=== PATIENT | female | born 1935 | race Caucasian/White ===

== ENCOUNTER 2020-02-29 10:37 | Outpatient (REF) | payer MEDICARE, OTHER, SELFPAY ==
[2020-02-29 12:16] LABS: Estimated Average Glucose 134 mg/dL; Hemoglobin A1c % 6.3 %
[2020-02-29 12:32] LABS: Cholesterol 172 mg/dL; HDL Cholesterol 67 mg/dL; LDL Cholesterol Calculated 94 mg/dl; Triglycerides 56 mg/dL
== END 2020-02-29 10:38 | disposition home or self-care (01) ==
LOC: HO.LAB 10:37
PROVIDERS: Visit Provider Internal Medicine
DX: E11.9 Type 2 diabetes mellitus without complications (principal)
CPT/HCPCS: 80061; 83036

== ENCOUNTER → 2020-05-02 10:58 | Outpatient (BNVA) | payer MEDICARE, OTHER, SELFPAY | PROVIDERS: PCP Internal Medicine; Visit Provider Internal Medicine | DX: I50.32 Chronic diastolic (congestive) heart failure (principal); I27.20 Pulmonary hypertension, unspecified; I05.9 Rheumatic mitral valve disease, unspecified | CPT/HCPCS: 93005; 99212 ==

== ENCOUNTER 2020-09-09 11:21 | Outpatient (REF) | payer MEDICARE, OTHER, SELFPAY ==
[2020-09-09 12:31] LABS: MANUAL DIFF FLAG NO
[2020-09-09 12:44] LABS: Basophils Absolute Auto 0.1 X10*3/uL (0.0-0.2); Basophils Percent Auto 1.2 % (0-2); Eosinophils Absolute Auto 0.2 X10*3/uL (0.0-0.4); Eosinophils Percent Auto 3.1 % (0-4); Hematocrit 36.5 % (37-47); Hemoglobin 11.4 g/dl (12.0-16.0); Imm Gran Abs Auto 0.02 X10*3/uL (0.00-0.03); Imm Gran Pct Auto 0.3 % (0.0-0.4); Lymphocytes Absolute Auto 1.1 X10*3/uL (1.2-4.9); Lymphocytes Percent Auto 16.3 % (20-40); Mean Corpuscular HGB Conc 31.2 g/dl (31.0-35.0); Mean Corpuscular Hemoglobin 28.4 pg (27.0-33.0); Mean Corpuscular Volume 90.8 fL (80-98); Mean Platelet Volume 11.4 fL (9.4-12.3); Monocytes Absolute Auto 0.7 X10*3/uL (0.1-1.2); Monocytes Percent Auto 9.7 % (2-11); Neutrophils Absolute Auto 4.6 X10*3/uL (2.0-8.3); Neutrophils Percent Auto 69.4 % (45-73); Platelet Count 301 X10*3/uL (160-400); Red Blood Count 4.02 X10*6/uL (4.20-5.50); Red Cell Distribution Width 15.1 % (11.0-16.0); White Blood Count 6.7 X10*3/uL (4.8-10.8)
[2020-09-09 13:03] LABS: Alanine Aminotransferase 12 U/L (0-31); Albumin Level 4.4 g/dL (3.5-5.0); Alkaline Phosphatase 159 U/L (39-117); Anion Gap 15 (12-20); Aspartate Amino Transferase 19 U/L (5-31); Bilirubin Total 0.3 mg/dL (0.0-1.0); Blood Urea Nitrogen 39 mg/dL (9-16); Calcium 9.8 mg/dL (8.4-10.2); Carbon Dioxide 24 mmol/L (22-29); Chloride 106 mmol/L (96-108); Cholesterol 177 mg/dL; Estimated Average Glucose 151 mg/dL; Estimated Glomerular Filt Rate 42; Glucose Fasting 108 mg/dL (60-99); HDL Cholesterol 65 mg/dL; Hemoglobin A1c % 6.9 %; LDL Cholesterol Calculated 101 mg/dl; Potassium 4.2 mmol/L (3.3-5.1); Sodium 141 mmol/L (135-145); Total Protein 7.8 g/dL (6.5-8.0); Triglycerides 56 mg/dL
== END 2020-09-09 11:22 | disposition home or self-care (01) ==
LOC: HO.LAB 11:21
PROVIDERS: PCP Internal Medicine; Visit Provider Internal Medicine
DX: Z00.00 Encounter for general adult medical examination without abnormal findings (principal); E11.9 Type 2 diabetes mellitus without complications
CPT/HCPCS: 36415; 80053; 80061; 83036; 85025

== ENCOUNTER → 2020-10-31 10:47 | Outpatient (BNVA) | payer MEDICARE, OTHER, SELFPAY | PROVIDERS: PCP Internal Medicine; Referring Provider Internal Medicine; Visit Provider Internal Medicine | DX: I50.32 Chronic diastolic (congestive) heart failure (principal); I27.20 Pulmonary hypertension, unspecified; I05.9 Rheumatic mitral valve disease, unspecified | CPT/HCPCS: 99212 ==

== ENCOUNTER → 2020-12-02 11:03 | Outpatient (BNVA) | payer MEDICARE, OTHER, SELFPAY | PROVIDERS: PCP Internal Medicine | CPT/HCPCS: 51798; 99212 ==

== ENCOUNTER 2020-12-02 12:27 | Emergency (ER) | payer MEDICARE, OTHER, SELFPAY ==
--- NOTE | ~2020-12-02 | XR_ITS ---
EXAMINATION: XR HIP, LEFT CLINICAL INFORMATION: Status post fall now complaining of left-sided pain. COMPARISON: Left hip 03/06/2019 TECHNIQUE: Two views of the left hip. AP pelvis one view FINDINGS: There is intramedullary femoral iliana and a compression screw stabilizing a intertrochanteric fracture alignment. It is unchanged since 2019. There is no recurrent left hip fracture suspected. Hypertrophic bony changes are seen surrounding the left hip. There is no dislocation. The right hip joint is normal.. The SI joints are symmetrical and normal. There is mild osteopenia. There is loss of L5 vertebral height. XR/XR hip LT w PEL1V IMPRESSION: Stabilized left hip fracture with intramedullary femoral iliana and compression screw. No recurrent fracture seen involving the left hip. There is no acute fracture seen. The right hip joint appears unremarkable. There is mild osteopenia.
--- NOTE | ~2020-12-02 | XR_ITS ---
EXAMINATION: XR KNEE, LEFT CLINICAL INFORMATION: Status post fall. Left knee pain. COMPARISON: None TECHNIQUE: Four views of the left knee. FINDINGS: There is loss of medial and patellofemoral compartment joint space with periarticular spurring. No bony erosive changes, fracture or dislocation seen. The loose bodies are normal. There is diffuse osteopenia. XR/XR knee LT 3V IMPRESSION: Mild degenerative changes medial and patellofemoral compartment left knee.
[2020-12-02 12:38] VITALS: BP 160/68; PULSE 70; RESP 16; TEMP 37.1; O2SAT 95; BMI 27.1
--- NOTE | 2020-12-02 13:54 | ED_ITS ---
HPI - Fall General Chief Complaint: Fall Stated Complaint: fall, hip pain Time Seen by Provider: 12/02/20 13:02 Source: patient and family (Daughter at bedside) Mode of arrival: ambulatory (With cane) Limitations: no limitations History of Present Illness HPI Narrative: 85-year-old female presenting to the ED with her daughter at bedside after she had a mechanical fall prior to arrival outside of her doctor's office landing on her left knee. She reports that she misstepped and fell onto her left knee. Her daughter prevented her from falling further down. She did not hit her head or lose consciousness. She denies any symptoms prior to the fall. She reports left knee pain after the fall no other symptoms. She denies any other injuries complaints or concerns at this time. MD complaint: fall Onset (ago): minute(s) (Prior to arrival) Fall from: standing Fall witnessed: yes, by family Place fall occurred: street Loss of consciousness: none Symptoms prior to fall: none Context: tripped/slipped Location of injury - extremities: left: knee Severity: mild Quality: aching Associated symptoms (after fall): denies Related Data Home Medications Medication Instructions Recorded Confirmed pen needle, diabetic 31 gauge x #50 ea 03/04/20 10/31/20 3/16 simvastatin 40 mg tablet 40 mg PO DAILY 03/04/20 10/31/20 aspirin 81 mg tablet,delayed 81 mg PO DAILY 05/02/20 10/31/20 release multivitamin 1 tab PO DAILY 05/02/20 10/31/20 Previous Rx's Medication Instructions Recorded gemfibrozil 600 mg tablet 600 mg PO BID #120 tab 02/22/20 clotrimazole-betamethasone 1 1 applic TOPICAL BID #45 g 03/04/20 %-0.05 % topical cream metformin 1,000 mg tablet 1,000 mg PO BID #180 tab 04/05/20 insulin glargine 100 unit/mL (3 6 unit SUBCUT DAILY #15 ml 05/19/20 mL) subcutaneous pen (Basaglar KwikPen U-100 Insulin) omeprazole 20 mg capsule,delayed 20 mg PO BID #180 cap 05/26/20 release atenolol 50 mg tablet 50 mg PO DAILY #90 tab 05/30/20 furosemide 40 mg tablet 40 mg PO DAILY #90 tab 05/30/20 nifedipine 30 mg tablet,extended 30 mg PO DAILY #90 tab 05/30/20 release blood sugar diagnostic (FreeStyle #100 ea 09/12/20 Lite Strips) blood-glucose meter (FreeStyle #1 ea 09/12/20 Lite Meter) lancets 28 gauge #100 ea 09/12/20 oxybutynin chloride 15 mg 15 mg PO BID 30 Days #60 tab 11/17/20 tablet,extended release 24 hr acetaminophen 500 mg tablet 1,000 mg PO QID PRN #14 tab 12/02/20 (Tylenol Extra Strength) mirabegron 25 mg tablet,extended 25 mg PO DAILY 30 Days #30 tab 12/02/20 release 24 hr (Myrbetriq) tramadol 50 mg tablet 50 mg PO BID PRN #14 tab 12/02/20 Allergies Allergy/AdvReac Type Severity Reaction Status Date / Time Sulfa (Sulfonamide AdvReac Intermediate VOMITING Verified 12/02/20 11:19 Antibiotics) Review of Systems Review of Systems: Constitutional : No changes in activity, No lethargy, No recent prior head injury, No agitation, No increased fussiness ENT/Mouth : No Ear Pain, No Nasal discharge/drainage Eyes: No Eye Pain, No Swelling, No Redness, No Foreign Body, No Vision Changes Cardiovascular : No Chest Pain, No SOB Respiratory : No Cough Gastrointestinal : No Nausea, No Vomiting, No abdominal Pain Genitourinary : No Dysuria, No Urinary Frequency, No Urinary Incontinence, No Urgency, No Flank Pain Musculoskeletal : + joint pain, No neck stiffness, No back pain/injury Skin : No lacerations Neuro : No unsteady gait, No Paresthesias, No Loss of Consciousness, No altered mental status, No Headache Yes all other systems are reviewed and are negative [facility] Past Medical History Attestation statement: The following information was validated with the patient. Medical History Chronic heart failure with preserved ejection fraction (HFpEF) Diabetes mellitus History of renal failure Mitral annular calcification Overactive bladder Pulmonary hypertension Urinary frequency Urinary incontinence in female Surgical History History of appendectomy History of bilateral cataract extraction History of colonoscopy History of eye surgery History of hip replacement Family History Family History Father Cancer Mother Heart disease Social History Social History Alcohol intake: never Patient Tobacco Use Status: Former Tobacco user Quit Date: 14 years ago Advance Directives: No Advance Directives Information Provided: No Physical Exam Vital Signs: Vital Signs: Last Vital Signs Temp 98.7 F 12/02/20 12:38 Pulse 70 12/02/20 12:38 Resp 16 12/02/20 12:38 BP 160/68 H 12/02/20 12:38 Pulse Ox 95 12/02/20 12:38 Body Mass Index 27.1 vital signs have been reviewed as normal and appeared to be correct. Blood pressure normal. Heart rate normal. Respiration rate normal. Temperature normal. Oxygen saturation normal. Appearance: Alert. Oriented X3. No acute distress. Head: Normal external exam. Normocephalic. Atraumatic. No Hernandez signs noted. No raccoon eyes noted Eyes: PERRLA. EOMI. Conjunctiva and sclera normal. Eyelids normal. ENT: Pharynx normal. Uvula midline. Moist mucous membranes. Neck: Normal inspection. Neck supple. FROM. No adenopathy. CVS: Normal heart rate and rhythm. Heart sound normal. Pulses normal throughout. No murmurs/rales/gallops. Respiratory: No respiratory distress. Painless inspiration. Breath sounds normal. No wheezes/rales/rhonchi noted. Chest nontender. No accessory muscle usage noted or decreased air movement noted. Back: Full range of motion noted. No rashes/lesion/induration/fluctuance or signs of infection noted. Skin: Skin warm and dry. Normal skin color. Normal skin turgor. No rashes/lesions/lacerations noted. Extremities: Patient with tenderness palpation to left knee joint with a superficial abrasion at the patellar aspect. No ligamentous laxity is noted. No signs of infection or foreign bodies or active bleeding. No obvious deformities. Patient has full range of motion of the left knee joint. No lower extremity edema. Otherwise all other Extremities exhibit normal range of motion and nontender. Neuro: Oriented X 3. No motor deficit. No sensory deficit. Reflexes normal. Normal steady gait with cane No focal neuro deficits noted. Vascular: + radial pulses/+ 2 distal pedal pulses/+2 dorsalis pedis b/l. Normal cap refill. No cyanosis noted to upper extremity nails and lower extremity toes nails. Course Course Course Narrative: 85-year-old female presenting to the ED with complaints of left knee pain after she had a mechanical fall prior to arrival while she was leaving her doctor's office. No head injury loss of consciousness. No other injury complaints or concerns. No focal know that are noted. Patient has a normal steady gait. Mild tenderness palpation to left patella with a superficial abrasion no foreign bodies or active bleeding noted. X-ray obtained and revealed chronic changes no acute processes noted. Will DC home with symptomatic treatment instructions to return if any new or worsening symptoms to follow up with primary care provider. Patient and daughter at bedside understand and agree with this plan. MDM - Fall Medical Records Attestation: I reviewed the patient's medical records. Imaging Data Left knee x-ray: Attestation: I personally reviewed and interpreted this imaging study as follows: Radiologist's impression: FINDINGS: There is loss of medial and patellofemoral compartment joint space with periarticular spurring. No bony erosive changes, fracture or dislocation seen. The loose bodies are normal. There is diffuse osteopenia.? XR/XR knee LT 3V IMPRESSION: Mild degenerative changes medial and patellofemoral compartment left knee. Discharge Plan Discharge Clinical Impression: Fall, Abrasion of knee, left, Left knee sprain Patient Disposition: Home, Self-Care Instructions: Knee Sprain (ED), Fall Prevention for Older Adults (ED), Abrasion (ED) Prescriptions: New acetaminophen [Tylenol Extra Strength] 500 mg tablet 1,000 mg PO QID PRN (Reason: fever or pain) Qty: 14 RF: 0 tramadol 50 mg tablet 50 mg PO BID PRN (Reason: pain) Qty: 14 RF: 0 No Action gemfibrozil 600 mg tablet 600 mg PO BID Qty: 120 RF: 8 metformin 1,000 mg tablet 1,000 mg PO BID Qty: 180 RF: 8 Basaglar KwikPen U-100 Insulin 100 unit/mL (3 mL) insulin pen 6 unit subcut DAILY Qty: 15 RF: 8 omeprazole 20 mg capsule,delayed release(DR/EC) 20 mg PO BID Qty: 180 RF: 8 atenolol 50 mg tablet 50 mg PO DAILY Qty: 90 RF: 8 nifedipine 30 mg tablet extended release 30 mg PO DAILY Qty: 90 RF: 8 furosemide 40 mg tablet 40 mg PO DAILY Qty: 90 RF: 3 (DME) FreeStyle Lite Strips Strip See Rx Instructions .ROUTE .MEDSUPPLY Qty: 100 RF: 2 (DME) blood-glucose meter [FreeStyle Lite Meter] Kit See Rx Instructions .ROUTE .MEDSUPPLY Qty: 1 RF: 0 (DME) lancets 28 gauge misc See Rx Instructions .ROUTE .MEDSUPPLY Qty: 100 RF: 0 oxybutynin chloride 15 mg tablet extended release 24 hr 15 mg PO BID 30 Days Qty: 60 RF: 6 simvastatin 40 mg tablet 40 mg PO DAILY RF: 0 (DME) pen needle, diabetic 31 gauge x 3/16 needle See Rx Instructions ea subcut DAILY Qty: 50 RF: 0 clotrimazole-betamethasone 1-0.05 % cream 1 applic topical BID Qty: 45 RF: 8 aspirin 81 mg tablet,delayed release (DR/EC) 81 mg PO DAILY RF: 0 multivitamin Tablet 1 tab PO DAILY RF: 0 Myrbetriq 25 mg tablet extended release 24 hr 25 mg PO DAILY 30 Days Qty: 30 RF: 1 Referrals: Kali Cedillo MD [Primary Care Provider] - 2 days Print Language: Austrian
[2020-12-02] MEDS: Acetaminophen 325 MG TABLET 650 MG PO (14:09)
== END 2020-12-02 15:28 | disposition home or self-care (01) ==
PROVIDERS: Emergency Provider Emergency Medicine; PCP Internal Medicine
DX: S80.212A Abrasion, left knee, initial encounter (principal); S83.92XA Sprain of unspecified site of left knee, initial encounter; M25.562 Pain in left knee; W01.0XXA Fall on same level from slipping, tripping and stumbling without subsequent striking against object, initial encounter; Y93.9 Activity, unspecified; Y92.9 Unspecified place or not applicable; Y99.9 Unspecified external cause status; Z79.899 Other long term (current) drug therapy; Z87.891 Personal history of nicotine dependence
CPT/HCPCS: 51798; 73502; 73562; 99212; 99283

== ENCOUNTER → 2021-03-03 10:25 | Outpatient (BNVA) | payer MEDICARE, OTHER, SELFPAY | PROVIDERS: PCP Internal Medicine ==

== ENCOUNTER 2021-03-27 11:36 | Outpatient (REF) | payer MEDICARE, OTHER, SELFPAY ==
[2021-03-27 11:55] LABS: MANUAL DIFF FLAG NO
[2021-03-27 12:49] LABS: Basophils Absolute Auto 0.1 X10*3/uL (0.0-0.2); Eosinophils Absolute Auto 0.2 X10*3/uL (0.0-0.4); Eosinophils Percent Auto 2.3 % (0-4); Hematocrit 35.8 % (37.0-47.0); Hemoglobin 11.1 g/dl (12.0-16.0); Imm Gran Abs Auto 0.02 X10*3/uL (0.00-0.03); Imm Gran Pct Auto 0.2 % (0.0-0.4); Lymphocytes Absolute Auto 1.1 X10*3/uL (1.2-4.9); Lymphocytes Percent Auto 13.8 % (20-40); Mean Corpuscular Hemoglobin 27.9 pg (27.0-33.0); Mean Corpuscular Volume 89.9 fL (80.0-98.0); Mean Platelet Volume 11.3 fL (9.4-12.3); Monocytes Absolute Auto 0.6 X10*3/uL (0.1-1.2); Neutrophils Absolute Auto 6.2 x10*3/uL (2.0-8.3); Neutrophils Percent Auto 75.7 % (45-73); Platelet Count 382 X10*3/uL (160-400); Red Blood Count 3.98 X10*6/uL (4.20-5.50); Red Cell Distribution Width 15.6 % (11.0-16.0); White Blood Count 8.2 X10*3/uL (4.8-10.8)
[2021-03-27 12:57] LABS: Estimated Average Glucose 148 mg/dL; Hemoglobin A1C 149.6124 umol/L; Hemoglobin A1c % 6.8 %
[2021-03-27 13:19] LABS: Alanine Aminotransferase 10 U/L (0-31); Albumin Level 4.3 g/dL (3.5-5.0); Alkaline Phosphatase 153 U/L (39-117); Anion Gap 19 (12-20); Aspartate Amino Transferase 19 U/L (5-31); Bilirubin Total 0.4 mg/dL (0.0-1.0); Blood Urea Nitrogen 49 mg/dL (9-16); Calcium 10.1 mg/dL (8.4-10.2); Carbon Dioxide 20 mmol/L (22-29); Chloride 107 mmol/L (96-108); Cholesterol 170 mg/dL; Estimated Glomerular Filt Rate 38; Glucose Fasting 111 mg/dL (60-99); HDL Cholesterol 63 mg/dL; LDL Cholesterol Calculated 95 mg/dl; Potassium 4.7 mmol/L (3.3-5.1); Sodium 141 mmol/L (135-145); Total Protein 7.9 g/dL (6.5-8.0); Triglycerides 60 mg/dL
[2021-03-27 13:43] LABS: Thyroid Stimulating Hormone 1.18 uIU/mL (0.32-4.0)
== END 2021-03-27 11:37 | disposition home or self-care (01) ==
LOC: HO.LAB 11:36
PROVIDERS: PCP Internal Medicine; Visit Provider Internal Medicine
DX: Z00.00 Encounter for general adult medical examination without abnormal findings (principal); E11.9 Type 2 diabetes mellitus without complications
CPT/HCPCS: 36415; 80053; 80061; 83036; 84443; 85025

== ENCOUNTER 2021-09-11 10:31 | Outpatient (REF) | payer MEDICARE, OTHER, SELFPAY ==
[2021-09-11 10:56] LABS: MANUAL DIFF FLAG NO
[2021-09-11 12:06] LABS: Basophils Absolute Auto 0.1 X10*3/uL (0.0-0.2); Basophils Percent Auto 1.1 % (0-2); Eosinophils Absolute Auto 0.3 X10*3/uL (0.0-0.4); Eosinophils Percent Auto 5.3 % (0-4); Hemoglobin 10.8 g/dl (12.0-16.0); Imm Gran Abs Auto 0.02 X10*3/uL (0.00-0.03); Imm Gran Pct Auto 0.3 % (0.0-0.4); Lymphocytes Absolute Auto 1.1 X10*3/uL (1.2-4.9); Lymphocytes Percent Auto 17.9 % (20-40); Mean Corpuscular HGB Conc 30.9 g/dl (31.0-35.0); Mean Corpuscular Hemoglobin 28.4 pg (27.0-33.0); Mean Corpuscular Volume 92.1 fL (80.0-98.0); Mean Platelet Volume 11.6 fL (9.4-12.3); Monocytes Absolute Auto 0.7 X10*3/uL (0.1-1.2); Monocytes Percent Auto 11.2 % (2-11); Neutrophils Percent Auto 64.2 % (45-73); Platelet Count 332 X10*3/uL (160-400); Red Cell Distribution Width 15.3 % (11.0-16.0); White Blood Count 6.2 X10*3/uL (4.8-10.8)
[2021-09-11 12:14] LABS: Estimated Average Glucose 157 mg/dL; Hemoglobin A1c % 7.1 %
[2021-09-11 12:23] LABS: Alanine Aminotransferase 14 U/L (0-31); Albumin Level 4.1 g/dL (3.5-5.0); Alkaline Phosphatase 130 U/L (39-117); Anion Gap 14 (12-20); Aspartate Amino Transferase 19 U/L (5-31); Bilirubin Total 0.3 mg/dL (0.0-1.0); Blood Urea Nitrogen 43 mg/dL (9-16); Calcium 9.7 mg/dL (8.4-10.2); Carbon Dioxide 23 mmol/L (22-29); Chloride 107 mmol/L (96-108); Cholesterol 180 mg/dL; Estimated Glomerular Filt Rate 36; Glucose Fasting 142 mg/dL (60-99); HDL Cholesterol 53 mg/dL; LDL Cholesterol Calculated 103 mg/dl; Potassium 5.3 mmol/L (3.3-5.1); Sodium 139 mmol/L (135-145); Total Protein 7.7 g/dL (6.5-8.0); Triglycerides 121 mg/dL
[2021-09-11 12:46] LABS: Thyroid Stimulating Hormone 2.81 uIU/mL (0.32-4.0)
== END 2021-09-11 10:32 | disposition home or self-care (01) ==
LOC: HO.LAB 10:31
PROVIDERS: PCP Internal Medicine; Visit Provider Internal Medicine
DX: Z00.00 Encounter for general adult medical examination without abnormal findings (principal); Z13.0 Encounter for screening for diseases of the blood and blood-forming organs and certain disorders involving the immune mechanism; Z13.9 Encounter for screening, unspecified; E11.9 Type 2 diabetes mellitus without complications
CPT/HCPCS: 36415; 80053; 80061; 83036; 84443; 85025

== ENCOUNTER → 2021-12-11 14:40 | Outpatient (BNVA) | payer MEDICARE, OTHER, SELFPAY | PROVIDERS: PCP Internal Medicine; Referring Provider Internal Medicine; Visit Provider Internal Medicine | DX: I11.0 Hypertensive heart disease with heart failure (principal); I50.32 Chronic diastolic (congestive) heart failure; I05.9 Rheumatic mitral valve disease, unspecified; I27.20 Pulmonary hypertension, unspecified; Z79.899 Other long term (current) drug therapy | CPT/HCPCS: 93005; 99212 ==

== ENCOUNTER 2022-03-05 10:50 | Outpatient (REF) | payer MEDICARE, OTHER, SELFPAY ==
[2022-03-05 11:06] LABS: MANUAL DIFF FLAG NO
[2022-03-05 11:39] LABS: Basophils Absolute Auto 0.1 X10*3/uL (0.0-0.2); Basophils Percent Auto 1.1 % (0-2); Eosinophils Absolute Auto 0.2 X10*3/uL (0.0-0.4); Eosinophils Percent Auto 2.5 % (0-4); Hematocrit 34.3 % (37.0-47.0); Hemoglobin 10.9 g/dl (12.0-16.0); Imm Gran Abs Auto 0.03 X10*3/uL (0.00-0.03); Imm Gran Pct Auto 0.4 % (0.0-0.4); Lymphocytes Absolute Auto 1.2 X10*3/uL (1.2-4.9); Lymphocytes Percent Auto 14.5 % (20-40); Mean Corpuscular HGB Conc 31.8 g/dl (31.0-35.0); Mean Corpuscular Hemoglobin 28.1 pg (27.0-33.0); Mean Corpuscular Volume 88.4 fL (80.0-98.0); Mean Platelet Volume 11.4 fL (9.4-12.3); Monocytes Absolute Auto 0.7 X10*3/uL (0.1-1.2); Monocytes Percent Auto 9.1 % (2-11); Neutrophils Absolute Auto 5.9 x10*3/uL (2.0-8.3); Neutrophils Percent Auto 72.4 % (45-73); Platelet Count 337 X10*3/uL (160-400); Red Blood Count 3.88 X10*6/uL (4.20-5.50); Red Cell Distribution Width 15.8 % (11.0-16.0); White Blood Count 8.1 X10*3/uL (4.8-10.8)
[2022-03-05 12:44] LABS: Thyroid Stimulating Hormone 2.37 uIU/mL (0.32-4.0)
[2022-03-05 13:16] LABS: Alanine Aminotransferase 11 U/L (0-31); Albumin Level 4.5 g/dL (3.5-5.0); Alkaline Phosphatase 177 U/L (39-117); Anion Gap 22 (12-20); Aspartate Amino Transferase 20 U/L (5-31); Bilirubin Total 0.3 mg/dL (0.0-1.0); Blood Urea Nitrogen 71 mg/dL (9-16); Calcium 9.8 mg/dL (8.4-10.2); Carbon Dioxide 17 mmol/L (22-29); Chloride 106 mmol/L (96-108); Cholesterol 194 mg/dL; Estimated Glomerular Filt Rate 26; Glucose Fasting 109 mg/dL (60-99); HDL Cholesterol 62 mg/dL; LDL Cholesterol Calculated 117 mg/dl; Sodium 140 mmol/L (135-145); Total Protein 8.2 g/dL (6.5-8.0); Triglycerides 77 mg/dL
== END 2022-03-05 10:51 | disposition home or self-care (01) ==
LOC: HO.LAB 10:50
PROVIDERS: PCP Internal Medicine; Visit Provider Internal Medicine
DX: Z13.0 Encounter for screening for diseases of the blood and blood-forming organs and certain disorders involving the immune mechanism (principal); I10 Essential (primary) hypertension; E78.5 Hyperlipidemia, unspecified; E03.9 Hypothyroidism, unspecified
CPT/HCPCS: 36415; 80053; 80061; 84443; 85025

== ENCOUNTER 2022-04-13 12:17 | Outpatient (REF) | payer MEDICARE, OTHER, SELFPAY ==
[2022-04-13 13:15] LABS: Anion Gap 16 (12-20); Blood Urea Nitrogen 67 mg/dL (9-16); Calcium 9.2 mg/dL (8.4-10.2); Carbon Dioxide 17 mmol/L (22-29); Chloride 109 mmol/L (96-108); Estimated Glomerular Filt Rate 26; Glucose Random 139 mg/dL (60-115); Potassium 5.5 mmol/L (3.3-5.1); Sodium 136 mmol/L (135-145)
== END 2022-04-13 12:18 | disposition home or self-care (01) ==
LOC: HO.LAB 12:17
PROVIDERS: PCP Internal Medicine; Visit Provider Internal Medicine
DX: R51.9 Headache, unspecified (principal)
CPT/HCPCS: 36415; 80048

== ENCOUNTER → 2022-06-18 10:41 | Outpatient (BNVA) | payer MEDICARE, OTHER, SELFPAY | PROVIDERS: PCP Internal Medicine; Referring Provider Internal Medicine; Visit Provider Internal Medicine | DX: I11.0 Hypertensive heart disease with heart failure (principal); I50.32 Chronic diastolic (congestive) heart failure; I05.9 Rheumatic mitral valve disease, unspecified; I27.20 Pulmonary hypertension, unspecified | CPT/HCPCS: 93005; 99212 ==

== ENCOUNTER 2022-06-22 11:09 | Outpatient (REF) | payer MEDICARE, OTHER, SELFPAY ==
[2022-06-22 11:18] LABS: MANUAL DIFF FLAG NO
[2022-06-22 12:27] LABS: Basophils Absolute Auto 0.1 X10*3/uL (0.0-0.2); Basophils Percent Auto 1.1 % (0-2); Eosinophils Absolute Auto 0.2 X10*3/uL (0.0-0.4); Eosinophils Percent Auto 3.2 % (0-4); Hematocrit 34.9 % (37.0-47.0); Hemoglobin 10.8 g/dl (12.0-16.0); Imm Gran Abs Auto 0.02 X10*3/uL (0.00-0.03); Imm Gran Pct Auto 0.3 % (0.0-0.4); Lymphocytes Absolute Auto 0.9 X10*3/uL (1.2-4.9); Lymphocytes Percent Auto 13.1 % (20-40); Mean Corpuscular HGB Conc 30.9 g/dl (31.0-35.0); Mean Corpuscular Hemoglobin 27.8 pg (27.0-33.0); Mean Corpuscular Volume 89.7 fL (80.0-98.0); Mean Platelet Volume 11.4 fL (9.4-12.3); Monocytes Absolute Auto 0.7 X10*3/uL (0.1-1.2); Monocytes Percent Auto 10.1 % (2-11); Neutrophils Absolute Auto 4.8 x10*3/uL (2.0-8.3); Neutrophils Percent Auto 72.2 % (45-73); Platelet Count 375 X10*3/uL (160-400); Red Blood Count 3.89 X10*6/uL (4.20-5.50); Red Cell Distribution Width 15.2 % (11.0-16.0); White Blood Count 6.6 X10*3/uL (4.8-10.8)
[2022-06-22 12:58] LABS: Alanine Aminotransferase 10 U/L (0-31); Albumin Level 4.2 g/dL (3.5-5.0); Alkaline Phosphatase 208 U/L (39-117); Anion Gap 19 (12-20); Aspartate Amino Transferase 14 U/L (5-31); Bilirubin Total 0.4 mg/dL (0.0-1.0); Blood Urea Nitrogen 59 mg/dL (9-16); Calcium 9.6 mg/dL (8.4-10.2); Carbon Dioxide 22 mmol/L (22-29); Chloride 104 mmol/L (96-108); Cholesterol 194 mg/dL; Estimated Glomerular Filt Rate 27; Glucose Fasting 130 mg/dL (60-99); HDL Cholesterol 64 mg/dL; LDL Cholesterol Calculated 116 mg/dl; Potassium 5.2 mmol/L (3.3-5.1); Sodium 140 mmol/L (135-145); Total Protein 7.7 g/dL (6.5-8.0); Triglycerides 70 mg/dL
[2022-06-22 12:59] LABS: Estimated Average Glucose 171 mg/dL; Hemoglobin A1c % 7.6 %
[2022-06-22 13:00] LABS: Thyroid Stimulating Hormone 1.81 uIU/mL (0.32-4.0)
== END 2022-06-22 11:10 | disposition home or self-care (01) ==
LOC: HO.LAB 11:09
PROVIDERS: PCP Internal Medicine; Visit Provider Internal Medicine
DX: E03.9 Hypothyroidism, unspecified (principal); D64.9 Anemia, unspecified; R73.9 Hyperglycemia, unspecified; E78.5 Hyperlipidemia, unspecified; N28.9 Disorder of kidney and ureter, unspecified
CPT/HCPCS: 36415; 80053; 80061; 83036; 84443; 85025

== ENCOUNTER 2022-10-03 10:48 | Outpatient (REF) | payer MEDICARE, OTHER, SELFPAY ==
[2022-10-03 12:55] LABS: Alanine Aminotransferase 5 U/L (0-31); Albumin Level 3.8 g/dL (3.5-5.0); Alkaline Phosphatase 211 U/L (39-117); Anion Gap 15 (12-20); Aspartate Amino Transferase 11 U/L (5-31); Bilirubin Total 0.4 mg/dL (0.0-1.0); Blood Urea Nitrogen 45 mg/dL (9-16); Calcium 9.2 mg/dL (8.4-10.2); Carbon Dioxide 17 mmol/L (22-29); Chloride 114 mmol/L (96-108); Estimated Average Glucose 157 mg/dL; Estimated Glomerular Filt Rate 25; Glucose Fasting 117 mg/dL (60-99); Hemoglobin A1c % 7.1 %; Potassium 5.1 mmol/L (3.3-5.1); Sodium 141 mmol/L (135-145); Total Protein 8.1 g/dL (6.5-8.0)
== END 2022-10-03 10:49 | disposition home or self-care (01) ==
LOC: HO.LAB 10:48
PROVIDERS: PCP Internal Medicine; Visit Provider Internal Medicine
DX: R73.9 Hyperglycemia, unspecified (principal); N28.9 Disorder of kidney and ureter, unspecified
CPT/HCPCS: 36415; 80053; 83036

== ENCOUNTER → 2022-11-27 13:07 | Outpatient (REF) | payer MEDICARE, OTHER, SELFPAY ==
--- NOTE | 2022-11-27 13:10 | CA_ITS ---
Transthoracic Echocardiogram Patient (Last, First, Middle): Kimberly Gutierrez A Gender: Female Date of : 1935 Age: 87 Procedure Date: 11/27/2022 Procedure Type: Transthoracic Echocardiogram Location: OP Height: 160.02 cm Weight: 77.11 kg BSA: 1.80 m2 Heart Rate: bpm BP: 122 / 65 mmHg Slide Forming Machine Operator: Referring MD: Reji Mac MD Symptoms: I50.32 - Chronic diastolic (congestive) heart failure Study Quality: Good ECG Rhythm: Sinus Conclusions: - The left ventricular systolic function is normal. The calculated ejection fraction is 64% by biplane method. - Evidence suggests grade II (moderate) diastolic dysfunction. - The left atrium is severely dilated. - There is mild to moderate aortic valve stenosis. - There is moderate mitral annular calcification. Findings Left Ventricle Normal left ventricular cavity size. There is mildly increased left ventricular wall thickness. The left ventricular systolic function is normal. The calculated ejection fraction is 64% by biplane method. There is no evidence of regional wall motion abnormalities. Evidence suggests grade II (moderate) diastolic dysfunction. Possible basal inferior hypokinesis. Right Ventricle Mildly increased right ventricular cavity size. There is normal right ventricular systolic function. Atria The left atrium is severely dilated. The right atrium is normal in size. Aortic Valve There is moderate calcification of the aortic valve. There is mild to moderate aortic valve stenosis. The mean gradient is 13 mmHg. The aortic valve area is 1.26 cm2. There is no aortic valve regurgitation. Mitral Valve There is moderate mitral annular calcification. There is mild mitral valve regurgitation. There is no mitral valve stenosis. Pulmonic Valve The pulmonic valve is likely normal. Tricuspid Valve Normal tricuspid valve structure. There is mild tricuspid valve regurgitation. Mild pulmonary hypertension is present. Great Vessels The asc aorta is normal in size. Venous The inferior vena cava is normal in size and collapses greater than 50% with inspiration. Pericardium/Pleural There is no evidence of pericardial effusion. Prior Study Comparison No significant change compared to prior study dated: 12/29/2018. Measurements 2D Linear Measurements IVSd: 1.20 0.6-0.9/0.6-1.0 cm LVIDd: 4.90 3.9-5.3/4.2-5.9 cm LVIDd Index: 2.72 2.4-3.2/2.2-3.1 cm/m2 LVIDs: 3.40 2.0-3.6 cm LVPWd: 1.20 0.7-1.1 cm Ao Root: 2.90 2.1-3.5 cm LA Diam: 4.00 2.7-3.8/3.0-4.0 cm LAIDs Index: 2.22 1.5-2.3 cm/m2 LV Mass: 282.22 67-162/88-224 g LV Mass Index: 156.79 43-95/49-115 g/m2 LVOT Diam: 2.10 3.0+(-)1.3 cm 2D Systolic Function EF 4C: 68.70 >55% EF 2C: 56.40 >55% EF BiP: 64.20 >55% Mitral Valve MV VTI: 0.50 MV Pk Jonnie: 1.43 MV Mn Jonnie: 0.80 MV Pk Grad: 8.00 MV Mn Grad: 3.00 MV Pk E: 1.45 MV PK A: 0.96 MV Decel Time: 184.00 E/A: 1.50 E'Lateral: 8.05 E'Medial: 5.22 E/E' Med: 27.80 E/E' Lat: 18.00 PHT: 54.00 MVA PHT: 4.07 MVA Continuity: 1.67 Decel Thomas: 7.89 Aortic Valve AoV Pk Jonnie: 2.30 AoV Mn Jonnie: 1.65 AoV VTI: 0.67 AoV Pk Grad: 21.00 Aov Mn Grad: 13.00 MARLEN Cont.VTI: 1.26 LVOT LVOT Pk Jonnie: 0.86 LVOT Mn Jonnie: 0.58 LVOT VTI: 0.24 LVOT Pk Grad: 3.00 LVOT Mn Grad: 2.00 LVOT Diam: 2.10 LVOT Area: 3.46 Diastolic Function MV Pk E: 1.45 MV Pk A: 0.96 E/A: 1.50 E'Medial: 5.22 E/E' Med: 27.80 E' Laterial: 8.05 E/E' Lat: 18.00 Right Ventricle TAPSE (mm): 36.00 TVS' Jonnie: 11.00 Tricuspid Valve TR Pk Jonnie: 3.17 TR Pk Grad: 40.00 RA Press: 3.00 RVSP: 43.00 Great Vessels Aorta Ao Root-2D: 2.90 2.0-3.7 cm Ao Asc: 3.40 2.1-3.4 cm Pulmonary Valve PV Pk Jonnie: 1.62 Peak PV Grad: 10.00 Updated in Other Vendor System with Status of Final Reji Mac MD electronically signed on 11/27/2022 3:24:18 PM with status of Final
== END ==
LOC: HO.CARD 13:07
PROVIDERS: PCP Internal Medicine; Visit Provider Internal Medicine
DX: I50.32 Chronic diastolic (congestive) heart failure (principal)
CPT/HCPCS: 93306

== ENCOUNTER → 2022-11-27 13:10 | Outpatient (BNV) | payer MEDICARE, OTHER, SELFPAY | PROVIDERS: PCP Internal Medicine; Visit Provider Internal Medicine | DX: I35.0 Nonrheumatic aortic (valve) stenosis (principal) | CPT/HCPCS: 93306 ==

== ENCOUNTER 2022-12-17 10:32 | Outpatient (AMB) | payer MEDICARE, OTHER, SELFPAY ==
--- NOTE | 2022-12-17 10:45 | A.OFFVIS_ITS ---
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 Required: No Accompanied by: Daughter Allergies Sulfa (Sulfonamide Antibiotics) Adverse Reaction (Intermediate, Verified 12/17/22 10:51) VOMITING Medication List - Last Reconciled 12/17/22 by Reji Mac MD acetaminophen (Tylenol Extra Strength) 1,000 mg (2 x 500 mg) PO QID PRN aspirin 81 mg PO DAILY atenolol 50 mg PO DAILY blood sugar diagnostic (FreeStyle Lite Strips) TEST 3 TIMES DAILY blood-glucose meter (FreeStyle Lite Meter kit) TEST 3 TIMES DAILY clotrimazole-betamethasone 1-0.05 % apply twice a day topical 2 times a day; furosemide 40 mg PO DAILY gemfibrozil 600 mg PO BID insulin glargine (Basaglar KwikPen U-100 Insulin) 6 units (0.06 mL) subcut DAILY lancets TEST 3 TIMES DAILY metformin 1,000 mg PO BID mirabegron ER (Myrbetriq) 25 mg PO DAILY 30 days multivitamin 1 tab PO DAILY nifedipine ER 90 mg PO DAILY omeprazole 20 mg PO BID oxybutynin chloride ER 15 mg PO BID 90 days pen needle, diabetic As directed simvastatin 40 mg PO DAILY trazodone 100 mg PO BEDTIME PRN HPI HPI Comments History of Present Illness Details Kimberly returns for follow-up regarding diastolic congestive heart failure. More recently, her leg swelling has been getting worse. However, she states that correlated with increase in the dose for nifedipine which in turn was done because of high blood pressure. Shortness of breath seems to be at baseline. No angina. [facility] Medical History (Updated 12/17/22 @ 11:57 by Reji Mac MD) Chronic heart failure with preserved ejection fraction (HFpEF) Diabetes mellitus History of renal failure Hyperlipidemia Insomnia Mitral annular calcification Overactive bladder Pulmonary hypertension Urinary frequency Urinary incontinence in female Surgical History History of appendectomy History of bilateral cataract extraction History of colonoscopy History of eye surgery History of hip replacement Family History Father Cancer Mother Heart disease Social History Housing: House Alcohol intake: never Patient Tobacco Use Status: Former Tobacco user Quit Date: 14 years ago Tobacco use type: Cigarette e-Cigarette/Vaping Use: Never Used Second Hand Smoke Exposure: No service: No Current occupational status: retired Cognitive needs: Yes (cane) Hearing needs: No Vision needs: Yes (glasses) Review of Systems Const Denies weakness ENT Denies dizziness Card Denies chest pain, Denies chest pain with activity, Denies syncope, Denies rapid heart rate, Denies pedal edema, Denies edema, Denies leg edema, Denies lightheadedness, Denies palpitations, Denies dyspnea, Denies dyspnea on exertion and Denies orthopnea Resp Denies cough, Denies dyspnea and Denies dyspnea on exertion GI Denies hematochezia and Denies change in stool character Musc Denies abnormal gait, Denies muscle cramps, Denies muscle weakness, Denies numbness, Denies radiating pain into limb and Denies tingling Neuro Denies abnormal gait, Denies dizziness, Denies syncope, Denies numbness, Denies tingling and Denies weakness Endo Denies palpitations Physical Exam Vital Signs: Last Vital Signs Pulse 68 12/17/22 10:47 BP 102/52 L 12/17/22 10:47 BMI result Body Mass Index 29.0 Const General: comfortable and no acute distress Orientation/consciousness: patient oriented x3 HEENT Other: Unremarkable Head: Yes normal to inspection Neck Neck: Yes normal visual inspection Chest Chest palpation & inspection: normal inspection of the chest Resp Other: some rhonchi Cardio Palpation: normal PMI Heart sounds: S1 normal heart sound present, S2 normal heart sound present, no gallops, Murmur heart sound present systolic III/ and at the right sternal border and no rubs GI Palpation (GI): Soft to palpation Back/Spine/Pelvis Other: unremarkable Skin General skin exam: no rashes or lesions noted Neuro General: patient oriented x3 Extrem Other: redness, 2+ edema Psych Mental Status: mental status grossly normal Assessment & Plan Assessment & Plan (1) Chronic heart failure with preserved ejection fraction (HFpEF): Code(s): I50.32 - Chronic diastolic (congestive) heart failure (2) Mitral annular calcification: Code(s): I05.9 - Rheumatic mitral valve disease, unspecified (3) Nonrheumatic aortic (valve) stenosis: Code(s): I35.0 - Nonrheumatic aortic (valve) stenosis (4) Pulmonary hypertension: Code(s): I27.20 - Pulmonary hypertension, unspecified (5) Essential hypertension: Code(s): I10 - Essential (primary) hypertension Plan Most recent echocardiogram reviewed. LVEF 64%. No wall motion abnormalities. Moderate diastolic dysfunction. Possible basal inferior hypokinesis. [id number] aortic stenosis. Moderate mitral annular calcification with mild regurgitation. Mild pulmonary hypertension. IVC normal in size with normal respiratory variation. Her leg swelling which has increased recently could be related to nifedipine but not entirely clear. Patient however feels that is the case as is her daughter. As the IVC size and collapsibility are okay, less likely that this is all heart failure. No need to change diuretic dosing especially with renal failure history. Hence we will go back to her old dose of nifedipine ER which was 30 mg daily. Advised to monitor blood pressures at home. If they start going back again, may need to use another agent like hydralazine. She has high creatinine as well as hypertension and hence not suitable for SONI inhibitors or ARB or spironolactone. Due to her age, frailty, comorbidities, not a candidate for aggressive ischemic workup. Plan discussed with daughter who came for appointment. Medications: New nifedipine ER 30 mg PO DAILY 90 tabs 3RF Discontinued nifedipine ER Discontinued Reason: Doctor's Order 90 mg PO DAILY 30 tabs 5RF Coding Level of Care Code Est Pt Level 4 (48938) Diagnoses Chronic heart failure with preserved ejection fraction (HFpEF) I50.32 Mitral annular calcification I05.9 Nonrheumatic aortic (valve) stenosis I35.0 Pulmonary hypertension I27.20 Essential hypertension I10
[2022-12-17 10:47] VITALS: BP 102/52; PULSE 68; BMI 29.0
== END 2022-12-17 11:16 | disposition home or self-care (01) ==
PROVIDERS: PCP Internal Medicine; Referring Provider Internal Medicine; Visit Provider Internal Medicine
DX: I50.32 Chronic diastolic (congestive) heart failure (principal); I05.9 Rheumatic mitral valve disease, unspecified; I35.0 Nonrheumatic aortic (valve) stenosis; I27.20 Pulmonary hypertension, unspecified; I10 Essential (primary) hypertension
CPT/HCPCS: 99214

== ENCOUNTER → 2022-12-17 10:32 | Outpatient (BNVA) | payer MEDICARE, OTHER, SELFPAY | PROVIDERS: PCP Internal Medicine; Referring Provider Internal Medicine; Visit Provider Internal Medicine | DX: I11.0 Hypertensive heart disease with heart failure (principal); I50.32 Chronic diastolic (congestive) heart failure; I05.9 Rheumatic mitral valve disease, unspecified; I35.0 Nonrheumatic aortic (valve) stenosis; I27.20 Pulmonary hypertension, unspecified | CPT/HCPCS: 99212 ==

== ENCOUNTER 2023-01-02 11:06 | Outpatient (AMB) | payer MEDICARE, OTHER, SELFPAY ==
[2023-01-02 11:08] VITALS: BP 128/46; PULSE 55; O2SAT 98; BMI 28.1
--- NOTE | 2023-01-02 11:08 | A.OFFPC_ITS ---
Vital Signs 01/02/23 11:08 Height 5 ft 4 in Weight 163 lb 8 oz BMI 28.1 BP 128/46 L Blood Pressure Location Lt brachial Position Sitting Pulse 55 Pulse Source Pulse Oximeter Pulse Oximetry (%) 98 Oxygen Delivery Method Room Air Intake Visit Reasons: 3 month f/u [employer] Maintenance: Present Allergies Sulfa (Sulfonamide Antibiotics) Adverse Reaction (Intermediate, Verified 01/02/23 11:08) VOMITING Medication List - Last Reconciled 01/02/23 by Kali Cedillo MD acetaminophen (Tylenol Extra Strength) 1,000 mg (2 x 500 mg) PO QID PRN aspirin 81 mg PO DAILY atenolol 50 mg PO DAILY blood sugar diagnostic (FreeStyle Lite Strips) TEST 3 TIMES DAILY blood-glucose meter (FreeStyle Lite Meter kit) TEST 3 TIMES DAILY clotrimazole-betamethasone 1-0.05 % apply twice a day topical 2 times a day; furosemide 40 mg PO DAILY gemfibrozil 600 mg PO BID insulin glargine (Basaglar KwikPen U-100 Insulin) 6 units (0.06 mL) subcut DAILY lancets TEST 3 TIMES DAILY metformin 1,000 mg PO BID mirabegron ER (Myrbetriq) 25 mg PO DAILY 30 days multivitamin 1 tab PO DAILY nifedipine ER 30 mg PO DAILY omeprazole 20 mg PO BID oxybutynin chloride ER 15 mg PO BID 90 days pen needle, diabetic As directed simvastatin 40 mg PO DAILY trazodone 100 mg PO BEDTIME PRN Tobacco use date assessed: 06/29/22 Fall risk assessment: No Falls in past year Last assessed Fall Risk: 01/02/23 Dental Screening Dental Screen Date: 01/02/23 Did you have a dental visit in the last 12 months?: No Did you have a dental problem in the last 6 months where you did not have access to dental care?: No Was dental information given to patient?: Patient has dentist HPI 3 month f/u HPI Details HTN hyperlipidemia and DM; stable and doing well [facility] Medical History Insomnia Hyperlipidemia Urinary incontinence in female Urinary frequency Overactive bladder History of renal failure Mitral annular calcification Pulmonary hypertension Chronic heart failure with preserved ejection fraction (HFpEF) Diabetes mellitus Surgical History History of colonoscopy History of hip replacement History of eye surgery History of bilateral cataract extraction History of appendectomy Family History Father Cancer Mother Heart disease Social History Housing: House Alcohol intake: never Patient Tobacco Use Status: Former Tobacco user Quit Date: 14 years ago Tobacco use type: Cigarette e-Cigarette/Vaping Use: Never Used Second Hand Smoke Exposure: No service: No Current occupational status: retired Cognitive needs: Yes (cane) Hearing needs: No Vision needs: Yes (glasses) Questionnaire PHQ-9 Over the last 2 weeks, how often have you been bothered by any of the following problems? 1. Little interest or pleasure in doing things: not at all 2. Feeling down, depressed, or hopeless: not at all 3. Trouble falling or staying asleep, or sleeping too much: not at all 4. Feeling tired or having little energy: not at all 5. Poor appetite or overeating: not at all 6. Feeling bad about yourself - or that you are a failure or have let yourself or your family down: not at all 7. Trouble concentrating on things, such as reading the newspaper or watching television: not at all 8. Moving or speaking so slowly that other people could have noticed. Or the opposite - being so fidgety or restless that you have been moving around a lot more than usual: not at all 9. Thoughts that you would be better off or of hurting yourself in some way: not at all Total score: 0 Depression Screening Interpretation: Negative 79012 - PHQ-9 Billing: Yes Source: Developed by Drs. Edil Churchill, Kaylan Ascencio, Suhas Martins and colleagues, with an educational simi from [employer]. Thrive Questionnaire Date Thrive assessed: 06/29/22 AUDIT C Alcohol Use Questionnaire (AUDIT-C) 1. How often do you have a drink containing alcohol?: Never Total Score: 0 YASMINE-7 AMB Questionnaire YASMINE-7 Date YASMINE - 7 assessed: 06/29/22 Source: Developed by Drs. Edli Churchill, Suhsa Goodrichke and colleagues, with an educational simi from [employer]. Review of Systems Const Denies chills, Denies headache(s) and Denies weight loss ENT Denies headache(s) Card Denies chest pain, Denies syncope, Denies irregular heart rhythm and Denies dyspnea Resp Denies chest congestion, Denies cough and Denies dyspnea GI Denies abdominal pain, Denies change in stool character, Denies nausea and Denies vomiting Musc Denies deformity and Denies joint swelling Neuro Denies syncope and Denies headache(s) Physical exam (Primary Care) Vital Signs: Last Vital Signs Pulse 55 01/02/23 11:08 BP 128/46 L 01/02/23 11:08 Pulse Ox 98 01/02/23 11:08 Oxygen Delivery Method Room Air 01/02/23 11:08 BMI result Body Mass Index 28.1 Tobacco/Smoking Status: Tobacco use Status Tobacco use date assessed 06/29/22 01/02/23 11:09 Patient Tobacco Use Status Former Tobacco user 01/02/23 11:09 Tobacco use type Cigarette 01/02/23 11:09 e-Cigarette/Vaping Use Never Used 01/02/23 11:09 PHQ-9: PHQ-9 Score PHQ-9: Total score 0 01/02/23 11:26 Depression Screening Interpretation: Negative Thrive Assessment: Date of Thrive Assessment Date Thrive assessed 06/29/22 01/02/23 11:09 Const General: cooperative, comfortable, no acute distress and alert Neck Neck: Yes no lymphadenopathy Thyroid: Thyroid normal Resp Effort & Inspection: normal respiratory effort Auscultation: clear to auscultation bilaterally Percussion: percussion normal Cardio Jugular venous distension: no JVD Palpation: normal PMI Rate: regular rate Rhythm: regular rhythm Heart sounds: S1 normal heart sound present and S2 normal heart sound present GI Inspection: Yes normal to inspection Palpation (GI): No hepatosplenomegaly present Skin General skin exam: no rashes or lesions noted Extrem General: Yes no clubbing, cyanosis or edema Results AMB Hemoglobin A1c AMB Hemoglobin A1c 7.6 % Last Edit by THIERRY Bishop on 01/02/23 11:27 Results Reviewed Results Reviewed: Laboratory Last Values Hgb A1c (Clinic) 7.6 % (4.0-6.0) H 01/02/23 11:10 Assessment and Plan Assessment & Plan (1) Diabetes mellitus with coincident hypertension: Code(s): E11.9 - Type 2 diabetes mellitus without complications; I10 - Essential (primary) hypertension Plan: stable; smae rx (2) Essential hypertension: Code(s): I10 - Essential (primary) hypertension Plan: stable; same rx (3) Hyperlipidemia: Code(s): E78.5 - Hyperlipidemia, unspecified Plan: stable Orders: Orders AMB Hemoglobin A1c Today E11.9 - Type 2 diabetes mellitus without complications Thyroid Stimulating Hormone Today E03.9 - Hypothyroidism, unspecified Lipid Panel Today E78.5 - Hyperlipidemia, unspecified Complete Blood Count Auto Diff Today D64.9 - Anemia, unspecified Comprehensive [place]. Panel Fast Today N28.9 - Disorder of kidney and ureter, unspecified Hemoglobin A1c Today R73.9 - Hyperglycemia, unspecified Medications: Refilled blood sugar diagnostic (FreeStyle Lite Strips) TEST 3 TIMES DAILY 100 ea 2RF E11.9 - Type 2 diabetes mellitus without complications Coding Level of Care Code Est Pt Level 4 (63956) Diagnoses Diabetes mellitus with coincident hypertension E11.9; I10 Essential hypertension I10 Hyperlipidemia E78.5
== END 2023-01-02 11:39 | disposition home or self-care (01) ==
PROVIDERS: PCP Internal Medicine; Visit Provider Internal Medicine
DX: E11.9 Type 2 diabetes mellitus without complications (principal); I10 Essential (primary) hypertension; E78.5 Hyperlipidemia, unspecified
CPT/HCPCS: 83036; 99214

== ENCOUNTER 2023-01-24 10:22 | Outpatient (AMB) | payer MEDICARE, OTHER, SELFPAY ==
[2023-01-24 10:24] VITALS: BP 107/70; PULSE 50; O2SAT 92
--- NOTE | 2023-01-24 10:24 | MHC.PC.OV ---
Vital Signs 01/24/23 10:24 Height 5 ft 4 in BMI Reason not done Patient refused/unable BP 107/70 Blood Pressure Location Lt brachial Position Sitting Pulse 50 Pulse Source Pulse Oximeter Pulse Oximetry (%) 92 Oxygen Delivery Method Room Air Intake Visit Reasons: weak, shortness of breath, legs hurting Permanent Waver: Present Allergies Sulfa (Sulfonamide Antibiotics) Adverse Reaction (Intermediate, Verified 01/24/23 10:24) VOMITING Medication List - Last Reconciled 01/24/23 by Kali Cedillo MD acetaminophen (Tylenol Extra Strength) 1,000 mg (2 x 500 mg) PO QID PRN aspirin 81 mg PO DAILY atenolol 50 mg PO DAILY blood sugar diagnostic (FreeStyle Lite Strips) TEST 3 TIMES DAILY blood-glucose meter (FreeStyle Lite Meter kit) TEST 3 TIMES DAILY clotrimazole-betamethasone 1-0.05 % apply twice a day topical 2 times a day; furosemide 40 mg PO DAILY gemfibrozil 600 mg PO BID insulin glargine (Basaglar KwikPen U-100 Insulin) 6 units (0.06 mL) subcut DAILY lancets TEST 3 TIMES DAILY metformin 1,000 mg PO BID mirabegron ER (Myrbetriq) 25 mg PO DAILY 30 days multivitamin 1 tab PO DAILY nifedipine ER 30 mg PO DAILY omeprazole 20 mg PO BID oxybutynin chloride ER 15 mg PO BID 90 days pen needle, diabetic As directed simvastatin 40 mg PO DAILY trazodone 100 mg PO BEDTIME PRN Tobacco use date assessed: 06/29/22 Fall risk assessment: No Falls in past year Last assessed Fall Risk: 01/24/23 Dental Screening Dental Screen Date: 01/24/23 Did you have a dental visit in the last 12 months?: Yes Did you have a dental problem in the last 6 months where you did not have access to dental care?: No Was dental information given to patient?: Patient has dentist HPI weak, shortness of breath, legs hurting HPI Details 2 days of productive cough and dyspnea PFSH Medical History Insomnia Hyperlipidemia Urinary incontinence in female Urinary frequency Overactive bladder History of renal failure Mitral annular calcification Pulmonary hypertension Chronic heart failure with preserved ejection fraction (HFpEF) Diabetes mellitus Surgical History History of colonoscopy History of hip replacement History of eye surgery History of bilateral cataract extraction History of appendectomy Family History Father Cancer Mother Heart disease Social History Housing: House Alcohol intake: never Patient Tobacco Use Status: Former Tobacco user Quit Date: 14 years ago Tobacco use type: Cigarette e-Cigarette/Vaping Use: Never Used Second Hand Smoke Exposure: No Advance Directives: Yes Advance Directives on File: Yes Advance Directives Date on File: 04/18/21 service: No Current occupational status: retired Cognitive needs: Yes (cane) Hearing needs: No Vision needs: Yes (glasses) Questionnaire PHQ-9 Over the last 2 weeks, how often have you been bothered by any of the following problems? 1. Little interest or pleasure in doing things: not at all 2. Feeling down, depressed, or hopeless: not at all 3. Trouble falling or staying asleep, or sleeping too much: not at all 4. Feeling tired or having little energy: not at all 5. Poor appetite or overeating: not at all 6. Feeling bad about yourself - or that you are a failure or have let yourself or your family down: not at all 7. Trouble concentrating on things, such as reading the newspaper or watching television: not at all 8. Moving or speaking so slowly that other people could have noticed. Or the opposite - being so fidgety or restless that you have been moving around a lot more than usual: not at all 9. Thoughts that you would be better off or of hurting yourself in some way: not at all Total score: 0 Depression Screening Interpretation: Negative Depression Screening Done: Yes 69183 - PHQ-9 Billing: Yes Source: Developed by Drs. Edil Churchill, Kaylan Ascencio, Suhas Martins and colleagues, with an educational simi from [employer]. Thrive Questionnaire Date Thrive assessed: 06/29/22 AUDIT C Alcohol Use Questionnaire (AUDIT-C) 1. How often do you have a drink containing alcohol?: Never Total Score: 0 YASMINE-7 AMB Questionnaire YASMINE-7 Date YASMINE - 7 assessed: 06/29/22 Source: Developed by Drs. Edil Churchill, Kaylan Ascencio, Suhas Martins and colleagues, with an educational simi from [employer]. Review of Systems Const Denies chills, Denies headache(s) and Denies weight loss ENT Denies headache(s) Card Denies chest pain, Denies syncope, Denies irregular heart rhythm and Reports dyspnea Resp Reports chest congestion, Reports cough and Reports dyspnea GI Denies abdominal pain, Denies change in stool character, Denies nausea and Denies vomiting Musc Denies deformity and Denies joint swelling Neuro Denies syncope and Denies headache(s) Physical exam (Primary Care) Vital Signs: Last Vital Signs Pulse 50 01/24/23 10:24 BP 107/70 01/24/23 10:24 Pulse Ox 92 01/24/23 10:24 Oxygen Delivery Method Room Air 01/24/23 10:24 Tobacco/Smoking Status: Tobacco use Status Tobacco use date assessed 06/29/22 01/24/23 10:30 Patient Tobacco Use Status Former Tobacco user 01/24/23 10:30 Tobacco use type Cigarette 01/24/23 10:30 e-Cigarette/Vaping Use Never Used 01/24/23 10:30 PHQ-9: PHQ-9 Score PHQ-9: Total score 0 01/24/23 10:35 Depression Screening Interpretation: Negative Thrive Assessment: Date of Thrive Assessment Date Thrive assessed 06/29/22 01/24/23 10:30 Const General: cooperative, ill appearing and tired appearing HENMT Head: Yes normal to inspection Resp Other: diffuse rhonchi Cardio Jugular venous distension: no JVD Rate: regular rate Rhythm: regular rhythm Assessment and Plan Assessment & Plan (1) Cough: Code(s): R05.9 - Cough, unspecified Plan: sent to er Coding Level of Care Code Est Pt Level 3 (33472) Diagnoses Cough R05.9
== END 2023-01-24 10:59 | disposition home or self-care (01) ==
PROVIDERS: PCP Internal Medicine; Visit Provider Internal Medicine
DX: R05.9 Cough, unspecified (principal)
CPT/HCPCS: 99213

== ENCOUNTER 2023-01-24 10:41 | Inpatient (IN) | payer MEDICARE, OTHER, SELFPAY ==
[2023-01-24] VITALS (9 sets, daily range): BP systolic 92–135; BP diastolic 49–74; PULSE 94–115; RESP 16–26; TEMP 36.3–36.8; O2SAT 89–93; BMI 28.3; BMI 31.9
--- NOTE | ~2023-01-24 | XR_ITS ---
EXAMINATION: XR CHEST CLINICAL INFORMATION: Status post Moody placement. COMPARISON: Chest x-ray 01/27/2023 TECHNIQUE: Frontal view of the chest was obtained. FINDINGS: There is a complete whiteout left hemithorax from underlying infiltrate, effusion or combination. The right lung is expanded, clear with increased compensated 3 vasculature.. There is enteric tube with its tip below diaphragm. Endotracheal tube tip 2.8 cm above the segun. There is a right central dialysis catheter with its tip in mid to distal SVC. Left central venous catheter is unchanged. There is a distal esophageal monitor. There is complete shift of mediastinum to the left and. The heart size cannot be evaluated. No gross bony abnormality. XR/XR chest 1V IMPRESSION: 1. Complete whiteout left hemithorax with shift of mediastinum to the left. 2. Support lines and catheters in satisfactory position. New right jugular central catheter tip is in proximal to the mid SVC 3. The right lung is clear. 4. There is a distal esophageal monitor.
--- NOTE | ~2023-01-24 | XR_ITS ---
EXAMINATION: XR CHEST CLINICAL INFORMATION: Cough, dyspnea Shortness of breath COMPARISON: 11/26/2018 TECHNIQUE: AP upright and lateral views of the chest were obtained. 11:39 AM. The patient is unable to left there are for the lateral view. FINDINGS: The patient is rotated on the AP view. The lungs are well expanded. There is a large area of opacification in the left lung likely involving the lingula and left upper lobe. Probable small left pleural effusion. There is patchy opacity at the left lung base most likely representing atelectasis. No significant change in the appearance of the right lung with chronic interstitial changes. There is marked enlargement of the heart. Calcification of the thoracic aorta is indicative of atherosclerotic disease. Hiatal hernia is noted. Degenerative changes are noted in the right shoulder with probable rotator cuff disease and impingement syndrome. XR/XR chest 2V IMPRESSION: 1. Large area of opacification in the left lung likely involving the lingula and left upper lobe consistent with pneumonia. 2. Probable small left pleural effusion. 3. Cardiomegaly.
--- NOTE | ~2023-01-24 | XR_ITS ---
EXAMINATION: XR CHEST CLINICAL INFORMATION: Hypoxia COMPARISON: Previous exam most recent 01/31/2023 TECHNIQUE: AP portable view of the chest was obtained. FINDINGS: Right jugular line with tip projecting over the SVC. Left jugular line with tip projecting over the proximal SVC. This is coiled, question position in the azygos vein. This is unchanged from previous exams. The cardiac silhouette is slightly enlarged. The thoracic aorta is calcified. Hilar and mediastinal contours are otherwise unremarkable. There is improved aeration of the left lung from previous chest x-ray January 31. There is airspace disease in the left lateral upper to midlung questionable for pneumonia. There are coarse lung markings bilaterally. No pleural effusion or pneumothorax. Degenerative changes of the spine. Old lower thoracic vertebral body compression fracture. XR/XR chest 1V IMPRESSION: Improved aeration of the left lung. There is left lateral airspace disease probably representing pneumonia and diffuse coarse lung markings. Stable position of bilateral jugular lines as described above.
--- NOTE | 2023-01-24 10:47 | ED_ITS ---
HPI - General Adult General Chief complaint: General Medical Stated complaint: congestion sent in by Dr Cedillo Time Seen by Provider: 01/24/23 10:59 Related Data Home Medications Medication Instructions Recorded Confirmed pen needle, diabetic 31 gauge x #50 ea 03/04/20 01/24/2307/05 aspirin 81 mg tablet,delayed 81 mg PO DAILY 05/02/20 01/24/23 release multivitamin 1 tab PO DAILY 05/02/20 01/24/23 Previous Rx's Medication Instructions Recorded blood-glucose meter (FreeStyle #1 ea 09/12/20 Lite Meter kit) lancets 28 gauge #100 ea 09/12/20 acetaminophen 500 mg tablet 1,000 mg (2 x 500 mg) PO QID PRN 12/02/20 (Tylenol Extra Strength) fever or pain #14 tabs simvastatin 40 mg tablet 40 mg PO DAILY #90 tabs 02/04/22 metformin 1,000 mg tablet 1,000 mg PO BID #180 tabs 03/12/22 gemfibrozil 600 mg tablet 600 mg PO BID #180 tabs 07/03/22 atenolol 50 mg tablet 50 mg PO DAILY #90 tabs 08/13/22 omeprazole 20 mg capsule,delayed 20 mg PO BID #180 caps 09/02/22 release furosemide 40 mg tablet 40 mg PO DAILY #90 tabs 09/25/22 clotrimazole-betamethasone 1 See Rx Instructions topical BID 11/24/22 %-0.05 % topical cream #45 grams nifedipine 30 mg tablet,extended 30 mg PO DAILY #90 tabs 12/17/22 release blood sugar diagnostic (FreeStyle #100 ea 01/02/23 Lite Strips) Allergies Allergy/AdvReac Type Severity Reaction Status Date / Time Sulfa (Sulfonamide AdvReac Intermediate VOMITING Verified 01/24/23 10:24 Antibiotics) [facility] Past Medical History Medical History Insomnia Hyperlipidemia Urinary incontinence in female Urinary frequency Overactive bladder History of renal failure Mitral annular calcification Pulmonary hypertension Chronic heart failure with preserved ejection fraction (HFpEF) Diabetes mellitus Surgical History History of colonoscopy History of hip replacement History of eye surgery History of bilateral cataract extraction History of appendectomy Family History Family History Father Cancer Mother Heart disease Social History Social History Household Members: None Housing: House Do you presently have visiting nurse or other home services: No Alcohol intake: never Patient Tobacco Use Status: Former Tobacco user Quit Date: 14 years ago Tobacco use type: Cigarette e-Cigarette/Vaping Use: Never Used Second Hand Smoke Exposure: No Use of substances other than those prescribed or required for medical reasons: No Currently Displaying Signs/Symptoms of Drug Intoxication Withdrawal: No Have you been hit, kicked, punched, or otherwise hurt by someone within the past year? If so, by whom?: No Do you feel safe in your current relationship?: No Current Relationship Is there a partner from a previous relationship who is making you feel unsafe now?: No Are you made to feel afraid or neglected: No Advance Directives: Yes Advance Directives on File: Yes Advance Directives Date on File: 04/18/21 Do you have thoughts of harming others: None Do you have a plan to hurt others: No Plan Recently lost weight without trying: No How much weight loss: Unsure Patient : No service: No Current occupational status: retired Cognitive needs: Yes (cane) Hearing needs: No Vision needs: Yes (glasses) Physical Exam ED Vital Signs: BMI result Body Mass Index 28.3 Course Course Course Narrative: This is a rapid medical exam: Additional HPI, ROS, PE not included below will be deferred to primary provider. Patient is an 87-year-old female with history of CHF, aortic valve stenosis, DM, HTN, HLD presenting to the emergency department with complaint of shortness of breath worse with exertion, non productive cough, lower extremity edema, and fatigue for the past few days. States it took her 4 hours to get out of her recliner, which is unusual for her. Crackles throughout in triage, O2 sat 86% on room air, restorative art embalmer notified and patient brought back to main ED. Medications Administered Generic Name Dose Route Start Last Admin Trade Name Freq PRN Reason Stop Dose Admin Albuterol Sulfate 2.5 mg 01/25/23 20:00 01/31/23 08:31 Albuterol Sulfate (0.083%) 2.5 Mg/3 Ml Vial.Neb INHALE 2.5 mg RQ4H JOSE Administration Chlorhexidine Gluconate 15 ml 01/25/23 11:00 01/31/23 08:13 Chlorhexidine Gluc Oral Rinse 15 Ml Mouthwash BUCCAL 15 ml BID JOSE Administration Fentanyl 50 mcg 01/29/23 21:23 01/30/23 09:42 Fentanyl Citrate/Pf 100 Mcg/2 Ml Vial IVPUSH 50 mcg Q2H PRN Administration Pain, Severe (Pain Scale 7-10) Protocol Heparin Sodium (Porcine) 5,000 unit 01/31/23 08:15 01/31/23 08:22 Heparin Sodium,Porcine 5,000 Unit/Ml Vial SUBCUT 5,000 unit Q8H JOSE Administration Norepinephrine Bitartrate 8 mg in 250 mls @ 0 mls/hr 01/25/23 11:00 01/31/23 07:38 Levophed IV Infused .Q0M JOSE Titration Protocol Per Protocol Propofol 1,000 mg in 100 mls @ 0 mls/hr 01/25/23 11:00 01/30/23 15:56 Diprivan IVCONT Infused .Q0M JOSE Titration Protocol Per Protocol Piperacillin Sod/Tazobactam 50 mls @ 100 mls/hr 01/25/23 15:45 01/31/23 04:02 Sod 2.25 gm/ Sodium Chloride IV Infused Q6H JOSE Infusion Vasopressin 20 unit in 100 mls @ 6 mls/hr 01/26/23 15:15 01/30/23 19:42 Vasostrict IV Not Given .[id number] JOSE 0.02 UNIT/MIN Dexmedetomidine HCl 400 mcg in 100 mls @ 0 mls/hr 01/28/23 02:15 01/31/23 03:41 Precedex IVCONT 0.7 mcg/kg/hr .Q0M JOSE 14.89 mls/hr Titration Protocol Per Protocol Insulin Glargine 20 unit 01/28/23 18:50 01/31/23 08:14 Insulin Glargine,Hum.Rec.Anlog 100 Unit/Ml 10 Ml Vial SUBCUT 20 unit DAILY JOSE Administration Insulin Human Lispro 0 unit 01/28/23 12:00 01/31/23 06:26 Insulin Lispro 100 Unit/Ml 3 Ml Vial SUBCUT 4 unit Q6H JOSE Administration Protocol Pantoprazole Sodium 40 mg 01/25/23 17:00 01/31/23 08:13 Pantoprazole Sodium 40 Mg/10 Ml Vial IVPUSH 40 mg DAILY JOSE Administration Sodium Chloride 3 ml 01/24/23 16:00 01/31/23 08:14 0.9 % Sodium Chloride Flush 3 Ml Syringe IVFLUSH 3 ml QSHIFT JOSE Administration Discontinued Medications Generic Name Dose Route Start Last Admin Trade Name Nelsy PRN Reason Stop Dose Admin Acetaminophen 650 mg 01/28/23 23:03 01/28/23 23:51 Acetaminophen Oral Liquid 650 Mg/20.3 Ml Solution OG-TUBE 01/28/23 23:04 650 mg ONCE ONE Administration Atorvastatin Calcium 20 mg 01/24/23 21:00 01/24/23 21:01 Atorvastatin Calcium 20 Mg Tablet PO 20 mg BEDTIME JOSE Administration Bumetanide 1 mg 01/28/23 11:17 01/28/23 12:32 Bumetanide 1 Mg/4 Ml Vial IVPUSH 01/28/23 11:18 1 mg ONCE ONE Administration Protocol Bumetanide 1 mg 01/28/23 18:47 01/28/23 20:40 Bumetanide 1 Mg/4 Ml Vial IVPUSH 01/28/23 18:48 1 mg ONCE ONE Administration Protocol Digoxin 0.25 mg 01/25/23 12:00 01/25/23 16:24 Digoxin 0.5 Mg/2 Ml Ampul IVPUSH 01/25/23 16:01 0.25 mg Q2H JOSE Administration Digoxin 0.125 mg 01/26/23 09:36 01/26/23 10:24 Digoxin 0.5 Mg/2 Ml Ampul IVPUSH 01/26/23 09:37 0.125 mg ONCE ONE Administration Digoxin 0.125 mg 01/27/23 08:59 01/27/23 09:12 Digoxin 0.125 Mg Tablet PO 01/27/23 09:00 0.125 mg ONCE ONE Administration Digoxin 0.125 mg 01/29/23 03:30 01/29/23 15:58 Digoxin 0.5 Mg/2 Ml Ampul IVPUSH 01/29/23 15:31 0.125 mg Q6H JOSE Administration Enoxaparin Sodium 70 mg 01/24/23 14:45 01/24/23 16:27 Enoxaparin Sodium 80 Mg/0.8 Ml Syringe 1 mg/kg (70 mg) Not Given SUBCUT Q12H JOSE Enoxaparin Sodium 70 mg 01/25/23 09:00 01/30/23 09:37 Enoxaparin Sodium 80 Mg/0.8 Ml Syringe 1 mg/kg (70 mg) 70 mg SUBCUT Administration DAILY JOSE Furosemide 60 mg 01/24/23 11:06 01/24/23 11:23 Furosemide 100 Mg/10 Ml Vial IVPUSH 01/24/23 11:07 60 mg ONCE ONE Administration Protocol Furosemide 40 mg 01/25/23 09:00 01/25/23 08:55 Furosemide 40 Mg/4 Ml Vial IVPUSH 40 mg DAILY JOSE Administration Protocol Furosemide 60 mg 01/25/23 15:37 01/25/23 16:24 Furosemide 100 Mg/10 Ml Vial IVPUSH 01/25/23 15:38 60 mg ONCE ONE Administration Protocol Furosemide 40 mg 01/27/23 08:59 01/27/23 09:11 Furosemide 40 Mg/4 Ml Vial IVPUSH 01/27/23 09:00 40 mg ONCE ONE Administration Protocol Ceftriaxone Sodium 1 gm/ 50 mls @ 100 mls/hr 01/24/23 13:45 01/24/23 15:29 Sodium Chloride IV Infused Q24H JOSE Infusion Azithromycin 500 mg/ Sodium 250 mls @ 125 mls/hr 01/24/23 13:45 01/26/23 16:13 Chloride IV Infused Q24H JOSE Infusion Albumin Human 100 mls @ 100 mls/hr 01/26/23 20:15 01/27/23 11:56 Kedbumin 25 % IV 01/27/23 15:14 Not Given Q6H JOSE Doxycycline Hyclate 100 mg/ 250 mls @ 166.67 mls/hr 01/27/23 14:15 01/28/23 09:35 Sodium Chloride IV Infused BID JOSE Infusion Potassium Chloride 40 meq in 100 mls @ 50 mls/hr 01/28/23 08:00 01/28/23 10:34 Potassium Chloride/H20 IV 01/28/23 09:59 Infused ONCE ONE Infusion Albumin Human 100 mls @ 100 mls/hr 01/28/23 08:00 01/28/23 15:11 Kedbumin 25 % IV 01/28/23 14:59 Infused Q6H JOSE Infusion Bumetanide 25 mg/ IV 100 mls @ 4 mls/hr 01/28/23 23:15 01/30/23 08:11 Miscellaneous Supplies IVCONT Infused .Q24H JOSE Infusion 1 MG/HR Potassium Chloride 40 meq in 100 mls @ 50 mls/hr 01/29/23 05:12 01/29/23 07:38 Potassium Chloride/H20 IV 01/29/23 07:11 Infused ONCE ONE Infusion Albumin Human 100 mls @ 100 mls/hr 01/30/23 08:00 01/31/23 02:26 Kedbumin 25 % IV 01/31/23 02:59 Infused Q6H JOSE Infusion Influenza Virus Vaccine 0.5 ml 01/24/23 16:21 01/24/23 17:01 Flu Vacc [id number](6mos Up)/Pf 0.5 Ml Syringe IM 01/24/23 16:22 0.5 ml .ONCE ONE Administration Insulin Human Lispro 0 unit 01/24/23 16:30 01/28/23 07:31 Insulin Lispro 100 Unit/Ml 3 Ml Vial SUBCUT 4 unit [facility] Administration Protocol Metolazone 5 mg 01/25/23 15:37 01/25/23 16:56 Metolazone 5 Mg Tablet PO 01/25/23 15:38 5 mg ONCE ONE Administration Metoprolol Tartrate 5 mg 01/25/23 12:32 01/25/23 12:05 Metoprolol Tartrate 5 Mg/5 Ml Vial IVPUSH 01/25/23 12:33 5 mg ONCE ONE Administration Midazolam HCl 4 mg 01/25/23 11:18 01/25/23 11:28 Midazolam Hcl 10 Mg/10 Ml Vial IVPUSH 01/25/23 11:19 4 mg STAT STA Administration Multivitamins/Vitamin C 1 tab 01/25/23 09:00 01/25/23 08:55 Multivitamin Tablet PO 1 tab DAILY JOSE Administration Omeprazole 20 mg 01/24/23 16:30 01/25/23 16:47 Omeprazole 20 Mg Capsule.Dr PO Not Given BID@0630,1630 [facility] Potassium Chloride 20 meq 01/26/23 06:38 01/26/23 07:43 Potassium Chloride Packet 20 Meq Packet PO 01/26/23 06:39 20 meq ONCE ONE Administration Potassium Chloride 40 meq 01/26/23 20:02 01/26/23 20:35 Potassium Chloride Packet 20 Meq Packet OG-TUBE 01/26/23 20:03 40 meq ONCE ONE Administration Potassium Chloride 40 meq 01/27/23 07:34 01/27/23 08:36 Potassium Chloride Packet 20 Meq Packet PO 01/27/23 07:35 40 meq ONCE ONE Administration Potassium Chloride 20 meq 01/29/23 21:00 01/29/23 20:06 Potassium Chloride Packet 20 Meq Packet OG-TUBE 01/29/23 21:01 20 meq ONCE ONE Administration Propofol 20 mg 01/25/23 10:50 01/25/23 10:48 Propofol 200 Mg/20 Ml Vial IVPUSH 01/25/23 10:51 20 mg ONCE ONE Administration Rocuronium [place] 40 mg 01/25/23 10:50 01/25/23 10:50 Rocuronium [place] 50 Mg/5 Ml Vial IVPUSH 01/25/23 10:51 40 mg ONCE ONE Administration Sodium Bicarbonate 1,300 mg 01/24/23 21:00 01/25/23 08:55 Sodium Bicarbonate 650 Mg Tablet PO 1,300 mg TID JOSE Administration Spironolactone 25 mg 01/27/23 08:59 01/27/23 09:11 Spironolactone 25 Mg Tablet PO 01/27/23 09:00 25 mg ONCE ONE Administration Protocol Medical Decision Making Lab Data 01/31/23 05:13 01/31/23 05:13 Labs: Lab Results 01/24/23 01/24/23 Range/Units 11:00 11:48 WBC 17.7 H (4.8-10.8) X10*3/uL RBC 3.57 L (4.20-5.50) X10*6/uL Hgb 9.4 L (12.0-16.0) g/dl Hct 29.4 L (37.0-47.0) % MCV 82.4 (80.0-98.0) fL MCH 26.3 L (27.0-33.0) pg MCHC 32.0 (31.0-35.0) g/dl RDW 17.1 H (11.0-16.0) % Plt Count 350 (160-400) X10*3/uL MPV 11.1 (9.4-12.3) fL Immature Gran % (Auto) Cancelled Neut % (Auto) Cancelled Lymph % (Auto) Cancelled Ashley % (Auto) Cancelled Eos % (Auto) Cancelled Baso % (Auto) Cancelled Lymph # (Auto) Cancelled Ashley # (Auto) Cancelled Eos # (Auto) Cancelled Baso # (Auto) Cancelled Abs Immat Gran (auto) Cancelled Absolute Neuts (auto) Cancelled Absolute Nucleated RBC 0.030 H (0.0-0.012) X10*3/uL Nucleated RBC % (auto) 0.2 (0.0-0.2) /100WBC Neutrophils % (Manual) 90 H (45-73) % Band Neutrophils % 4 (3-5) % Lymphocytes % (Manual) 3 L (20-40) % Monocytes % (Manual) 3 (2-11) % Abs Neuts (Manual) 16.6 H (2.0-8.3) X10*3/uL Lymphocytes # (Manual) 0.5 L (1.2-4.9) X10*3/uL Monocytes # (Manual) 0.5 (0.1-1.2) X10*3/uL Toxic Vacuolation PRESENT Platelet Estimate NORMAL (NORMAL) Plt Morphology Comment NORMAL RBC Morphology NOTED Polychromasia 1+ (0-2) /OIF Hypochromasia 1+ (5-14) /OIF [place] Cells 3+ (>5) /OIF Acanthocytes (Spur) 2+ (3-5) /OIF PT 17.3 H (11.1-13.3) SEC INR 1.4 H (0.9-1.1) Sodium 137 (135-145) mmol/L Potassium 5.1 (3.3-5.1) mmol/L Chloride 106 (96-108) mmol/L Carbon Dioxide 14 L (22-29) mmol/L Anion Gap 22 H (12-20) BUN 74 H (9-16) mg/dL Creatinine 2.43 H (0.5-1.4) mg/dL Estim Creat Clear Calc 16.4 Estimated GFR 19 Random Glucose 163 H (60-115) mg/dL Calcium 9.5 (8.4-10.2) mg/dL Magnesium 2.3 (1.6-2.6) mg/dL Total Bilirubin 0.5 (0.0-1.0) mg/dL AST 17 (5-31) U/L ALT 7 (0-31) U/L Alkaline Phosphatase 172 H (39-117) U/L B-Natriuretic Peptide 1638 H (<100) pg/mL Total Protein 8.3 H (6.5-8.0) g/dL Albumin 3.7 (3.5-5.0) g/dL Procalcitonin 1.25 ng/mL TSH 1.31 (0.32-4.0) uIU/mL COVID-19 (TAVIA) Negative (Negative) COVID-19 Clin Com See Note Influenza Type A (TOMEKA) Negative (Negative) Influenza Type B (TOMEKA) Negative (Negative) Influenza A & B Note See Note Discharge Plan Discharge Clinical Impression: Acute dyspnea, Atrial fibrillation with normal ventricular rate, Renal failure (ARF), acute on chronic, CHF (congestive heart failure) Patient Disposition: Admitted As Inpatient Interventions: Admission Worksheet (ED) Last Done: 01/24/23 15:53 Discharge Date/Time: 01/24/23 15:53
[2023-01-24 11:05] LABS: Hematocrit 29.4 % (37.0-47.0); Hemoglobin 9.4 g/dl (12.0-16.0); Mean Corpuscular Hemoglobin 26.3 pg (27.0-33.0); Mean Corpuscular Volume 82.4 fL (80.0-98.0); Mean Platelet Volume 11.1 fL (9.4-12.3); NRBC Pct Auto 0.2 /100WBC (0.0-0.2); Platelet Count 350 X10*3/uL (160-400); Red Blood Count 3.57 X10*6/uL (4.20-5.50); Red Cell Distribution Width 17.1 % (11.0-16.0); White Blood Count 17.7 X10*3/uL (4.8-10.8)
--- NOTE | 2023-01-24 11:07 | ED.SOB ---
HPI - SOB/Dyspnea General Chief Complaint: General Medical Stated Complaint: congestion sent in by Dr Cedillo Time Seen by Provider: 01/24/23 10:59 Source: patient Limitations: no limitations History of Present Illness HPI Narrative: This is an 87 years old female presented to the emergency department complaining of shortness of breath she has history of congestive heart failure she arrived the this knowing it tachypneic MD elicited complaint: shortness of breath Pertinent past history: congestive heart failure Onset (ago): day(s) (2) Timing: constant Severity: moderate Exacerbating factors: lying flat Relieving factors: nothing Known history of: congestive heart failure Related Data Home oxygen amount: none Home Medications Medication Instructions Recorded Confirmed pen needle, diabetic 31 gauge x #50 ea 03/04/20 01/24/2307/05 aspirin 81 mg tablet,delayed 81 mg PO DAILY 05/02/20 01/24/23 release multivitamin 1 tab PO DAILY 05/02/20 01/24/23 Previous Rx's Medication Instructions Recorded blood-glucose meter (FreeStyle #1 ea 09/12/20 Lite Meter kit) lancets 28 gauge #100 ea 09/12/20 acetaminophen 500 mg tablet 1,000 mg (2 x 500 mg) PO QID PRN 12/02/20 (Tylenol Extra Strength) fever or pain #14 tabs simvastatin 40 mg tablet 40 mg PO DAILY #90 tabs 02/04/22 metformin 1,000 mg tablet 1,000 mg PO BID #180 tabs 03/12/22 gemfibrozil 600 mg tablet 600 mg PO BID #180 tabs 07/03/22 atenolol 50 mg tablet 50 mg PO DAILY #90 tabs 08/13/22 omeprazole 20 mg capsule,delayed 20 mg PO BID #180 caps 09/02/22 release furosemide 40 mg tablet 40 mg PO DAILY #90 tabs 09/25/22 clotrimazole-betamethasone 1 See Rx Instructions topical BID 11/24/22 %-0.05 % topical cream #45 grams nifedipine 30 mg tablet,extended 30 mg PO DAILY #90 tabs 12/17/22 release blood sugar diagnostic (FreeStyle #100 ea 01/02/23 Lite Strips) Allergies Allergy/AdvReac Type Severity Reaction Status Date / Time Sulfa (Sulfonamide AdvReac Intermediate VOMITING Verified 01/24/23 10:24 Antibiotics) Review of Systems Cardiovascular: Cardiovascular: Reports no additional cardiovascular complaints and Reports dyspnea Respiratory: Respiratory: Reports dyspnea [facility] Past Medical History Medical History Insomnia Hyperlipidemia Urinary incontinence in female Urinary frequency Overactive bladder History of renal failure Mitral annular calcification Pulmonary hypertension Chronic heart failure with preserved ejection fraction (HFpEF) Diabetes mellitus Surgical History History of colonoscopy History of hip replacement History of eye surgery History of bilateral cataract extraction History of appendectomy Family History Family History Father Cancer Mother Heart disease Social History Social History Housing: House Alcohol intake: never Patient Tobacco Use Status: Former Tobacco user Quit Date: 14 years ago Tobacco use type: Cigarette e-Cigarette/Vaping Use: Never Used Second Hand Smoke Exposure: No Advance Directives: Yes Advance Directives on File: Yes Advance Directives Date on File: 04/18/21 service: No Current occupational status: retired Cognitive needs: Yes (cane) Hearing needs: No Vision needs: Yes (glasses) Physical Exam Vital Signs: Vital Signs: Last Vital Signs Temp 98.3 F 01/24/23 14:07 Pulse 97 01/24/23 14:07 Resp 22 H 01/24/23 14:07 BP 104/65 01/24/23 14:07 Pulse Ox 93 01/24/23 14:07 O2 Del Method Nasal Cannula 01/24/23 14:07 O2 Flow Rate 2 01/24/23 14:07 BMI result Body Mass Index 28.3 Const: General: acute distress Nutritional Appearance: average body habitus Orientation/consciousness: patient oriented x3 Limitations: no limitations HEENT: Head: Yes normal to inspection Ears: hearing grossly normal bilaterally General nose exam: Normal external nose present Face and sinus: Yes normal facial exam Neck: Neck: Yes normal visual inspection Thyroid: Thyroid normal Chest: Chest palpation & inspection: normal inspection of the chest Resp: Effort & Inspection: labored Cardio: Rate: bradycardic GI: Inspection: Yes normal to inspection Palpation (GI): Soft to palpation, not firm and nontender Percussion: Yes normal to percussion Auscultation: normal bowel sounds Neuro: General: patient oriented x3 Cognition (Neuro): normal cognition Course Reevaluation(s) Reevaluation #1: feels better CXR read by radiologist as possible pneumonia,but she has elevated BNP and cardiomegaly as well at this point will get blood culture and administer antibiotic as well Time: 12:48 Reevaluation #2: Pt remain afebrile X 2 ,no reported fever ,WBC could be secondary to stress, also she has cardiomegaly and elevated BNP ,new A.Fib and recurrent CHF the clinical picture is most c/w CHF,I do no think she is septic Time: 13:53 Medications Administered Generic Name Dose Route Start Last Admin Trade Name Freq PRN Reason Stop Dose Admin Ceftriaxone Sodium 1 gm/ 50 mls @ 100 mls/hr 01/24/23 13:45 01/24/23 14:02 Sodium Chloride IV 100 mls/hr Q24H JOSE Administration Azithromycin 500 mg/ Sodium 250 mls @ 125 mls/hr 01/24/23 13:45 01/24/23 14:45 Chloride IV 125 mls/hr Q24H JOSE Administration Sodium Chloride 3 ml 01/24/23 16:00 01/24/23 14:02 0.9 % Sodium Chloride Flush 3 Ml Syringe IVFLUSH 3 ml QSHIFT JOSE Administration Discontinued Medications Generic Name Dose Route Start Last Admin Trade Name Freq PRN Reason Stop Dose Admin Furosemide 60 mg 01/24/23 11:06 01/24/23 11:23 Furosemide 100 Mg/10 Ml Vial IVPUSH 01/24/23 11:07 60 mg ONCE ONE Administration Protocol Medical Decision Making Medical Decision Making [facility] Narrative: Presented with shortness of breath she has history of congestive heart failure chronic renal failure will get chest x-ray administer oxygen working diagnosis congestive fell Differential Diagnosis Differential Diagnoses: The differential diagnosis associated with the presentation includes CHF/Pneumothorax/PLEURAL EFFUSION Admission/Observation Consideration of admission/observation: Escalation of care including admission/observation considered Consult Healthcare Provider Management of the patient was discussed with: Hospitalist DR RODRIGUEZ Lab Data [facility] Lab Attestation statement: I reviewed the patient's lab results. 01/24/23 11:00 01/24/23 11:00 Labs: Lab Results 01/24/23 01/24/23 Range/Units 11:00 11:48 WBC 17.7 H (4.8-10.8) X10*3/uL RBC 3.57 L (4.20-5.50) X10*6/uL Hgb 9.4 L (12.0-16.0) g/dl Hct 29.4 L (37.0-47.0) % MCV 82.4 (80.0-98.0) fL MCH 26.3 L (27.0-33.0) pg MCHC 32.0 (31.0-35.0) g/dl RDW 17.1 H (11.0-16.0) % Plt Count 350 (160-400) X10*3/uL MPV 11.1 (9.4-12.3) fL Immature Gran % (Auto) Cancelled Neut % (Auto) Cancelled Lymph % (Auto) Cancelled [place] % (Auto) Cancelled Eos % (Auto) Cancelled Baso % (Auto) Cancelled Lymph # (Auto) Cancelled [place] # (Auto) Cancelled Eos # (Auto) Cancelled Baso # (Auto) Cancelled Abs Immat Gran (auto) Cancelled Absolute Neuts (auto) Cancelled Absolute Nucleated RBC 0.030 H (0.0-0.012) X10*3/uL Nucleated RBC % (auto) 0.2 (0.0-0.2) /100WBC Neutrophils % (Manual) 90 H (45-73) % Band Neutrophils % 4 (3-5) % Lymphocytes % (Manual) 3 L (20-40) % Monocytes % (Manual) 3 (2-11) % Abs Neuts (Manual) 16.6 H (2.0-8.3) X10*3/uL Lymphocytes # (Manual) 0.5 L (1.2-4.9) X10*3/uL Monocytes # (Manual) 0.5 (0.1-1.2) X10*3/uL Toxic Vacuolation PRESENT Platelet Estimate NORMAL (NORMAL) Plt Morphology Comment NORMAL RBC Morphology NOTED Polychromasia 1+ (0-2) /OIF Hypochromasia 1+ (5-14) /OIF [place] Cells 3+ (>5) /OIF Acanthocytes (Spur) 2+ (3-5) /OIF PT 17.3 H (11.1-13.3) SEC INR 1.4 H (0.9-1.1) Sodium 137 (135-145) mmol/L Potassium 5.1 (3.3-5.1) mmol/L Chloride 106 (96-108) mmol/L Carbon Dioxide 14 L (22-29) mmol/L Anion Gap 22 H (12-20) BUN 74 H (9-16) mg/dL Creatinine 2.43 H (0.5-1.4) mg/dL Estim Creat Clear Calc 16.4 Estimated GFR 19 Random Glucose 163 H (60-115) mg/dL Calcium 9.5 (8.4-10.2) mg/dL Magnesium 2.3 (1.6-2.6) mg/dL Total Bilirubin 0.5 (0.0-1.0) mg/dL AST 17 (5-31) U/L ALT 7 (0-31) U/L Alkaline Phosphatase 172 H (39-117) U/L B-Natriuretic Peptide 1638 H (<100) pg/mL Total Protein 8.3 H (6.5-8.0) g/dL Albumin 3.7 (3.5-5.0) g/dL TSH 1.31 (0.32-4.0) uIU/mL COVID-19 (TAVIA) Negative (Negative) COVID-19 Clin Com See Note Influenza Type A (TOMEKA) Negative (Negative) Influenza Type B (TOMEKA) Negative (Negative) Influenza A & B Note See Note Independent Interpretation I performed an independent interpretation of an: EKG Interpretation: A.Fib 97 no ischemia Radiology Impression Discussion of test interpretation with radiology: I have reviewed the radiologist's reading. Independent Historian Clinical information obtained from an independent historian. History obtained from or confirmed by: Other (DAUGHTER) External Record Review External record reviewed: Inpatient record and Office record Chronic Conditions chf/crf Critical Care Time Critical Care Time Critical Care Time: Yes Total Critical Care Time: 60 Attestation: TAKING CARE OF THE PT SPEAKING WITH DAUGHTER iv FUROSEMIDE Discharge Plan Discharge Clinical Impression: Acute dyspnea, Atrial fibrillation with normal ventricular rate, Renal failure (ARF), acute on chronic, CHF (congestive heart failure) Patient Disposition: Admitted As Inpatient
[2023-01-24 11:13] LABS: INTERNATIONAL NORM RATIO 1.4 (0.9-1.1); Prothrombin Time 17.3 SEC (11.1-13.3)
[2023-01-24 11:25] LABS: B Type Natriuretic Peptide 1638 pg/mL (<100)
[2023-01-24 11:27] LABS: Alanine Aminotransferase 7 U/L (0-31); Albumin Level 3.7 g/dL (3.5-5.0); Alkaline Phosphatase 172 U/L (39-117); Anion Gap 22 (12-20); Aspartate Amino Transferase 17 U/L (5-31); Bilirubin Total 0.5 mg/dL (0.0-1.0); Blood Urea Nitrogen 74 mg/dL (9-16); Calcium 9.5 mg/dL (8.4-10.2); Carbon Dioxide 14 mmol/L (22-29); Chloride 106 mmol/L (96-108); Creatinine Clr Calc Pharmacy 16.4; Estimated Glomerular Filt Rate 19; Glucose Random 163 mg/dL (60-115); Potassium 5.1 mmol/L (3.3-5.1); Sodium 137 mmol/L (135-145); Total Protein 8.3 g/dL (6.5-8.0)
[2023-01-24 11:47] LABS: Acanthocytes 2+ (3-5) /OIF; Band Neutrophils Percent 4 % (3-5); Burr Cells 3+ (>5) /OIF; Hypochromasia 1+ (5-14) /OIF; Lymphocytes Absolute Manual 0.5 X10*3/uL (1.2-4.9); Lymphocytes Percent Manual 3 % (20-40); Monocytes Absolute Manual 0.5 X10*3/uL (0.1-1.2); Monocytes Percent Manual 3 % (2-11); Neutrophils Absolute Manual 16.6 X10*3/uL (2.0-8.3); Neutrophils Percent Manual 90 % (45-73); Platelet Estimate NORMAL (NORMAL); Platelet Morphology Comment NORMAL; Polychromasia 1+ (0-2) /OIF; RBC Morphology NOTED; Toxic Vacuolation PRESENT
[2023-01-24 12:42] LABS: COVID-19 Test Negative (Negative); IDNOW Serial# 08D9AD1C; IDNOW Serial# BCCEAD1C; Influenza A Negative (Negative); Influenza B2 Negative (Negative)
--- NOTE | 2023-01-24 13:51 | PM.IMHP ---
History of Present Illness Date of Service: 01/24/23 Attending physician on admission: Kayla Hammer Chief Complaint: sob 87 year old female with history of HFpEF, , htn, hld, iron deficiency anemia, pulmonary hypertension, and rna-mhhwjod-prhkdsdah type 2 diabetes presented to the ED earlier today for evaluation of shortness of breath and generalized weakness ongoing for 2 days. She also states she has had a nonproductive cough, orthopnea, pleuritic chest pain, and chest congestion. She describes shortness of breath as a dyspnea on exertion with minimal shortness of breath at rest. She has also had increased bilateral lower extremity edema. Denies any sick contacts at home. No fevers, chills, sore throat, abdominal pain, nausea, vomiting, diarrhea, palpitations, lightheadedness, or chest pressure. On arrival, patient hypoxic to 88% placed on 2 L supplemental O2 maintaining oximetry run 93%. She has also been tachypneic to 26 with heart rates in the 90s. Blood pressure is soft but no hypotension. She has leukocytosis of 17.7. Creatinine elevated from baseline at 2.43 (baseline around 1.93), BUN 74, electrolytes normal. BNP 1638. Negative for COVID-19, influenza. Chest x-ray shows large area of opacification in the left lung involving lingula and left upper lobe consistent with pneumonia and probable small left pleural effusion as well as cardiomegaly. EKG shows atrial fibrillation, rate [address]/T-wave abnormality. [facility] Medical History Insomnia Hyperlipidemia Urinary incontinence in female Urinary frequency Overactive bladder History of renal failure Mitral annular calcification Pulmonary hypertension Chronic heart failure with preserved ejection fraction (HFpEF) Diabetes mellitus Family History Father Cancer Mother Heart disease Surgical History History of colonoscopy History of hip replacement History of eye surgery History of bilateral cataract extraction History of appendectomy Social History Household Members: None Housing: House Do you presently have visiting nurse or other home services: No Alcohol intake: never Patient Tobacco Use Status: Former Tobacco user Quit Date: 14 years ago Tobacco use type: Cigarette e-Cigarette/Vaping Use: Never Used Second Hand Smoke Exposure: No Use of substances other than those prescribed or required for medical reasons: No Have you been hit, kicked, punched, or otherwise hurt by someone within the past year? If so, by whom?: No Do you feel safe in your current relationship?: No Current Relationship Is there a partner from a previous relationship who is making you feel unsafe now?: No Are you made to feel afraid or neglected: No Advance Directives: Yes Advance Directives on File: Yes Advance Directives Date on File: 04/18/21 Do you have thoughts of harming others: None Do you have a plan to hurt others: No Plan Recently lost weight without trying: No How much weight loss: Unsure Patient : No service: No Current occupational status: retired Cognitive needs: Yes (cane) Hearing needs: No Vision needs: Yes (glasses) Meds Allergies Allergy/AdvReac Type Severity Reaction Status Date / Time Sulfa (Sulfonamide AdvReac Intermediate VOMITING Verified 01/24/23 10:24 Antibiotics) Active Medications: Current Medications Acetaminophen (Acetaminophen 325 Mg Tablet) 650 mg PO Q6H PRN PRN Reason: Pain, Mild (Pain Scale 1-3) Docusate Sodium (Docusate Sodium 100 Mg Capsule) 100 mg PO DAILY PRN PRN Reason: Constipation Furosemide (Furosemide 40 Mg/4 Ml Vial) 40 mg IVPUSH DAILY [facility]; Protocol Ceftriaxone Sodium 1 gm/ (Sodium Chloride) 50 mls @ 100 mls/hr IV Q24H [facility] Azithromycin 500 mg/ Sodium (Chloride) 250 mls @ 125 mls/hr IV Q24H [facility] Ondansetron HCl (Ondansetron Hcl 4 Mg/2 Ml Vial) 4 mg IVPUSH Q8H PRN PRN Reason: Nausea and Vomiting Sodium Chloride (0.9 % Sodium Chloride Flush 3 Ml Syringe) [facility] Medications Medication Instructions Recorded Confirmed Last Taken Type pen needle, diabetic 31 gauge x #50 ea 03/04/20 01/24/23 Unknown History 07/05 aspirin 81 mg tablet,delayed 81 mg PO DAILY 05/02/20 01/24/23 Unknown History release multivitamin 1 tab PO DAILY 05/02/20 01/24/23 Unknown History Physical Exam Vital Signs and Narrative: Vital Signs: Last Vital Signs Temp 98 F 01/24/23 10:46 Pulse 96 01/24/23 12:47 Resp 25 H 01/24/23 12:47 BP 101/63 01/24/23 12:47 Pulse Ox 92 01/24/23 12:47 O2 Del Method Nasal Cannula 01/24/23 12:47 O2 Flow Rate 2 01/24/23 12:47 BMI result Body Mass Index 28.3 Constitutional - Awake and Alert, No apparent distress Eyes - PERRLA, EOMI Cardiovascular - S1S2, RRR, 2+ble edema Respiratory - Normal lung expansion, Normal respiratory effort, No respiratory distress, rhonchi noted anteriorly upper left lobe with crackles lll Gastrointestinal - NT / ND; +BS; No rebound or guarding Extremities - no calf tenderness bilaterally, no swelling Skin - Warm/Dry Neurological - Alert & oriented x3 Psychological - Appropriate affect Results Labs 01/24/23 11:00 01/24/23 11:00 Labs: Laboratory Results - last 24 hr 01/24/23 01/24/23 11:00 11:48 MCV 82.4 MCH 26.3 L MCHC 32.0 RDW 17.1 H Plt Count 350 MPV 11.1 Immature Gran % (Auto) Cancelled Neut % (Auto) Cancelled Lymph % (Auto) Cancelled [place] % (Auto) Cancelled Eos % (Auto) Cancelled Baso % (Auto) Cancelled Lymph # (Auto) Cancelled [place] # (Auto) Cancelled Eos # (Auto) Cancelled Baso # (Auto) Cancelled Abs Immat Gran (auto) Cancelled Absolute Neuts (auto) Cancelled Absolute Nucleated RBC 0.030 H Nucleated RBC % (auto) 0.2 Neutrophils % (Manual) 90 H Band Neutrophils % 4 Lymphocytes % (Manual) 3 L Monocytes % (Manual) 3 Abs Neuts (Manual) 16.6 H Lymphocytes # (Manual) 0.5 L Monocytes # (Manual) 0.5 Toxic Vacuolation PRESENT Platelet Estimate NORMAL Plt Morphology Comment NORMAL RBC Morphology NOTED Polychromasia 1+ (0-2) Hypochromasia 1+ (5-14) [place]arco Cells 3+ (>5) Acanthocytes (Spur) 2+ (3-5) PT 17.3 H INR 1.4 H Anion Gap 22 H Estim Creat Clear Calc 16.4 Estimated GFR 19 Random Glucose 163 H Calcium 9.5 Total Bilirubin 0.5 AST 17 ALT 7 Alkaline Phosphatase 172 H B-Natriuretic Peptide 1638 H Total Protein 8.3 H Albumin 3.7 COVID-19 (TAVIA) Negative COVID-19 Clin Com See Note Influenza Type A (TOMEKA) Negative Influenza Type B (TOMEKA) Negative Influenza A & B Note See Note Imaging Radiologist's Impressions: Impressions Chest X-Ray 01/24/23 11:42 IMPRESSION: 1. Large area of opacification in the left lung likely involving the lingula and left upper lobe consistent with pneumonia. 2. Probable small left pleural effusion. 3. Cardiomegaly. Assessment and Plan (1) CHF (congestive heart failure): Status: Acute (2) Atrial fibrillation with normal ventricular rate: Status: Acute (3) Acute dyspnea: Status: Acute (4) Pneumonia: Status: Acute (5) Sepsis: Status: Acute (6) Acute hypoxemic respiratory failure: Status: Acute Plan 87 year old female with history of HFpEF, , htn, hld, iron deficiency anemia, pulmonary hypertension, and kdv-zpopuwl-fyzaxbivf type 2 diabetes admitted for acute DEMI pnuemonia, CHF exacerbation, and new onset atrial fibrillation. #Acute DEMI pneumonia with sepsis and acute hypoxemic respiratory failure -CXR showing large opacification left upper lobe and lingula -leukocytosis 17, tachycardia, tachypnea. Lactic acidosis 2.8 likely r/t metformin use not severe sepsis. No other end organ damage. No hypotension -IV ceftriaxone and azithromycin (initiated 01/24) -symptomatic management -continue supplemental O2 to maintain oximetry >92% -strep pneumo antigen, Legionella antigen, sputum culture pending -follow CBC, cultures # acute diastolic congestive heart failure exacerbation -echocardiogram 12/12 showing normal LV systolic function with EF 65% -IV Lasix 40 mg daily -cardiac diet -strict I&O -daily weights -cardiology consult -follow BNP # new onset atrial fibrillation- rate controlled -continue atenolol and nifedipine -therapeutic Lovenox -cardiology consult -TSH and magnesium level pending -monitor on telemetry #Elevated creatinine- likely cardiorenal -creat 2.43, baseline 1.93. Will check VBG, b-hydroxybutyrate -avoid nephrotoxins -follow bmp # chronic iron deficiency anemia -continue iron supplementation # hypertension -continue nifedipine and atenolol # pbr-gpydozk-cpqifzabu type 2 diabetes -POC glucose -diabetic diet -Humalog on sliding scale -hold metformin and gemfibrozil DVT prophylaxis-on Lovenox DNR/DNI Patient requires inpatient stay at least 2 midnights for management of acute left upper lobe pneumonia with sepsis and acute hypoxemic respiratory failure with CHF exacerbation and new onset atrial fibrillation requiring IV antibiotics, IV diuresis, supplemental oxygen, and continuous cardiac monitoring as well as expert consultation Time Spent With Patient Time: Total time managing care of this patient today ____ minutes. Quality Stroke Does the patient have a stroke diagnosis?: No VTE Prior VTE?: No VTE Risk Level:: Medical - moderate - high VTE Device Contraindication: N/A - Device Ordered VTE Drug Contraindication: Treatment Not Indicated
[2023-01-24 14:12] LABS: Magnesium 2.3 mg/dL (1.6-2.6)
[2023-01-24 14:28] LABS: TSH reflex Free T4 1.31 uIU/mL (0.32-4.0)
--- NOTE | 2023-01-24 14:42 | PHA.MEDREC ---
Pharmacy Consult ? Medication Reconciliation Pharmacy has completed the medication reconciliation. Spoke to patient, patient could recall some medications. Asked me to call [facility] for the remainder
[2023-01-24 17:24] LABS: Procalcitonin 1.25 ng/mL
--- NOTE | 2023-01-24 17:30 | HO.SKINPHOTO ---
Location: Category: Stage: Length: Width: Depth: cm Location: Category: Stage: Length: Width: Depth: cm Location: Category: Stage: Length: Width: Depth: cm Location: Category: Stage: Length: Width: Depth: cm Location: Category: Stage: Length: Width: Depth: cm Location: Category: Stage: Length: Width: Depth: cm
--- NOTE | 2023-01-24 20:38 | PM.CNNEP ---
History of Present Illness Reason for Consult Consult date: 01/24/23 Chief Complaint Chief complaint: pneumonia,chf exacerbation,hypoxia,new onset afib History of Present Illness Narrative: 87 year old female with history of HFpEF, , htn, hld, iron deficiency anemia, pulmonary hypertension, and ujr-ujtbeep-diebtkdea type 2 diabetes adm with incr SOB/HERNANDEZ past sev days and CORTEZ on CKD hence the current consult W/U revelas hypoxia, CAPand CHF and edema PT poor historian--info obtained from EHR Review of Systems Cardiovascular: Reports no additional cardiovascular complaints and Reports dyspnea Respiratory: Reports dyspnea PMFSH Past Medical History Medical History Insomnia Hyperlipidemia Urinary incontinence in female Urinary frequency Overactive bladder History of renal failure Mitral annular calcification Pulmonary hypertension Chronic heart failure with preserved ejection fraction (HFpEF) Diabetes mellitus Family History Family History Father Cancer Mother Heart disease Surgical History Surgical History History of colonoscopy History of hip replacement History of eye surgery History of bilateral cataract extraction History of appendectomy Social History Social History Household Members: None Housing: House Do you presently have visiting nurse or other home services: No Alcohol intake: never Patient Tobacco Use Status: Former Tobacco user Quit Date: 14 years ago Tobacco use type: Cigarette e-Cigarette/Vaping Use: Never Used Second Hand Smoke Exposure: No Use of substances other than those prescribed or required for medical reasons: No Have you been hit, kicked, punched, or otherwise hurt by someone within the past year? If so, by whom?: No Do you feel safe in your current relationship?: No Current Relationship Is there a partner from a previous relationship who is making you feel unsafe now?: No Are you made to feel afraid or neglected: No Advance Directives: Yes Advance Directives on File: Yes Advance Directives Date on File: 04/18/21 Do you have thoughts of harming others: None Do you have a plan to hurt others: No Plan Recently lost weight without trying: No How much weight loss: Unsure Patient : No service: No Current occupational status: retired Cognitive needs: Yes (cane) Hearing needs: No Vision needs: Yes (glasses) Meds Allergies Allergy/AdvReac Type Severity Reaction Status Date / Time Sulfa (Sulfonamide AdvReac Intermediate VOMITING Verified 01/24/23 10:24 Antibiotics) Active Medications: Current Medications Acetaminophen (Acetaminophen 325 Mg Tablet) 650 mg PO Q6H PRN PRN Reason: Pain, Mild (Pain Scale 1-3) Atenolol (Atenolol 50 Mg Tablet) 50 mg PO DAILY [facility]; Protocol Atorvastatin Calcium (Atorvastatin Calcium 20 Mg Tablet) 20 mg PO BEDTIME [facility] Dextrose (Dextrose 50 % 25 Gm/50 Ml Syringe) 25 gm IVPUSH Q15M PRN; Protocol PRN Reason: per Hypoglycemia Standing Ord. Docusate Sodium (Docusate Sodium 100 Mg Capsule) 100 mg PO DAILY PRN PRN Reason: Constipation Enoxaparin Sodium (Enoxaparin Sodium 80 Mg/0.8 Ml Syringe) 70 mg 1 mg/kg (70 mg) SUBCUT DAILY [facility] Furosemide (Furosemide 40 Mg/4 Ml Vial) 40 mg IVPUSH DAILY [facility]; Protocol Glucose (Glucose Gel 15 Gm Gel..Gram.) 15 gm PO Q15M PRN; Protocol PRN Reason: per Hypoglycemia Standing Ord. Azithromycin 500 mg/ Sodium (Chloride) 250 mls @ 125 mls/hr IV Q24H [facility] Last Infusion: 01/24/23 16:54 Dose: Infused Ceftriaxone Sodium 2 gm/ (Sodium Chloride) 50 mls @ 100 mls/hr IV Q24H [facility] Insulin Human Lispro (Insulin Lispro 100 Unit/Ml 3 Ml Vial) 0 unit SUBCUT QIDACHS [facility]; Protocol Last Admin: 01/24/23 17:00 Dose: 2 unit Multivitamins/Vitamin C (Multivitamin Tablet) 1 tab PO DAILY [facility] Nifedipine (Nifedipine Er 30 Mg Tab.Er.24) 30 mg PO DAILY [facility] Omeprazole (Omeprazole 20 Mg Capsule.Dr) 20 mg PO BID@0630,1630 [facility] Last Admin: 01/24/23 17:05 Dose: 20 mg Ondansetron HCl (Ondansetron Hcl 4 Mg/2 Ml Vial) 4 mg IVPUSH Q8H PRN PRN Reason: Nausea and Vomiting Sodium Bicarbonate (Sodium Bicarbonate 650 Mg Tablet) 1,300 mg PO TID [facility] Sodium Chloride (0.9 % Sodium Chloride Flush 3 Ml Syringe) 3 ml IVFLUSH QSHIFT [facility] Last Admin: 01/24/23 14:02 Dose: 3 ml Home Medications Medication Instructions Recorded Confirmed Last Taken Type pen needle, diabetic 31 gauge x #50 ea 03/04/20 01/24/23 Unknown History 3/ aspirin 81 mg tablet,delayed 81 mg PO DAILY 05/02/20 01/24/23 Unknown History release multivitamin 1 tab PO DAILY 05/02/20 01/24/23 Unknown History Physical Exam Vital Signs: Last Vital Signs Temp 97.6 F 01/24/23 18:58 Pulse 106 H 01/24/23 18:58 Resp 17 01/24/23 18:58 BP 109/55 L 01/24/23 18:58 Pulse Ox 89 L 01/24/23 18:58 O2 Del Method Nasal Cannula 01/24/23 18:58 O2 Flow Rate 3 01/24/23 18:58 BMI result Body Mass Index 31.9 4 Lo2 BS elisa, rhonchi, rales RRR Abd soft 2 edema Const General: acute distress Nutritional Appearance: average body habitus Orientation/consciousness: patient oriented x3 Limitations: no limitations HEENT Head: Yes normal to inspection Ears: hearing grossly normal bilaterally General nose exam: Normal external nose present Face and sinus: Yes normal facial exam Neck Neck: Yes normal visual inspection Thyroid: Thyroid normal Chest Chest palpation & inspection: normal inspection of the chest Resp Effort & Inspection: labored Cardio Rate: bradycardic GI Inspection: Yes normal to inspection Palpation (GI): Soft to palpation, not firm and nontender Percussion: Yes normal to percussion Auscultation: normal bowel sounds Neuro General: patient oriented x3 Cognition (Neuro): normal cognition Results Lab Results 01/24/23 11:00 01/24/23 11:00 Lab results: Chemistry 01/24/23 11:00 Sodium 137 Potassium 5.1 Carbon Dioxide 14 L BUN 74 H Creatinine 2.43 H Calcium 9.5 Hematology 01/24/23 11:00 WBC 17.7 H Hgb 9.4 L Plt Count 350 Urinalysis 01/24/23 17:49 Urine Color Yellow Urine Appearance Turbid Urine pH 7.0 Ur Specific [place] 1.015 Urine Protein 100 (2+) H Urine Glucose (UA) Negative Urine Ketones Negative Urine Blood Moderate (2+) H Urine Nitrite Negative Ur Leukocyte Esterase Large (3+) H Urine RBC 11-20 H Urine WBC >50 H Ur Squamous Epith Cells 6-10 Hyaline Casts 6-10 Assessment and Plan (1) CHF (congestive heart failure): Status: Acute (2) Atrial fibrillation with normal ventricular rate: Status: Acute (3) Acute dyspnea: Status: Acute (4) Pneumonia: Status: Acute (5) Sepsis: Status: Acute (6) Acute hypoxemic respiratory failure: Status: Acute Plan 87 year old female with history of HFpEF, , htn, hld, iron deficiency anemia, pulmonary hypertension, and tmq-emfizss-kizzkjjac type 2 diabetes admitted HYPOXIA and CORTEZ/CKd 1. CORTEZ: most c/w multifact ATN but need to r/o other causes with sero/urine stiudies 2. CKD 3:BSL Scr 1.5-2.0 3. Hypoxia: CAP and CHF 4. AGMA: w/u inprogress; HCO3 replacement REC: checlk LA level/Ketones; disuresis; serourine studies as oredered will folow clsoley with team Time Spent With Patient Time: Total time managing care of this patient today ____ minutes. Procedures Date of Service Date of Service: 01/24/23
[2023-01-25] VITALS (34 sets, daily range): BP systolic 68–137; BP diastolic 33–79; PULSE 81–138; RESP 11–24; TEMP 31–37.6; O2SAT 88–98; BMI 32.2
--- NOTE | 2023-01-25 10:16 | HO.PM.IMPN ---
Subjective Subjective Date of Service: 01/25/23 Interval History: sob Physical Exam Vital Signs: Vital Signs: Last Vital Signs Temp 98.6 F 01/25/23 07:41 Pulse 117 H 01/25/23 07:41 Resp 20 01/25/23 07:41 BP 100/62 01/25/23 08:47 Pulse Ox 95 01/25/23 07:41 O2 Del Method Nasal Cannula 01/25/23 07:41 O2 Flow Rate 3 01/25/23 07:41 BMI result Body Mass Index 32.2 Objective Data Active Medications Acetaminophen (Acetaminophen 325 Mg Tablet) 650 mg PO Q6H PRN PRN Reason: Pain, Mild (Pain Scale 1-3) Atorvastatin Calcium (Atorvastatin Calcium 20 Mg Tablet) 20 mg PO BEDTIME [facility] Last Admin: 01/24/23 21:01 Dose: 20 mg Documented By: JANEL Dextrose (Dextrose 50 % 25 Gm/50 Ml Syringe) 25 gm IVPUSH Q15M PRN; Protocol PRN Reason: per Hypoglycemia Standing Ord. Docusate Sodium (Docusate Sodium 100 Mg Capsule) 100 mg PO DAILY PRN PRN Reason: Constipation Enoxaparin Sodium (Enoxaparin Sodium 80 Mg/0.8 Ml Syringe) 70 mg 1 mg/kg (70 mg) SUBCUT DAILY [facility] Last Admin: 01/25/23 08:55 Dose: 70 mg Documented By: CHAPINCITO Furosemide (Furosemide 40 Mg/4 Ml Vial) 40 mg IVPUSH DAILY [facility]; Protocol Last Admin: 01/25/23 08:55 Dose: 40 mg Documented By: CHAPINCITO Glucose (Glucose Gel 15 Gm Gel..Gram.) 15 gm PO Q15M PRN; Protocol PRN Reason: per Hypoglycemia Standing Ord. Azithromycin 500 mg/ Sodium (Chloride) 250 mls @ 125 mls/hr IV Q24H [facility] Last Infusion: 01/24/23 16:54 Dose: Infused Documented By: CHAPINCITO Ceftriaxone Sodium 2 gm/ (Sodium Chloride) 50 mls @ 100 mls/hr IV Q24H [facility] Insulin Human Lispro (Insulin Lispro 100 Unit/Ml 3 Ml Vial) 0 unit SUBCUT QIDACHS [facility]; Protocol Last Admin: 01/25/23 08:22 Dose: Not Given Documented By: CHAPINCITO Non-Admin Reason: No Insulin Coverage Multivitamins/Vitamin C (Multivitamin Tablet) 1 tab PO DAILY [facility] Last Admin: 01/25/23 08:55 Dose: 1 tab Documented By: CHAPINCITO Omeprazole (Omeprazole 20 Mg Capsule.Dr) 20 mg PO BID@0630,1630 [facility] Last Admin: 01/25/23 05:57 Dose: 20 mg Documented By: JANEL Ondansetron HCl (Ondansetron Hcl 4 Mg/2 Ml Vial) 4 mg IVPUSH Q8H PRN PRN Reason: Nausea and Vomiting Sodium Bicarbonate (Sodium Bicarbonate 650 Mg Tablet) 1,300 mg PO TID [facility] Last Admin: 01/25/23 08:55 Dose: 1,300 mg Documented By: CHAPINCITO Sodium Chloride (0.9 % Sodium Chloride Flush 3 Ml Syringe) 3 ml IVFLUSH QSHIFT [facility] Last Admin: 01/25/23 08:55 Dose: 3 ml Documented By: CHAPINCITO Labs 01/25/23 06:05 01/25/23 06:05 Labs: Laboratory Results - last 24 hr 01/24/23 01/24/23 01/24/23 11:00 11:48 16:24 MCV 82.4 MCH 26.3 L MCHC 32.0 RDW 17.1 H Plt Count 350 MPV 11.1 Immature Gran % (Auto) Cancelled Neut % (Auto) Cancelled Lymph % (Auto) Cancelled [place] % (Auto) Cancelled Eos % (Auto) Cancelled Baso % (Auto) Cancelled Lymph # (Auto) Cancelled [place] # (Auto) Cancelled Eos # (Auto) Cancelled Baso # (Auto) Cancelled Abs Immat Gran (auto) Cancelled Absolute Neuts (auto) Cancelled Absolute Nucleated RBC 0.030 H Nucleated RBC % (auto) 0.2 Neutrophils % (Manual) 90 H Band Neutrophils % 4 Lymphocytes % (Manual) 3 L Monocytes % (Manual) 3 Abs Neuts (Manual) 16.6 H Lymphocytes # (Manual) 0.5 L Monocytes # (Manual) 0.5 Toxic Vacuolation PRESENT Platelet Estimate NORMAL Plt Morphology Comment NORMAL RBC Morphology NOTED Polychromasia 1+ (0-2) Hypochromasia 1+ (5-14) [place] Cells 3+ (>5) Acanthocytes (Spur) 2+ (3-5) Smear Tech's Comments PT 17.3 H INR 1.4 H VBG pH VBG pCO2 VBG pO2 VBG HCO3 VBG O2 Saturation VBG Base Excess Anion Gap 22 H Estim Creat Clear Calc 16.4 Estimated GFR 19 POC Glucose 155 H Random Glucose 163 H Lactic Acid Lactic Acid F/U @ 2Hr Calcium 9.5 Magnesium 2.3 Total Bilirubin 0.5 AST 17 ALT 7 Alkaline Phosphatase 172 H B-Natriuretic Peptide 1638 H Total Protein 8.3 H Albumin 3.7 Beta-Hydroxybutyrate Procalcitonin 1.25 TSH 1.31 Urine Color Urine Appearance Urine pH Ur Specific [place] Urine Protein Urine Glucose (UA) Urine Ketones Urine Blood Urine Nitrite Ur Leukocyte Esterase Urine RBC Urine WBC Ur Squamous Epith Cells Urine Bacteria Hyaline Casts Ur Random Sodium Ur Random Potassium Ur Random Chloride COVID-19 (TAVIA) Negative COVID-19 Clin Com See Note Influenza Type A (TOMEKA) Negative Influenza Type B (TOMEKA) Negative Influenza A & B Note See Note 01/24/23 01/24/23 01/24/23 17:49 17:53 17:58 MCV MCH MCHC RDW Plt Count MPV Immature Gran % (Auto) Neut % (Auto) Lymph % (Auto) [place] % (Auto) Eos % (Auto) Baso % (Auto) Lymph # (Auto) [place] # (Auto) Eos # (Auto) Baso # (Auto) Abs Immat Gran (auto) Absolute Neuts (auto) Absolute Nucleated RBC Nucleated RBC % (auto) Neutrophils % (Manual) Band Neutrophils % Lymphocytes % (Manual) Monocytes % (Manual) Abs Neuts (Manual) Lymphocytes # (Manual) Monocytes # (Manual) Toxic Vacuolation Platelet Estimate Plt Morphology Comment RBC Morphology Polychromasia Hypochromasia [place] Cells Acanthocytes (Spur) Smear Tech's Comments PT INR VBG pH 7.28 L VBG pCO2 28 VBG pO2 55 VBG HCO3 13 L VBG O2 Saturation 76.0 VBG Base Excess -11.4 Anion Gap Estim Creat Clear Calc Estimated GFR POC Glucose Random Glucose Lactic Acid 2.8 H* Lactic Acid F/U @ 2Hr Calcium Magnesium Total Bilirubin AST ALT Alkaline Phosphatase B-Natriuretic Peptide Total Protein Albumin Beta-Hydroxybutyrate 0.23 Procalcitonin TSH Urine Color Yellow Urine Appearance Turbid Urine pH 7.0 Ur Specific [place] 1.015 Urine Protein 100 (2+) H Urine Glucose (UA) Negative Urine Ketones Negative Urine Blood Moderate (2+) H Urine Nitrite Negative Ur Leukocyte Esterase Large (3+) H Urine RBC 11-20 H Urine WBC >50 H Ur Squamous Epith Cells 6-10 Urine Bacteria 4+ Hyaline Casts 6-10 Ur Random Sodium 34.0 Ur Random Potassium 46.3 Ur Random Chloride 55.0 COVID-19 (TAVIA) COVID-19 Clin Com Influenza Type A (TOMEKA) Influenza Type B (TOMEKA) Influenza A & B Note 01/24/23 01/24/23 01/24/23 18:12 20:26 20:33 MCV MCH MCHC RDW Plt Count MPV Immature Gran % (Auto) Neut % (Auto) Lymph % (Auto) [place] % (Auto) Eos % (Auto) Baso % (Auto) Lymph # (Auto) [place] # (Auto) Eos # (Auto) Baso # (Auto) Abs Immat Gran (auto) Absolute Neuts (auto) Absolute Nucleated RBC Nucleated RBC % (auto) Neutrophils % (Manual) Band Neutrophils % Lymphocytes % (Manual) Monocytes % (Manual) Abs Neuts (Manual) Lymphocytes # (Manual) Monocytes # (Manual) Toxic Vacuolation Platelet Estimate Plt Morphology Comment RBC Morphology Polychromasia Hypochromasia [place] Cells Acanthocytes (Spur) Smear Tech's Comments PT INR VBG pH 7.26 L VBG pCO2 29 VBG pO2 84 VBG HCO3 13 L VBG O2 Saturation 92.0 VBG Base Excess -12.2 Anion Gap Estim Creat Clear Calc Estimated GFR POC Glucose 173 H Random Glucose Lactic Acid Lactic Acid F/U @ 2Hr 2.0 Calcium Magnesium Total Bilirubin AST ALT Alkaline Phosphatase B-Natriuretic Peptide Total Protein Albumin Beta-Hydroxybutyrate Procalcitonin TSH Urine Color Urine Appearance Urine pH Ur Specific [place] Urine Protein Urine Glucose (UA) Urine Ketones Urine Blood Urine Nitrite Ur Leukocyte Esterase Urine RBC Urine WBC Ur Squamous Epith Cells Urine Bacteria Hyaline Casts Ur Random Sodium Ur Random Potassium Ur Random Chloride COVID-19 (TAVIA) COVID-19 Clin Com Influenza Type A (TOMEKA) Influenza Type B (TOMEKA) Influenza A & B Note 01/24/23 01/25/23 01/25/23 Unknown 06:05 07:39 MCV 81.3 MCH 26.3 L MCHC 32.3 RDW 17.0 H Plt Count 350 MPV 11.6 Immature Gran % (Auto) 0.6 H Neut % (Auto) 93.3 H Lymph % (Auto) 1.7 L [place] % (Auto) 4.3 Eos % (Auto) 0.0 Baso % (Auto) 0.1 Lymph # (Auto) 0.2 L [place] # (Auto) 0.6 Eos # (Auto) 0.0 Baso # (Auto) 0.0 Abs Immat Gran (auto) 0.09 H Absolute Neuts (auto) 13.1 H Absolute Nucleated RBC 0.050 H Nucleated RBC % (auto) 0.4 H Neutrophils % (Manual) Band Neutrophils % Lymphocytes % (Manual) Monocytes % (Manual) Abs Neuts (Manual) Lymphocytes # (Manual) Monocytes # (Manual) Toxic Vacuolation Platelet Estimate Plt Morphology Comment RBC Morphology Polychromasia Hypochromasia [place] Cells Acanthocytes (Spur) Smear Tech's Comments VERIFIED PT INR VBG pH VBG pCO2 VBG pO2 VBG HCO3 VBG O2 Saturation VBG Base Excess Anion Gap 22 H Estim Creat Clear Calc 16.5 Estimated GFR 18 POC Glucose 94 Random Glucose 96 Lactic Acid Lactic Acid F/U @ 2Hr Calcium 9.5 Magnesium Cancelled Total Bilirubin AST ALT Alkaline Phosphatase B-Natriuretic Peptide 1501 H Total Protein Albumin Beta-Hydroxybutyrate Procalcitonin TSH Cancelled Urine Color Urine Appearance Urine pH Ur Specific [place] Urine Protein Urine Glucose (UA) Urine Ketones Urine Blood Urine Nitrite Ur Leukocyte Esterase Urine RBC Urine WBC Ur Squamous Epith Cells Urine Bacteria Hyaline Casts Ur Random Sodium Ur Random Potassium Ur Random Chloride COVID-19 (TAVIA) COVID-19 Clin Com Influenza Type A (TOMEKA) Influenza Type B (TOMEKA) Influenza A & B Note Assessment and Plan (1) Acute hypoxemic respiratory failure: Status: Acute (2) Sepsis: Status: Acute (3) Pneumonia: Status: Acute (4) CHF (congestive heart failure): Status: Acute Assessment and Plan: 87 year old female with history of HFpEF, , htn, hld, iron deficiency anemia, pulmonary hypertension, and dno-lifayfw-zjiekvgjw type 2 diabetes admitted for acute DEMI pnuemonia, CHF exacerbation, and new onset atrial fibrillation. Acute DEMI pneumonia with sepsis and acute hypoxemic respiratory failure CXR showing large opacification left upper lobe and lingula leukocytosis trending down , tachycardia, tachypnea. Procalcitonin levels 1.25 Lactic acidosis resolved . strep pneumo antigen, Legionella antigen, sputum culture pending continue ceftriaxone and azithromycin (initiated 01/24),-continue supplemental O2 to maintain oximetry >92% follow CBC, cultures acute diastolic congestive heart failure exacerbation echocardiogram 12/12 showing normal LV systolic function with EF 65% strict I&O,daily weights IV Lasix 40 mg daily cardiac diet cardio eval new onset atrial fibrillation-flactauting 120's blood pressure soft -hold atenolol/nifedipine . therapeutic AC TSH and magnesium level normal miguel on ckd:Elevated creatinine- likely cardiorenal creat 2.43, baseline 1.93. noted VBG(ph low), b-hydroxybutyrate(fine) agma -possible sec to miguel on ckd. d/w nephro yesterday-avoid nephrotoxins,added bicarb. -follow bmp chronic iron deficiency anemia -continue iron supplementation hypertension: softer hold nifedipine and atenolol blood pressure flactuating ,will avoif ivf since in chf. oxn-tynvhkn-pikmahszq type 2 diabetes -POC glucose -diabetic diet -Humalog on sliding scale -hold metformin and gemfibrozil DVT prophylaxis-on Lovenox DNR/DNI Patient is not but improving with above management acute hypoxemic respiratory failure (multifactorial)work of breathing is increasing, and has multiple medical issues ( afib ,miguel )-discussed with ICU in detail length who also discussed with family-patient will need critcal level of care. Time Spent With Patient Time: Total time managing care of this patient today ____ minutes. Quality Stroke Does the patient have a stroke diagnosis?: No VTE Prior VTE?: No VTE Risk Level:: Medical - moderate - high VTE Device Contraindication: N/A - Device Ordered VTE Drug Contraindication: Treatment Not Indicated
--- NOTE | 2023-01-25 10:35 | W.PM.CCCN ---
History of Present Illness Data of Consult Service Date: 01/25/23 Requesting physician: Kayla Hammer Primary Care Provider: Kali Cedillo MD [facility] Reason for consult: respiratory distress 87-year-old female presents with increasing shortness of breath clearly markedly tachypneic but fatiguing at this point and becoming increasingly lethargic yet still awake use of accessory muscles and marked diaphragmatic effort with very audible coarse rales it across the room chest x-ray and CT scan showed what appears to be an extensive left-sided infiltrate/consolidation not distinctly febrile but with an elevated white count apparently persistent atrial fibrillation and my bedside echo revealing a modest congestive cardiomyopathy left ventricle ejection fraction mid 40s but historically severe diastolic dysfunction with elevated filling pressures and she is clearly edematous she has got a dysfunctional right ventricle with significant dilatation of the inferior vena cava it as well so clearly biventricular failure and her atrial fibrillation now with the more rapid ventricular response and she has longstanding chronic stage III renal failure and a background of type 2 diabetes mellitus hyperlipidemia and hypertension as explained to the family she clearly had no fall back reserve with this combined issue and there was no safe way to use vaso dilator therapy especially in the background of this degree of renal insufficiency and felt that the mechanics of left ventricular unloading and as well as secondary peripheral of the basal dilatation but with the mechanical support of of intubation and and remove and removing the work of breathing and in an already [place]guez that is and high-output failure we might be able to affect a better diuresis and preservation of pressure resolution of the what looked like a presumptive pneumonia but still could not rule out that this was not entirely congestive heart failure or predominantly congestive heart failure and a brought her down stairs for emergent intubation which worked very easily and successfully as well as placement of central line which immediately revealed a markedly elevated central venous pressure of a of a 15-16 as a would have expected and she immediately started to diurese even before any Lasix was given but once a was given she was putting out more than 200 cc an hour was at least a 2.5 L negative as as a result but clearly indication of a of increased cardiac output just from the mechanics of the ventilator but I also started to digitalize her and gave her a full 0.75 mg over the 1st 6 hours and was able to bring her heart rate down to between 100 and 120 and and she did beautifully with that Review of Systems Review of Systems: Yes all other systems are reviewed and are negative [facility] Past Medical History Medical History Insomnia Hyperlipidemia Urinary incontinence in female Urinary frequency Overactive bladder History of renal failure Mitral annular calcification Pulmonary hypertension Chronic heart failure with preserved ejection fraction (HFpEF) Diabetes mellitus Family History Family History Father Cancer Mother Heart disease Surgical History Surgical History History of colonoscopy History of hip replacement History of eye surgery History of bilateral cataract extraction History of appendectomy Social History Social History Household Members: None Housing: House Do you presently have visiting nurse or other home services: No Alcohol intake: never Patient Tobacco Use Status: Former Tobacco user Quit Date: 14 years ago Tobacco use type: Cigarette e-Cigarette/Vaping Use: Never Used Second Hand Smoke Exposure: No Use of substances other than those prescribed or required for medical reasons: No Currently Displaying Signs/Symptoms of Drug Intoxication Withdrawal: No Have you been hit, kicked, punched, or otherwise hurt by someone within the past year? If so, by whom?: No Do you feel safe in your current relationship?: No Current Relationship Is there a partner from a previous relationship who is making you feel unsafe now?: No Are you made to feel afraid or neglected: No Advance Directives: Yes Advance Directives on File: Yes Advance Directives Date on File: 04/18/21 Do you have thoughts of harming others: None Do you have a plan to hurt others: No Plan Recently lost weight without trying: No How much weight loss: Unsure Patient : No service: No Current occupational status: retired Cognitive needs: Yes (cane) Hearing needs: No Vision needs: Yes (glasses) Meds Allergies Allergy/AdvReac Type Severity Reaction Status Date / Time Sulfa (Sulfonamide AdvReac Intermediate VOMITING Verified 01/24/23 10:24 Antibiotics) Active Medications: Current Medications Acetaminophen (Acetaminophen 325 Mg Tablet) 650 mg PO Q6H PRN PRN Reason: Pain, Mild (Pain Scale 1-3) Atorvastatin Calcium (Atorvastatin Calcium 20 Mg Tablet) 20 mg PO BEDTIME [facility] Last Admin: 01/24/23 21:01 Dose: 20 mg Dextrose (Dextrose 50 % 25 Gm/50 Ml Syringe) 25 gm IVPUSH Q15M PRN; Protocol PRN Reason: per Hypoglycemia Standing Ord. Docusate Sodium (Docusate Sodium 100 Mg Capsule) 100 mg PO DAILY PRN PRN Reason: Constipation Enoxaparin Sodium (Enoxaparin Sodium 80 Mg/0.8 Ml Syringe) 70 mg 1 mg/kg (70 mg) SUBCUT DAILY [facility] Last Admin: 01/25/23 08:55 Dose: 70 mg Furosemide (Furosemide 40 Mg/4 Ml Vial) 40 mg IVPUSH DAILY [facility]; Protocol Last Admin: 01/25/23 08:55 Dose: 40 mg Glucose (Glucose Gel 15 Gm Gel..Gram.) 15 gm PO Q15M PRN; Protocol PRN Reason: per Hypoglycemia Standing Ord. Azithromycin 500 mg/ Sodium (Chloride) 250 mls @ 125 mls/hr IV Q24H [facility] Last Infusion: 01/24/23 16:54 Dose: Infused Ceftriaxone Sodium 2 gm/ (Sodium Chloride) 50 mls @ 100 mls/hr IV Q24H [facility] Insulin Human Lispro (Insulin Lispro 100 Unit/Ml 3 Ml Vial) 0 unit SUBCUT QIDACHS [facility]; Protocol Last Admin: 01/25/23 08:22 Dose: Not Given Multivitamins/Vitamin C (Multivitamin Tablet) 1 tab PO DAILY [facility] Last Admin: 01/25/23 08:55 Dose: 1 tab Omeprazole (Omeprazole 20 Mg Capsule.Dr) 20 mg PO BID@0630,1630 [facility] Last Admin: 01/25/23 05:57 Dose: 20 mg Ondansetron HCl (Ondansetron Hcl 4 Mg/2 Ml Vial) 4 mg IVPUSH Q8H PRN PRN Reason: Nausea and Vomiting Sodium Bicarbonate (Sodium Bicarbonate 650 Mg Tablet) 1,300 mg PO TID [facility] Last Admin: 01/25/23 08:55 Dose: 1,300 mg Sodium Chloride (0.9 % Sodium Chloride Flush 3 Ml Syringe) 3 ml IVFLUSH QSHIFT [facility] Last Admin: 01/25/23 08:55 Dose: 3 ml Home Medications Medication Instructions Recorded Confirmed Last Taken Type pen needle, diabetic 31 gauge x #50 ea 03/04/20 01/24/23 Unknown History 07/05 aspirin 81 mg tablet,delayed 81 mg PO DAILY 05/02/20 01/24/23 Unknown History release multivitamin 1 tab PO DAILY 05/02/20 01/24/23 Unknown History Physical Exam Vital Signs: Vital Signs: Last Vital Signs Temp 98.6 F 01/25/23 07:41 Pulse 117 H 01/25/23 07:41 Resp 20 01/25/23 07:41 BP 100/62 01/25/23 08:47 Pulse Ox 95 01/25/23 07:41 O2 Del Method Nasal Cannula 01/25/23 07:41 O2 Flow Rate 3 01/25/23 07:41 BMI result Body Mass Index 32.2 her blood pressure was supported at greater than 100-110 systolic and mean arterial pressure greater than 70 with the use of Levophed very coarse rales actually bilaterally predominantly on the left side abdomen benign soft with no organomegaly and feeding tube was placed and there was no significant volume in the stomach so we started feedings cardiac exam is I explained above from the echo results Results Labs 01/27/23 05:45 01/27/23 05:45 Labs: Short CBC 01/24/23 01/25/23 Range/Units 11:00 06:05 WBC 17.7 H 14.1 H (4.8-10.8) X10*3/uL Hgb 9.4 L 8.7 L (12.0-16.0) g/dl Hct 29.4 L 26.9 L (37.0-47.0) % Plt Count 350 350 (160-400) X10*3/uL BMP 01/24/23 01/25/23 11:00 06:05 Sodium 137 139 Potassium 5.1 4.8 Chloride 106 107 Carbon Dioxide 14 L 15 L BUN 74 H 80 H Creatinine 2.43 H 2.58 H Calcium 9.5 9.5 Liver Function 01/24/23 Range/Units 11:00 Total Bilirubin 0.5 (0.0-1.0) mg/dL AST 17 (5-31) U/L ALT 7 (0-31) U/L Alkaline Phosphatase 172 H (39-117) U/L Albumin 3.7 (3.5-5.0) g/dL Urine 01/24/23 Range/Units 17:49 Urine Color Yellow Urine Appearance Turbid Urine pH 7.0 (5.0-9.0) Ur Specific [place] 1.015 (1.005-1.025) Urine Protein 100 (2+) H (Neg-Trace) mg/dL Urine Glucose (UA) Negative (Negative) mg/dL Assessment and Plan (1) Acute on chronic diastolic (congestive) heart failure: Status: Acute (2) Acute hypoxemic respiratory failure: Status: Acute (3) Sepsis: Status: Acute (4) Pneumonia: Status: Acute (5) CHF (congestive heart failure): Status: Acute (6) Renal failure (ARF), acute on chronic: Status: Acute (7) Atrial fibrillation with normal ventricular rate: Status: Acute (8) Acute dyspnea: Status: Acute (9) Nonrheumatic aortic (valve) stenosis: Status: Acute (10) Diabetes mellitus with coincident hypertension: Status: Acute (11) Essential hypertension: Status: Acute (12) Hyperlipidemia: Status: Acute (13) Pulmonary hypertension: Status: Acute (14) Chronic heart failure with preserved ejection fraction (HFpEF): Status: Acute (15) Diabetes mellitus: Status: Acute Plan will giving the Lasix of once and will continue to see if she auto diuresis with the benefit of just the the positive-pressure the ventilator cover her with antibiotics and because of his unilateral nature I can not rule out the possibility of an aspiration so you Zosyn and keep the a Zithromax in maintain digoxin if for her rate control and when minute ventilation drops in the nose at least significantly below 10 liters/minute and FiO2 is below 40% we potentially could start the weaning process Time Spent With Patient Time: Total time managing care of this patient today _90___ minutes.
--- NOTE | 2023-01-25 10:42 | MHC.CM.PN ---
CM MET WITH PT, HCP, AND OTHER FAMILY MEMBERS AT BEDSIDE PT LIVES ALONE AND IS INDEPENDENT WITH CARE AT BASELINE SHE HAS A WALKER THAT SHE USES PRIMARILY, AND A WHEEL CHAIR FOR LONG TRIPS PT HAD NO SERVICES LICENSED ESTHETICIAN HCP ON FILE PCP: CONOR AGUILAR IMM DELIVERED DCP TBD PENDING PTS RECOVERY AND POSSIBLE PT EVAL PT BEING TRANSFERRED TO ICU TODAY
--- NOTE | 2023-01-25 11:02 | MHC.CLN ---
RE: CONSULT PT WITH INCREASED NUTRITION RISK R/T PRESSURE INJURIES DIET RX: 1800DM CARDIAC-APPROPRIATE RECOMMEND ADDING ENSURE MAX BID TO PROMOTE WOUND HEALING SUPP TO PROVIDE 300KCALS, 60G PROTEIN MONITOR PO INTAKE CLOSELY SEE ALSO FULL CLINICAL NUTRITION ASSESSMENT
--- NOTE | 2023-01-25 11:03 | PM.CNCAR ---
History of Present Illness History of Present Illness Date of Service: 01/25/23 Chief complaint: pneumonia,chf exacerbation,hypoxia,new onset afib Narrative: This is a cardiology consultation regarding congestive heart failure. Patient is followed up in our clinic can last appointment was couple months ago. Comorbidities include chronic diastolic congestive heart failure, mitral annular calcification, aortic stenosis as well as pulmonary and systemic hypertension. Current admissions because of generalized weakness and shortness of breath, cough, pleuritic chest pain, orthopnea, chest congestion among others. She has been diagnosed to have pneumonia as well as possibly some congestive heart failure. She is being treated for both. However, not improving and hence we have been asked is here. Upon evaluation, she does look quite ill. She is not offering any specific complaints but not able to engage in a full conversation either. Did speak to family including [id number] as well as daughter at the bedside. Review of Systems Review of Systems: Yes all other systems are reviewed and are negative Constitutional: Constitutional: Reports as per HPI, Reports no additional constitutional complaints, Reports fatigue, Reports lethargy, Reports malaise and Reports poor appetite Eyes: Eyes: Reports as per HPI and Denies no additional eye complaints ENT: Denies system reviewed and no additional complaints, except as documented and Reports as per HPI Cardiovascular: Cardiovascular: Reports as per HPI, Reports no additional cardiovascular complaints, Denies acrocyanosis, Denies cool extremities, Reports chest pain, Reports leg edema, Denies lightheadedness, Denies palpitations and Reports dyspnea Respiratory: Respiratory: Reports as per HPI, Denies no additional respiratory complaints, Reports cough, Reports pain on inspiration and Reports dyspnea Gastrointestinal: Gastrointestinal: Reports as per HPI and Denies no additional gastrointestinal complaints Genitourinary: Genitourinary: Reports as per HPI Musculoskeletal: Musculoskeletal: Reports no additional musculoskeletal complaints and Reports as per HPI Integumentary/Breasts: Skin/Breast: Reports system reviewed and no additional complaints, except as docu Neurologic: Reports system reviewed and no additional complaints, except as documented and Reports as per HPI Psychiatric: Psychiatric: Reports no additional psychiatric complaints and Reports as per HPI Endocrine: Endocrine: Reports no additional endocrine complaints, Reports as per HPI, Reports fatigue and Denies palpitations Hematologic/Lymphatic: Hematologic/Lymphatic: Reports no additional hematologic/lymphatic complaints and Reports as per HPI Allergic/Immunologic: Allergic/Immunologic: Reports no additional allergic/immunologic complaints and Reports as per HPI PMFSH Past Medical History Medical History Insomnia Hyperlipidemia Urinary incontinence in female Urinary frequency Overactive bladder History of renal failure Mitral annular calcification Pulmonary hypertension Chronic heart failure with preserved ejection fraction (HFpEF) Diabetes mellitus Family History Family History Father Cancer Mother Heart disease Surgical History Surgical History History of colonoscopy History of hip replacement History of eye surgery History of bilateral cataract extraction History of appendectomy Social History Social History Household Members: None Housing: House Do you presently have visiting nurse or other home services: No Alcohol intake: never Patient Tobacco Use Status: Former Tobacco user Quit Date: 14 years ago Tobacco use type: Cigarette e-Cigarette/Vaping Use: Never Used Second Hand Smoke Exposure: No Use of substances other than those prescribed or required for medical reasons: No Currently Displaying Signs/Symptoms of Drug Intoxication Withdrawal: No Have you been hit, kicked, punched, or otherwise hurt by someone within the past year? If so, by whom?: No Do you feel safe in your current relationship?: No Current Relationship Is there a partner from a previous relationship who is making you feel unsafe now?: No Are you made to feel afraid or neglected: No Advance Directives: Yes Advance Directives on File: Yes Advance Directives Date on File: 04/18/21 Do you have thoughts of harming others: None Do you have a plan to hurt others: No Plan Recently lost weight without trying: No How much weight loss: Unsure Patient : No service: No Current occupational status: retired Cognitive needs: Yes (cane) Hearing needs: No Vision needs: Yes (glasses) Meds Allergies Allergy/AdvReac Type Severity Reaction Status Date / Time Sulfa (Sulfonamide AdvReac Intermediate VOMITING Verified 01/24/23 10:24 Antibiotics) Active Medications: Current Medications Acetaminophen (Acetaminophen 325 Mg Tablet) 650 mg PO Q6H PRN PRN Reason: Pain, Mild (Pain Scale 1-3) Atorvastatin Calcium (Atorvastatin Calcium 20 Mg Tablet) 20 mg PO BEDTIME JOSE Last Admin: 01/24/23 21:01 Dose: 20 mg Dextrose (Dextrose 50 % 25 Gm/50 Ml Syringe) 25 gm IVPUSH Q15M PRN; Protocol PRN Reason: per Hypoglycemia Standing Ord. Docusate Sodium (Docusate Sodium 100 Mg Capsule) 100 mg PO DAILY PRN PRN Reason: Constipation Enoxaparin Sodium (Enoxaparin Sodium 80 Mg/0.8 Ml Syringe) 70 mg 1 mg/kg (70 mg) SUBCUT DAILY [facility] Last Admin: 01/25/23 08:55 Dose: 70 mg Furosemide (Furosemide 40 Mg/4 Ml Vial) 40 mg IVPUSH DAILY [facility]; Protocol Last Admin: 01/25/23 08:55 Dose: 40 mg Glucose (Glucose Gel 15 Gm Gel..Gram.) 15 gm PO Q15M PRN; Protocol PRN Reason: per Hypoglycemia Standing Ord. Azithromycin 500 mg/ Sodium (Chloride) 250 mls @ 125 mls/hr IV Q24H [facility] Last Infusion: 01/24/23 16:54 Dose: Infused Ceftriaxone Sodium 2 gm/ (Sodium Chloride) 50 mls @ 100 mls/hr IV Q24H [facility] Insulin Human Lispro (Insulin Lispro 100 Unit/Ml 3 Ml Vial) 0 unit SUBCUT QIDACHS [facility]; Protocol Last Admin: 01/25/23 08:22 Dose: Not Given Multivitamins/Vitamin C (Multivitamin Tablet) 1 tab PO DAILY [facility] Last Admin: 01/25/23 08:55 Dose: 1 tab Omeprazole (Omeprazole 20 Mg Capsule.Dr) 20 mg PO BID@0630,1630 [facility] Last Admin: 01/25/23 05:57 Dose: 20 mg Ondansetron HCl (Ondansetron Hcl 4 Mg/2 Ml Vial) 4 mg IVPUSH Q8H PRN PRN Reason: Nausea and Vomiting Sodium Bicarbonate (Sodium Bicarbonate 650 Mg Tablet) 1,300 mg PO TID [facility] Last Admin: 01/25/23 08:55 Dose: 1,300 mg Sodium Chloride (0.9 % Sodium Chloride Flush 3 Ml Syringe) 3 ml IVFLUSH QSHIFT [facility] Last Admin: 01/25/23 08:55 Dose: 3 ml Home Medications Medication Instructions Recorded Confirmed Last Taken Type pen needle, diabetic 31 gauge x #50 ea 03/04/20 01/24/23 Unknown History 07/05 aspirin 81 mg tablet,delayed 81 mg PO DAILY 05/02/20 01/24/23 Unknown History release multivitamin 1 tab PO DAILY 05/02/20 01/24/23 Unknown History Physical Exam Vital Signs: Vital Signs: Last Vital Signs Temp 98.6 F 01/25/23 07:41 Pulse 117 H 01/25/23 07:41 Resp 20 01/25/23 07:41 BP 100/62 01/25/23 08:47 Pulse Ox 95 01/25/23 07:41 O2 Del Method Nasal Cannula 01/25/23 07:41 O2 Flow Rate 3 01/25/23 07:41 BMI result Body Mass Index 32.2 Const: General: in distress, ill appearing, lethargic and tired appearing Orientation/consciousness: patient oriented x3 and lethargic HEENT: Other: Unremarkable Head: Yes normal to inspection Neck: Neck: Yes normal visual inspection Chest: Chest palpation & inspection: normal inspection of the chest Resp: Auscultation: rales, rhonchi, wheezes and diminished lung sounds Cardio: Palpation: normal PMI Heart sounds: S1 normal heart sound present, S2 normal heart sound present, no gallops, no murmurs and no rubs GI: Palpation (GI): Soft to palpation Back/Spine/Pelvis: Other: unremarkable Skin: General skin exam: no rashes or lesions noted Neuro: General: patient oriented x3 Extrem: General: Yes normal to inspection Psych: Mental Status: mental status grossly normal Objective Labs and Meds 01/25/23 06:05 01/25/23 06:05 Lab results: Laboratory Results - last 24 hr 01/24/23 01/24/23 01/24/23 11:00 11:48 16:24 WBC 17.7 H RBC 3.57 L Hgb 9.4 L Hct 29.4 L MCV 82.4 MCH 26.3 L MCHC 32.0 RDW 17.1 H Plt Count 350 MPV 11.1 Immature Gran % (Auto) Cancelled Neut % (Auto) Cancelled Lymph % (Auto) Cancelled [place] % (Auto) Cancelled Eos % (Auto) Cancelled Baso % (Auto) Cancelled Lymph # (Auto) Cancelled [place] # (Auto) Cancelled Eos # (Auto) Cancelled Baso # (Auto) Cancelled Abs Immat Gran (auto) Cancelled Absolute Neuts (auto) Cancelled Absolute Nucleated RBC 0.030 H Nucleated RBC % (auto) 0.2 Neutrophils % (Manual) 90 H Band Neutrophils % 4 Lymphocytes % (Manual) 3 L Monocytes % (Manual) 3 Abs Neuts (Manual) 16.6 H Lymphocytes # (Manual) 0.5 L Monocytes # (Manual) 0.5 Toxic Vacuolation PRESENT Platelet Estimate NORMAL Plt Morphology Comment NORMAL RBC Morphology NOTED Polychromasia 1+ (0-2) Hypochromasia 1+ (5-14) [place] Cells 3+ (>5) Acanthocytes (Spur) 2+ (3-5) Smear Tech's Comments PT 17.3 H INR 1.4 H VBG pH VBG pCO2 VBG pO2 VBG HCO3 VBG O2 Saturation VBG Base Excess Sodium 137 Potassium 5.1 Chloride 106 Carbon Dioxide 14 L Anion Gap 22 H BUN 74 H Creatinine 2.43 H Estim Creat Clear Calc 16.4 Estimated GFR 19 POC Glucose 155 H Random Glucose 163 H Lactic Acid Lactic Acid F/U @ 2Hr Calcium 9.5 Magnesium 2.3 Total Bilirubin 0.5 AST 17 ALT 7 Alkaline Phosphatase 172 H B-Natriuretic Peptide 1638 H Total Protein 8.3 H Albumin 3.7 Beta-Hydroxybutyrate Procalcitonin 1.25 TSH 1.31 Urine Color Urine Appearance Urine pH Ur Specific [place] Urine Protein Urine Glucose (UA) Urine Ketones Urine Blood Urine Nitrite Ur Leukocyte Esterase Urine RBC Urine WBC Ur Squamous Epith Cells Urine Bacteria Hyaline Casts Ur Random Sodium Ur Random Potassium Ur Random Chloride COVID-19 (TAVIA) Negative COVID-19 Clin Com See Note Influenza Type A (TOMEKA) Negative Influenza Type B (TOMEKA) Negative Influenza A & B Note See Note 01/24/23 01/24/23 01/24/23 17:49 17:53 17:58 WBC RBC Hgb Hct MCV MCH MCHC RDW Plt Count MPV Immature Gran % (Auto) Neut % (Auto) Lymph % (Auto) [place] % (Auto) Eos % (Auto) Baso % (Auto) Lymph # (Auto) [place] # (Auto) Eos # (Auto) Baso # (Auto) Abs Immat Gran (auto) Absolute Neuts (auto) Absolute Nucleated RBC Nucleated RBC % (auto) Neutrophils % (Manual) Band Neutrophils % Lymphocytes % (Manual) Monocytes % (Manual) Abs Neuts (Manual) Lymphocytes # (Manual) Monocytes # (Manual) Toxic Vacuolation Platelet Estimate Plt Morphology Comment RBC Morphology Polychromasia Hypochromasia [place] Cells Acanthocytes (Spur) Smear Tech's Comments PT INR VBG pH 7.28 L VBG pCO2 28 VBG pO2 55 VBG HCO3 13 L VBG O2 Saturation 76.0 VBG Base Excess -11.4 Sodium Potassium Chloride Carbon Dioxide Anion Gap BUN Creatinine Estim Creat Clear Calc Estimated GFR POC Glucose Random Glucose Lactic Acid 2.8 H* Lactic Acid F/U @ 2Hr Calcium Magnesium Total Bilirubin AST ALT Alkaline Phosphatase B-Natriuretic Peptide Total Protein Albumin Beta-Hydroxybutyrate 0.23 Procalcitonin TSH Urine Color Yellow Urine Appearance Turbid Urine pH 7.0 Ur Specific [place] 1.015 Urine Protein 100 (2+) H Urine Glucose (UA) Negative Urine Ketones Negative Urine Blood Moderate (2+) H Urine Nitrite Negative Ur Leukocyte Esterase Large (3+) H Urine RBC 11-20 H Urine WBC >50 H Ur Squamous Epith Cells 6-10 Urine Bacteria 4+ Hyaline Casts 6-10 Ur Random Sodium 34.0 Ur Random Potassium 46.3 Ur Random Chloride 55.0 COVID-19 (TAVIA) COVID-19 Clin Com Influenza Type A (TOMEKA) Influenza Type B (TOMEKA) Influenza A & B Note 01/24/23 01/24/23 01/24/23 18:12 20:26 20:33 WBC RBC Hgb Hct MCV MCH MCHC RDW Plt Count MPV Immature Gran % (Auto) Neut % (Auto) Lymph % (Auto) [place] % (Auto) Eos % (Auto) Baso % (Auto) Lymph # (Auto) [place] # (Auto) Eos # (Auto) Baso # (Auto) Abs Immat Gran (auto) Absolute Neuts (auto) Absolute Nucleated RBC Nucleated RBC % (auto) Neutrophils % (Manual) Band Neutrophils % Lymphocytes % (Manual) Monocytes % (Manual) Abs Neuts (Manual) Lymphocytes # (Manual) Monocytes # (Manual) Toxic Vacuolation Platelet Estimate Plt Morphology Comment RBC Morphology Polychromasia Hypochromasia [place] Cells Acanthocytes (Spur) Smear Tech's Comments PT INR VBG pH 7.26 L VBG pCO2 29 VBG pO2 84 VBG HCO3 13 L VBG O2 Saturation 92.0 VBG Base Excess -12.2 Sodium Potassium Chloride Carbon Dioxide Anion Gap BUN Creatinine Estim Creat Clear Calc Estimated GFR POC Glucose 173 H Random Glucose Lactic Acid Lactic Acid F/U @ 2Hr 2.0 Calcium Magnesium Total Bilirubin AST ALT Alkaline Phosphatase B-Natriuretic Peptide Total Protein Albumin Beta-Hydroxybutyrate Procalcitonin TSH Urine Color Urine Appearance Urine pH Ur Specific [place] Urine Protein Urine Glucose (UA) Urine Ketones Urine Blood Urine Nitrite Ur Leukocyte Esterase Urine RBC Urine WBC Ur Squamous Epith Cells Urine Bacteria Hyaline Casts Ur Random Sodium Ur Random Potassium Ur Random Chloride COVID-19 (TAVIA) COVID-19 Clin Com Influenza Type A (TOMEKA) Influenza Type B (TOMEKA) Influenza A & B Note 01/24/23 01/25/23 01/25/23 Unknown 06:05 07:39 WBC 14.1 H RBC 3.31 L Hgb 8.7 L Hct 26.9 L MCV 81.3 MCH 26.3 L MCHC 32.3 RDW 17.0 H Plt Count 350 MPV 11.6 Immature Gran % (Auto) 0.6 H Neut % (Auto) 93.3 H Lymph % (Auto) 1.7 L [place] % (Auto) 4.3 Eos % (Auto) 0.0 Baso % (Auto) 0.1 Lymph # (Auto) 0.2 L [place] # (Auto) 0.6 Eos # (Auto) 0.0 Baso # (Auto) 0.0 Abs Immat Gran (auto) 0.09 H Absolute Neuts (auto) 13.1 H Absolute Nucleated RBC 0.050 H Nucleated RBC % (auto) 0.4 H Neutrophils % (Manual) Band Neutrophils % Lymphocytes % (Manual) Monocytes % (Manual) Abs Neuts (Manual) Lymphocytes # (Manual) Monocytes # (Manual) Toxic Vacuolation Platelet Estimate Plt Morphology Comment RBC Morphology Polychromasia Hypochromasia [place] Cells Acanthocytes (Spur) Smear Tech's Comments VERIFIED PT INR VBG pH VBG pCO2 VBG pO2 VBG HCO3 VBG O2 Saturation VBG Base Excess Sodium 139 Potassium 4.8 Chloride 107 Carbon Dioxide 15 L Anion Gap 22 H BUN 80 H Creatinine 2.58 H Estim Creat Clear Calc 16.5 Estimated GFR 18 POC Glucose 94 Random Glucose 96 Lactic Acid Lactic Acid F/U @ 2Hr Calcium 9.5 Magnesium Cancelled Total Bilirubin AST ALT Alkaline Phosphatase B-Natriuretic Peptide 1501 H Total Protein Albumin Beta-Hydroxybutyrate Procalcitonin TSH Cancelled Urine Color Urine Appearance Urine pH Ur Specific [place] Urine Protein Urine Glucose (UA) Urine Ketones Urine Blood Urine Nitrite Ur Leukocyte Esterase Urine RBC Urine WBC Ur Squamous Epith Cells Urine Bacteria Hyaline Casts Ur Random Sodium Ur Random Potassium Ur Random Chloride COVID-19 (TAVIA) COVID-19 Clin Com Influenza Type A (TOMEKA) Influenza Type B (TOMEKA) Influenza A & B Note ECG Interpretation: EKG with atrial fibrillation at a rate of 97/Min; incomplete left bundle-branch block pattern and nonspecific ST-T changes. Imaging Radiologist's impression: Impressions Chest X-Ray 01/24/23 11:42 IMPRESSION: 1. Large area of opacification in the left lung likely involving the lingula and left upper lobe consistent with pneumonia. 2. Probable small left pleural effusion. 3. Cardiomegaly. Assessment and Plan (1) Acute hypoxemic respiratory failure: Status: Acute (2) Acute on chronic diastolic (congestive) heart failure: Status: Acute (3) Pneumonia: Status: Acute (4) Renal failure (ARF), acute on chronic: Status: Acute Plan Labs reviewed including findings on renal failure. Cardiac BNP is 1638 and 1501. Troponins not available-discussed with Dr. Hammer. Chest x-ray reported to have a large area of calcification the left lung consistent with pneumonia. Probable small left pleural effusion and cardiomegaly. Echocardiogram from November with LVEF of 64%. Moderate diastolic dysfunction with possible basal inferior hypokinesis. Severely dilated left atrium. [id number] aortic stenosis and moderate mitral annular calcification. Overall, many comorbidities, advanced age, frailty, cardiac dysfunction, pneumonia, renal failure, respiratory failure. Clinical picture discussed with daughter as well as daughter in laws at the bedside. Also discussed with Dr. Hammer. She is quite ill and may succumb to her illness. With regard to the heart failure component, beyond diuretics not much can be done as she also has renal failure. She is listed as DNR/DNI but sales and marketing professional has been consulted and it seems that she might be transferred there for further care. Overall, she is quite ill. Discussed at length with family. Discussed with Dr. Hammer. Time Spent With Patient Time: Total time managing care of this patient today ____ minutes. Procedures Date of Service Date of Service: 01/25/23
--- NOTE | 2023-01-25 15:08 | PM.PNNEP ---
Subjective Subjective Date of Service: 01/25/23 Interval history: Now in ICU Intubated Pressor PNA treatment Physical Exam Vital Signs: Vital Signs: Last Vital Signs Temp 98.6 F 01/25/23 12:00 Pulse 112 H 01/25/23 14:00 Resp 15 01/25/23 14:00 BP 115/62 01/25/23 14:00 Pulse Ox 96 01/25/23 14:00 O2 Del Method Mechanical Ventil ation 01/25/23 14:00 O2 Flow Rate 3 01/25/23 07:41 FiO2 50 01/25/23 14:00 BMI result Body Mass Index 32.2 Const: Other: Intubated Resp: Other: Right chest rhonchi Cardio: Jugular venous distension: no JVD Rate: regular rate GI: Palpation (GI): Soft to palpation Percussion: Yes normal to percussion Extrem: Other: 1+ edema Objective Data Labs 01/25/23 06:05 01/25/23 06:05 Labs: Laboratory Results - last 24 hr 01/24/23 01/24/23 01/24/23 11:00 16:24 17:49 WBC RBC Hgb Hct MCV MCH MCHC RDW Plt Count MPV Immature Gran % (Auto) Neut % (Auto) Lymph % (Auto) [place] % (Auto) Eos % (Auto) Baso % (Auto) Lymph # (Auto) [place] # (Auto) Eos # (Auto) Baso # (Auto) Abs Immat Gran (auto) Absolute Neuts (auto) Absolute Nucleated RBC Nucleated RBC % (auto) Smear Tech's Comments VBG pH VBG pCO2 VBG pO2 VBG HCO3 VBG O2 Saturation VBG Base Excess Sodium Potassium Chloride Carbon Dioxide Anion Gap BUN Creatinine Estim Creat Clear Calc Estimated GFR POC Glucose 155 H Random Glucose Lactic Acid Lactic Acid F/U @ 2Hr Calcium B-Natriuretic Peptide Beta-Hydroxybutyrate Procalcitonin 1.25 Urine Color Yellow Urine Appearance Turbid Urine pH 7.0 Ur Specific [place] 1.015 Urine Protein 100 (2+) H Urine Glucose (UA) Negative Urine Ketones Negative Urine Blood Moderate (2+) H Urine Nitrite Negative Ur Leukocyte Esterase Large (3+) H Urine RBC 11-20 H Urine WBC >50 H Ur Squamous Epith Cells 6-10 Urine Bacteria 4+ Hyaline Casts 6-10 Ur Random Sodium 34.0 Ur Random Potassium 46.3 Ur Random Chloride 55.0 01/24/23 01/24/23 01/24/23 17:53 17:58 18:12 WBC RBC Hgb Hct MCV MCH MCHC RDW Plt Count MPV Immature Gran % (Auto) Neut % (Auto) Lymph % (Auto) [place] % (Auto) Eos % (Auto) Baso % (Auto) Lymph # (Auto) [place] # (Auto) Eos # (Auto) Baso # (Auto) Abs Immat Gran (auto) Absolute Neuts (auto) Absolute Nucleated RBC Nucleated RBC % (auto) Smear Tech's Comments VBG pH 7.28 L 7.26 L VBG pCO2 28 29 VBG pO2 55 84 VBG HCO3 13 L 13 L VBG O2 Saturation 76.0 92.0 VBG Base Excess -11.4 -12.2 Sodium Potassium Chloride Carbon Dioxide Anion Gap BUN Creatinine Estim Creat Clear Calc Estimated GFR POC Glucose Random Glucose Lactic Acid 2.8 H* Lactic Acid F/U @ 2Hr Calcium B-Natriuretic Peptide Beta-Hydroxybutyrate 0.23 Procalcitonin Urine Color Urine Appearance Urine pH Ur Specific [place] Urine Protein Urine Glucose (UA) Urine Ketones Urine Blood Urine Nitrite Ur Leukocyte Esterase Urine RBC Urine WBC Ur Squamous Epith Cells Urine Bacteria Hyaline Casts Ur Random Sodium Ur Random Potassium Ur Random Chloride 01/24/23 01/24/23 01/25/23 20:26 20:33 06:05 WBC 14.1 H RBC 3.31 L Hgb 8.7 L Hct 26.9 L MCV 81.3 MCH 26.3 L MCHC 32.3 RDW 17.0 H Plt Count 350 MPV 11.6 Immature Gran % (Auto) 0.6 H Neut % (Auto) 93.3 H Lymph % (Auto) 1.7 L [place] % (Auto) 4.3 Eos % (Auto) 0.0 Baso % (Auto) 0.1 Lymph # (Auto) 0.2 L [place] # (Auto) 0.6 Eos # (Auto) 0.0 Baso # (Auto) 0.0 Abs Immat Gran (auto) 0.09 H Absolute Neuts (auto) 13.1 H Absolute Nucleated RBC 0.050 H Nucleated RBC % (auto) 0.4 H Smear Tech's Comments VERIFIED VBG pH VBG pCO2 VBG pO2 VBG HCO3 VBG O2 Saturation VBG Base Excess Sodium 139 Potassium 4.8 Chloride 107 Carbon Dioxide 15 L Anion Gap 22 H BUN 80 H Creatinine 2.58 H Estim Creat Clear Calc 16.5 Estimated GFR 18 POC Glucose 173 H Random Glucose 96 Lactic Acid Lactic Acid F/U @ 2Hr 2.0 Calcium 9.5 B-Natriuretic Peptide 1501 H Beta-Hydroxybutyrate Procalcitonin Urine Color Urine Appearance Urine pH Ur Specific [place] Urine Protein Urine Glucose (UA) Urine Ketones Urine Blood Urine Nitrite Ur Leukocyte Esterase Urine RBC Urine WBC Ur Squamous Epith Cells Urine Bacteria Hyaline Casts Ur Random Sodium Ur Random Potassium Ur Random Chloride 01/25/23 01/25/23 07:39 12:22 WBC RBC Hgb Hct MCV MCH MCHC RDW Plt Count MPV Immature Gran % (Auto) Neut % (Auto) Lymph % (Auto) [place] % (Auto) Eos % (Auto) Baso % (Auto) Lymph # (Auto) [place] # (Auto) Eos # (Auto) Baso # (Auto) Abs Immat Gran (auto) Absolute Neuts (auto) Absolute Nucleated RBC Nucleated RBC % (auto) Smear Tech's Comments VBG pH VBG pCO2 VBG pO2 VBG HCO3 VBG O2 Saturation VBG Base Excess Sodium Potassium Chloride Carbon Dioxide Anion Gap BUN Creatinine Estim Creat Clear Calc Estimated GFR POC Glucose 94 129 H Random Glucose Lactic Acid Lactic Acid F/U @ 2Hr Calcium B-Natriuretic Peptide Beta-Hydroxybutyrate Procalcitonin Urine Color Urine Appearance Urine pH Ur Specific [place] Urine Protein Urine Glucose (UA) Urine Ketones Urine Blood Urine Nitrite Ur Leukocyte Esterase Urine RBC Urine WBC Ur Squamous Epith Cells Urine Bacteria Hyaline Casts Ur Random Sodium Ur Random Potassium Ur Random Chloride Microbiology Microbiology Results: Microbiology 01/25/23 12:13 Sputum - Suctioned Gram Stain - Final 01/24/23 Unknown Urine clean catch - Urine collado top Urine Culture - Preliminary No growth to date. Procedures Date of Service Date of Service: 01/25/23 Assessment & Plan Assessment and plan (1) CHF (congestive heart failure): Status: Acute (2) Atrial fibrillation with normal ventricular rate: Status: Acute (3) Acute dyspnea: Status: Acute (4) Pneumonia: Status: Acute (5) Sepsis: Status: Acute (6) Acute hypoxemic respiratory failure: Status: Acute Plan 87 year old female with history of HFpEF, , htn, hld, iron deficiency anemia, pulmonary hypertension, and dfb-[id number] type 2 diabetes admitted HYPOXIA and CORTEZ/CKD. 1. CORTEZ U/A with hyaline septic shock CORTEZ most c/w pre-renal injury progressing to ischemic / cytokine mediated ATN. 2. CKD 3:BSL Scr 1.5-2.0 3. Hypoxia: CAP not CHF 4. AGMA: w/u inprogress; HCO3 replacement Plan: - sepsis management - no diuresis - consider further isotonic IVF - consider ablumin bolus to support intravascular defense - renal panel daily - no INSURANCE INSPECTOR indications at this time. Time Spent With Patient Time: Total time managing care of this patient today ____ minutes. Progress Note: Quality Stroke Does the patient have a stroke diagnosis?: No
--- NOTE | 2023-01-25 16:31 | W.PM.IDCN ---
History of Present Illness Data of Consult Service Date: 01/24/23 Requesting physician: Ana Clinton Primary Care Provider: Kali Cedillo MD HPI Reason for consult: left pneumonia She presents with shortness of breath for a day. She has had CHF before. She has left effusion and consolidation. Review of Systems Review of Systems: Yes Unobtainable due to mental condition PMFSH Past Medical History Medical History Insomnia Hyperlipidemia Urinary incontinence in female Urinary frequency Overactive bladder History of renal failure Mitral annular calcification Pulmonary hypertension Chronic heart failure with preserved ejection fraction (HFpEF) Diabetes mellitus Family History Family History Father Cancer Mother Heart disease Family history: reviewed and not pertinent Surgical History Surgical History History of colonoscopy History of hip replacement History of eye surgery History of bilateral cataract extraction History of appendectomy Social History Social History Household Members: None Housing: House Do you presently have visiting nurse or other home services: No Alcohol intake: never Patient Tobacco Use Status: Former Tobacco user Quit Date: 14 years ago Tobacco use type: Cigarette e-Cigarette/Vaping Use: Never Used Second Hand Smoke Exposure: No Use of substances other than those prescribed or required for medical reasons: No Currently Displaying Signs/Symptoms of Drug Intoxication Withdrawal: No Have you been hit, kicked, punched, or otherwise hurt by someone within the past year? If so, by whom?: No Do you feel safe in your current relationship?: No Current Relationship Is there a partner from a previous relationship who is making you feel unsafe now?: No Are you made to feel afraid or neglected: No Advance Directives: Yes Advance Directives on File: Yes Advance Directives Date on File: 04/18/21 Do you have thoughts of harming others: None Do you have a plan to hurt others: No Plan Recently lost weight without trying: No How much weight loss: Unsure Patient : No service: No Current occupational status: retired Cognitive needs: Yes (cane) Hearing needs: No Vision needs: Yes (glasses) Meds Allergies Allergy/AdvReac Type Severity Reaction Status Date / Time Sulfa (Sulfonamide AdvReac Intermediate VOMITING Verified 01/24/23 10:24 Antibiotics) Active Medications: Current Medications Chlorhexidine Gluconate (Chlorhexidine Gluc Oral Rinse 15 Ml Mouthwash) 15 ml BUCCAL BID [facility] Last Admin: 01/25/23 13:44 Dose: 15 ml Dextrose (Dextrose 50 % 25 Gm/50 Ml Syringe) 25 gm IVPUSH Q15M PRN; Protocol PRN Reason: per Hypoglycemia Standing Ord. Docusate Sodium (Docusate Sodium 100 Mg Capsule) 100 mg PO DAILY PRN PRN Reason: Constipation Enoxaparin Sodium (Enoxaparin Sodium 80 Mg/0.8 Ml Syringe) 70 mg 1 mg/kg (70 mg) SUBCUT DAILY [facility] Last Admin: 01/25/23 08:55 Dose: 70 mg Glucose (Glucose Gel 15 Gm Gel..Gram.) 15 gm PO Q15M PRN; Protocol PRN Reason: per Hypoglycemia Standing Ord. Azithromycin 500 mg/ Sodium (Chloride) 250 mls @ 125 mls/hr IV Q24H [facility] Last Infusion: 01/25/23 15:45 Dose: Infused Norepinephrine Bitartrate (Levophed) 8 mg in 250 mls @ 0 mls/hr IV .Q0M [facility]; Protocol Last Titration: 01/25/23 15:45 Dose: 0.11 mcg/kg/min, 17.55 mls/hr Propofol (Diprivan) 1,000 mg in 100 mls @ 0 mls/hr IVCONT .Q0M [facility]; Protocol Last Titration: 01/25/23 12:07 Dose: 25 mcg/kg/min, 12.77 mls/hr Piperacillin Sod/Tazobactam (Sod 2.25 gm/ Sodium Chloride) 50 mls @ 100 mls/hr IV Q6H [facility] Last Admin: 01/25/23 16:24 Dose: 100 mls/hr Insulin Human Lispro (Insulin Lispro 100 Unit/Ml 3 Ml Vial) 0 unit SUBCUT QIDACHS [facility]; Protocol Last Admin: 01/25/23 16:25 Dose: Not Given Omeprazole (Omeprazole 20 Mg Capsule.Dr) 20 mg PO BID@0630,1630 [facility] Last Admin: 01/25/23 16:25 Dose: 20 mg Sodium Chloride (0.9 % Sodium Chloride Flush 3 Ml Syringe) 3 ml IVFLUSH QSHIFT JOSE Last Admin: 01/25/23 16:24 Dose: 3 ml Home Medications Medication Instructions Recorded Confirmed Last Taken Type pen needle, diabetic 31 gauge x #50 ea 03/04/20 01/24/23 Unknown History 07/05 aspirin 81 mg tablet,delayed 81 mg PO DAILY 05/02/20 01/24/23 Unknown History release multivitamin 1 tab PO DAILY 05/02/20 01/24/23 Unknown History Physical Exam Vital Signs: Vital Signs: Last Vital Signs Temp 97.7 F 01/25/23 16:00 Pulse 103 H 01/25/23 16:00 Resp 16 01/25/23 16:00 BP 123/68 01/25/23 16:00 Pulse Ox 97 01/25/23 16:00 O2 Del Method Mechanical Ventil ation 01/25/23 16:00 O2 Flow Rate 3 01/25/23 07:41 FiO2 55 01/25/23 16:00 BMI result Body Mass Index 32.2 Const: General: cooperative HEENT: Head: Yes normal to inspection Face and sinus: Yes normal facial exam Mouth: Normal oral and palatal mucosa present Teeth and gingiva: dentition normal Eyes: General: appearance normal, both eyes and all related structures Pupils: Equal, round and reactive pupils present Resp: Effort & Inspection: normal respiratory effort and tachypneic Cardio: Rate: regular rate Rhythm: regular rhythm GI: Palpation (GI): Soft to palpation and nontender : General: Yes no CVA tenderness Back/Spine/Pelvis: Back: no CVA tenderness Skin: General skin exam: no rashes or lesions noted Neuro: General: moves all extremities Cranial nerves: Yes Equal, round and reactive pupils present Extrem: General: Yes normal to inspection Psych: Appearance: grossly normal Results Labs 01/25/23 06:05 01/25/23 06:05 Labs: Short CBC 01/25/23 Range/Units 06:05 WBC 14.1 H (4.8-10.8) X10*3/uL Hgb 8.7 L (12.0-16.0) g/dl Hct 26.9 L (37.0-47.0) % Plt Count 350 (160-400) X10*3/uL BMP 01/25/23 06:05 Sodium 139 Potassium 4.8 Chloride 107 Carbon Dioxide 15 L BUN 80 H Creatinine 2.58 H Calcium 9.5 Urine 01/24/23 Range/Units 17:49 Urine Color Yellow Urine Appearance Turbid Urine pH 7.0 (5.0-9.0) Ur Specific [place] 1.015 (1.005-1.025) Urine Protein 100 (2+) H (Neg-Trace) mg/dL Urine Glucose (UA) Negative (Negative) mg/dL Microbiology Microbiology Results: Microbiology 01/24/23 13:43 Blood - Venous Blood Culture - Preliminary No growth after 24 hours. 01/24/23 13:43 Blood - Venous Blood Culture - Preliminary No growth after 24 hours. 01/25/23 12:13 Sputum - Suctioned Gram Stain - Final 01/24/23 Unknown Urine clean catch - Urine collado top Urine Culture - Preliminary No growth to date. Assessment and Plan (1) Acute hypoxemic respiratory failure: Status: Acute (2) Sepsis: Status: Acute (3) Pneumonia: Status: Acute There is possible atypical or typical pneumonia. She has no specific etiology. Plan Await CT scan of chest. Consider CTX and Doxycycline for now. Check Legionella antigen and strep pneumonia Time Spent With Patient Time: Total time managing care of this patient today ____ minutes.
--- NOTE | 2023-01-25 18:31 | PC.NURSE ---
Pt came down to the unit from [place] [id number] at approximately 1020 for worsening hypoxemic with increased WOB. MD spoke in great length with patient and family and per plan, pt was prepped for intubation. Pt was given IVP Propofol, Versed and Sriram per order (See MAR). Pt was intubated at approximately 1100, ETT 7.0, 22 at the lip, on AC settings; titrated FiO2 from 75 and currently at 50% requirement. Pt started on IV Levophed gtt per order, MAP stable at the time on a low dose. Pt was Afib (90s-130s) on tele; IV digoxin and metoprolol given as ordered, also administered IVP lasix after which HR improved and HR in the 80s -100s currently. Pt was brought to Ct of chest, tolerated well, (see report). Pt received IV abx per order. Pt was bathed and skin care provided. Repositioned every 2 hrs and as needed. Family updated and all questions answered. Pt currently in no distress. Report given to oncoming RN who will continue with the plan of care.
[2023-01-25 18:36] LABS: Anion Gap 20 (12-20); Blood Urea Nitrogen 85 mg/dL (9-16); Calcium 8.6 mg/dL (8.4-10.2); Carbon Dioxide 16 mmol/L (22-29); Chloride 107 mmol/L (96-108); Creatinine Clr Calc Pharmacy 16.6; Estimated Glomerular Filt Rate 18; Glucose Random 155 mg/dL (60-115); Potassium 4.2 mmol/L (3.3-5.1); Sodium 139 mmol/L (135-145)
[2023-01-26] VITALS (43 sets, daily range): BP systolic 108–137; BP diastolic 35–89; PULSE 83–127; RESP 14–28; TEMP 34.2–38.2; O2SAT 90–99; BMI 32.2
[2023-01-26 05:51] LABS: Venous Blood Gas Refer to POC result
[2023-01-26 06:04] LABS: Basophils Percent Auto 0.2 % (0-2); Eosinophils Percent Auto 0.1 % (0-4); Hematocrit 27.5 % (37.0-47.0); Hemoglobin 8.9 g/dl (12.0-16.0); Imm Gran Abs Auto 0.06 X10*3/uL (0.00-0.03); Imm Gran Pct Auto 0.5 % (0.0-0.4); Lymphocytes Absolute Auto 0.2 X10*3/uL (1.2-4.9); Lymphocytes Percent Auto 1.7 % (20-40); MANUAL DIFF FLAG SCAN; Mean Corpuscular HGB Conc 32.4 g/dl (31.0-35.0); Mean Corpuscular Hemoglobin 26.8 pg (27.0-33.0); Mean Corpuscular Volume 82.8 fL (80.0-98.0); Mean Platelet Volume 10.9 fL (9.4-12.3); Monocytes Absolute Auto 0.5 X10*3/uL (0.1-1.2); Monocytes Percent Auto 3.5 % (2-11); NRBC Pct Auto 0.7 /100WBC (0.0-0.2); Neutrophils Absolute Auto 12.1 x10*3/uL (2.0-8.3); Platelet Count 356 X10*3/uL (160-400); Red Blood Count 3.32 X10*6/uL (4.20-5.50); Red Cell Distribution Width 16.6 % (11.0-16.0); SCAN SMEAR FLAG 1; White Blood Count 12.9 X10*3/uL (4.8-10.8)
[2023-01-26 06:22] LABS: Alanine Aminotransferase 129 U/L (0-31); Albumin Level 2.8 g/dL (3.5-5.0); Alkaline Phosphatase 159 U/L (39-117); Anion Gap 20 (12-20); Aspartate Amino Transferase 188 U/L (5-31); Bilirubin Total 0.5 mg/dL (0.0-1.0); Blood Urea Nitrogen 83 mg/dL (9-16); Calcium 8.5 mg/dL (8.4-10.2); Carbon Dioxide 18 mmol/L (22-29); Chloride 106 mmol/L (96-108); Creatinine Clr Calc Pharmacy 15.6; Estimated Glomerular Filt Rate 16; Glucose Random 109 mg/dL (60-115); Phosphorus 4.4 mg/dL (2.7-4.5); Potassium 3.4 mmol/L (3.3-5.1); Sodium 141 mmol/L (135-145); Total Protein 6.6 g/dL (6.5-8.0)
[2023-01-26 06:27] LABS: B Type Natriuretic Peptide 1763 pg/mL (<100)
[2023-01-26 06:32] LABS: SLIDE REVIEW VERIFIED
--- NOTE | 2023-01-26 10:10 | PM.PNNEP ---
Subjective Subjective Date of Service: 01/26/23 Interval history: diuresed well after one bolus dose now 100-150cc/hr on her own Cr plateaued somewhat Physical Exam Vital Signs: Vital Signs: Last Vital Signs Temp 99.1 F 01/26/23 08:00 Pulse 113 H 01/26/23 09:00 Resp 24 H 01/26/23 09:00 BP 123/52 L 01/26/23 09:00 Pulse Ox 99 01/26/23 09:00 O2 Del Method Mechanical Ventil ation 01/26/23 09:00 O2 Flow Rate 3 01/25/23 07:41 FiO2 45 01/26/23 09:00 BMI result Body Mass Index 32.2 Const: Other: Intubated Resp: Other: Right chest rhonchi Cardio: Jugular venous distension: no JVD Rate: regular rate GI: Palpation (GI): Soft to palpation Percussion: Yes normal to percussion Extrem: Other: 1+ edema Objective Data Labs 01/26/23 05:36 01/26/23 05:40 Labs: Laboratory Results - last 24 hr 01/25/23 01/25/23 01/25/23 12:22 18:00 18:09 WBC RBC Hgb Hct MCV MCH MCHC RDW Plt Count MPV Immature Gran % (Auto) Neut % (Auto) Lymph % (Auto) [place] % (Auto) Eos % (Auto) Baso % (Auto) Lymph # (Auto) [place] # (Auto) Eos # (Auto) Baso # (Auto) Abs Immat Gran (auto) Absolute Neuts (auto) Absolute Nucleated RBC Nucleated RBC % (auto) Smear Tech's Comments VBG pH VBG pCO2 VBG pO2 VBG HCO3 VBG O2 Saturation VBG Base Excess Sodium 139 Potassium 4.2 Chloride 107 Carbon Dioxide 16 L Anion Gap 20 BUN 85 H Creatinine 2.56 H Estim Creat Clear Calc 16.6 Estimated GFR 18 POC Glucose 129 H 157 H Random Glucose 155 H Calcium 8.6 D Phosphorus Magnesium Total Bilirubin AST ALT Alkaline Phosphatase B-Natriuretic Peptide Total Protein Albumin 01/25/23 01/25/23 01/25/23 18:11 20:40 23:58 WBC RBC Hgb Hct MCV MCH MCHC RDW Plt Count MPV Immature Gran % (Auto) Neut % (Auto) Lymph % (Auto) [place] % (Auto) Eos % (Auto) Baso % (Auto) Lymph # (Auto) [place] # (Auto) Eos # (Auto) Baso # (Auto) Abs Immat Gran (auto) Absolute Neuts (auto) Absolute Nucleated RBC Nucleated RBC % (auto) Smear Tech's Comments VBG pH 7.35 VBG pCO2 28 VBG pO2 61 VBG HCO3 16 L VBG O2 Saturation 87.0 VBG Base Excess -8.1 Sodium Potassium Chloride Carbon Dioxide Anion Gap BUN Creatinine Estim Creat Clear Calc Estimated GFR POC Glucose 136 H 117 H Random Glucose Calcium Phosphorus Magnesium Total Bilirubin AST ALT Alkaline Phosphatase B-Natriuretic Peptide Total Protein Albumin 01/26/23 01/26/23 01/26/23 05:36 05:40 05:44 WBC 12.9 H RBC 3.32 L Hgb 8.9 L Hct 27.5 L MCV 82.8 MCH 26.8 L MCHC 32.4 RDW 16.6 H Plt Count 356 MPV 10.9 Immature Gran % (Auto) 0.5 H Neut % (Auto) 94.0 H Lymph % (Auto) 1.7 L [place] % (Auto) 3.5 Eos % (Auto) 0.1 Baso % (Auto) 0.2 Lymph # (Auto) 0.2 L [place] # (Auto) 0.5 Eos # (Auto) 0.0 Baso # (Auto) 0.0 Abs Immat Gran (auto) 0.06 H Absolute Neuts (auto) 12.1 H Absolute Nucleated RBC 0.090 H Nucleated RBC % (auto) 0.7 H Smear Tech's Comments VERIFIED VBG pH 7.41 VBG pCO2 28 VBG pO2 64 VBG HCO3 18 L VBG O2 Saturation 89.0 VBG Base Excess -5.1 Sodium 141 Potassium 3.4 Chloride 106 Carbon Dioxide 18 L Anion Gap 20 BUN 83 H Creatinine 2.74 H Estim Creat Clear Calc 15.6 Estimated GFR 16 POC Glucose Random Glucose 109 Calcium 8.5 Phosphorus 4.4 Magnesium 2.0 Total Bilirubin 0.5 AST 188 H ALT 129 H Alkaline Phosphatase 159 H B-Natriuretic Peptide 1763 H Total Protein 6.6 Albumin 2.8 L 01/26/23 05:53 WBC RBC Hgb Hct MCV MCH MCHC RDW Plt Count MPV Immature Gran % (Auto) Neut % (Auto) Lymph % (Auto) [place] % (Auto) Eos % (Auto) Baso % (Auto) Lymph # (Auto) [place] # (Auto) Eos # (Auto) Baso # (Auto) Abs Immat Gran (auto) Absolute Neuts (auto) Absolute Nucleated RBC Nucleated RBC % (auto) Smear Tech's Comments VBG pH VBG pCO2 VBG pO2 VBG HCO3 VBG O2 Saturation VBG Base Excess Sodium Potassium Chloride Carbon Dioxide Anion Gap BUN Creatinine Estim Creat Clear Calc Estimated GFR POC Glucose 110 Random Glucose Calcium Phosphorus Magnesium Total Bilirubin AST ALT Alkaline Phosphatase B-Natriuretic Peptide Total Protein Albumin Microbiology Microbiology Results: Microbiology 01/24/23 13:43 Blood - Venous Blood Culture - Preliminary No growth after 24 hours. 01/24/23 13:43 Blood - Venous Blood Culture - Preliminary No growth after 24 hours. 01/25/23 12:13 Sputum - Suctioned Gram Stain - Final 01/24/23 Unknown Urine clean catch - Urine collado top Urine Culture - Preliminary No growth to date. Procedures Date of Service Date of Service: 01/26/23 Assessment & Plan Assessment and plan (1) CHF (congestive heart failure): Status: Acute (2) Atrial fibrillation with normal ventricular rate: Status: Acute (3) Acute dyspnea: Status: Acute (4) Pneumonia: Status: Acute (5) Sepsis: Status: Acute (6) Acute hypoxemic respiratory failure: Status: Acute Plan 87 year old female with history of HFpEF, , htn, hld, iron deficiency anemia, pulmonary hypertension, and [id number] type 2 diabetes admitted HYPOXIA and CORTEZ/CKD. 1. CORTEZ U/A with hyaline septic shock mixed with Cardiogenic shock CORTEZ most c/w renal hypo-perfusion from volume overload. 2. CKD 3:BSL Scr 1.5-2.0 3. Hypoxia: CAP and CHF Plan: - sepsis management - if UOP <100cc/hr then redose Lasix 60mg IV - consider ablumin bolus to support intravascular defense - renal panel daily - no ELECTROMEDICAL EQUIPMENT TECHNICIAN indications at this time. Time Spent With Patient Time: Total time managing care of this patient today ____ minutes. Progress Note: Quality Stroke Does the patient have a stroke diagnosis?: No
--- NOTE | 2023-01-26 13:26 | PM.IDPN ---
Subjective Subjective Date of Service: 01/26/23 Critical Care Time (minutes): 15 Comment: she is still onrespiratory support Objective Data Labs 01/26/23 05:36 01/26/23 05:40 Labs: Laboratory Results - last 24 hr 01/25/23 01/25/23 01/25/23 18:00 18:09 18:11 WBC RBC Hgb Hct MCV MCH MCHC RDW Plt Count MPV Immature Gran % (Auto) Neut % (Auto) Lymph % (Auto) [place] % (Auto) Eos % (Auto) Baso % (Auto) Lymph # (Auto) [place] # (Auto) Eos # (Auto) Baso # (Auto) Abs Immat Gran (auto) Absolute Neuts (auto) Absolute Nucleated RBC Nucleated RBC % (auto) Smear Tech's Comments VBG pH 7.35 VBG pCO2 28 VBG pO2 61 VBG HCO3 16 L VBG O2 Saturation 87.0 VBG Base Excess -8.1 Sodium 139 Potassium 4.2 Chloride 107 Carbon Dioxide 16 L Anion Gap 20 BUN 85 H Creatinine 2.56 H Estim Creat Clear Calc 16.6 Estimated GFR 18 POC Glucose 157 H Random Glucose 155 H Calcium 8.6 D Phosphorus Magnesium Total Bilirubin AST ALT Alkaline Phosphatase B-Natriuretic Peptide Total Protein Albumin 01/25/23 01/25/23 01/26/23 20:40 23:58 05:36 WBC 12.9 H RBC 3.32 L Hgb 8.9 L Hct 27.5 L MCV 82.8 MCH 26.8 L MCHC 32.4 RDW 16.6 H Plt Count 356 MPV 10.9 Immature Gran % (Auto) 0.5 H Neut % (Auto) 94.0 H Lymph % (Auto) 1.7 L [place] % (Auto) 3.5 Eos % (Auto) 0.1 Baso % (Auto) 0.2 Lymph # (Auto) 0.2 L [place] # (Auto) 0.5 Eos # (Auto) 0.0 Baso # (Auto) 0.0 Abs Immat Gran (auto) 0.06 H Absolute Neuts (auto) 12.1 H Absolute Nucleated RBC 0.090 H Nucleated RBC % (auto) 0.7 H Smear Tech's Comments VERIFIED VBG pH VBG pCO2 VBG pO2 VBG HCO3 VBG O2 Saturation VBG Base Excess Sodium Potassium Chloride Carbon Dioxide Anion Gap BUN Creatinine Estim Creat Clear Calc Estimated GFR POC Glucose 136 H 117 H Random Glucose Calcium Phosphorus Magnesium Total Bilirubin AST ALT Alkaline Phosphatase B-Natriuretic Peptide 1763 H Total Protein Albumin 01/26/23 01/26/23 01/26/23 05:40 05:44 05:53 WBC RBC Hgb Hct MCV MCH MCHC RDW Plt Count MPV Immature Gran % (Auto) Neut % (Auto) Lymph % (Auto) [place] % (Auto) Eos % (Auto) Baso % (Auto) Lymph # (Auto) [place] # (Auto) Eos # (Auto) Baso # (Auto) Abs Immat Gran (auto) Absolute Neuts (auto) Absolute Nucleated RBC Nucleated RBC % (auto) Smear Tech's Comments VBG pH 7.41 VBG pCO2 28 VBG pO2 64 VBG HCO3 18 L VBG O2 Saturation 89.0 VBG Base Excess -5.1 Sodium 141 Potassium 3.4 Chloride 106 Carbon Dioxide 18 L Anion Gap 20 BUN 83 H Creatinine 2.74 H Estim Creat Clear Calc 15.6 Estimated GFR 16 POC Glucose 110 Random Glucose 109 Calcium 8.5 Phosphorus 4.4 Magnesium 2.0 Total Bilirubin 0.5 AST 188 H ALT 129 H Alkaline Phosphatase 159 H B-Natriuretic Peptide Total Protein 6.6 Albumin 2.8 L 01/26/23 11:56 WBC RBC Hgb Hct MCV MCH MCHC RDW Plt Count MPV Immature Gran % (Auto) Neut % (Auto) Lymph % (Auto) [place] % (Auto) Eos % (Auto) Baso % (Auto) Lymph # (Auto) [place] # (Auto) Eos # (Auto) Baso # (Auto) Abs Immat Gran (auto) Absolute Neuts (auto) Absolute Nucleated RBC Nucleated RBC % (auto) Smear Tech's Comments VBG pH VBG pCO2 VBG pO2 VBG HCO3 VBG O2 Saturation VBG Base Excess Sodium Potassium Chloride Carbon Dioxide Anion Gap BUN Creatinine Estim Creat Clear Calc Estimated GFR POC Glucose 145 H Random Glucose Calcium Phosphorus Magnesium Total Bilirubin AST ALT Alkaline Phosphatase B-Natriuretic Peptide Total Protein Albumin Microbiology Microbiology Results: Microbiology 01/25/23 16:43 Sputum - Suctioned Gram Stain - Final 01/25/23 16:43 Sputum - Suctioned Sputum Culture - Preliminary No growth to date. 01/24/23 Unknown Urine clean catch - Urine collado top Urine Culture - Final 01/25/23 12:13 Sputum - Suctioned Gram Stain - Final 01/25/23 12:13 Sputum - Suctioned Sputum Culture - Preliminary Culture in progress. 01/24/23 13:43 Blood - Venous Blood Culture - Preliminary No growth after 24 hours. 01/24/23 13:43 Blood - Venous Blood Culture - Preliminary No growth after 24 hours. Physical Exam Vital Signs: Vital Signs: Last Vital Signs Temp 99.1 F 01/26/23 08:00 Pulse 113 H 01/26/23 13:00 Resp 22 H 01/26/23 13:00 BP 126/89 01/26/23 13:00 Pulse Ox 90 L 01/26/23 13:00 O2 Del Method Mechanical Ventil ation 01/26/23 13:00 O2 Flow Rate 3 01/25/23 07:41 FiO2 45 01/26/23 13:00 BMI result Body Mass Index 32.2 Const: General: cooperative HEENT: Head: Yes normal to inspection Resp: Effort & Inspection: normal respiratory effort Cardio: Rate: regular rate Rhythm: regular rhythm GI: Inspection: Yes normal to inspection Skin: General skin exam: no rashes or lesions noted Assessment and Plan Assessment and plan (1) Acute hypoxemic respiratory failure: Problem details: She has wayne pneumonia and cultures pending She is aspiration coverage and getting azithromycin and piperacillin/tazobactam,d 2 Status: Acute Assessment and Plan: Await nares MRSA. Consider change Zmax to Doxycycline. Probable 5-7 days antibiotics. (2) Pneumonia: Status: Acute Time Spent With Patient Time: Total time managing care of this patient today ____ minutes.
--- NOTE | 2023-01-26 15:02 | PM.CCPN ---
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% and there is combined systolic and diastolic CHF but actual biventricular failure still with persistently elevated CVP despite diuresis of 2.5 L with current CVP down from 15 to about 12-13 but she is putting out greater than 100-125 cc an hour purely on the basis of the mechanics of the ventilator and more efficient cardiac function and definitely still present audible coarse rales bilaterally predominantly on the left but bilateral but improving over the day before with diminishing minutes ventilatory in FiO2 requirements despite the diuresis blood pressure is is stable on the small dose of Levophed and the renal function stayed the same with creatinine of about the knee no 2.8 so obviously this is her chronic state of affairs Critical Care Time (minutes): 45 Physical Exam Vital Signs: Vital Signs: Last Vital Signs Temp 100.8 F H 01/26/23 14:00 Pulse 101 H 01/26/23 14:00 Resp 20 01/26/23 14:00 BP 125/47 L 01/26/23 14:00 Pulse Ox 95 01/26/23 14:00 O2 Del Method Mechanical Ventil ation 01/26/23 14:00 O2 Flow Rate 3 01/25/23 07:41 FiO2 45 01/26/23 14:00 BMI result Body Mass Index 32.2 sedated and intubated nonfocal neurologically stable LV function ejection fraction mid 40s without segmental wall motion abnormality and the aortic valve is calcified but is not critically stenosed abdomen benign no organomegaly and tolerating feedings coarse bilateral rales persist thus far small number of polys on the sputum and no organism seen markedly diminished peripheral 3rd spaced edema Objective Data Labs 01/27/23 05:45 01/27/23 05:45 Labs: Laboratory Results - last 24 hr 01/25/23 01/25/23 01/25/23 18:00 18:09 18:11 WBC RBC Hgb Hct MCV MCH MCHC RDW Plt Count MPV Immature Gran % (Auto) Neut % (Auto) Lymph % (Auto) [place] % (Auto) Eos % (Auto) Baso % (Auto) Lymph # (Auto) [place] # (Auto) Eos # (Auto) Baso # (Auto) Abs Immat Gran (auto) Absolute Neuts (auto) Absolute Nucleated RBC Nucleated RBC % (auto) Smear Tech's Comments VBG pH 7.35 VBG pCO2 28 VBG pO2 61 VBG HCO3 16 L VBG O2 Saturation 87.0 VBG Base Excess -8.1 Sodium 139 Potassium 4.2 Chloride 107 Carbon Dioxide 16 L Anion Gap 20 BUN 85 H Creatinine 2.56 H Estim Creat Clear Calc 16.6 Estimated GFR 18 POC Glucose 157 H Random Glucose 155 H Calcium 8.6 D Phosphorus Magnesium Total Bilirubin AST ALT Alkaline Phosphatase B-Natriuretic Peptide Total Protein Albumin 01/25/23 01/25/23 01/26/23 20:40 23:58 05:36 WBC 12.9 H RBC 3.32 L Hgb 8.9 L Hct 27.5 L MCV 82.8 MCH 26.8 L MCHC 32.4 RDW 16.6 H Plt Count 356 MPV 10.9 Immature Gran % (Auto) 0.5 H Neut % (Auto) 94.0 H Lymph % (Auto) 1.7 L [place] % (Auto) 3.5 Eos % (Auto) 0.1 Baso % (Auto) 0.2 Lymph # (Auto) 0.2 L [place] # (Auto) 0.5 Eos # (Auto) 0.0 Baso # (Auto) 0.0 Abs Immat Gran (auto) 0.06 H Absolute Neuts (auto) 12.1 H Absolute Nucleated RBC 0.090 H Nucleated RBC % (auto) 0.7 H Smear Tech's Comments VERIFIED VBG pH VBG pCO2 VBG pO2 VBG HCO3 VBG O2 Saturation VBG Base Excess Sodium Potassium Chloride Carbon Dioxide Anion Gap BUN Creatinine Estim Creat Clear Calc Estimated GFR POC Glucose 136 H 117 H Random Glucose Calcium Phosphorus Magnesium Total Bilirubin AST ALT Alkaline Phosphatase B-Natriuretic Peptide 1763 H Total Protein Albumin 01/26/23 01/26/23 01/26/23 05:40 05:44 05:53 WBC RBC Hgb Hct MCV MCH MCHC RDW Plt Count MPV Immature Gran % (Auto) Neut % (Auto) Lymph % (Auto) [place] % (Auto) Eos % (Auto) Baso % (Auto) Lymph # (Auto) [place] # (Auto) Eos # (Auto) Baso # (Auto) Abs Immat Gran (auto) Absolute Neuts (auto) Absolute Nucleated RBC Nucleated RBC % (auto) Smear Tech's Comments VBG pH 7.41 VBG pCO2 28 VBG pO2 64 VBG HCO3 18 L VBG O2 Saturation 89.0 VBG Base Excess -5.1 Sodium 141 Potassium 3.4 Chloride 106 Carbon Dioxide 18 L Anion Gap 20 BUN 83 H Creatinine 2.74 H Estim Creat Clear Calc 15.6 Estimated GFR 16 POC Glucose 110 Random Glucose 109 Calcium 8.5 Phosphorus 4.4 Magnesium 2.0 Total Bilirubin 0.5 AST 188 H ALT 129 H Alkaline Phosphatase 159 H B-Natriuretic Peptide Total Protein 6.6 Albumin 2.8 L 01/26/23 11:56 WBC RBC Hgb Hct MCV MCH MCHC RDW Plt Count MPV Immature Gran % (Auto) Neut % (Auto) Lymph % (Auto) [place] % (Auto) Eos % (Auto) Baso % (Auto) Lymph # (Auto) [place] # (Auto) Eos # (Auto) Baso # (Auto) Abs Immat Gran (auto) Absolute Neuts (auto) Absolute Nucleated RBC Nucleated RBC % (auto) Smear Tech's Comments VBG pH VBG pCO2 VBG pO2 VBG HCO3 VBG O2 Saturation VBG Base Excess Sodium Potassium Chloride Carbon Dioxide Anion Gap BUN Creatinine Estim Creat Clear Calc Estimated GFR POC Glucose 145 H Random Glucose Calcium Phosphorus Magnesium Total Bilirubin AST ALT Alkaline Phosphatase B-Natriuretic Peptide Total Protein Albumin Microbiology Microbiology Results: Microbiology 01/25/23 16:43 Sputum - Suctioned Gram Stain - Final 01/25/23 16:43 Sputum - Suctioned Sputum Culture - Preliminary No growth to date. 01/24/23 Unknown Urine clean catch - Urine collado top Urine Culture - Final 01/25/23 12:13 Sputum - Suctioned Gram Stain - Final 01/25/23 12:13 Sputum - Suctioned Sputum Culture - Preliminary Culture in progress. 01/24/23 13:43 Blood - Venous Blood Culture - Preliminary No growth after 24 hours. 01/24/23 13:43 Blood - Venous Blood Culture - Preliminary No growth after 24 hours. Progress Note: A&P Assessment and plan (1) Acute on chronic diastolic (congestive) heart failure: Status: Acute (2) Acute hypoxemic respiratory failure: Status: Acute (3) Sepsis: Status: Acute (4) Pneumonia: Status: Acute (5) CHF (congestive heart failure): Status: Acute (6) Renal failure (ARF), acute on chronic: Status: Acute (7) Atrial fibrillation with normal ventricular rate: Status: Acute (8) Acute dyspnea: Status: Acute (9) Nonrheumatic aortic (valve) stenosis: Status: Acute (10) Diabetes mellitus with coincident hypertension: Status: Acute (11) Essential hypertension: Status: Acute (12) Insomnia: Status: Acute (13) Hyperlipidemia: Status: Acute (14) Urinary incontinence in female: Status: Acute (15) Urinary frequency: Status: Acute (16) Adult general medical exam: Status: Acute (17) Mitral annular calcification: Status: Acute (18) Pulmonary hypertension: Status: Acute (19) Chronic heart failure with preserved ejection fraction (HFpEF): Status: Acute (20) Diabetes mellitus: Status: Acute Plan so at this point we are doing beautifully if the if there is in the Jenifer infiltrate there it is I think it is clinically well covered and clearly the predominant part of her breathing problem which is the biventricular failure is doing much much better specially with the negative 2.5 L and she continues to diurese and hoping to get her CVP below 10 which I think would be a better indicator of euvolemia so she will remain sedated and intubated overnight and then if she is achieve those parameters then we will attempt as a vacation sedation and may be a pressure support weaning trial Quality Stroke Does the patient have a stroke diagnosis?: No VTE Prior VTE?: No VTE Risk Level:: Medical - moderate - high VTE Device Contraindication: N/A - Device Ordered VTE Drug Contraindication: Treatment Not Indicated
[2023-01-27] VITALS (40 sets, daily range): BP systolic 102–139; BP diastolic 40–63; PULSE 88–122; RESP 15–23; TEMP 30.1–38.2; O2SAT 90–97; BMI 32.2
[2023-01-27 06:17] LABS: Venous Blood Gas Refer to POC result
[2023-01-27 06:17] LABS: Basophils Percent Auto 0.3 % (0-2); Eosinophils Absolute Auto 0.1 X10*3/uL (0.0-0.4); Eosinophils Percent Auto 0.8 % (0-4); Hematocrit 26.7 % (37.0-47.0); Hemoglobin 8.6 g/dl (12.0-16.0); Imm Gran Abs Auto 0.09 X10*3/uL (0.00-0.03); Imm Gran Pct Auto 0.8 % (0.0-0.4); Lymphocytes Absolute Auto 0.3 X10*3/uL (1.2-4.9); Lymphocytes Percent Auto 2.4 % (20-40); MANUAL DIFF FLAG SCAN; Mean Corpuscular HGB Conc 32.2 g/dl (31.0-35.0); Mean Corpuscular Hemoglobin 26.7 pg (27.0-33.0); Mean Corpuscular Volume 82.9 fL (80.0-98.0); Mean Platelet Volume 11.2 fL (9.4-12.3); Monocytes Absolute Auto 0.5 X10*3/uL (0.1-1.2); Monocytes Percent Auto 4.1 % (2-11); NRBC Pct Auto 0.8 /100WBC (0.0-0.2); Neutrophils Absolute Auto 10.9 x10*3/uL (2.0-8.3); Neutrophils Percent Auto 91.6 % (45-73); Platelet Count 306 X10*3/uL (160-400); Red Blood Count 3.22 X10*6/uL (4.20-5.50); Red Cell Distribution Width 16.6 % (11.0-16.0); SCAN SMEAR FLAG 1; White Blood Count 11.8 X10*3/uL (4.8-10.8)
[2023-01-27 06:35] LABS: Alanine Aminotransferase 87 U/L (0-31); Albumin Level 3.3 g/dL (3.5-5.0); Alkaline Phosphatase 147 U/L (39-117); Anion Gap 20 (12-20); Aspartate Amino Transferase 91 U/L (5-31); Bilirubin Total 0.6 mg/dL (0.0-1.0); Blood Urea Nitrogen 78 mg/dL (9-16); Calcium 8.6 mg/dL (8.4-10.2); Carbon Dioxide 17 mmol/L (22-29); Chloride 103 mmol/L (96-108); Creatinine Clr Calc Pharmacy 14.8; Estimated Glomerular Filt Rate 16; Glucose Random 266 mg/dL (60-115); Phosphorus 2.9 mg/dL (2.7-4.5); Potassium 3.2 mmol/L (3.3-5.1); Sodium 137 mmol/L (135-145); Total Protein 7.1 g/dL (6.5-8.0)
[2023-01-27 06:50] LABS: SLIDE REVIEW VERIFIED
--- NOTE | 2023-01-27 10:55 | PM.PNNEP ---
Subjective Subjective Date of Service: 01/27/23 Interval history: Continues good I/O trends Cr plateaued Physical Exam Vital Signs: Vital Signs: Last Vital Signs Temp 98.8 F 01/27/23 10:00 Pulse 96 01/27/23 10:00 Resp 20 01/27/23 10:00 BP 115/45 L 01/27/23 10:00 Pulse Ox 95 01/27/23 10:00 O2 Del Method Mechanical Ventil ation 01/27/23 10:00 O2 Flow Rate 3 01/25/23 07:41 FiO2 40 01/27/23 10:00 BMI result Body Mass Index 32.2 Const: Other: Intubated Resp: Other: Right chest rhonchi Cardio: Jugular venous distension: no JVD Rate: regular rate GI: Palpation (GI): Soft to palpation Percussion: Yes normal to percussion Extrem: Other: 1+ edema Objective Data Labs 01/27/23 05:45 01/27/23 05:45 Labs: Laboratory Results - last 24 hr 01/26/23 01/26/23 01/26/23 11:56 15:58 19:20 WBC RBC Hgb Hct MCV MCH MCHC RDW Plt Count MPV Immature Gran % (Auto) Neut % (Auto) Lymph % (Auto) [place] % (Auto) Eos % (Auto) Baso % (Auto) Lymph # (Auto) [place] # (Auto) Eos # (Auto) Baso # (Auto) Abs Immat Gran (auto) Absolute Neuts (auto) Absolute Nucleated RBC Nucleated RBC % (auto) Smear Tech's Comments VBG pH VBG pCO2 VBG pO2 VBG HCO3 VBG O2 Saturation VBG Base Excess Sodium 138 Potassium 3.2 L Chloride 104 Carbon Dioxide 16 L Anion Gap 21 H BUN 79 H Creatinine 2.82 H Estim Creat Clear Calc 15.0 Estimated GFR 16 POC Glucose 145 H 178 H Random Glucose 189 H Calcium 8.6 Phosphorus 3.9 Magnesium 2.1 Total Bilirubin AST ALT Alkaline Phosphatase Total Protein Albumin 01/26/23 01/27/23 01/27/23 21:02 05:44 05:45 WBC 11.8 H RBC 3.22 L Hgb 8.6 L Hct 26.7 L MCV 82.9 MCH 26.7 L MCHC 32.2 RDW 16.6 H Plt Count 306 MPV 11.2 Immature Gran % (Auto) 0.8 H Neut % (Auto) 91.6 H Lymph % (Auto) 2.4 L [place] % (Auto) 4.1 Eos % (Auto) 0.8 Baso % (Auto) 0.3 Lymph # (Auto) 0.3 L [place] # (Auto) 0.5 Eos # (Auto) 0.1 Baso # (Auto) 0.0 Abs Immat Gran (auto) 0.09 H Absolute Neuts (auto) 10.9 H Absolute Nucleated RBC 0.090 H Nucleated RBC % (auto) 0.8 H Smear Tech's Comments VERIFIED VBG pH 7.35 VBG pCO2 36 VBG pO2 61 VBG HCO3 20 L VBG O2 Saturation 87.0 VBG Base Excess -4.4 Sodium 137 Potassium 3.2 L Chloride 103 Carbon Dioxide 17 L Anion Gap 20 BUN 78 H Creatinine 2.87 H Estim Creat Clear Calc 14.8 Estimated GFR 16 POC Glucose 212 H Random Glucose 266 H Calcium 8.6 Phosphorus 2.9 Magnesium 2.0 Total Bilirubin 0.6 AST 91 H ALT 87 H Alkaline Phosphatase 147 H Total Protein 7.1 Albumin 3.3 L 01/27/23 08:13 WBC RBC Hgb Hct MCV MCH MCHC RDW Plt Count MPV Immature Gran % (Auto) Neut % (Auto) Lymph % (Auto) [place] % (Auto) Eos % (Auto) Baso % (Auto) Lymph # (Auto) [place] # (Auto) Eos # (Auto) Baso # (Auto) Abs Immat Gran (auto) Absolute Neuts (auto) Absolute Nucleated RBC Nucleated RBC % (auto) Smear Tech's Comments VBG pH VBG pCO2 VBG pO2 VBG HCO3 VBG O2 Saturation VBG Base Excess Sodium Potassium Chloride Carbon Dioxide Anion Gap BUN Creatinine Estim Creat Clear Calc Estimated GFR POC Glucose 253 H Random Glucose Calcium Phosphorus Magnesium Total Bilirubin AST ALT Alkaline Phosphatase Total Protein Albumin Microbiology Microbiology Results: Microbiology 01/25/23 12:13 Sputum - Suctioned Gram Stain - Final 01/25/23 12:13 Sputum - Suctioned Sputum Culture - Final 01/25/23 16:43 Sputum - Suctioned Gram Stain - Final 01/25/23 16:43 Sputum - Suctioned Sputum Culture - Final No growth. 01/24/23 13:43 Blood - Venous Blood Culture - Preliminary No growth after 48 hours. 01/24/23 13:43 Blood - Venous Blood Culture - Preliminary No growth after 48 hours. 01/24/23 Unknown Urine clean catch - Urine collado top Urine Culture - Final Procedures Date of Service Date of Service: 01/27/23 Assessment & Plan Assessment and plan (1) CHF (congestive heart failure): Status: Acute (2) Atrial fibrillation with normal ventricular rate: Status: Acute (3) Acute dyspnea: Status: Acute (4) Pneumonia: Status: Acute (5) Sepsis: Status: Acute (6) Acute hypoxemic respiratory failure: Status: Acute Plan 87 year old female with history of HFpEF, , htn, hld, iron deficiency anemia, pulmonary hypertension, and ovb-[id number] type 2 diabetes admitted HYPOXIA and CORTEZ/CKD. 1. CORTEZ U/A with hyaline septic shock mixed with Cardiogenic shock CORTEZ most c/w renal hypo-perfusion from volume overload. 2. CKD 3:BSL Scr 1.5-2.0 3. Hypoxia: CAP and CHF Plan: -Maintain Net Neg 1L/day goals -consider ablumin bolus to support intravascular defense if diuresing. - renal panel daily - no [employer] INSPECTOR indications at this time. Time Spent With Patient Time: Total time managing care of this patient today ____ minutes. Progress Note: Quality Stroke Does the patient have a stroke diagnosis?: No
--- NOTE | 2023-01-27 14:45 | PM.CCPN ---
Subjective Subjective Date of Service: 01/27/23 Interval History: 87-year-old female with biventricular failure presented in pulmonary edema high output failure probably precipitated by a pneumonic infiltrate but all cultures in including respiratory pathogen panel thus far negative but she is covered with Zosyn and previously [place] through mycin but switching it to doxycycline but she has about an 8 L minute ventilatory requirement with an FiO2 now with 40% and doing very comfortably well remaining sedated and intubated with CVP that is now down below 10 at this point with continued excellent diuresis without the use of diuretic with heart rate controlled on daily maintenance 0.125 mg of IV digoxin as well and because of that I am stopping all sedation which is predominantly the propofol but she remains on small dose Levophed to keep her mean arterial pressure at 70 and again renal function numbers are stable but her metabolic acidosis is resolving with an increased serum bicarb every day and I do believe that there are aspects of her renal function that are improving even though the BUN and creatinine are not and this as a result of of supporting cardiac output Critical Care Time (minutes): 45 Physical Exam Vital Signs: Vital Signs: Last Vital Signs Temp 100.2 F 01/27/23 14:00 Pulse 102 H 01/27/23 14:00 Resp 21 H 01/27/23 14:00 BP 118/48 L 01/27/23 14:00 Pulse Ox 94 01/27/23 14:00 O2 Del Method Mechanical Ventil ation 01/27/23 14:00 O2 Flow Rate 3 01/25/23 07:41 FiO2 40 01/27/23 14:00 BMI result Body Mass Index 32.2 currently atrial fibrillation heart rate 108 and blood pressure 116/54 with a mean of 75 oxygen saturations 95% abdomen soft no organomegaly tolerating feedings good bilateral carotid upstrokes diminishing CVP definitely diminishing rales in both lungs with no expiratory wheezing completely resolved peripheral edema Objective Data Labs 01/27/23 05:45 01/27/23 05:45 Labs: Laboratory Results - last 24 hr 01/26/23 01/26/23 01/26/23 15:58 19:20 21:02 WBC RBC Hgb Hct MCV MCH MCHC RDW Plt Count MPV Immature Gran % (Auto) Neut % (Auto) Lymph % (Auto) [place] % (Auto) Eos % (Auto) Baso % (Auto) Lymph # (Auto) [place] # (Auto) Eos # (Auto) Baso # (Auto) Abs Immat Gran (auto) Absolute Neuts (auto) Absolute Nucleated RBC Nucleated RBC % (auto) Smear Tech's Comments VBG pH VBG pCO2 VBG pO2 VBG HCO3 VBG O2 Saturation VBG Base Excess Sodium 138 Potassium 3.2 L Chloride 104 Carbon Dioxide 16 L Anion Gap 21 H BUN 79 H Creatinine 2.82 H Estim Creat Clear Calc 15.0 Estimated GFR 16 POC Glucose 178 H 212 H Random Glucose 189 H Calcium 8.6 Phosphorus 3.9 Magnesium 2.1 Total Bilirubin AST ALT Alkaline Phosphatase Total Protein Albumin 01/27/23 01/27/23 01/27/23 05:44 05:45 08:13 WBC 11.8 H RBC 3.22 L Hgb 8.6 L Hct 26.7 L MCV 82.9 MCH 26.7 L MCHC 32.2 RDW 16.6 H Plt Count 306 MPV 11.2 Immature Gran % (Auto) 0.8 H Neut % (Auto) 91.6 H Lymph % (Auto) 2.4 L [place] % (Auto) 4.1 Eos % (Auto) 0.8 Baso % (Auto) 0.3 Lymph # (Auto) 0.3 L [place] # (Auto) 0.5 Eos # (Auto) 0.1 Baso # (Auto) 0.0 Abs Immat Gran (auto) 0.09 H Absolute Neuts (auto) 10.9 H Absolute Nucleated RBC 0.090 H Nucleated RBC % (auto) 0.8 H Smear Tech's Comments VERIFIED VBG pH 7.35 VBG pCO2 36 VBG pO2 61 VBG HCO3 20 L VBG O2 Saturation 87.0 VBG Base Excess -4.4 Sodium 137 Potassium 3.2 L Chloride 103 Carbon Dioxide 17 L Anion Gap 20 BUN 78 H Creatinine 2.87 H Estim Creat Clear Calc 14.8 Estimated GFR 16 POC Glucose 253 H Random Glucose 266 H Calcium 8.6 Phosphorus 2.9 Magnesium 2.0 Total Bilirubin 0.6 AST 91 H ALT 87 H Alkaline Phosphatase 147 H Total Protein 7.1 Albumin 3.3 L 01/27/23 11:51 WBC RBC Hgb Hct MCV MCH MCHC RDW Plt Count MPV Immature Gran % (Auto) Neut % (Auto) Lymph % (Auto) [place] % (Auto) Eos % (Auto) Baso % (Auto) Lymph # (Auto) [place] # (Auto) Eos # (Auto) Baso # (Auto) Abs Immat Gran (auto) Absolute Neuts (auto) Absolute Nucleated RBC Nucleated RBC % (auto) Smear Tech's Comments VBG pH VBG pCO2 VBG pO2 VBG HCO3 VBG O2 Saturation VBG Base Excess Sodium Potassium Chloride Carbon Dioxide Anion Gap BUN Creatinine Estim Creat Clear Calc Estimated GFR POC Glucose 254 H Random Glucose Calcium Phosphorus Magnesium Total Bilirubin AST ALT Alkaline Phosphatase Total Protein Albumin Microbiology Microbiology Results: Microbiology 01/25/23 12:13 Sputum - Suctioned Gram Stain - Final 01/25/23 12:13 Sputum - Suctioned Sputum Culture - Final 01/25/23 16:43 Sputum - Suctioned Gram Stain - Final 01/25/23 16:43 Sputum - Suctioned Sputum Culture - Final No growth. 01/24/23 13:43 Blood - Venous Blood Culture - Preliminary No growth after 48 hours. 01/24/23 13:43 Blood - Venous Blood Culture - Preliminary No growth after 48 hours. 01/24/23 Unknown Urine clean catch - Urine collado top Urine Culture - Final Progress Note: A&P Assessment and plan (1) Acute on chronic diastolic (congestive) heart failure: Status: Acute (2) Acute hypoxemic respiratory failure: Status: Acute (3) Sepsis: Status: Acute (4) Pneumonia: Status: Acute (5) CHF (congestive heart failure): Status: Acute (6) Renal failure (ARF), acute on chronic: Status: Acute (7) Atrial fibrillation with normal ventricular rate: Status: Acute (8) Acute dyspnea: Status: Acute (9) Nonrheumatic aortic (valve) stenosis: Status: Acute (10) Diabetes mellitus with coincident hypertension: Status: Acute (11) Essential hypertension: Status: Acute (12) Insomnia: Status: Acute (13) Hyperlipidemia: Status: Acute (14) Urinary incontinence in female: Status: Acute (15) Urinary frequency: Status: Acute (16) Adult general medical exam: Status: Acute (17) Mitral annular calcification: Status: Acute (18) Pulmonary hypertension: Status: Acute (19) Chronic heart failure with preserved ejection fraction (HFpEF): Status: Acute (20) Diabetes mellitus: Status: Acute Plan so with her respiratory insufficiency having resolved significantly and her congestive heart failure now much improved and clinically euvolemic we can afford to sedation holiday and if she does awaken appropriately we might at least give her a short pressure support trial but clearly she is going to need to be rested again but maybe this time on dexmedetomidine and then another attempt towards extubation in in the morni ng digoxin as her heart rate requires on a p.r.n. basis daily and next step would be to try to wean the Levophed once we have accomplish the extubation Quality Stroke Does the patient have a stroke diagnosis?: No VTE Prior VTE?: No VTE Risk Level:: Medical - moderate - high VTE Device Contraindication: N/A - Device Ordered VTE Drug Contraindication: Treatment Not Indicated
--- NOTE | 2023-01-27 14:46 | W.PM.CCHP ---
Procedures Date of Service Date of Service: 01/25/23 Central Line Placement Left IJ: Central Line Comments: after sterile preparation and draping in utilizing ultrasound guidance I gained easy entry to the left internal jugular vein without complication passing retrograde with Seldinger technique a J tipped guidewire over which a triple-lumen central venous pressure catheter was passed again without complication and postop chest x-ray showed no complications and placement is just at the junction of the superior vena cava and right atrium Consent for Procedure: Elective - informed consent obtained Time out performed: Yes Sterile Technique Used: Yes Patient placed on monitor/pulse ox: Yes prep: mask, gown and gloves Central line prep: Chlorhexidine scrub Local anesthesia used: lidocaine 1% Ultrasound used for placement: Yes Central line lumen inserted: triple Post procedure: sutured in place, good blood return, all ports aspirated, flushed, capped and sterile dressing applied Post procedure x-ray: no pneumothorax seen Patient tolerated procedure: well and no complications Complications: none
--- NOTE | 2023-01-27 14:48 | W.PM.CCHP ---
Procedures Date of Service Date of Service: 01/25/23 Intubation Intubation Comments: patient in marked respiratory distress with acute hypoxic respiratory failure intubation performed with a 3. Blade utilizing the glide scope for guidance and a 7. Endotracheal tube and that went in easily without complication and using the combination of propofol and rocuronium with excellent visualization of the vocal cords good bilateral breath sounds an excellent end-tidal CO2 response Consent for Procedure: Elective - informed consent obtained Time out performed: Yes Sedative: propofol Paralytic: rocuronium Laryngoscope: fiber optic video scope ET tube size: 7 ET tube uncuffed: No Tube secured depth (cm): 22 Tube secured location: lips Tube placement confirmation: visualized tube passing through cords, equal breath sounds bilaterally, no breath sounds over epigastrium and confirmation by capnometry Patient tolerated procedure: well and no complications Intubation complications: none
[2023-01-28] VITALS (39 sets, daily range): BP systolic 88–138; BP diastolic 34–103; PULSE 22–116; RESP 18–34; TEMP 34.8–38.1; O2SAT 91–95; BMI 32.2
[2023-01-28] MEDS: dexmedeTOMIDidine HCL/NS 400 MCG/100 ML INFUS..BTL 21.28 MCG IVCONT (02:30)
--- NOTE | 2023-01-28 10:19 | MHC.CLN ---
F/U PT IS NOW INTUBATED AND SEDATED PT RECEIVING NEPRO TF WITH 120ML FWF Q 6 HRS PROVIDES 2160KCALS (34KCALS/KG), 97G PROTEIN (1.5G/KG), 1352ML TOTAL WATER FROM FORMULA AND FLUSHES (21ML/KG) TF WILL PROMOTE WOUND HEALING MONITOR TOLERANCE, RESIDUALS AND LYTES SEE ALSO FULL CLINICAL NUTRITION ASSESSMENT
--- NOTE | 2023-01-28 11:15 | PM.CCPN ---
Subjective Subjective Date of Service: 01/28/23 Interval History: 87-year-old lady with underlying moderate to severe diastolic heart failure, aortic stenosis, hypertension, diabetes mellitus admitted on 01/24/2023 with dyspnea and worsening lower extremity edema. Patient initially admitted to [facility] however she developed respiratory distress with further hypoxia requiring intubation and ventilatory support 01/25/2023 and transfer to intensive care unit. She has been treated with broad-spectrum antibiotics for the left sided pneumonic infiltrate and IV diuresis with continuous improvement.. No events overnight. Critical Care Time (minutes): 60 Physical Exam Vital Signs: Vital Signs: Last Vital Signs Temp 98.8 F 01/28/23 11:00 Pulse 99 01/28/23 11:00 Resp 21 H 01/28/23 11:00 BP 125/44 L 01/28/23 11:00 Pulse Ox 95 01/28/23 11:00 O2 Del Method Mechanical Ventil ation 01/28/23 11:00 O2 Flow Rate 3 01/25/23 07:41 FiO2 50 01/28/23 11:00 BMI result Body Mass Index 32.2 Const: General: no acute distress and other (Sedated on the vent) Eyes: Sclerae: sclerae normal EOM: EOMs intact bilaterally Neck: Neck: Yes no lymphadenopathy, Yes trachea midline and Yes supple Resp: Auscultation: crackles (Mild bilateral) Cardio: Rate: regular rate Rhythm: regular rhythm Heart sounds: no gallops, no murmurs and no rubs GI: Palpation (GI): Soft to palpation and Other GI palpation findings present ( Nontender) Auscultation: normal bowel sounds Extrem: General: No clubbing, No cyanosis and Yes edema (Trace bilateral) Objective Data Labs 01/28/23 05:40 01/28/23 05:40 Labs: Laboratory Results - last 24 hr 01/27/23 01/27/23 01/27/23 11:51 16:20 16:29 WBC RBC Hgb Hct MCV MCH MCHC RDW Plt Count MPV Immature Gran % (Auto) Neut % (Auto) Lymph % (Auto) [place] % (Auto) Eos % (Auto) Baso % (Auto) Lymph # (Auto) [place] # (Auto) Eos # (Auto) Baso # (Auto) Abs Immat Gran (auto) Absolute Neuts (auto) Absolute Nucleated RBC Nucleated RBC % (auto) VBG pH 7.40 VBG pCO2 33 VBG pO2 68 VBG HCO3 20 L VBG O2 Saturation 91.0 VBG Base Excess -3.1 Sodium 139 Potassium 3.6 Chloride 105 Carbon Dioxide 18 L Anion Gap 20 BUN 76 H Creatinine 2.92 H Estim Creat Clear Calc 14.5 Estimated GFR 15 POC Glucose 254 H Random Glucose 210 H Calcium 9.0 Phosphorus Magnesium 2.0 Total Bilirubin AST ALT Alkaline Phosphatase Total Protein Albumin 01/27/23 01/27/23 01/28/23 16:43 21:22 05:40 WBC 13.1 H RBC 3.37 L Hgb 8.8 L Hct 27.1 L MCV 80.4 MCH 26.1 L MCHC 32.5 RDW 16.2 H Plt Count 272 MPV 10.9 Immature Gran % (Auto) 1.5 H Neut % (Auto) 88.0 H Lymph % (Auto) 2.9 L [place] % (Auto) 6.2 Eos % (Auto) 1.1 Baso % (Auto) 0.3 Lymph # (Auto) 0.4 L [place] # (Auto) 0.8 Eos # (Auto) 0.1 Baso # (Auto) 0.0 Abs Immat Gran (auto) 0.19 H Absolute Neuts (auto) 11.5 H Absolute Nucleated RBC 0.070 H Nucleated RBC % (auto) 0.5 H VBG pH VBG pCO2 VBG pO2 VBG HCO3 VBG O2 Saturation VBG Base Excess Sodium 141 Potassium 3.2 L Chloride 106 Carbon Dioxide 19 L Anion Gap 19 BUN 75 H Creatinine 2.96 H Estim Creat Clear Calc 14.4 Estimated GFR 15 POC Glucose 191 H 200 H Random Glucose 255 H Calcium 9.1 Phosphorus 3.2 Magnesium 2.0 Total Bilirubin 0.5 AST 48 H ALT 63 H Alkaline Phosphatase 142 H Total Protein 6.9 Albumin 3.0 L 01/28/23 01/28/23 05:44 07:08 WBC RBC Hgb Hct MCV MCH MCHC RDW Plt Count MPV Immature Gran % (Auto) Neut % (Auto) Lymph % (Auto) [place] % (Auto) Eos % (Auto) Baso % (Auto) Lymph # (Auto) [place] # (Auto) Eos # (Auto) Baso # (Auto) Abs Immat Gran (auto) Absolute Neuts (auto) Absolute Nucleated RBC Nucleated RBC % (auto) VBG pH 7.36 VBG pCO2 34 VBG pO2 56 VBG HCO3 20 L VBG O2 Saturation 85.0 VBG Base Excess -4.3 Sodium Potassium Chloride Carbon Dioxide Anion Gap BUN Creatinine Estim Creat Clear Calc Estimated GFR POC Glucose 238 H Random Glucose Calcium Phosphorus Magnesium Total Bilirubin AST ALT Alkaline Phosphatase Total Protein Albumin Microbiology Microbiology Results: Microbiology 01/25/23 12:13 Sputum - Suctioned Gram Stain - Final 01/25/23 12:13 Sputum - Suctioned Sputum Culture - Final 01/25/23 16:43 Sputum - Suctioned Gram Stain - Final 01/25/23 16:43 Sputum - Suctioned Sputum Culture - Final No growth. 01/24/23 13:43 Blood - Venous Blood Culture - Preliminary No growth after 48 hours. 01/24/23 13:43 Blood - Venous Blood Culture - Preliminary No growth after 48 hours. 01/24/23 Unknown Urine clean catch - Urine collado top Urine Culture - Final Progress Note: A&P Assessment and plan (1) Acute on chronic diastolic (congestive) heart failure: Status: Acute (2) Acute hypoxemic respiratory failure: Status: Acute (3) Pneumonia: Status: Acute (4) Renal failure (ARF), acute on chronic: Status: Acute (5) Atrial fibrillation with normal ventricular rate: Status: Acute (6) Diabetes mellitus with coincident hypertension: Status: Acute Plan Assessment: 87-year-old lady admitted with dyspnea secondary to exacerbation of underlying chronic diastolic congestive heart failure, further complicated by pneumonia, now requiring ventilatory support. Plan: Neuro: No acute issues. Cardiac: Acute on chronic diastolic congestive heart failure improving with diuresis. Underlying AFib. Pulmonary: Acute hypoxic respiratory failure requiring ventilatory support, continue to titrate off as tolerated. Renal: Acute renal failure, likely secondary to exacerbation of underlying diastolic congestive heart failure. Non oliguric. Nephrology service care appreciated. Continue with diuresis. Endo: No acute issues. GI: No acute issues. ID: Left basilar pneumonia, continue broad-spectrum antibiotics. Heme/Onc: No acute issues. Psych: No acute issues. Miscellaneous: No acute issues. Prophylaxis: Lovenox, ppi Diet: Tube feeds Critical care time spent: 60 minutes Quality Stroke Does the patient have a stroke diagnosis?: No VTE Prior VTE?: No VTE Risk Level:: Medical - moderate - high VTE Device Contraindication: N/A - Device Ordered VTE Drug Contraindication: Treatment Not Indicated
--- NOTE | 2023-01-28 12:12 | PM.CCPN ---
Subjective Subjective Interval History: 87-year-old female with a past medical history of acute on chronic diastolic heart failure, acute hypoxemic respiratory failure, aortic stenosis, type two diabetes, hyperlipidemia, hypertension, and stage three kidney disease presented to the emergency department on 01/24 for shortness of breath and dyspnea. The patient was initially admitted to the hospitalist service however due to increased work of breathing and was found to be in acute hypoxemic respiratory failure. ICU consultation was initiated and the patient was subsequently intubated. The patient remains in the ICU intubated and on a vent. Comment: 45 Physical Exam Vital Signs: Vital Signs: Last Vital Signs Temp 98.8 F 01/28/23 11:00 Pulse 102 H 01/28/23 11:18 Resp 22 H 01/28/23 11:18 BP 125/44 L 01/28/23 11:00 Pulse Ox 95 01/28/23 11:00 O2 Del Method Mechanical Ventil ation 01/28/23 11:00 O2 Flow Rate 3 01/25/23 07:41 FiO2 45 01/28/23 11:18 BMI result Body Mass Index 32.2 Const: General: no acute distress HEENT: Head: Yes normocephalic and Yes atraumatic Throat: Yes uvula midline Eyes: Conjunctivae: conjunctivae normal Sclerae: sclerae normal Neck: Neck: Yes trachea midline and Yes no JVD Resp: Effort & Inspection: symmetric chest movement Auscultation: rales (Left sided rales, mid to upper, CTA on right side) Cardio: Rhythm: abnormal rhythm (atrial fibrillation) Heart sounds: S1 normal heart sound present, S2 normal heart sound present and Murmur heart sound present Peripheral pulses: Peripheral pulses 2+ throughout GI: Inspection: Yes Abdominal panniculus present Palpation (GI): Soft to palpation Auscultation: normoactive bowel sounds : General: Yes no CVA tenderness Back/Spine/Pelvis: Back: no CVA tenderness Skin: General skin exam: no rashes or lesions noted Neuro: Other: unable to assess Extrem: General: Yes no clubbing, cyanosis or edema Objective Data Labs 01/28/23 05:40 01/28/23 05:40 Labs: Laboratory Results - last 24 hr 01/27/23 01/27/23 01/27/23 16:20 16:29 16:43 WBC RBC Hgb Hct MCV MCH MCHC RDW Plt Count MPV Immature Gran % (Auto) Neut % (Auto) Lymph % (Auto) [place] % (Auto) Eos % (Auto) Baso % (Auto) Lymph # (Auto) [place] # (Auto) Eos # (Auto) Baso # (Auto) Abs Immat Gran (auto) Absolute Neuts (auto) Absolute Nucleated RBC Nucleated RBC % (auto) VBG pH 7.40 VBG pCO2 33 VBG pO2 68 VBG HCO3 20 L VBG O2 Saturation 91.0 VBG Base Excess -3.1 Sodium 139 Potassium 3.6 Chloride 105 Carbon Dioxide 18 L Anion Gap 20 BUN 76 H Creatinine 2.92 H Estim Creat Clear Calc 14.5 Estimated GFR 15 POC Glucose 191 H Random Glucose 210 H Calcium 9.0 Phosphorus Magnesium 2.0 Total Bilirubin AST ALT Alkaline Phosphatase Total Protein Albumin 01/27/23 01/28/23 01/28/23 21:22 05:40 05:44 WBC 13.1 H RBC 3.37 L Hgb 8.8 L Hct 27.1 L MCV 80.4 MCH 26.1 L MCHC 32.5 RDW 16.2 H Plt Count 272 MPV 10.9 Immature Gran % (Auto) 1.5 H Neut % (Auto) 88.0 H Lymph % (Auto) 2.9 L [place] % (Auto) 6.2 Eos % (Auto) 1.1 Baso % (Auto) 0.3 Lymph # (Auto) 0.4 L [place] # (Auto) 0.8 Eos # (Auto) 0.1 Baso # (Auto) 0.0 Abs Immat Gran (auto) 0.19 H Absolute Neuts (auto) 11.5 H Absolute Nucleated RBC 0.070 H Nucleated RBC % (auto) 0.5 H VBG pH 7.36 VBG pCO2 34 VBG pO2 56 VBG HCO3 20 L VBG O2 Saturation 85.0 VBG Base Excess -4.3 Sodium 141 Potassium 3.2 L Chloride 106 Carbon Dioxide 19 L Anion Gap 19 BUN 75 H Creatinine 2.96 H Estim Creat Clear Calc 14.4 Estimated GFR 15 POC Glucose 200 H Random Glucose 255 H Calcium 9.1 Phosphorus 3.2 Magnesium 2.0 Total Bilirubin 0.5 AST 48 H ALT 63 H Alkaline Phosphatase 142 H Total Protein 6.9 Albumin 3.0 L 01/28/23 01/28/23 07:08 11:45 WBC RBC Hgb Hct MCV MCH MCHC RDW Plt Count MPV Immature Gran % (Auto) Neut % (Auto) Lymph % (Auto) [place] % (Auto) Eos % (Auto) Baso % (Auto) Lymph # (Auto) [place] # (Auto) Eos # (Auto) Baso # (Auto) Abs Immat Gran (auto) Absolute Neuts (auto) Absolute Nucleated RBC Nucleated RBC % (auto) VBG pH VBG pCO2 VBG pO2 VBG HCO3 VBG O2 Saturation VBG Base Excess Sodium Potassium Chloride Carbon Dioxide Anion Gap BUN Creatinine Estim Creat Clear Calc Estimated GFR POC Glucose 238 H 257 H Random Glucose Calcium Phosphorus Magnesium Total Bilirubin AST ALT Alkaline Phosphatase Total Protein Albumin Microbiology Microbiology Results: Microbiology 01/25/23 12:13 Sputum - Suctioned Gram Stain - Final 01/25/23 12:13 Sputum - Suctioned Sputum Culture - Final 01/25/23 16:43 Sputum - Suctioned Gram Stain - Final 01/25/23 16:43 Sputum - Suctioned Sputum Culture - Final No growth. 01/24/23 13:43 Blood - Venous Blood Culture - Preliminary No growth after 48 hours. 01/24/23 13:43 Blood - Venous Blood Culture - Preliminary No growth after 48 hours. 01/24/23 Unknown Urine clean catch - Urine coll[place] top Urine Culture - Final Progress Note: A&P Assessment and plan Plan Neurologic: patient is currently sedated and intubated. They are currently on Precedex at 0.6 mcg/kg/hour. Precedex has been shown that it can reduce the duration of mechanical ventilation and intensive care stay. Due to the recent nature of intubation, a spontaneous awakening trial will be put on hold for today. Cardiovascular: patient has a history of heart failure with preserved ejection fraction of around 45%. Patient presented with a BNP of 1763. The patient was initially diuresed with Lasix and has now been suspected to be euvolemic. There?s no evidence of increasing his pressures, peripheral edema, or crackles. The patient is currently receiving no vasopressors at this time however was on norepinephrine yesterday but has since then maintained an MAP above 65. The patient currently has some evidence of cardiorenal syndrome as well also in the setting of CKD stage three which they are followed by nephrology for. Please see nephrology note for further management information. The patient?s current rhythm is atrial fibrillation with a rate in the 90s. For anticoagulation she is on 70 mg of lovenox. Respiratory: patient currently has acute hypoxemic respiratory failure related to pneumonia. Upon admission and 01/24 she was noted to have a left upper lobe pneumonia in speed and cultures came back negative. As of yesterday, she decompensated after excavation failure. The patient was re-intubated and is currently on AC/VC Rate of 18, tidal volumes of 400, FiO2 50% and peep at five. We will attempt extubation either tomorrow or the day after. Gastrointestinal: patient is currently on pantoprazole 40 mg daily for stress ulcer prophylaxis. Patient also has a nasogastric tube and has been receiving daily tube feeds of nepro with no noted residuals. Elevated liver function likely due to Shock liver from heart failure. Renal/Genitourinary: patient currently seen by nephrology for suspected cardiorenal syndrome related to heart failure. Please see nephrology notes for recommendations. Patient has stage 3 CKD. Baseline creatinine of around 2.0. Current creatinine of 2.96. Currently we are maintaining the patient on albumin per nephrology as well as negative net goal of 1 L per day. Hematology: patient has a leukocytosis related to pneumonia. Patient also has iron deficiency anemia. Hemoglobin has been around 8.8 which has been their baseline. Currently not on any supplementation. Will continue to monitor red blood cell indices. Patient currently on Lovenox 70 mg for both atrial fibrillation and DVT prophylaxis. Infectious disease: patient initially presented with a white blood cell count of 17.7 however was noted to be afebrile. Lactate not elevated. Patient is currently on Zosyn in addition to doxycycline which has adequate broad-spectrum coverage and are both indicated for patients with major comorbidities who are 65 years and older per IDSA. Infectious disease has also been consulted, please see their note for recommendations. Currently the patient has approximately 3 to 5 more days of antibiotics. Endocrine: patient has a history of type two diabetes. Patient blood glucose levels have been in the mid 100s to low 200s. Patient is on a sliding scale of Lispro insulin which we will continue with a target blood glucose of under 180. Quality Stroke Does the patient have a stroke diagnosis?: No VTE Prior VTE?: No VTE Risk Level:: Medical - moderate - high VTE Device Contraindication: N/A - Device Ordered VTE Drug Contraindication: Treatment Not Indicated
--- NOTE | 2023-01-28 12:40 | PM.PNNEP ---
Subjective Subjective Date of Service: 01/28/23 Interval history: Intermittently diuresed now on albumin infusion. Cr stable Physical Exam Vital Signs: Vital Signs: Last Vital Signs Temp 98.8 F 01/28/23 12:00 Pulse 102 H 01/28/23 12:00 Resp 23 H 01/28/23 12:00 BP 119/39 L 01/28/23 12:00 Pulse Ox 94 01/28/23 12:00 O2 Del Method Mechanical Ventil ation 01/28/23 12:00 O2 Flow Rate 3 01/25/23 07:41 FiO2 45 01/28/23 12:00 BMI result Body Mass Index 32.2 Const: Other: Intubated Resp: Other: Right chest rhonchi Cardio: Jugular venous distension: no JVD Rate: regular rate GI: Palpation (GI): Soft to palpation Percussion: Yes normal to percussion Extrem: Other: 1+ edema Objective Data Labs 01/28/23 05:40 01/28/23 05:40 Labs: Laboratory Results - last 24 hr 01/27/23 01/27/23 01/27/23 16:20 16:29 16:43 WBC RBC Hgb Hct MCV MCH MCHC RDW Plt Count MPV Immature Gran % (Auto) Neut % (Auto) Lymph % (Auto) [place] % (Auto) Eos % (Auto) Baso % (Auto) Lymph # (Auto) [place] # (Auto) Eos # (Auto) Baso # (Auto) Abs Immat Gran (auto) Absolute Neuts (auto) Absolute Nucleated RBC Nucleated RBC % (auto) VBG pH 7.40 VBG pCO2 33 VBG pO2 68 VBG HCO3 20 L VBG O2 Saturation 91.0 VBG Base Excess -3.1 Sodium 139 Potassium 3.6 Chloride 105 Carbon Dioxide 18 L Anion Gap 20 BUN 76 H Creatinine 2.92 H Estim Creat Clear Calc 14.5 Estimated GFR 15 POC Glucose 191 H Random Glucose 210 H Calcium 9.0 Phosphorus Magnesium 2.0 Total Bilirubin AST ALT Alkaline Phosphatase Total Protein Albumin 01/27/23 01/28/23 01/28/23 21:22 05:40 05:44 WBC 13.1 H RBC 3.37 L Hgb 8.8 L Hct 27.1 L MCV 80.4 MCH 26.1 L MCHC 32.5 RDW 16.2 H Plt Count 272 MPV 10.9 Immature Gran % (Auto) 1.5 H Neut % (Auto) 88.0 H Lymph % (Auto) 2.9 L [place] % (Auto) 6.2 Eos % (Auto) 1.1 Baso % (Auto) 0.3 Lymph # (Auto) 0.4 L [place] # (Auto) 0.8 Eos # (Auto) 0.1 Baso # (Auto) 0.0 Abs Immat Gran (auto) 0.19 H Absolute Neuts (auto) 11.5 H Absolute Nucleated RBC 0.070 H Nucleated RBC % (auto) 0.5 H VBG pH 7.36 VBG pCO2 34 VBG pO2 56 VBG HCO3 20 L VBG O2 Saturation 85.0 VBG Base Excess -4.3 Sodium 141 Potassium 3.2 L Chloride 106 Carbon Dioxide 19 L Anion Gap 19 BUN 75 H Creatinine 2.96 H Estim Creat Clear Calc 14.4 Estimated GFR 15 POC Glucose 200 H Random Glucose 255 H Calcium 9.1 Phosphorus 3.2 Magnesium 2.0 Total Bilirubin 0.5 AST 48 H ALT 63 H Alkaline Phosphatase 142 H Total Protein 6.9 Albumin 3.0 L 01/28/23 01/28/23 07:08 11:45 WBC RBC Hgb Hct MCV MCH MCHC RDW Plt Count MPV Immature Gran % (Auto) Neut % (Auto) Lymph % (Auto) [place] % (Auto) Eos % (Auto) Baso % (Auto) Lymph # (Auto) [place] # (Auto) Eos # (Auto) Baso # (Auto) Abs Immat Gran (auto) Absolute Neuts (auto) Absolute Nucleated RBC Nucleated RBC % (auto) VBG pH VBG pCO2 VBG pO2 VBG HCO3 VBG O2 Saturation VBG Base Excess Sodium Potassium Chloride Carbon Dioxide Anion Gap BUN Creatinine Estim Creat Clear Calc Estimated GFR POC Glucose 238 H 257 H Random Glucose Calcium Phosphorus Magnesium Total Bilirubin AST ALT Alkaline Phosphatase Total Protein Albumin Microbiology Microbiology Results: Microbiology 01/25/23 12:13 Sputum - Suctioned Gram Stain - Final 01/25/23 12:13 Sputum - Suctioned Sputum Culture - Final 01/25/23 16:43 Sputum - Suctioned Gram Stain - Final 01/25/23 16:43 Sputum - Suctioned Sputum Culture - Final No growth. 01/24/23 13:43 Blood - Venous Blood Culture - Preliminary No growth after 48 hours. 01/24/23 13:43 Blood - Venous Blood Culture - Preliminary No growth after 48 hours. 01/24/23 Unknown Urine clean catch - Urine collado top Urine Culture - Final Procedures Date of Service Date of Service: 01/28/23 Assessment & Plan Assessment and plan (1) CHF (congestive heart failure): Status: Acute (2) Atrial fibrillation with normal ventricular rate: Status: Acute (3) Acute dyspnea: Status: Acute (4) Pneumonia: Status: Acute (5) Sepsis: Status: Acute (6) Acute hypoxemic respiratory failure: Status: Acute Plan 87 year old female with history of HFpEF, , htn, hld, iron deficiency anemia, pulmonary hypertension, and [id number] type 2 diabetes admitted HYPOXIA and CORTEZ/CKD. 1. CORTEZ U/A with hyaline septic shock mixed with Cardiogenic shock CORTEZ most c/w renal hypo-perfusion from volume overload. 2. CKD 3:BSL Scr 1.5-2.0 3. Hypoxia: CAP and CHF Plan: -Hold diureitcs today. - Albumin for intravascular defense - renal panel daily - no [employer] indications at this time. Time Spent With Patient Time: Total time managing care of this patient today ____ minutes. Progress Note: Quality Stroke Does the patient have a stroke diagnosis?: No
[2023-01-29] VITALS (41 sets, daily range): BP systolic 105–150; BP diastolic 32–64; PULSE 53–112; RESP 18–29; TEMP 35–37.9; O2SAT 91–94
--- NOTE | 2023-01-29 06:27 | PC.NURSE ---
PT ON PRESSURE SUPPORT VENT SETTINGS UNTIL 2029 THEN, DUE TO INCREASED WOB, WAS PUT BACK ON RESTING VENT SETTINGS AC/VC+. SEDATION RESTARTED WITH PROPOFOL. O2 SAT 91-94% ON 40% FIO2. BP DROPPED AFTER START OF PROPOFOL TO MAP OF 60 AND LEVOPHED INCREASED WITH GOOD EFFECT. MONITOR SHOWED AFIB 90'S-108 BUT FREQUENT SHORT BURSTS OF RAPID AFIB UP TO 130-140'S NOTED AND DIGOXIN 0.125 MG IV ORDERED X 3 DOSES. SECOND DOSE DUE AT 0930. TEMP 100.6 CORE. PT RECEIVED TYLENOL 650 MG VIA OGT X1 DOSE WITH GOOD EFFECT TO DROP TEMP TO 99.3 CORE. URINE OUTPUT 50-100 ML/HR. PROVIDER ORDERED BUMEX DRIP FOR MORE AGGRESSIVE DIURESIS AFTER ONE DOSE OF 2 MG IVP HAD NO EFFECT ON U/O. DRIP STARTED AT 0000 AND U/O REMAINS 50-100 ML/HR. TOLERATING TUBE FEEDS. RECTAL TUBE IN PLACE FOR LIQUID BROWN STOOL. FOAM DSG IN PLACE ON BUTTOCKS D&I.
--- NOTE | 2023-01-29 09:10 | PM.CCPN ---
Subjective Subjective Interval History: 87-year-old female with a past medical history of acute on chronic diastolic heart failure, acute hypoxemic respiratory failure, aortic stenosis, type two diabetes, hyperlipidemia, hypertension, and stage three kidney disease presented to the emergency department on 01/24 for shortness of breath and dyspnea. The patient was initially admitted to the hospitalist service however the patient had increased work of breathing and was found to be in acute hypoxemic respiratory failure. ICU consultation was initiated and the patient was subsequently intubated. The patient remains in the ICU intubated and on a vent. On 01/28, the patient got tired during a PSV trial and was placed back on AC/VC. Physical Exam Vital Signs: Vital Signs: Last Vital Signs Temp 99.7 F 01/29/23 08:00 Pulse 106 H 01/29/23 09:04 Resp 20 01/29/23 08:00 BP 137/53 L 01/29/23 09:04 Pulse Ox 92 01/29/23 08:00 O2 Del Method Mechanical Ventil ation 01/29/23 08:00 O2 Flow Rate 3 01/25/23 07:41 FiO2 40 01/29/23 08:00 BMI result Body Mass Index 32.2 Const: General: no acute distress HEENT: Head: Yes normocephalic and Yes atraumatic Throat: Yes uvula midline Eyes: Conjunctivae: conjunctivae normal Sclerae: sclerae normal Neck: Neck: Yes trachea midline and Yes no JVD Resp: Other: Left mid to upper lobe crackles, right lobes CTA Cardio: Other: regular rate, a fib, s1, s2 intact, systolic ejection murmur r/t aortic stenosis GI: Inspection: Yes Abdominal panniculus present Palpation (GI): Soft to palpation Auscultation: normoactive bowel sounds Skin: General skin exam: no rashes or lesions noted Neuro: Other: deferred, patient sedated Extrem: General: Yes capillary refill normal and Yes no clubbing, cyanosis or edema Objective Data Labs 01/29/23 04:31 01/29/23 04:31 Labs: Laboratory Results - last 24 hr 01/25/23 01/28/23 01/28/23 06:05 11:45 17:36 WBC RBC Hgb Hct MCV MCH MCHC RDW Plt Count MPV Immature Gran % (Auto) Neut % (Auto) Lymph % (Auto) [place] % (Auto) Eos % (Auto) Baso % (Auto) Lymph # (Auto) [place] # (Auto) Eos # (Auto) Baso # (Auto) Abs Immat Gran (auto) Absolute Neuts (auto) Absolute Nucleated RBC Nucleated RBC % (auto) VBG pH VBG pCO2 VBG pO2 VBG HCO3 VBG O2 Saturation VBG Base Excess Sodium Potassium Chloride Carbon Dioxide Anion Gap BUN Creatinine Estim Creat Clear Calc Estimated GFR POC Glucose 257 H 306 H Random Glucose Calcium Phosphorus Magnesium Albumin Proteinase 3 (PR3) Ab <1.0 Myeloperoxidase Ab <1.0 01/28/23 01/29/23 01/29/23 23:55 04:31 04:32 WBC 12.8 H RBC 3.19 L Hgb 8.4 L Hct 26.1 L MCV 81.8 MCH 26.3 L MCHC 32.2 RDW 16.8 H Plt Count 275 MPV 11.7 Immature Gran % (Auto) 2.4 H Neut % (Auto) 82.3 H Lymph % (Auto) 4.7 L [place] % (Auto) 7.8 Eos % (Auto) 2.3 Baso % (Auto) 0.5 Lymph # (Auto) 0.6 L [place] # (Auto) 1.0 Eos # (Auto) 0.3 Baso # (Auto) 0.1 Abs Immat Gran (auto) 0.31 H Absolute Neuts (auto) 10.6 H Absolute Nucleated RBC 0.090 H Nucleated RBC % (auto) 0.7 H VBG pH 7.31 L VBG pCO2 42 VBG pO2 61 VBG HCO3 21 L VBG O2 Saturation 89.0 VBG Base Excess -4.0 Sodium 142 Potassium 3.3 Chloride 106 Carbon Dioxide 20 L Anion Gap 19 BUN 81 H Creatinine 2.98 H Estim Creat Clear Calc 14.3 Estimated GFR 15 POC Glucose 262 H Random Glucose 255 H Calcium 9.2 Phosphorus 3.3 Magnesium 2.1 Albumin 3.4 L Proteinase 3 (PR3) Ab Myeloperoxidase Ab Microbiology Microbiology Results: Microbiology 01/25/23 12:13 Sputum - Suctioned Gram Stain - Final 01/25/23 12:13 Sputum - Suctioned Sputum Culture - Final 01/25/23 16:43 Sputum - Suctioned Gram Stain - Final 01/25/23 16:43 Sputum - Suctioned Sputum Culture - Final No growth. 01/24/23 13:43 Blood - Venous Blood Culture - Preliminary No growth after 48 hours. 01/24/23 13:43 Blood - Venous Blood Culture - Preliminary No growth after 48 hours. 01/24/23 Unknown Urine clean catch - Urine collado top Urine Culture - Final Progress Note: A&P Assessment and plan Plan Neurologic: Patient is currently sedated and intubated. They are currently on Propofol running per protocol with titrating to RASS of -2 to -3. We will try a spontaneous awakening trial today and see if we can move towards extubation. Cardiovascular: patient has a history of heart failure with preserved ejection fraction of around 45%. Patient presented with a BNP of 1763. The patient was initially diuresed with Lasix however we have switched to a Bumex drip overnight at 1 mg per hour due to increased crackles. The urine output on 01/28 was 1.19 ml/kg/hr. Current output is at 0.23 ml/kg/hr and with the suspected volume overload, this is why the patient was placed on the bumex drip. The patient is currently receiving no vasopressors at this time however was on norepinephrine two days ago but has since then maintained an MAP above 65. The patient is also receiving digoxin for inotropic support at 0.125 mg every six hours. Digoxin has been shown to be useful as a second line therapy for controlling heart rate of patients with atrial fibrillation associated with heart failure. The patient currently has some evidence of cardiorenal syndrome as well also in the setting of CKD stage three which they are followed by nephrology for. Please see nephrology note for further management information. The patient?s current rhythm is atrial fibrillation with a rate in the 90s. For anticoagulation she is on 70 mg of lovenox. Respiratory: Patient currently has acute hypoxemic respiratory failure related to pneumonia. Upon admission and 01/24 she was noted to have a left upper lobe pneumonia and cultures came back negative.On 01/27, she decompensated after extubation failure and was reintubated. The patient was put on pressure support earlier today however due to increased work of breathing, was placed back on her previous settings. She is currently on AC/VC Rate of 18, tidal volumes of 350, FiO2 40% and peep at five. We will attempt extubation either today or tomorrow if able to tolerate PSV. Gastrointestinal: Patient is currently on pantoprazole 40 mg daily for stress ulcer prophylaxis. Patient also has a nasogastric tube and has been receiving daily tube feeds of nepro with no noted residuals. Elevated liver function likely due to Shock liver from heart failure, Transaminitis has been progressively decreasing each day. Renal/Genitourinary: Patient currently seen by nephrology for suspected cardiorenal syndrome related to heart failure. Please see nephrology notes for recommendations. Patient has stage 3 CKD. Baseline creatinine of around 2.0. Current creatinine of 2.98. Currently we are maintaining the patient on albumin per nephrology as well as negative net goal of 1 L per day. Please see above for urine output. Hematology: patient has a leukocytosis with bandemia related to pneumonia. White count as of this morning was 12.8 which has come down five points since admission on 01/24. Patient also has iron deficiency anemia. Hemoglobin has been around 8.8 which has been their baseline. Currently not on any supplementation. Will continue to monitor red blood cell indices. Patient currently on Lovenox 70 mg for both atrial fibrillation and DVT prophylaxis. Infectious disease: patient initially presented with a white blood cell count of 17.7, bandemia, however was noted to be afebrile. Lactate not elevated. Patient is currently on Zosyn in addition to doxycycline which has adequate broad-spectrum coverage and are both indicated for patients with major comorbidities who are 65 years and older per IDSA. Infectious disease has also been consulted, please see their note for recommendations. Currently the patient has approximately 2 to 4 more days of antibiotics. A repeat chest xray will be performed in 2 days to assess pneumonia. Endocrine: patient has a history of type two diabetes. Patient blood glucose levels have been in the mid 100s to low 200s. Patient is on a sliding scale of Lispro insulin which we will continue with a target blood glucose of under 180. Quality Stroke Does the patient have a stroke diagnosis?: No VTE Prior VTE?: No VTE Risk Level:: Medical - moderate - high VTE Device Contraindication: N/A - Device Ordered VTE Drug Contraindication: Treatment Not Indicated
--- NOTE | 2023-01-29 10:29 | MHC.CM.PN ---
Pt continues on ventilatory support in ICU: Goals for care are to attempt extubation today. Pt may need SNF placement: PT or other evals may be needed to support SNF transfer. CM to follow.
[2023-01-29] MEDS: Norepinephrine Bitartrate/D5W 8 MG/250 ML PLAST..BAG 11.17 MG IV (11:55)
--- NOTE | 2023-01-29 12:51 | PM.CCPN ---
Subjective Subjective Date of Service: 01/29/23 Interval History: 87-year-old lady with underlying moderate to severe diastolic heart failure, aortic stenosis, hypertension, diabetes mellitus admitted on 01/24/2023 with dyspnea and worsening lower extremity edema. Patient initially admitted [facility] however she developed respiratory distress with further hypoxia requiring intubation and ventilatory support 01/25/2023 and transfer to intensive care unit. She has been treated with broad-spectrum antibiotics for the left sided pneumonic infiltrate and IV diuresis with continuous improvement.. No events overnight. Now with improving tolerance of pressor support trials. Critical Care Time (minutes): 45 Physical Exam Vital Signs: Vital Signs: Last Vital Signs Temp 99.3 F 01/29/23 12:00 Pulse 104 H 01/29/23 12:38 Resp 21 H 01/29/23 12:00 BP 146/51 H 01/29/23 12:38 Pulse Ox 93 01/29/23 12:00 O2 Del Method Mechanical Ventil ation 01/29/23 12:00 O2 Flow Rate 3 01/25/23 07:41 FiO2 40 01/29/23 12:00 BMI result Body Mass Index 32.2 Const: General: no acute distress and other ( Sedated on the vent) Eyes: Sclerae: sclerae normal EOM: EOMs intact bilaterally Neck: Neck: Yes no lymphadenopathy, Yes trachea midline and Yes supple Resp: Auscultation: clear to auscultation bilaterally Cardio: Rate: tachycardic Rhythm: regular rhythm Heart sounds: no gallops, no murmurs and no rubs GI: Palpation (GI): Soft to palpation and Other GI palpation findings present ( Nontender) Auscultation: normal bowel sounds Extrem: General: Yes no pedal edema, No clubbing and No cyanosis Objective Data Labs 01/29/23 04:31 01/29/23 04:31 Labs: Laboratory Results - last 24 hr 01/25/23 01/28/23 01/28/23 06:05 17:36 23:55 WBC RBC Hgb Hct MCV MCH MCHC RDW Plt Count MPV Immature Gran % (Auto) Neut % (Auto) Lymph % (Auto) [place] % (Auto) Eos % (Auto) Baso % (Auto) Lymph # (Auto) [place] # (Auto) Eos # (Auto) Baso # (Auto) Abs Immat Gran (auto) Absolute Neuts (auto) Absolute Nucleated RBC Nucleated RBC % (auto) VBG pH VBG pCO2 VBG pO2 VBG HCO3 VBG O2 Saturation VBG Base Excess Sodium Potassium Chloride Carbon Dioxide Anion Gap BUN Creatinine Estim Creat Clear Calc Estimated GFR POC Glucose 306 H 262 H Random Glucose Calcium Phosphorus Magnesium Albumin Proteinase 3 (PR3) Ab <1.0 Myeloperoxidase Ab <1.0 01/29/23 01/29/23 01/29/23 04:31 04:32 11:32 WBC 12.8 H RBC 3.19 L Hgb 8.4 L Hct 26.1 L MCV 81.8 MCH 26.3 L MCHC 32.2 RDW 16.8 H Plt Count 275 MPV 11.7 Immature Gran % (Auto) 2.4 H Neut % (Auto) 82.3 H Lymph % (Auto) 4.7 L [place] % (Auto) 7.8 Eos % (Auto) 2.3 Baso % (Auto) 0.5 Lymph # (Auto) 0.6 L [place] # (Auto) 1.0 Eos # (Auto) 0.3 Baso # (Auto) 0.1 Abs Immat Gran (auto) 0.31 H Absolute Neuts (auto) 10.6 H Absolute Nucleated RBC 0.090 H Nucleated RBC % (auto) 0.7 H VBG pH 7.31 L VBG pCO2 42 VBG pO2 61 VBG HCO3 21 L VBG O2 Saturation 89.0 VBG Base Excess -4.0 Sodium 142 Potassium 3.3 Chloride 106 Carbon Dioxide 20 L Anion Gap 19 BUN 81 H Creatinine 2.98 H Estim Creat Clear Calc 14.3 Estimated GFR 15 POC Glucose 189 H Random Glucose 255 H Calcium 9.2 Phosphorus 3.3 Magnesium 2.1 Albumin 3.4 L Proteinase 3 (PR3) Ab Myeloperoxidase Ab Microbiology Microbiology Results: Microbiology 01/25/23 12:13 Sputum - Suctioned Gram Stain - Final 01/25/23 12:13 Sputum - Suctioned Sputum Culture - Final 01/25/23 16:43 Sputum - Suctioned Gram Stain - Final 01/25/23 16:43 Sputum - Suctioned Sputum Culture - Final No growth. 01/24/23 13:43 Blood - Venous Blood Culture - Preliminary No growth after 48 hours. 01/24/23 13:43 Blood - Venous Blood Culture - Preliminary No growth after 48 hours. 01/24/23 Unknown Urine clean catch - Urine collado top Urine Culture - Final Progress Note: A&P Assessment and plan (1) Acute on chronic diastolic (congestive) heart failure: Status: Acute (2) Acute hypoxemic respiratory failure: Status: Acute (3) Pneumonia: Status: Acute (4) CHF (congestive heart failure): Status: Acute (5) Renal failure (ARF), acute on chronic: Status: Acute (6) Atrial fibrillation with normal ventricular rate: Status: Acute (7) Nonrheumatic aortic (valve) stenosis: Status: Acute (8) Diabetes mellitus with coincident hypertension: Status: Acute Plan Assessment: 87-year-old lady admitted with dyspnea secondary to exacerbation of underlying chronic diastolic congestive heart failure, further complicated by pneumonia, now requiring ventilatory support. Plan: Neuro: No acute issues. Cardiac: Acute on chronic diastolic congestive heart failure improving with diuresis. Underlying AFib. Pulmonary: Acute hypoxic respiratory failure requiring ventilatory support, continue to titrate off as tolerated. Now with improving tolerance of pressure support trials. Renal: Acute renal failure, likely secondary to exacerbation of underlying diastolic congestive heart failure. Non oliguric. Nephrology service care appreciated. Continue with diuresis. Endo: No acute issues. GI: No acute issues. ID: Left basilar pneumonia, continue broad-spectrum antibiotics. Heme/Onc: No acute issues. Psych: No acute issues. Miscellaneous: No acute issues. Prophylaxis: Lovenox, ppi Diet: Tube feeds Critical care time spent: 45 minutes Quality Stroke Does the patient have a stroke diagnosis?: No VTE Prior VTE?: No VTE Risk Level:: Medical - moderate - high VTE Device Contraindication: N/A - Device Ordered VTE Drug Contraindication: Treatment Not Indicated
[2023-01-29 14:43] LABS: Strep Pneumo Ag urine Not Detected (Not Detected)
--- NOTE | 2023-01-29 17:05 | PM.PNNEP ---
Subjective Subjective Date of Service: 01/29/23 Interval history: 87-year-old lady with underlying moderate to severe diastolic heart failure, aortic stenosis, hypertension, diabetes mellitus admitted on 01/24/2023 with dyspnea and worsening lower extremity edema. Patient edeveloped respiratory distress with further hypoxia requiring intubation and ventilatory support 01/25/2023 and now in the intensive care unit. . Physical Exam Vital Signs: Vital Signs: Last Vital Signs Temp 99.1 F 01/29/23 17:00 Pulse 95 01/29/23 17:00 Resp 24 H 01/29/23 17:00 BP 124/45 L 01/29/23 17:00 Pulse Ox 93 01/29/23 17:00 O2 Del Method Mechanical Ventil ation 01/29/23 17:00 O2 Flow Rate 3 01/25/23 07:41 FiO2 40 01/29/23 17:00 BMI result Body Mass Index 32.2 Const: General: no acute distress and other ( Sedated on the vent) Eyes: Sclerae: sclerae normal EOM: EOMs intact bilaterally Neck: Neck: Yes no lymphadenopathy, Yes trachea midline and Yes supple Resp: Auscultation: clear to auscultation bilaterally Cardio: Rate: tachycardic Rhythm: regular rhythm Heart sounds: no gallops, no murmurs and no rubs GI: Palpation (GI): Soft to palpation and Other GI palpation findings present ( Nontender) Auscultation: normal bowel sounds Extrem: General: Yes no pedal edema, No clubbing and No cyanosis Objective Data Labs 01/29/23 04:31 01/29/23 04:31 Labs: Laboratory Results - last 24 hr 01/25/23 01/25/23 01/28/23 06:05 15:43 17:36 WBC RBC Hgb Hct MCV MCH MCHC RDW Plt Count MPV Immature Gran % (Auto) Neut % (Auto) Lymph % (Auto) [place] % (Auto) Eos % (Auto) Baso % (Auto) Lymph # (Auto) [place] # (Auto) Eos # (Auto) Baso # (Auto) Abs Immat Gran (auto) Absolute Neuts (auto) Absolute Nucleated RBC Nucleated RBC % (auto) VBG pH VBG pCO2 VBG pO2 VBG HCO3 VBG O2 Saturation VBG Base Excess Sodium Potassium Chloride Carbon Dioxide Anion Gap BUN Creatinine Estim Creat Clear Calc Estimated GFR POC Glucose 306 H Random Glucose Calcium Phosphorus Magnesium Albumin Proteinase 3 (PR3) Ab <1.0 Myeloperoxidase Ab <1.0 Ur Strep pneumoniae Ag Not Detected 01/28/23 01/29/23 01/29/23 23:55 04:31 04:32 WBC 12.8 H RBC 3.19 L Hgb 8.4 L Hct 26.1 L MCV 81.8 MCH 26.3 L MCHC 32.2 RDW 16.8 H Plt Count 275 MPV 11.7 Immature Gran % (Auto) 2.4 H Neut % (Auto) 82.3 H Lymph % (Auto) 4.7 L [place] % (Auto) 7.8 Eos % (Auto) 2.3 Baso % (Auto) 0.5 Lymph # (Auto) 0.6 L [place] # (Auto) 1.0 Eos # (Auto) 0.3 Baso # (Auto) 0.1 Abs Immat Gran (auto) 0.31 H Absolute Neuts (auto) 10.6 H Absolute Nucleated RBC 0.090 H Nucleated RBC % (auto) 0.7 H VBG pH 7.31 L VBG pCO2 42 VBG pO2 61 VBG HCO3 21 L VBG O2 Saturation 89.0 VBG Base Excess -4.0 Sodium 142 Potassium 3.3 Chloride 106 Carbon Dioxide 20 L Anion Gap 19 BUN 81 H Creatinine 2.98 H Estim Creat Clear Calc 14.3 Estimated GFR 15 POC Glucose 262 H Random Glucose 255 H Calcium 9.2 Phosphorus 3.3 Magnesium 2.1 Albumin 3.4 L Proteinase 3 (PR3) Ab Myeloperoxidase Ab Ur Strep pneumoniae Ag 01/29/23 11:32 WBC RBC Hgb Hct MCV MCH MCHC RDW Plt Count MPV Immature Gran % (Auto) Neut % (Auto) Lymph % (Auto) [place] % (Auto) Eos % (Auto) Baso % (Auto) Lymph # (Auto) [place] # (Auto) Eos # (Auto) Baso # (Auto) Abs Immat Gran (auto) Absolute Neuts (auto) Absolute Nucleated RBC Nucleated RBC % (auto) VBG pH VBG pCO2 VBG pO2 VBG HCO3 VBG O2 Saturation VBG Base Excess Sodium Potassium Chloride Carbon Dioxide Anion Gap BUN Creatinine Estim Creat Clear Calc Estimated GFR POC Glucose 189 H Random Glucose Calcium Phosphorus Magnesium Albumin Proteinase 3 (PR3) Ab Myeloperoxidase Ab Ur Strep pneumoniae Ag Microbiology Microbiology Results: Microbiology 01/24/23 13:43 Blood - Venous Blood Culture - Final No growth after 5 days. 01/24/23 13:43 Blood - Venous Blood Culture - Final No growth after 5 days. 01/25/23 12:13 Sputum - Suctioned Gram Stain - Final 01/25/23 12:13 Sputum - Suctioned Sputum Culture - Final 01/25/23 16:43 Sputum - Suctioned Gram Stain - Final 01/25/23 16:43 Sputum - Suctioned Sputum Culture - Final No growth. 01/24/23 Unknown Urine clean catch - Urine collado top Urine Culture - Final Procedures Date of Service Date of Service: 01/29/23 Assessment & Plan Assessment and plan (1) Renal failure (ARF), acute on chronic: Status: Acute (2) Pneumonia: Status: Acute (3) Sepsis: Status: Acute (4) Acute hypoxemic respiratory failure: Status: Acute (5) Acute on chronic diastolic (congestive) heart failure: Status: Acute (6) CHF (congestive heart failure): Status: Acute (7) Atrial fibrillation with normal ventricular rate: Status: Acute (8) Acute dyspnea: Status: Acute Plan 87 year old female with history of HFpEF, , htn, hld, iron deficiency anemia, pulmonary hypertension, and [id number] type 2 diabetes admitted HYPOXIA and CORTEZ/CKD. 1. CORTEZ- Cr is stable U/A with hyaline septic shock mixed with Cardiogenic shock CORTEZ most c/w renal hypo-perfusion from volume overload. 2. CKD 3:BSL Scr 1.5-2.0 3. Hypoxia: CAP and CHF Plan: - diureitcs as per ICU teasm today. - Albumin for intravascular defense - renal panel daily - no [employer] indications at this time. - CArdiopulmonary support D/w ICU attending Time Spent With Patient Time: Total time managing care of this patient today ____ minutes. Progress Note: Quality Stroke Does the patient have a stroke diagnosis?: No
[2023-01-30] VITALS (38 sets, daily range): BP systolic 113–146; BP diastolic 35–50; PULSE 68–96; RESP 18–89; TEMP 30.9–37.4; O2SAT 90–97
[2023-01-30 05:58] LABS: Albumin Level 3.2 g/dL (3.5-5.0); Anion Gap 20 (12-20); Blood Urea Nitrogen 94 mg/dL (9-16); Calcium 9.3 mg/dL (8.4-10.2); Carbon Dioxide 21 mmol/L (22-29); Chloride 107 mmol/L (96-108); Creatinine Clr Calc Pharmacy 12.8; Estimated Glomerular Filt Rate 13; Glucose Random 214 mg/dL (60-115); Magnesium 2.2 mg/dL (1.6-2.6); Potassium 3.8 mmol/L (3.3-5.1); Sodium 144 mmol/L (135-145)
--- NOTE | 2023-01-30 10:11 | PM.CCPN ---
Subjective Subjective Interval History: 87-year-old female with a past medical history of acute on chronic diastolic heart failure, acute hypoxemic respiratory failure, aortic stenosis, type two diabetes, hyperlipidemia, hypertension, and stage three kidney disease presented to the emergency department on 01/24 for shortness of breath and dyspnea. The patient was initially admitted to the hospitalist service however the patient had increased work of breathing and was found to be in acute hypoxemic respiratory failure. ICU consultation was initiated and the patient was subsequently intubated. The patient remains in the ICU intubated and on a vent. On 01/28 and 01/29, the patient got tired during a PSV trial and was placed back on AC/VC. Physical Exam Vital Signs: Vital Signs: Last Vital Signs Temp 99.1 F 01/30/23 09:00 Pulse 85 01/30/23 09:00 Resp 28 H 01/30/23 09:00 BP 136/44 L 01/30/23 09:00 Pulse Ox 93 01/30/23 09:00 O2 Del Method Mechanical Ventil ation 01/30/23 09:00 O2 Flow Rate 3 01/25/23 07:41 FiO2 40 01/30/23 09:00 BMI result Body Mass Index 32.2 Const: General: no acute distress (patient currently sedated) HEENT: Head: Yes normocephalic Throat: Yes uvula midline Eyes: Conjunctivae: conjunctivae normal Sclerae: sclerae normal Pupils: Equal, round and reactive pupils present Neck: Neck: Yes no JVD Resp: Auscultation: clear to auscultation bilaterally Cardio: Other: a fib, s1, s2 intact, systolic ejection murmur r/t aortic stenosis GI: Inspection: Yes Abdominal panniculus present Palpation (GI): Soft to palpation Auscultation: normoactive bowel sounds Skin: General skin exam: no rashes or lesions noted Neuro: Cranial nerves: Yes Equal, round and reactive pupils present Extrem: General: Yes no clubbing, cyanosis or edema Psych: Other: deferred, patient is intubated Objective Data Labs 01/30/23 05:10 01/30/23 05:10 Labs: Laboratory Results - last 24 hr 01/25/23 01/29/23 01/29/23 15:43 11:32 17:16 WBC RBC Hgb Hct MCV MCH MCHC RDW Plt Count MPV Immature Gran % (Auto) Neut % (Auto) Lymph % (Auto) Whitfield % (Auto) Eos % (Auto) Baso % (Auto) Lymph # (Auto) [place]field # (Auto) Eos # (Auto) Baso # (Auto) Abs Immat Gran (auto) Absolute Neuts (auto) Absolute Nucleated RBC Nucleated RBC % (auto) VBG pH VBG pCO2 VBG pO2 VBG HCO3 VBG O2 Saturation VBG Base Excess Sodium Potassium Chloride Carbon Dioxide Anion Gap BUN Creatinine Estim Creat Clear Calc Estimated GFR POC Glucose 189 H 239 H Random Glucose Calcium Phosphorus Magnesium Albumin Ur Strep pneumoniae Ag Not Detected 01/29/23 01/29/23 01/30/23 18:03 23:54 05:10 WBC 11.2 H RBC 3.18 L Hgb 8.3 L Hct 26.3 L MCV 82.7 MCH 26.1 L MCHC 31.6 RDW 16.8 H Plt Count 294 MPV 11.8 Immature Gran % (Auto) 4.7 H Neut % (Auto) 79.6 H Lymph % (Auto) 4.7 L Whitfield % (Auto) 6.9 Eos % (Auto) 3.4 Baso % (Auto) 0.7 Lymph # (Auto) 0.5 L Whitfield # (Auto) 0.8 Eos # (Auto) 0.4 Baso # (Auto) 0.1 Abs Immat Gran (auto) 0.53 H Absolute Neuts (auto) 8.9 H Absolute Nucleated RBC 0.050 H Nucleated RBC % (auto) 0.4 H VBG pH VBG pCO2 VBG pO2 VBG HCO3 VBG O2 Saturation VBG Base Excess Sodium 143 144 Potassium 3.7 3.8 Chloride 106 107 Carbon Dioxide 19 L 21 L Anion Gap 22 H 20 BUN 85 H 94 H Creatinine 3.02 H 3.32 H Estim Creat Clear Calc 14.1 12.8 Estimated GFR 15 13 POC Glucose 216 H Random Glucose 257 H 214 H Calcium 9.4 9.3 Phosphorus 3.0 Magnesium 2.2 Albumin 3.2 L Ur Strep pneumoniae Ag 01/30/23 01/30/23 05:15 05:55 WBC RBC Hgb Hct MCV MCH MCHC RDW Plt Count MPV Immature Gran % (Auto) Neut % (Auto) Lymph % (Auto) Whitfield % (Auto) Eos % (Auto) Baso % (Auto) Lymph # (Auto) [place]field # (Auto) Eos # (Auto) Baso # (Auto) Abs Immat Gran (auto) Absolute Neuts (auto) Absolute Nucleated RBC Nucleated RBC % (auto) VBG pH 7.36 VBG pCO2 41 VBG pO2 52 VBG HCO3 23 VBG O2 Saturation 82.0 VBG Base Excess -1.7 Sodium Potassium Chloride Carbon Dioxide Anion Gap BUN Creatinine Estim Creat Clear Calc Estimated GFR POC Glucose 212 H Random Glucose Calcium Phosphorus Magnesium Albumin Ur Strep pneumoniae Ag Microbiology Microbiology Results: Microbiology 01/24/23 13:43 Blood - Venous Blood Culture - Final No growth after 5 days. 01/24/23 13:43 Blood - Venous Blood Culture - Final No growth after 5 days. 01/25/23 12:13 Sputum - Suctioned Gram Stain - Final 01/25/23 12:13 Sputum - Suctioned Sputum Culture - Final 01/25/23 16:43 Sputum - Suctioned Gram Stain - Final 01/25/23 16:43 Sputum - Suctioned Sputum Culture - Final No growth. 01/24/23 Unknown Urine clean catch - Urine collado top Urine Culture - Final Progress Note: A&P Assessment and plan Plan Neurologic: Patient is currently sedated and intubated. They are currently on Propofol running per protocol with titrating to RASS of -2 to -3. We will try a spontaneous awakening trial today, see if the patient can follow commands and see if we can move towards extubation. Cardiovascular: patient has a history of heart failure with preserved ejection fraction of around 45%. Patient presented with a BNP of 1763. The patient was initially diuresed with Lasix however we have switched to a Bumex drip overnight at 1 mg per hour due to increased crackles. The urine output on 01/28 was 1.19 ml/kg/hr. Yesterday on 01/29, there was approximately 1 L of output and the Bumex drip was stopped. The patient is currently receiving no vasopressors at this time however was on norepinephrine several days ago but has since then maintained a MAP above 65. The patient was receiving digoxin for inotropic support at 0.125 mg every six hours. Digoxin has been shown to be useful as a second line therapy for controlling heart rate of patients with atrial fibrillation associated with heart failure. However, it was decided to discontinue the digoxin overnight. The patient currently has some evidence of cardiorenal syndrome as well also in the setting of CKD stage three which they are followed by nephrology for. Please see nephrology note for further management information. The patient?s current rhythm is atrial fibrillation with a rate in the 90s. For anticoagulation she is on 70 mg of lovenox. Respiratory: Patient currently has acute hypoxemic respiratory failure related to pneumonia. Upon admission and 01/24 she was noted to have a left upper lobe pneumonia and cultures came back negative.On 01/27, she decompensated after extubation failure and was reintubated. The patient was put on pressure support earlier today however due to increased work of breathing, was placed back on her previous settings. She is currently on AC/VC Rate of 22, tidal volumes of 350, FiO2 40% and peep at five. We will stop the propofol and see if the patient is able to follow commands, in that case the patient will be extubated. Gastrointestinal: Patient is currently on pantoprazole 40 mg daily for stress ulcer prophylaxis. Patient also has a nasogastric tube and has been receiving daily tube feeds of nepro with no noted residuals. Elevated liver function likely due to Shock liver from heart failure, Transaminitis has been progressively decreasing each day. Renal/Genitourinary: Patient currently seen by nephrology for suspected cardiorenal syndrome related to heart failure. Please see nephrology notes for recommendations. Patient has stage 3 CKD. Baseline creatinine of around 2.0. Current creatinine of 3.32. Currently we are maintaining the patient on albumin per nephrology as well as negative net goal of 1 L per day however we have stopped the bumex due to intravascular euvolemia. Please see above for urine output. There is no indications for dialysis at this time. Nephrology saw the patient at bedside this morning and are following recommendations from days prior as they have not changed. Hematology: patient has a leukocytosis with bandemia related to pneumonia. White count as of this morning was 11.2 which has come down six points since admission on 01/24. Patient also has iron deficiency anemia. Hemoglobin has been around 8 which has been their baseline. Currently not on any supplementation as iron supplementation in the presence of infection because infectious agents thrive on iron. Will continue to monitor red blood cell indices. Patient currently on Lovenox 70 mg for both atrial fibrillation and DVT prophylaxis. Infectious disease: patient initially presented with a white blood cell count of 17.7, bandemia, however was noted to be afebrile. Lactate not elevated. Patient is currently on Zosyn in addition to doxycycline which has adequate broad-spectrum coverage and are both indicated for patients with major comorbidities who are 65 years and older per IDSA. Infectious disease has also been consulted, please see their note for recommendations. Currently the patient has approximately 1-3 more days of antibiotics. A repeat chest xray will be performed tomorrow to assess pneumonia. Endocrine: patient has a history of type two diabetes. Patient blood glucose levels have been in the low 200s. Patient is on a sliding scale of Lispro insulin which we will continue and have also added Lantis for additional coverage with a target blood glucose of under 180. Quality Stroke Does the patient have a stroke diagnosis?: No VTE Prior VTE?: No VTE Risk Level:: Medical - moderate - high VTE Device Contraindication: N/A - Device Ordered VTE Drug Contraindication: Treatment Not Indicated
--- NOTE | 2023-01-30 10:32 | MHC.CLN ---
F/U PT REMAINS INTUBATED AND LIGHTLY SEDATED DISCUSSED AT ROUNDS WITH MD PLAN FOR POSSIBLE EXTUBATION TODAY PT RECEIVING NEPRO TF WITH 120ML FWF Q 6 HRS PROVIDES 2160KCALS (34KCALS/KG), 97G PROTEIN (1.5G/KG), 1352ML TOTAL WATER FROM FORMULA AND FLUSHES (21ML/KG) TF WILL PROMOTE WOUND HEALING MONITOR TOLERANCE, RESIDUALS AND LYTES IF EXTUBATION SUCCESSFUL; RECOMMEND 1800DM 2GM NA DIET WITH HIGH PROTEIN SUPPLEMENTS FOR WOUND HEALING
--- NOTE | 2023-01-30 13:13 | PM.CCPN ---
Subjective Subjective Date of Service: 01/30/23 Interval History: 87-year-old lady with underlying moderate to severe diastolic heart failure, aortic stenosis, hypertension, diabetes mellitus admitted on 01/24/2023 with dyspnea and worsening lower extremity edema. Patient initially admitted to [facility] however she developed respiratory distress with further hypoxia requiring intubation and ventilatory support 01/25/2023 and transfer to intensive care unit. She has been treated with broad-spectrum antibiotics for the left sided pneumonic infiltrate and IV diuresis with continuous improvement.. No events overnight. Tolerating pressure support trials well, however with poor arousal. Critical Care Time (minutes): 45 Physical Exam Vital Signs: Vital Signs: Last Vital Signs Temp 99 F 01/30/23 12:00 Pulse 89 01/30/23 13:09 Resp 33 H 01/30/23 13:09 BP 138/43 L 01/30/23 12:00 Pulse Ox 92 01/30/23 12:00 O2 Del Method Mechanical Ventil ation 01/30/23 12:00 O2 Flow Rate 3 01/25/23 07:41 FiO2 40 01/30/23 12:00 BMI result Body Mass Index 32.2 Const: General: no acute distress and other (Poor arousal with pressure support trials) Eyes: Sclerae: sclerae normal EOM: EOMs intact bilaterally Neck: Neck: Yes no lymphadenopathy, Yes trachea midline and Yes supple Resp: Auscultation: clear to auscultation bilaterally Cardio: Rate: regular rate Rhythm: regular rhythm Heart sounds: no gallops, no murmurs and no rubs GI: Palpation (GI): Soft to palpation and Other GI palpation findings present ( Nontender) Auscultation: normal bowel sounds Extrem: General: Yes no pedal edema, No clubbing and No cyanosis Objective Data Labs 01/30/23 05:10 01/30/23 05:10 Labs: Laboratory Results - last 24 hr 01/25/23 01/29/23 01/29/23 15:43 17:16 18:03 WBC RBC Hgb Hct MCV MCH MCHC RDW Plt Count MPV Immature Gran % (Auto) Neut % (Auto) Lymph % (Auto) Trigg % (Auto) Eos % (Auto) Baso % (Auto) Lymph # (Auto) [place] # (Auto) Eos # (Auto) Baso # (Auto) Abs Immat Gran (auto) Absolute Neuts (auto) Absolute Nucleated RBC Nucleated RBC % (auto) VBG pH VBG pCO2 VBG pO2 VBG HCO3 VBG O2 Saturation VBG Base Excess Sodium 143 Potassium 3.7 Chloride 106 Carbon Dioxide 19 L Anion Gap 22 H BUN 85 H Creatinine 3.02 H Estim Creat Clear Calc 14.1 Estimated GFR 15 POC Glucose 239 H Random Glucose 257 H Calcium 9.4 Phosphorus Magnesium Albumin Ur Strep pneumoniae Ag Not Detected 01/29/23 01/30/23 01/30/23 23:54 05:10 05:15 WBC 11.2 H RBC 3.18 L Hgb 8.3 L Hct 26.3 L MCV 82.7 MCH 26.1 L MCHC 31.6 RDW 16.8 H Plt Count 294 MPV 11.8 Immature Gran % (Auto) 4.7 H Neut % (Auto) 79.6 H Lymph % (Auto) 4.7 L [place] % (Auto) 6.9 Eos % (Auto) 3.4 Baso % (Auto) 0.7 Lymph # (Auto) 0.5 L [place] # (Auto) 0.8 Eos # (Auto) 0.4 Baso # (Auto) 0.1 Abs Immat Gran (auto) 0.53 H Absolute Neuts (auto) 8.9 H Absolute Nucleated RBC 0.050 H Nucleated RBC % (auto) 0.4 H VBG pH 7.36 VBG pCO2 41 VBG pO2 52 VBG HCO3 23 VBG O2 Saturation 82.0 VBG Base Excess -1.7 Sodium 144 Potassium 3.8 Chloride 107 Carbon Dioxide 21 L Anion Gap 20 BUN 94 H Creatinine 3.32 H Estim Creat Clear Calc 12.8 Estimated GFR 13 POC Glucose 216 H Random Glucose 214 H Calcium 9.3 Phosphorus 3.0 Magnesium 2.2 Albumin 3.2 L Ur Strep pneumoniae Ag 01/30/23 01/30/23 05:55 11:58 WBC RBC Hgb Hct MCV MCH MCHC RDW Plt Count MPV Immature Gran % (Auto) Neut % (Auto) Lymph % (Auto) [place] % (Auto) Eos % (Auto) Baso % (Auto) Lymph # (Auto) [place]igg # (Auto) Eos # (Auto) Baso # (Auto) Abs Immat Gran (auto) Absolute Neuts (auto) Absolute Nucleated RBC Nucleated RBC % (auto) VBG pH VBG pCO2 VBG pO2 VBG HCO3 VBG O2 Saturation VBG Base Excess Sodium Potassium Chloride Carbon Dioxide Anion Gap BUN Creatinine Estim Creat Clear Calc Estimated GFR POC Glucose 212 H 260 H Random Glucose Calcium Phosphorus Magnesium Albumin Ur Strep pneumoniae Ag Microbiology Microbiology Results: Microbiology 01/24/23 13:43 Blood - Venous Blood Culture - Final No growth after 5 days. 01/24/23 13:43 Blood - Venous Blood Culture - Final No growth after 5 days. 01/25/23 12:13 Sputum - Suctioned Gram Stain - Final 01/25/23 12:13 Sputum - Suctioned Sputum Culture - Final 01/25/23 16:43 Sputum - Suctioned Gram Stain - Final 01/25/23 16:43 Sputum - Suctioned Sputum Culture - Final No growth. 01/24/23 Unknown Urine clean catch - Urine collado top Urine Culture - Final Progress Note: A&P Assessment and plan (1) Acute on chronic diastolic (congestive) heart failure: Status: Acute (2) Acute hypoxemic respiratory failure: Status: Acute (3) Pneumonia: Status: Acute (4) CHF (congestive heart failure): Status: Acute (5) Renal failure (ARF), acute on chronic: Status: Acute (6) Atrial fibrillation with normal ventricular rate: Status: Acute (7) Diabetes mellitus with coincident hypertension: Status: Acute Plan Assessment: 87-year-old lady admitted with dyspnea secondary to exacerbation of underlying chronic diastolic congestive heart failure, further complicated by pneumonia, now requiring ventilatory support. Plan: Neuro: No acute issues. Cardiac: Acute on chronic diastolic congestive heart failure improving with diuresis. Underlying AFib. Pulmonary: Acute hypoxic respiratory failure requiring ventilatory support, continue to titrate off as tolerated. Now with improving tolerance of pressure support trials, however with poor arousal. Renal: Acute renal failure, likely secondary to exacerbation of underlying diastolic congestive heart failure. Non oliguric. Nephrology service care appreciated. Endo: No acute issues. GI: No acute issues. ID: Left basilar pneumonia, continue broad-spectrum antibiotics. Heme/Onc: No acute issues. Psych: No acute issues. Miscellaneous: No acute issues. Prophylaxis: Lovenox, ppi Diet: Tube feeds Critical care time spent: 45 minutes Quality Stroke Does the patient have a stroke diagnosis?: No VTE Prior VTE?: No VTE Risk Level:: Medical - moderate - high VTE Device Contraindication: N/A - Device Ordered VTE Drug Contraindication: Treatment Not Indicated
--- NOTE | 2023-01-30 15:48 | P.PNNP_ITS ---
Subjective Subjective Date of Service: 01/30/23 Interval history: Seen and examined, events noted Physical Exam 2 Vital Signs: Vital Signs: Last Vital Signs Temp 98.4 F 01/30/23 15:00 Pulse 89 01/30/23 15:00 Resp 89 H 01/30/23 15:00 BP 137/41 L 01/30/23 15:00 Pulse Ox 92 01/30/23 15:00 O2 Del Method Mechanical Ventil ation 01/30/23 15:00 O2 Flow Rate 3 01/25/23 07:41 FiO2 40 01/30/23 15:00 BMI result Body Mass Index 32.2 Const: Other: Intubated General: no acute distress, acute distress and other ( Sedated on the vent) Nutritional Appearance: average body habitus O rientation/consciousness: patient oriented x3 Limitations: no limitations HEENT: Head: Yes normal to inspection Ears: hearing grossly normal bilaterally General nose exam: Normal external nose present Face and sinus: Yes normal facial exam Eyes: Sclerae: sclerae normal EOM: EOMs intact bilaterally Neck: Neck: Yes normal visual inspection, Yes no lymphadenopathy, Yes trachea midline and Yes supple Thyroid: Thyroid normal Chest: Chest palpation & inspection: normal inspection of the chest Resp: Other: Right chest rhonchi Effort & Inspection: labored Auscultation: clear to auscultation bilaterally Cardio: Jugular venous distension: no JVD Rate: regular rate, bradycardic and tachycardic Rhythm: regular rhythm Heart sounds: no gallops, no murmurs and no rubs GI: Inspection: Yes normal to inspection Palpation (GI): Soft to palpation, not firm, nontender and Other GI palpation findings present ( Nontender) P ercussion: Yes normal to percussion Auscultation: normal bowel sounds Neuro: General: patient oriented x3 Cognition (Neuro): normal cognition Extrem: Other: 1+ edema General: Yes no pedal edema, No clubbing and No cyanosis Objective Data Labs 01/30/23 05:10 01/30/23 05:10 Labs: Laboratory Results - last 24 hr 01/29/23 01/29/23 01/29/23 17:16 18:03 23:54 WBC RBC Hgb Hct MCV MCH MCHC RDW Plt Count MPV Immature Gran % (Auto) Neut % (Auto) Lymph % (Auto) Kimble % (Auto) Eos % (Auto) Baso % (Auto) Lymph # (Auto) [place] # (Auto) Eos # (Auto) Baso # (Auto) Abs Immat Gran (auto) Absolute Neuts (auto) Absolute Nucleated RBC Nucleated RBC % (auto) VBG pH VBG pCO2 VBG pO2 VBG HCO3 VBG O2 Saturation VBG Base Excess Sodium 143 Potassium 3.7 Chloride 106 Carbon Dioxide 19 L Anion Gap 22 H BUN 85 H Creatinine 3.02 H Estim Creat Clear Calc 14.1 Estimated GFR 15 POC Glucose 239 H 216 H Random Glucose 257 H Calcium 9.4 Phosphorus Magnesium Albumin 01/30/23 01/30/23 01/30/23 05:10 05:15 05:55 WBC 11.2 H RBC 3.18 L Hgb 8.3 L Hct 26.3 L MCV 82.7 MCH 26.1 L MCHC 31.6 RDW 16.8 H Plt Count 294 MPV 11.8 Immature Gran % (Auto) 4.7 H Neut % (Auto) 79.6 H Lymph % (Auto) 4.7 L Kimble % (Auto) 6.9 Eos % (Auto) 3.4 Baso % (Auto) 0.7 Lymph # (Auto) 0.5 L Kimble # (Auto) 0.8 Eos # (Auto) 0.4 Baso # (Auto) 0.1 Abs Immat Gran (auto) 0.53 H Absolute Neuts (auto) 8.9 H Absolute Nucleated RBC 0.050 H Nucleated RBC % (auto) 0.4 H VBG pH 7.36 VBG pCO2 41 VBG pO2 52 VBG HCO3 23 VBG O2 Saturation 82.0 VBG Base Excess -1.7 Sodium 144 Potassium 3.8 Chloride 107 Carbon Dioxide 21 L Anion Gap 20 BUN 94 H Creatinine 3.32 H Estim Creat Clear Calc 12.8 Estimated GFR 13 POC Glucose 212 H Random Glucose 214 H Calcium 9.3 Phosphorus 3.0 Magnesium 2.2 Albumin 3.2 L 01/30/23 11:58 WBC RBC Hgb Hct MCV MCH MCHC RDW Plt Count MPV Immature Gran % (Auto) Neut % (Auto) Lymph % (Auto) Kimble % (Auto) Eos % (Auto) Baso % (Auto) Lymph # (Auto) Kimble # (Auto) Eos # (Auto) Baso # (Auto) Abs Immat Gran (auto) Absolute Neuts (auto) Absolute Nucleated RBC Nucleated RBC % (auto) VBG pH VBG pCO2 VBG pO2 VBG HCO3 VBG O2 Saturation VBG Base Excess Sodium Potassium Chloride Carbon Dioxide Anion Gap BUN Creatinine Estim Creat Clear Calc Estimated GFR POC Glucose 260 H Random Glucose Calcium Phosphorus Magnesium Albumin Microbiology Microbiology Results: Microbiology 01/24/23 13:43 Blood - Venous Blood Culture - Final No growth after 5 days. 01/24/23 13:43 Blood - Venous Blood Culture - Final No growth after 5 days. 01/25/23 12:13 Sputum - Suctioned Gram Stain - Final 01/25/23 12:13 Sputum - Suctioned Sputum Culture - Final 01/25/23 16:43 Sputum - Suctioned Gram Stain - Final 01/25/23 16:43 Sputum - Suctioned Sputum Culture - Final No growth. 01/24/23 Unknown Urine clean catch - Urine collado top Urine Culture - Final Procedures Date of Service Date of Service: 01/30/23 Assessment & Plan Assessment and plan (1) Renal failure (ARF), acute on chronic: Status: Acute (2) Pneumonia: Status: Acute (3) Sepsis: Status: Acute (4) Acute hypoxemic respiratory failure: Status: Acute (5) Acute on chronic diastolic (congestive) heart failure: Status: Acute (6) CHF (congestive heart failure): Status: Acute (7) Atrial fibrillation with normal ventricular rate: Status: Acute (8) Acute dyspnea: Status: Acute Plan 87 year old female with history of HFpEF, , htn, hld, iron deficiency anemia, pulmonary hypertension, and [id number] type 2 diabetes admitted HYPOXIA and CORTEZ/CKD. 1. CORTEZ- Cr is stable U/A with hyaline septic shock mixed with Cardiogenic shock OCRTEZ most c/w renal hypo-perfusion from volume overload. 2. CKD 3:BSL Scr 1.5-2.0 3. Hypoxia: CAP and CHF 4. Vol: looks euvolemic onm exami toda REC: agtree with hold diuretics; cont IV albumin and optimize HDynamics; no indication for HD ttodfay D/W ICU team; will follow clsoley with them Time Spent With Patient Time: Total time managing care of this patient today ____ minutes. Progress Note: Quality Stroke Does the patient have a stroke diagnosis?: No
[2023-01-30] MEDS: dexmedeTOMIDidine HCL/NS 400 MCG/100 ML INFUS..BTL 21.28 MCG IVCONT ×2 (15:50→18:33)
[2023-01-30] MEDS: Albuterol Sulfate (0.083%) 2.5 MG/3 ML VIAL.NEB INHALE ×3 (16:42→23:54)
[2023-01-30 18:18] LABS: Glucose, Whole Blood 167 mg/dL (60-115)
[2023-01-30] MEDS: Insulin Lispro 100 UNIT/ML 3 ML VIAL SUBCUT (18:33)
[2023-01-30] MEDS: dexmedeTOMIDidine HCL/NS 400 MCG/100 ML INFUS..BTL 12.77 MCG IVCONT (19:46)
[2023-01-30] MEDS: Albumin Human 25 % 100 ML IV (19:53)
[2023-01-30] MEDS: Chlorhexidine Gluc Oral Rinse 15 ML MOUTHWASH BUCCAL (22:16)
[2023-01-31] VITALS (41 sets, daily range): BP systolic 79–160; BP diastolic 36–63; PULSE 62–97; RESP 15–46; TEMP 34.9–38.7; O2SAT 92–99
[2023-01-31 00:04] LABS: Glucose, Whole Blood 170 mg/dL (60-115)
[2023-01-31] MEDS: Insulin Lispro 100 UNIT/ML 3 ML VIAL SUBCUT ×4 (00:40→17:52)
[2023-01-31] MEDS: Albumin Human 25 % 100 ML IV (01:15)
[2023-01-31] MEDS: dexmedeTOMIDidine HCL/NS 400 MCG/100 ML INFUS..BTL 10.64 MCG IVCONT ×2 (03:26→11:51)
[2023-01-31] MEDS: Albuterol Sulfate (0.083%) 2.5 MG/3 ML VIAL.NEB INHALE ×6 (04:55→23:26)
[2023-01-31 05:25] LABS: VBG HCO3 22 mmol/L (22-26); VBG pCO2 32 mmHg; VBG pH 7.44 (7.32-7.43); VBG pO2 42 mmHg
[2023-01-31 05:36] LABS: MANUAL DIFF FLAG NO
[2023-01-31 05:38] LABS: Basophils Absolute Auto 0.1 X10*3/uL (0.0-0.2); Basophils Percent Auto 0.5 % (0-2); Eosinophils Absolute Auto 0.4 X10*3/uL (0.0-0.4); Eosinophils Percent Auto 3.8 % (0-4); Hematocrit 22.8 % (37.0-47.0); Hemoglobin 7.2 g/dl (12.0-16.0); Imm Gran Abs Auto 0.39 X10*3/uL (0.00-0.03); Lymphocytes Absolute Auto 0.6 X10*3/uL (1.2-4.9); Mean Corpuscular HGB Conc 31.6 g/dl (31.0-35.0); Mean Corpuscular Hemoglobin 26.6 pg (27.0-33.0); Mean Corpuscular Volume 84.1 fL (80.0-98.0); Mean Platelet Volume 11.5 fL (9.4-12.3); Monocytes Absolute Auto 0.6 X10*3/uL (0.1-1.2); NRBC Pct Auto 0.3 /100WBC (0.0-0.2); Neutrophils Absolute Auto 7.8 x10*3/uL (2.0-8.3); Neutrophils Percent Auto 79.7 % (45-73); Platelet Count 266 X10*3/uL (160-400); Red Blood Count 2.71 X10*6/uL (4.20-5.50); Red Cell Distribution Width 16.6 % (11.0-16.0); White Blood Count 9.7 X10*3/uL (4.8-10.8)
[2023-01-31 06:00] LABS: Alanine Aminotransferase 21 U/L (0-31); Albumin Level 4.1 g/dL (3.5-5.0); Alkaline Phosphatase 89 U/L (39-117); Anion Gap 20 (12-20); Aspartate Amino Transferase 24 U/L (5-31); Bilirubin Total 0.6 mg/dL (0.0-1.0); Blood Urea Nitrogen 119 mg/dL (9-16); Calcium 9.7 mg/dL (8.4-10.2); Carbon Dioxide 21 mmol/L (22-29); Chloride 109 mmol/L (96-108); Creatinine Clr Calc Pharmacy 11.8; Estimated Glomerular Filt Rate 12; Glucose Random 233 mg/dL (60-115); Magnesium 2.4 mg/dL (1.6-2.6); Phosphorus 3.4 mg/dL (2.7-4.5); Potassium 3.6 mmol/L (3.3-5.1); Sodium 146 mmol/L (135-145); Total Protein 7.4 g/dL (6.5-8.0)
[2023-01-31 06:02] LABS: Venous Blood Gas Refer to POC result
[2023-01-31 06:17] LABS: Glucose, Whole Blood 243 mg/dL (60-115)
[2023-01-31] MEDS: Pantoprazole Sodium 40 MG/10 ML VIAL IVPUSH (08:13)
[2023-01-31] MEDS: Chlorhexidine Gluc Oral Rinse 15 ML MOUTHWASH BUCCAL ×2 (08:13→21:51)
[2023-01-31] MEDS: Insulin Glargine,Hum.rec.anlog 100 UNIT/ML 10 ML VIAL 20 UNIT SUBCUT (08:14)
[2023-01-31] MEDS: Heparin Sodium,Porcine 5,000 UNIT/ML VIAL 5000 UNIT SUBCUT ×2 (08:22→15:31)
[2023-01-31 11:46] LABS: Glucose, Whole Blood 232 mg/dL (60-115)
--- NOTE | 2023-01-31 13:13 | HO.HCP_ITS ---
Health Care Proxy Invocation Health Care Proxy Declaration: Kentrell Lund, on the date cited below, have determined that, Kimberly Gutierrez, lacks the capacity to make or communicate, informed health care decision. This determination is made in accordance with accepted standards of medical judgment and pursuant to [place] 201[place], the [place] Health Care Proxy Law. The cause, nature, extent and probable duration of the patient's inapacity are described below: Cause: intubated, sedated, uremic and encephalopathic Nature: metabolic Extent: severe Probable Duration of Patient's Incapacity: unclear
--- NOTE | 2023-01-31 15:25 | P.PCNCC_ITS ---
Procedures Date of Service Date of Service: 01/31/23 Central Line Placement Right IJ: Central Line Comments: After obtaining informed consent right internal jugular hemodialysis triple- lumen catheter placed under ultrasound guidance and usual sterile conditions with no immediate complications. Line position verified on chest x-ray.
--- NOTE | 2023-01-31 15:45 | PM.CCPN ---
Subjective Subjective Date of Service: 01/31/23 Interval History: 87-year-old lady with underlying moderate to severe diastolic heart failure, aortic stenosis, hypertension, diabetes mellitus admitted on 01/24/2023 with dyspnea and worsening lower extremity edema. Patient initially admitted [facility] however she developed respiratory distress with further hypoxia requiring intubation and ventilatory support 01/25/2023 and transfer to intensive care unit. She has been treated with broad-spectrum antibiotics for the left sided pneumonic infiltrate and IV diuresis with continuous improvement.. No events overnight. Poor arousal with sedation vacation, though tolerating pressure support trial well. Worsening uremia. Critical Care Time (minutes): 60 Physical Exam Vital Signs: Vital Signs: Last Vital Signs Temp 99.5 F 01/31/23 15:00 Pulse 89 01/31/23 15:00 Resp 17 01/31/23 15:00 BP 122/50 L 01/31/23 15:00 Pulse Ox 98 01/31/23 15:00 O2 Del Method Mechanical Ventil ation 01/31/23 15:00 O2 Flow Rate 3 01/25/23 07:41 FiO2 40 01/31/23 15:00 BMI result Body Mass Index 32.2 Const: General: no acute distress and other ( Poor arousal with sedation vacation) Eyes: Sclerae: sclerae normal EOM: EOMs intact bilaterally Neck: Neck: Yes no lymphadenopathy, Yes trachea midline and Yes supple Resp: Effort & Inspection: normal respiratory effort and no respiratory distress Auscultation: clear to auscultation bilaterally Cardio: Rate: regular rate Rhythm: regular rhythm Heart sounds: no gallops, no murmurs and no rubs GI: Palpation (GI): Soft to palpation and Other GI palpation findings present ( Nontender) Auscultation: normal bowel sounds Extrem: General: Yes no pedal edema, No clubbing and No cyanosis Objective Data Labs 01/31/23 05:13 01/31/23 05:13 Labs: Laboratory Results - last 24 hr 01/30/23 01/31/23 01/31/23 18:14 00:00 05:13 WBC 9.7 RBC 2.71 L Hgb 7.2 L Hct 22.8 L MCV 84.1 MCH 26.6 L MCHC 31.6 RDW 16.6 H Plt Count 266 MPV 11.5 Immature Gran % (Auto) 4.0 H Neut % (Auto) 79.7 H Lymph % (Auto) 6.0 L [place] % (Auto) 6.0 Eos % (Auto) 3.8 Baso % (Auto) 0.5 Lymph # (Auto) 0.6 L [place] # (Auto) 0.6 Eos # (Auto) 0.4 Baso # (Auto) 0.1 Abs Immat Gran (auto) 0.39 H Absolute Neuts (auto) 7.8 Absolute Nucleated RBC 0.030 H Nucleated RBC % (auto) 0.3 H VBG pH VBG pCO2 VBG pO2 VBG HCO3 VBG O2 Saturation VBG Base Excess Sodium 146 H Potassium 3.6 Chloride 109 H Carbon Dioxide 21 L Anion Gap 20 BUN 119 H Creatinine 3.59 H Estim Creat Clear Calc 11.8 Estimated GFR 12 POC Glucose 167 H 170 H Random Glucose 233 H Calcium 9.7 Phosphorus 3.4 Magnesium 2.4 Total Bilirubin 0.6 AST 24 ALT 21 Alkaline Phosphatase 89 Total Protein 7.4 Albumin 4.1 01/31/23 01/31/23 01/31/23 05:15 06:12 11:43 WBC RBC Hgb Hct MCV MCH MCHC RDW Plt Count MPV Immature Gran % (Auto) Neut % (Auto) Lymph % (Auto) [place] % (Auto) Eos % (Auto) Baso % (Auto) Lymph # (Auto) [place] # (Auto) Eos # (Auto) Baso # (Auto) Abs Immat Gran (auto) Absolute Neuts (auto) Absolute Nucleated RBC Nucleated RBC % (auto) VBG pH 7.44 H VBG pCO2 32 VBG pO2 42 VBG HCO3 22 VBG O2 Saturation 73.0 VBG Base Excess -1.0 Sodium Potassium Chloride Carbon Dioxide Anion Gap BUN Creatinine Estim Creat Clear Calc Estimated GFR POC Glucose 243 H 232 H Random Glucose Calcium Phosphorus Magnesium Total Bilirubin AST ALT Alkaline Phosphatase Total Protein Albumin Microbiology Microbiology Results: Microbiology 01/24/23 13:43 Blood - Venous Blood Culture - Final No growth after 5 days. 01/24/23 13:43 Blood - Venous Blood Culture - Final No growth after 5 days. 01/25/23 12:13 Sputum - Suctioned Gram Stain - Final 01/25/23 12:13 Sputum - Suctioned Sputum Culture - Final 01/25/23 16:43 Sputum - Suctioned Gram Stain - Final 01/25/23 16:43 Sputum - Suctioned Sputum Culture - Final No growth. 01/24/23 Unknown Urine clean catch - Urine collado top Urine Culture - Final Progress Note: A&P Assessment and plan (1) Metabolic encephalopathy: Status: Acute (2) Acute on chronic diastolic (congestive) heart failure: Status: Acute (3) Acute hypoxemic respiratory failure: Status: Acute (4) Pneumonia: Status: Acute (5) Renal failure (ARF), acute on chronic: Status: Acute (6) Atrial fibrillation with normal ventricular rate: Status: Acute (7) Diabetes mellitus with coincident hypertension: Status: Acute Plan Assessment: 87-year-old lady admitted with dyspnea secondary to exacerbation of underlying chronic diastolic congestive heart failure, further complicated by pneumonia, now requiring ventilatory support. Plan: Neuro: No acute issues. Cardiac: Acute on chronic diastolic congestive heart failure improving with diuresis. Underlying AFib. Pulmonary: Acute hypoxic respiratory failure requiring ventilatory support, continue to titrate off as tolerated. Now with improving tolerance of pressure support trials, however with poor arousal. Renal: Acute renal failure, likely secondary to exacerbation of underlying diastolic congestive heart failure. Non oliguric. Worsening uremia requiring initiation of hemodialysis. Nephrology service care appreciated. Endo: No acute issues. GI: No acute issues. ID: Left basilar pneumonia, continue broad-spectrum antibiotics. Heme/Onc: No acute issues. Psych: No acute issues. Miscellaneous: No acute issues. Prophylaxis: Lovenox, ppi Diet: Tube feeds Critical care time spent: 60 minutes excluding separately billable procedures Quality Stroke Does the patient have a stroke diagnosis?: No VTE Prior VTE?: No VTE Risk Level:: Medical - moderate - high VTE Device Contraindication: N/A - Device Ordered VTE Drug Contraindication: Treatment Not Indicated
[2023-01-31] MEDS: Norepinephrine Bitartrate/D5W 8 MG/250 ML PLAST..BAG 7.98 MG IV (16:51)
[2023-01-31 17:45] LABS: Glucose, Whole Blood 165 mg/dL (60-115)
[2023-01-31] MEDS: dexmedeTOMIDidine HCL/NS 400 MCG/100 ML INFUS..BTL 23.4 MCG IVCONT ×2 (18:10→21:51)
--- NOTE | 2023-01-31 18:31 | PC.NURSE ---
At 1453, dialysis catheter was placed in R IJ after obtaining telephone consent from HCP. Dialysis was started directly after the completion of the procedure and confirmation of catheter placement via xray. Precedex was increased as pt became more agitated; see JUVENTINO. ordered percussive therapy after viewing chest xray.
[2023-01-31 19:28] LABS: Anion Gap 19 (12-20); Blood Urea Nitrogen 54 mg/dL (9-16); Calcium 9.8 mg/dL (8.4-10.2); Carbon Dioxide 18 mmol/L (22-29); Chloride 105 mmol/L (96-108); Creatinine Clr Calc Pharmacy 21.5; Estimated Glomerular Filt Rate 24; Glucose Random 199 mg/dL (60-115); Magnesium 2.2 mg/dL (1.6-2.6); Potassium 3.3 mmol/L (3.3-5.1); Sodium 139 mmol/L (135-145)
--- NOTE | 2023-01-31 19:41 | PM.PNNEP ---
Subjective Subjective Date of Service: 01/31/23 Interval history: Seen and examined, events noted. cont on vent and unable to extubate UOP reamins marginal and WRF with AMS Physical Exam Vital Signs: Vital Signs: Last Vital Signs Temp 97.7 F 01/31/23 19:00 Pulse 73 01/31/23 19:00 Resp 26 H 01/31/23 19:00 BP 117/41 L 01/31/23 19:00 Pulse Ox 95 01/31/23 19:00 O2 Del Method Mechanical Ventil ation 01/31/23 19:00 O2 Flow Rate 3 01/25/23 07:41 FiO2 40 01/31/23 19:00 BMI result Body Mass Index 32.2 Const: Other: Intubated General: no acute distress, acute distress and other ( Sedated on the vent) Nutritional Appearance: average body habitus Orientation/consciousness: patient oriented x3 Limitations: no limitations HEENT: Head: Yes normal to inspection Ears: hearing grossly normal bilaterally General nose exam: Normal external nose present Face and sinus: Yes normal facial exam Eyes: Sclerae: sclerae normal EOM: EOMs intact bilaterally Neck: Neck: Yes normal visual inspection, Yes no lymphadenopathy, Yes trachea midline and Yes supple Thyroid: Thyroid normal Chest: Chest palpation & inspection: normal inspection of the chest Resp: Other: Right chest rhonchi Effort & Inspection: labored Auscultation: clear to auscultation bilaterally Cardio: Jugular venous distension: no JVD Rate: regular rate, bradycardic and tachycardic Rhythm: regular rhythm Heart sounds: no gallops, no murmurs and no rubs GI: Inspection: Yes normal to inspection Palpation (GI): Soft to palpation, not firm, nontender and Other GI palpation findings present ( Nontender) Percussion: Yes normal to percussion Auscultation: normal bowel sounds Neuro: General: patient oriented x3 Cognition (Neuro): normal cognition Extrem: Other: 1+ edema General: Yes no pedal edema, No clubbing and No cyanosis Objective Data Labs 01/31/23 05:13 01/31/23 18:57 Labs: Laboratory Results - last 24 hr 01/31/23 01/31/23 01/31/23 00:00 05:13 05:15 WBC 9.7 RBC 2.71 L Hgb 7.2 L Hct 22.8 L MCV 84.1 MCH 26.6 L MCHC 31.6 RDW 16.6 H Plt Count 266 MPV 11.5 Immature Gran % (Auto) 4.0 H Neut % (Auto) 79.7 H Lymph % (Auto) 6.0 L [place] % (Auto) 6.0 Eos % (Auto) 3.8 Baso % (Auto) 0.5 Lymph # (Auto) 0.6 L [place] # (Auto) 0.6 Eos # (Auto) 0.4 Baso # (Auto) 0.1 Abs Immat Gran (auto) 0.39 H Absolute Neuts (auto) 7.8 Absolute Nucleated RBC 0.030 H Nucleated RBC % (auto) 0.3 H VBG pH 7.44 H VBG pCO2 32 VBG pO2 42 VBG HCO3 22 VBG O2 Saturation 73.0 VBG Base Excess -1.0 Sodium 146 H Potassium 3.6 Chloride 109 H Carbon Dioxide 21 L Anion Gap 20 BUN 119 H Creatinine 3.59 H Estim Creat Clear Calc 11.8 Estimated GFR 12 POC Glucose 170 H Random Glucose 233 H Calcium 9.7 Phosphorus 3.4 Magnesium 2.4 Total Bilirubin 0.6 AST 24 ALT 21 Alkaline Phosphatase 89 Total Protein 7.4 Albumin 4.1 01/31/23 01/31/23 01/31/23 06:12 11:43 17:38 WBC RBC Hgb Hct MCV MCH MCHC RDW Plt Count MPV Immature Gran % (Auto) Neut % (Auto) Lymph % (Auto) [place] % (Auto) Eos % (Auto) Baso % (Auto) Lymph # (Auto) [place] # (Auto) Eos # (Auto) Baso # (Auto) Abs Immat Gran (auto) Absolute Neuts (auto) Absolute Nucleated RBC Nucleated RBC % (auto) VBG pH VBG pCO2 VBG pO2 VBG HCO3 VBG O2 Saturation VBG Base Excess Sodium Potassium Chloride Carbon Dioxide Anion Gap BUN Creatinine Estim Creat Clear Calc Estimated GFR POC Glucose 243 H 232 H 165 H Random Glucose Calcium Phosphorus Magnesium Total Bilirubin AST ALT Alkaline Phosphatase Total Protein Albumin 01/31/23 18:57 WBC RBC Hgb Hct MCV MCH MCHC RDW Plt Count MPV Immature Gran % (Auto) Neut % (Auto) Lymph % (Auto) [place] % (Auto) Eos % (Auto) Baso % (Auto) Lymph # (Auto) [place] # (Auto) Eos # (Auto) Baso # (Auto) Abs Immat Gran (auto) Absolute Neuts (auto) Absolute Nucleated RBC Nucleated RBC % (auto) VBG pH VBG pCO2 VBG pO2 VBG HCO3 VBG O2 Saturation VBG Base Excess Sodium 139 Potassium 3.3 Chloride 105 Carbon Dioxide 18 L Anion Gap 19 BUN 54 H Creatinine 1.98 H Estim Creat Clear Calc 21.5 Estimated GFR 24 POC Glucose Random Glucose 199 H Calcium 9.8 Phosphorus 2.0 L Magnesium 2.2 Total Bilirubin AST ALT Alkaline Phosphatase Total Protein Albumin Microbiology Microbiology Results: Microbiology 01/24/23 13:43 Blood - Venous Blood Culture - Final No growth after 5 days. 01/24/23 13:43 Blood - Venous Blood Culture - Final No growth after 5 days. 01/25/23 12:13 Sputum - Suctioned Gram Stain - Final 01/25/23 12:13 Sputum - Suctioned Sputum Culture - Final 01/25/23 16:43 Sputum - Suctioned Gram Stain - Final 01/25/23 16:43 Sputum - Suctioned Sputum Culture - Final No growth. 01/24/23 Unknown Urine clean catch - Urine coll[place] top Urine Culture - Final Procedures Date of Service Date of Service: 01/31/23 Assessment & Plan Assessment and plan (1) Renal failure (ARF), acute on chronic: Status: Acute (2) Pneumonia: Status: Acute (3) Sepsis: Status: Acute (4) Acute hypoxemic respiratory failure: Status: Acute (5) Acute on chronic diastolic (congestive) heart failure: Status: Acute (6) CHF (congestive heart failure): Status: Acute (7) Atrial fibrillation with normal ventricular rate: Status: Acute (8) Acute dyspnea: Status: Acute Plan 87 year old female with history of HFpEF, , htn, hld, iron deficiency anemia, pulmonary hypertension, and [id number] type 2 diabetes admitted HYPOXIA and CORTEZ/CKD. 1. CORTEZ- WRF c/w multifact ATN and now ques UREMIA 2. CKD 3:BSL Scr 1.5-2.0 3. Hypoxia: CAP and CHF 4. Vol: looks euvolemic on examine today REC: agree with HD today given AMS and ques UREMAI playing a role; ; cont IV albumin and optimize HDynamics ICU team to place HD cath and will go ahead with HD today and again tomorrow D/W ICU team; will follow clsoley with them Time Spent With Patient Time: Total time managing care of this patient today ____ minutes. Progress Note: Quality Stroke Does the patient have a stroke diagnosis?: No
[2023-01-31] MEDS: Potassium Phosphate/NS 15 MMOL/250 ML PLAST..BAG 62.5 MMOL IV (19:52)
[2023-01-31 23:56] LABS: Glucose, Whole Blood 256 mg/dL (60-115)
[2023-02-01] VITALS (37 sets, daily range): BP systolic 109–166; BP diastolic 32–62; PULSE 60–102; RESP 20–35; TEMP 35–37.6; O2SAT 90–97
[2023-02-01] MEDS: Heparin Sodium,Porcine 5,000 UNIT/ML VIAL 5000 UNIT SUBCUT ×3 (00:16→16:18)
[2023-02-01] MEDS: Insulin Lispro 100 UNIT/ML 3 ML VIAL SUBCUT ×3 (00:16→12:29)
[2023-02-01] MEDS: dexmedeTOMIDidine HCL/NS 400 MCG/100 ML INFUS..BTL 17.02 MCG IVCONT (02:10)
[2023-02-01 04:17] LABS: HBS Num1 0.43 mIU/mL (0-7.99); HBc Num1 0.23 S/CO (0.00-0.79); HBsAGNum1 0.29 S/CO (0.00-0.99); Hepatitis B Core Antibody Nonreactive (Nonreactive); Hepatitis B Surface Antigen Negative (Negative); ~Hepatitis B Surface Antibody NONREACTIVE (Nonreactive)
[2023-02-01] MEDS: Albuterol Sulfate (0.083%) 2.5 MG/3 ML VIAL.NEB INHALE ×5 (04:37→19:39)
[2023-02-01 04:56] LABS: Hematocrit 24.7 % (37.0-47.0); Hemoglobin 7.6 g/dl (12.0-16.0); Mean Corpuscular HGB Conc 30.8 g/dl (31.0-35.0); Mean Corpuscular Hemoglobin 26.4 pg (27.0-33.0); Mean Corpuscular Volume 85.8 fL (80.0-98.0); Mean Platelet Volume 11.5 fL (9.4-12.3); Platelet Count 314 X10*3/uL (160-400); Red Blood Count 2.88 X10*6/uL (4.20-5.50); Red Cell Distribution Width 16.5 % (11.0-16.0); White Blood Count 10.7 X10*3/uL (4.8-10.8)
[2023-02-01 04:57] LABS: NRBC Pct Auto 0.4 /100WBC (0.0-0.2)
[2023-02-01 04:59] LABS: VBG Base Excess -4.7 mmol/L; VBG HCO3 19 mmol/L (22-26); VBG pCO2 33 mmHg; VBG pH 7.37 (7.32-7.43); VBG pO2 44 mmHg
[2023-02-01 05:10] LABS: Venous Blood Gas Refer to POC result
[2023-02-01 05:10] LABS: Alanine Aminotransferase 23 U/L (0-31); Albumin Level 3.9 g/dL (3.5-5.0); Alkaline Phosphatase 104 U/L (39-117); Anion Gap 21 (12-20); Aspartate Amino Transferase 31 U/L (5-31); Bilirubin Total 0.5 mg/dL (0.0-1.0); Blood Urea Nitrogen 76 mg/dL (9-16); Calcium 9.1 mg/dL (8.4-10.2); Carbon Dioxide 18 mmol/L (22-29); Chloride 105 mmol/L (96-108); Estimated Glomerular Filt Rate 18; Glucose Random 301 mg/dL (60-115); Magnesium 2.3 mg/dL (1.6-2.6); Phosphorus 4.5 mg/dL (2.7-4.5); Potassium 3.7 mmol/L (3.3-5.1); Sodium 140 mmol/L (135-145); Total Protein 7.4 g/dL (6.5-8.0)
[2023-02-01 05:42] LABS: Band Neutrophils Percent 9 % (3-5); Eosinophils Absolute Manual 0.5 X10*3/uL (0.0-0.4); Eosinophils Percent Manual 5 % (0-4); Lymphocytes Absolute Manual 0.7 X10*3/uL (1.2-4.9); Lymphocytes Percent Manual 7 % (20-40); Metamyelocytes Absolute 0.1 X10*3/uL; Metamyelocytes Percent 1 %; Monocytes Absolute Manual 0.7 X10*3/uL (0.1-1.2); Monocytes Percent Manual 7 % (2-11); Myelocytes Absolute 0.1 X10*/uL; Myelocytes Percent 1 %; Neutrophils Absolute Manual 8.5 X10*3/uL (2.0-8.3); Neutrophils Percent Manual 70 % (45-73)
[2023-02-01 05:43] LABS: Acanthocytes 2+ (3-5) /OIF; Hypochromasia 1+ (5-14) /OIF; Large Platelet PRESENT; Ovalocytes 1+ (5-14) /OIF; Platelet Estimate NORMAL (NORMAL); Platelet Morphology Comment NORMAL; Polychromasia 1+ (0-2) /OIF; RBC Morphology NOTED; Smudge Cells PRESENT; Toxic Granulation PRESENT; Toxic Vacuolation PRESENT
[2023-02-01 06:35] LABS: Glucose, Whole Blood 307 mg/dL (60-115)
[2023-02-01] MEDS: Insulin Glargine,Hum.rec.anlog 100 UNIT/ML 10 ML VIAL 20 UNIT SUBCUT (08:01)
[2023-02-01] MEDS: Chlorhexidine Gluc Oral Rinse 15 ML MOUTHWASH BUCCAL (08:01)
[2023-02-01 08:07] LABS: Legionella Ag Urine Detected
--- NOTE | 2023-02-01 10:11 | MHC.CLN ---
F/U PT REMAINS INTUBATED AND LIGHTLY SEDATED DISCUSSED AT ROUNDS WITH MD; HD PLANNED FOR 01/31 AND 02/01 PT RECEIVING NEPRO TF at 50ML/HR WITH 120ML FWF Q 6 HRS PROVIDES 2160KCALS (34KCALS/KG), 97G PROTEIN (1.5G/KG), 1352ML TOTAL WATER FROM FORMULA AND FLUSHES (21ML/KG) TF WILL PROMOTE WOUND HEALING MONITOR TOLERANCE, RESIDUALS AND LYTES
--- NOTE | 2023-02-01 10:43 | P.PNCC_ITS ---
Subjective Subjective Date of Service: 02/01/23 Interval History: 87-year-old lady with underlying moderate to severe diastolic heart failure, aortic stenosis, hypertension, diabetes mellitus admitted on 01/24/2023 with dyspnea and worsening lower extremity edema. Patient initially admitted [facility] however she developed respiratory distress with further hypoxia requiring intubation and ventilatory support 01/25/2023 and transfer to intensive care unit. She has been treated with broad-spectrum antibiotics for the left sided pneumonic infiltrate and IV diuresis with continuous improvement.. No events overnight. Uremia is improving with dialysis. Critical Care Time (minutes): 45 Physical Exam 2 Vital Signs: Vital Signs: Last Vital Signs Temp 98.4 F 02/01/23 08:00 Pulse 74 02/01/23 10:00 Resp 31 H 02/01/23 10:00 BP 132/47 L 02/01/23 10:00 Pulse Ox 93 02/01/23 10:00 O2 Del Method Mechanical Ventil ation 02/01/23 10:00 O2 Flow Rate 3 01/25/23 07:41 FiO2 40 02/01/23 10:00 BMI result Body Mass Index 32.2 Const: General: no acute distress and awake Eyes: Sclerae: sclerae normal EOM: EOMs intact bilaterally Neck: Neck: Yes no lymphadenopathy, Yes trachea midline and Yes supple Resp: Auscultation: clear to auscultation bilaterally Cardio: Rate: regular rate Rhythm: regular rhythm Heart sounds: no gallops, no murmurs and no rubs GI: Palpation (GI): Soft to palpation and Other GI palpation findings present ( Nontender) Auscultation: normal bowel sounds Extrem: General: Yes no pedal edema, No clubbing and No cyanosis Objective Data Labs 02/01/23 04:48 02/01/23 04:48 Labs: Laboratory Results - last 24 hr 01/25/23 01/31/23 01/31/23 15:43 11:43 15:26 WBC RBC Hgb Hct MCV MCH MCHC RDW Plt Count MPV Immature Gran % (Auto) Neut % (Auto) Lymph % (Auto) [place] % (Auto) Eos % (Auto) Baso % (Auto) Lymph # (Auto) [place] # (Auto) Eos # (Auto) Baso # (Auto) Abs Immat Gran (auto) Absolute Neuts (auto) Absolute Nucleated RBC Nucleated RBC % (auto) Neutrophils % (Manual) Band Neutrophils % Lymphocytes % (Manual) Monocytes % (Manual) Eosinophils % (Manual) Metamyelocytes % Myelocytes % Abs Neuts (Manual) Lymphocytes # (Manual) Monocytes # (Manual) Eosinophils # (Manual) Metamyelocytes # Myelocytes # Smudge Cells Toxic Granulation Toxic Vacuolation Platelet Estimate Large Platelets Plt Morphology Comment RBC Morphology Polychromasia Hypochromasia Ovalocytes Acanthocytes (Spur) VBG pH VBG pCO2 VBG pO2 VBG HCO3 VBG O2 Saturation VBG Base Excess Sodium Potassium Chloride Carbon Dioxide Anion Gap BUN Creatinine Estim Creat Clear Calc Estimated GFR POC Glucose 232 H Random Glucose Calcium Phosphorus Magnesium Total Bilirubin AST ALT Alkaline Phosphatase Total Protein Albumin Hep Bs Antigen Negative Hep Bs Antibody NONREACTIVE Hep B Core Total Ab Nonreactive Ur L.pneumophila Ag Detected 01/31/23 01/31/23 01/31/23 17:38 18:57 23:50 WBC RBC Hgb Hct MCV MCH MCHC RDW Plt Count MPV Immature Gran % (Auto) Neut % (Auto) Lymph % (Auto) [place] % (Auto) Eos % (Auto) Baso % (Auto) Lymph # (Auto) [place] # (Auto) Eos # (Auto) Baso # (Auto) Abs Immat Gran (auto) Absolute Neuts (auto) Absolute Nucleated RBC Nucleated RBC % (auto) Neutrophils % (Manual) Band Neutrophils % Lymphocytes % (Manual) Monocytes % (Manual) Eosinophils % (Manual) Metamyelocytes % Myelocytes % Abs Neuts (Manual) Lymphocytes # (Manual) Monocytes # (Manual) Eosinophils # (Manual) Metamyelocytes # Myelocytes # Smudge Cells Toxic Granulation Toxic Vacuolation Platelet Estimate Large Platelets Plt Morphology Comment RBC Morphology Polychromasia Hypochromasia Ovalocytes Acanthocytes (Spur) VBG pH VBG pCO2 VBG pO2 VBG HCO3 VBG O2 Saturation VBG Base Excess Sodium 139 Potassium 3.3 Chloride 105 Carbon Dioxide 18 L Anion Gap 19 BUN 54 H Creatinine 1.98 H Estim Creat Clear Calc 21.5 Estimated GFR 24 POC Glucose 165 H 256 H Random Glucose 199 H Calcium 9.8 Phosphorus 2.0 L Magnesium 2.2 Total Bilirubin AST ALT Alkaline Phosphatase Total Protein Albumin Hep Bs Antigen Hep Bs Antibody Hep B Core Total Ab Ur L.pneumophila Ag 02/01/23 02/01/23 02/01/23 04:48 04:53 06:31 WBC 10.7 RBC 2.88 L Hgb 7.6 L Hct 24.7 L MCV 85.8 MCH 26.4 L MCHC 30.8 L RDW 16.5 H Plt Count 314 MPV 11.5 Immature Gran % (Auto) Cancelled Neut % (Auto) Cancelled Lymph % (Auto) Cancelled [place] % (Auto) Cancelled Eos % (Auto) Cancelled Baso % (Auto) Cancelled Lymph # (Auto) Cancelled [place] # (Auto) Cancelled Eos # (Auto) Cancelled Baso # (Auto) Cancelled Abs Immat Gran (auto) Cancelled Absolute Neuts (auto) Cancelled Absolute Nucleated RBC 0.040 H Nucleated RBC % (auto) 0.4 H Neutrophils % (Manual) 70 Band Neutrophils % 9 H Lymphocytes % (Manual) 7 L Monocytes % (Manual) 7 Eosinophils % (Manual) 5 H Metamyelocytes % 1 Myelocytes % 1 Abs Neuts (Manual) 8.5 H Lymphocytes # (Manual) 0.7 L Monocytes # (Manual) 0.7 Eosinophils # (Manual) 0.5 H Metamyelocytes # 0.1 Myelocytes # 0.1 Smudge Cells PRESENT Toxic Granulation PRESENT Toxic Vacuolation PRESENT Platelet Estimate NORMAL Large Platelets PRESENT Plt Morphology Comment NORMAL RBC Morphology NOTED Polychromasia 1+ (0-2) Hypochromasia 1+ (5-14) Ovalocytes 1+ (5-14) Acanthocytes (Spur) 2+ (3-5) VBG pH 7.37 VBG pCO2 33 VBG pO2 44 VBG HCO3 19 L VBG O2 Saturation 73.0 VBG Base Excess -4.7 Sodium 140 Potassium 3.7 Chloride 105 Carbon Dioxide 18 L Anion Gap 21 H BUN 76 H Creatinine 2.50 H Estim Creat Clear Calc 17.0 Estimated GFR 18 POC Glucose 307 H Random Glucose 301 H Calcium 9.1 D Phosphorus 4.5 Magnesium 2.3 Total Bilirubin 0.5 AST 31 ALT 23 Alkaline Phosphatase 104 Total Protein 7.4 Albumin 3.9 Hep Bs Antigen Hep Bs Antibody Hep B Core Total Ab Ur L.pneumophila Ag Microbiology Microbiology Results: Microbiology 01/24/23 13:43 Blood - Venous Blood Culture - Final No growth after 5 days. 01/24/23 13:43 Blood - Venous Blood Culture - Final No growth after 5 days. 01/25/23 12:13 Sputum - Suctioned Gram Stain - Final 01/25/23 12:13 Sputum - Suctioned Sputum Culture - Final 01/25/23 16:43 Sputum - Suctioned Gram Stain - Final 01/25/23 16:43 Sputum - Suctioned Sputum Culture - Final No growth. 01/24/23 Unknown Urine clean catch - Urine coll[place] top Urine Culture - Final Progress Note: A&P Assessment and plan (1) Metabolic encephalopathy: Status: Acute (2) Acute on chronic diastolic (congestive) heart failure: Status: Acute (3) Acute hypoxemic respiratory failure: Status: Acute (4) Pneumonia: Status: Acute (5) Renal failure (ARF), acute on chronic: Status: Acute (6) Atrial fibrillation with normal ventricular rate: Status: Acute (7) Nonrheumatic aortic (valve) stenosis: Status: Acute (8) Diabetes mellitus with coincident hypertension: Status: Acute Plan Assessment: 87-year-old lady admitted with dyspnea secondary to exacerbation of underlying chronic diastolic congestive heart failure, further complicated by pneumonia, now requiring ventilatory support. Plan: Neuro: No acute issues. Cardiac: Acute on chronic diastolic congestive heart failure improving with diuresis. Underlying AFib. Pulmonary: Acute hypoxic respiratory failure requiring ventilatory support, continue to titrate off as tolerated. Renal: Acute renal failure, likely secondary to exacerbation of underlying diastolic congestive heart failure. Non oliguric. Uremia improving with hemodialysis. Nephrology service care appreciated. Endo: No acute issues. GI: No acute issues. ID: Left basilar pneumonia, continue broad-spectrum antibiotics. Heme/Onc: No acute issues. Psych: No acute issues. Miscellaneous: No acute issues. Prophylaxis: Lovenox, ppi Diet: Tube feeds Critical care time spent: 45 minutes Quality Stroke Does the patient have a stroke diagnosis?: No VTE Prior VTE?: No VTE Risk Level:: Medical - moderate - high VTE Device Contraindication: N/A - Device Ordered VTE Drug Contraindication: Treatment Not Indicated
[2023-02-01 12:21] LABS: Glucose, Whole Blood 181 mg/dL (60-115)
--- NOTE | 2023-02-01 15:17 | MHC.CM.PN ---
EMR REVIEWED AND PER MD ROUNDS, PT TO BE EXTUBATED TODAY. CM WILL CONTINUE TO FOLLOW FOR DC NEEDS/PLAN .
[2023-02-01 18:04] LABS: Glucose, Whole Blood 145 mg/dL (60-115)
--- NOTE | 2023-02-01 19:23 | P.PNNP_ITS ---
Subjective Subjective Date of Service: 02/01/23 Interval history: Seen and examined, events noted Currently on HD Physical Exam 2 Vital Signs: Vital Signs: Last Vital Signs Temp 97.3 F 02/01/23 17:00 Pulse 76 02/01/23 19:00 Resp 28 H 02/01/23 19:00 BP 125/47 L 02/01/23 19:00 Pulse Ox 92 02/01/23 19:00 O2 Del Method High Flow Nasal C annula 02/01/23 19:00 O2 Flow Rate 30 02/01/23 19:00 FiO2 40 02/01/23 19:00 BMI result Body Mass Index 32.2 Const: Other: Intubated General: no acute distress, acute distress and other ( Sedated on the vent) Nutritional Appearance: average body habitus O rientation/consciousness: patient oriented x3 Limitations: no limitations HEENT: Head: Yes normal to inspection Ears: hearing grossly normal bilaterally General nose exam: Normal external nose present Face and sinus: Yes normal facial exam Eyes: Sclerae: sclerae normal EOM: EOMs intact bilaterally Neck: Neck: Yes normal visual inspection, Yes no lymphadenopathy, Yes trachea midline and Yes supple Thyroid: Thyroid normal Chest: Chest palpation & inspection: normal inspection of the chest Resp: Other: Right chest rhonchi Effort & Inspection: labored Auscultation: clear to auscultation bilaterally Cardio: Jugular venous distension: no JVD Rate: regular rate, bradycardic and tachycardic Rhythm: regular rhythm Heart sounds: no gallops, no murmurs and no rubs GI: Inspection: Yes normal to inspection Palpation (GI): Soft to palpation, not firm, nontender and Other GI palpation findings present ( Nontender) P ercussion: Yes normal to percussion Auscultation: normal bowel sounds Neuro: General: patient oriented x3 Cognition (Neuro): normal cognition Extrem: Other: 1+ edema General: Yes no pedal edema, No clubbing and No cyanosis Objective Data Labs 02/01/23 04:48 02/01/23 04:48 Labs: Laboratory Results - last 24 hr 01/25/23 01/31/23 01/31/23 15:43 15:26 18:57 WBC RBC Hgb Hct MCV MCH MCHC RDW Plt Count MPV Immature Gran % (Auto) Neut % (Auto) Lymph % (Auto) [place] % (Auto) Eos % (Auto) Baso % (Auto) Lymph # (Auto) [place] # (Auto) Eos # (Auto) Baso # (Auto) Abs Immat Gran (auto) Absolute Neuts (auto) Absolute Nucleated RBC Nucleated RBC % (auto) Neutrophils % (Manual) Band Neutrophils % Lymphocytes % (Manual) Monocytes % (Manual) Eosinophils % (Manual) Metamyelocytes % Myelocytes % Abs Neuts (Manual) Lymphocytes # (Manual) Monocytes # (Manual) Eosinophils # (Manual) Metamyelocytes # Myelocytes # Smudge Cells Toxic Granulation Toxic Vacuolation Platelet Estimate Large Platelets Plt Morphology Comment RBC Morphology Polychromasia Hypochromasia Ovalocytes Acanthocytes (Spur) VBG pH VBG pCO2 VBG pO2 VBG HCO3 VBG O2 Saturation VBG Base Excess Sodium 139 Potassium 3.3 Chloride 105 Carbon Dioxide 18 L Anion Gap 19 BUN 54 H Creatinine 1.98 H Estim Creat Clear Calc 21.5 Estimated GFR 24 POC Glucose Random Glucose 199 H Calcium 9.8 Phosphorus 2.0 L Magnesium 2.2 Total Bilirubin AST ALT Alkaline Phosphatase Total Protein Albumin Hep Bs Antigen Negative Hep Bs Antibody NONREACTIVE Hep B Core Total Ab Nonreactive Ur L.pneumophila Ag Detected 01/31/23 02/01/23 02/01/23 23:50 04:48 04:53 WBC 10.7 RBC 2.88 L Hgb 7.6 L Hct 24.7 L MCV 85.8 MCH 26.4 L MCHC 30.8 L RDW 16.5 H Plt Count 314 MPV 11.5 Immature Gran % (Auto) Cancelled Neut % (Auto) Cancelled Lymph % (Auto) Cancelled [place] % (Auto) Cancelled Eos % (Auto) Cancelled Baso % (Auto) Cancelled Lymph # (Auto) Cancelled [place] # (Auto) Cancelled Eos # (Auto) Cancelled Baso # (Auto) Cancelled Abs Immat Gran (auto) Cancelled Absolute Neuts (auto) Cancelled Absolute Nucleated RBC 0.040 H Nucleated RBC % (auto) 0.4 H Neutrophils % (Manual) 70 Band Neutrophils % 9 H Lymphocytes % (Manual) 7 L Monocytes % (Manual) 7 Eosinophils % (Manual) 5 H Metamyelocytes % 1 Myelocytes % 1 Abs Neuts (Manual) 8.5 H Lymphocytes # (Manual) 0.7 L Monocytes # (Manual) 0.7 Eosinophils # (Manual) 0.5 H Metamyelocytes # 0.1 Myelocytes # 0.1 Smudge Cells PRESENT Toxic Granulation PRESENT Toxic Vacuolation PRESENT Platelet Estimate NORMAL Large Platelets PRESENT Plt Morphology Comment NORMAL RBC Morphology NOTED Polychromasia 1+ (0-2) Hypochromasia 1+ (5-14) Ovalocytes 1+ (5-14) Acanthocytes (Spur) 2+ (3-5) VBG pH 7.37 VBG pCO2 33 VBG pO2 44 VBG HCO3 19 L VBG O2 Saturation 73.0 VBG Base Excess -4.7 Sodium 140 Potassium 3.7 Chloride 105 Carbon Dioxide 18 L Anion Gap 21 H BUN 76 H Creatinine 2.50 H Estim Creat Clear Calc 17.0 Estimated GFR 18 POC Glucose 256 H Random Glucose 301 H Calcium 9.1 D Phosphorus 4.5 Magnesium 2.3 Total Bilirubin 0.5 AST 31 ALT 23 Alkaline Phosphatase 104 Total Protein 7.4 Albumin 3.9 Hep Bs Antigen Hep Bs Antibody Hep B Core Total Ab Ur L.pneumophila Ag 02/01/23 02/01/23 02/01/23 06:31 12:13 18:00 WBC RBC Hgb Hct MCV MCH MCHC RDW Plt Count MPV Immature Gran % (Auto) Neut % (Auto) Lymph % (Auto) [place] % (Auto) Eos % (Auto) Baso % (Auto) Lymph # (Auto) [place] # (Auto) Eos # (Auto) Baso # (Auto) Abs Immat Gran (auto) Absolute Neuts (auto) Absolute Nucleated RBC Nucleated RBC % (auto) Neutrophils % (Manual) Band Neutrophils % Lymphocytes % (Manual) Monocytes % (Manual) Eosinophils % (Manual) Metamyelocytes % Myelocytes % Abs Neuts (Manual) Lymphocytes # (Manual) Monocytes # (Manual) Eosinophils # (Manual) Metamyelocytes # Myelocytes # Smudge Cells Toxic Granulation Toxic Vacuolation Platelet Estimate Large Platelets Plt Morphology Comment RBC Morphology Polychromasia Hypochromasia Ovalocytes Acanthocytes (Spur) VBG pH VBG pCO2 VBG pO2 VBG HCO3 VBG O2 Saturation VBG Base Excess Sodium Potassium Chloride Carbon Dioxide Anion Gap BUN Creatinine Estim Creat Clear Calc Estimated GFR POC Glucose 307 H 181 H 145 H Random Glucose Calcium Phosphorus Magnesium Total Bilirubin AST ALT Alkaline Phosphatase Total Protein Albumin Hep Bs Antigen Hep Bs Antibody Hep B Core Total Ab Ur L.pneumophila Ag Microbiology Microbiology Results: Microbiology 01/24/23 13:43 Blood - Venous Blood Culture - Final No growth after 5 days. 01/24/23 13:43 Blood - Venous Blood Culture - Final No growth after 5 days. 01/25/23 12:13 Sputum - Suctioned Gram Stain - Final 01/25/23 12:13 Sputum - Suctioned Sputum Culture - Final 01/25/23 16:43 Sputum - Suctioned Gram Stain - Final 01/25/23 16:43 Sputum - Suctioned Sputum Culture - Final No growth. 01/24/23 Unknown Urine clean catch - Urine collado top Urine Culture - Final Procedures Date of Service Date of Service: 02/01/23 Assessment & Plan Assessment and plan (1) Metabolic encephalopathy: Status: Acute (2) Acute on chronic diastolic (congestive) heart failure: Status: Acute (3) Acute hypoxemic respiratory failure: Status: Acute (4) Pneumonia: Status: Acute (5) Renal failure (ARF), acute on chronic: Status: Acute (6) Atrial fibrillation with normal ventricular rate: Status: Acute (7) Nonrheumatic aortic (valve) stenosis: Status: Acute (8) Diabetes mellitus with coincident hypertension: Status: Acute (9) Sepsis: Status: Acute (10) CHF (congestive heart failure): Status: Acute (11) Acute dyspnea: Status: Acute Plan 87 year old female with history of HFpEF, , htn, hld, iron deficiency anemia, pulmonary hypertension, and [id number] type 2 diabetes admitted HYPOXIA and COTREZ/CKD. 1. CORTEZ- [facility] c/w multifact ATN and now ques UREMIA DAY # 2 HD 2. CKD 3:BSL Scr 1.5-2.0 3. Hypoxia: CAP and CHF 4. Vol: looks euvolemic on examine today; unable to pull fluid REC: agree with HD again today given AMS and ques UREMAI playing a role; ; cont IV albumin and optimize HDynamics D/W ICU team; will follow clsoley with them Time Spent With Patient Time: Total time managing care of this patient today ____ minutes. Progress Note: Quality Stroke Does the patient have a stroke diagnosis?: No
[2023-02-02] VITALS (30 sets, daily range): BP systolic 103–149; BP diastolic 34–64; PULSE 65–79; RESP 16–28; TEMP 36.6–36.9; O2SAT 85–96
[2023-02-02 00:26] LABS: Glucose, Whole Blood 123 mg/dL (60-115)
[2023-02-02] MEDS: Heparin Sodium,Porcine 5,000 UNIT/ML VIAL 5000 UNIT SUBCUT ×4 (00:28→23:35)
[2023-02-02 04:53] LABS: VBG Base Excess -2.2 mmol/L; VBG HCO3 21 mmol/L (22-26); VBG pCO2 31 mmHg; VBG pH 7.43 (7.32-7.43); VBG pO2 46 mmHg
[2023-02-02 05:02] LABS: Hematocrit 26.7 % (37.0-47.0); Hemoglobin 8.3 g/dl (12.0-16.0); Mean Corpuscular HGB Conc 31.1 g/dl (31.0-35.0); Mean Corpuscular Hemoglobin 26.5 pg (27.0-33.0); Mean Corpuscular Volume 85.3 fL (80.0-98.0); Mean Platelet Volume 11.6 fL (9.4-12.3); NRBC Pct Auto 0.5 /100WBC (0.0-0.2); Platelet Count 367 X10*3/uL (160-400); Red Blood Count 3.13 X10*6/uL (4.20-5.50); Red Cell Distribution Width 16.4 % (11.0-16.0); White Blood Count 12.9 X10*3/uL (4.8-10.8)
[2023-02-02 05:03] LABS: Venous Blood Gas Refer to POC result
[2023-02-02 05:19] LABS: Albumin Level 3.7 g/dL (3.5-5.0); Anion Gap 20 (12-20); Blood Urea Nitrogen 47 mg/dL (9-16); Calcium 8.9 mg/dL (8.4-10.2); Carbon Dioxide 19 mmol/L (22-29); Chloride 102 mmol/L (96-108); Creatinine Clr Calc Pharmacy 21.1; Estimated Glomerular Filt Rate 24; Glucose Random 116 mg/dL (60-115); Magnesium 2.1 mg/dL (1.6-2.6); Phosphorus 4.6 mg/dL (2.7-4.5); Potassium 3.4 mmol/L (3.3-5.1); Sodium 138 mmol/L (135-145)
[2023-02-02 05:23] LABS: Band Neutrophils Percent 2 % (3-5); Basophils Abs Manual 0.1 X10*3/uL (0.0-0.2); Basophils Percent Manual 1 % (0-2); Eosinophils Absolute Manual 0.1 X10*3/uL (0.0-0.4); Eosinophils Percent Manual 1 % (0-4); Lymphocytes Absolute Manual 1.8 X10*3/uL (1.2-4.9); Lymphocytes Percent Manual 14 % (20-40); Metamyelocytes Absolute 0.3 X10*3/uL; Metamyelocytes Percent 2 %; Monocytes Absolute Manual 0.6 X10*3/uL (0.1-1.2); Monocytes Percent Manual 5 % (2-11); Neutrophils Absolute Manual 9.9 X10*3/uL (2.0-8.3); Neutrophils Percent Manual 75 % (45-73)
[2023-02-02 05:24] LABS: RBC Morphology NOTED
[2023-02-02 05:27] LABS: Macrocytosis 1+ (5-14) /OIF; Ovalocytes 1+ (5-14) /OIF
[2023-02-02 05:28] LABS: Large Platelet PRESENT; Platelet Estimate NORMAL (NORMAL); Platelet Morphology Comment NOTED; Polychromasia 1+ (0-2) /OIF
--- NOTE | 2023-02-02 06:07 | PC.NURSE ---
ASSUMED CARE OF PT AT 1900. PT ON HIGH FLOW O2 WITH TACHYPNEA 24-28/MIN. O2 SATS WERE 88-90% EARLY IN SHIFT BUT SLOWLY IMPROVED THROUGHOUT THE NIGHT. PT HAS A STRONG CONGESTED SOUNDING COUGH BUT NOT EXPECTORATING. SUCTIONED OROPHARYNX FOR MINIMAL SPUTUM. PT SWALLOWING SPUTUM. SHE IS VERY FATIGUED BUT RESPONSIVE TO NAME BY TURNING HEAD IN THAT DIRECTION. TOO WEAK TO TALK BUT MUMBLES. DOES NOT FOLLOW COMMANDS. EXTREMITIES FLACCID. RANGE OF MOTION EXERCISES DONE. MONITOR SHOWS NSR, RATE 70'S, RARE PVC NOTED. BP STABLE. MINIMAL U/O 0-10 ML/HR. PROVIDER AWARE.
[2023-02-02] MEDS: Insulin Glargine,Hum.rec.anlog 100 UNIT/ML 10 ML VIAL 20 UNIT SUBCUT (08:38)
[2023-02-02] MEDS: Dextrose 10 % 1,000 ML 30 ML IVCONT (09:00)
--- NOTE | 2023-02-02 10:01 | P.PNCC_ITS ---
Subjective Subjective Date of Service: 02/02/23 Interval History: 87-year-old lady with underlying moderate to severe diastolic heart failure, aortic stenosis, hypertension, diabetes mellitus admitted on 01/24/2023 with dyspnea and worsening lower extremity edema. Patient initially admitted [facility] however she developed respiratory distress with further hypoxia requiring intubation and ventilatory support 01/25/2023 and transfer to intensive care unit. She has been treated with broad-spectrum antibiotics for the left sided pneumonic infiltrate and IV diuresis with significant improvement. Required initiation of hemodialysis for uremia. Extubated on 02/01/2023. However, still with significant encephalopathy. No events overnight. Critical Care Time (minutes): 30 Physical Exam 2 Vital Signs: Vital Signs: Last Vital Signs Temp 98.5 F 02/02/23 08:00 Pulse 76 02/02/23 09:22 Resp 26 H 02/02/23 09:00 BP 116/40 L 02/02/23 09:22 Pulse Ox 92 02/02/23 09:00 O2 Del Method High Flow Nasal C annula 02/02/23 09:00 O2 Flow Rate 30 02/02/23 09:00 FiO2 40 02/02/23 09:00 BMI result Body Mass Index 32.2 Const: General: no acute distress and lethargic (Follows some commands) O rientation/consciousness: lethargic (Follows some commands) Eyes: Sclerae: sclerae normal EOM: EOMs intact bilaterally Neck: Neck: Yes no lymphadenopathy, Yes trachea midline and Yes supple Resp: Effort & Inspection: normal respiratory effort and no respiratory distress Auscultation: other (Poor left-sided air movement) Cardio: Rate: regular rate Rhythm: abnormal rhythm irregularly irregular Heart sounds: no gallops, no murmurs and no rubs GI: Palpation (GI): Soft to palpation and Other GI palpation findings present ( Nontender) Auscultation: normal bowel sounds Extrem: General: Yes no pedal edema, No clubbing and No cyanosis Objective Data Labs 02/02/23 04:44 02/02/23 04:44 Labs: Laboratory Results - last 24 hr 02/01/23 02/01/23 02/02/23 12:13 18:00 00:20 WBC RBC Hgb Hct MCV MCH MCHC RDW Plt Count MPV Absolute Nucleated RBC Nucleated RBC % (auto) Neutrophils % (Manual) Band Neutrophils % Lymphocytes % (Manual) Monocytes % (Manual) Eosinophils % (Manual) Basophils % (Manual) Metamyelocytes % Abs Neuts (Manual) Lymphocytes # (Manual) Monocytes # (Manual) Eosinophils # (Manual) Basophils # (Manual) Metamyelocytes # Platelet Estimate Large Platelets Plt Morphology Comment RBC Morphology Polychromasia Macrocytosis Ovalocytes VBG pH VBG pCO2 VBG pO2 VBG HCO3 VBG O2 Saturation VBG Base Excess Sodium Potassium Chloride Carbon Dioxide Anion Gap BUN Creatinine Estim Creat Clear Calc Estimated GFR POC Glucose 181 H 145 H 123 H Random Glucose Calcium Phosphorus Magnesium Albumin 02/02/23 02/02/23 04:44 04:48 WBC 12.9 H RBC 3.13 L Hgb 8.3 L Hct 26.7 L MCV 85.3 MCH 26.5 L MCHC 31.1 RDW 16.4 H Plt Count 367 MPV 11.6 Absolute Nucleated RBC 0.060 H Nucleated RBC % (auto) 0.5 H Neutrophils % (Manual) 75 H Band Neutrophils % 2 L Lymphocytes % (Manual) 14 L Monocytes % (Manual) 5 Eosinophils % (Manual) 1 Basophils % (Manual) 1 Metamyelocytes % 2 Abs Neuts (Manual) 9.9 H Lymphocytes # (Manual) 1.8 Monocytes # (Manual) 0.6 Eosinophils # (Manual) 0.1 Basophils # (Manual) 0.1 Metamyelocytes # 0.3 Platelet Estimate NORMAL Large Platelets PRESENT Plt Morphology Comment NOTED RBC Morphology NOTED Polychromasia 1+ (0-2) Macrocytosis 1+ (5-14) Ovalocytes 1+ (5-14) VBG pH 7.43 VBG pCO2 31 VBG pO2 46 VBG HCO3 21 L VBG O2 Saturation 77.0 VBG Base Excess -2.2 Sodium 138 Potassium 3.4 Chloride 102 Carbon Dioxide 19 L Anion Gap 20 BUN 47 H Creatinine 1.98 H Estim Creat Clear Calc 21.1 Estimated GFR 24 POC Glucose Random Glucose 116 H Calcium 8.9 Phosphorus 4.6 H Magnesium 2.1 Albumin 3.7 Microbiology Microbiology Results: Microbiology 01/24/23 13:43 Blood - Venous Blood Culture - Final No growth after 5 days. 01/24/23 13:43 Blood - Venous Blood Culture - Final No growth after 5 days. 01/25/23 12:13 Sputum - Suctioned Gram Stain - Final 01/25/23 12:13 Sputum - Suctioned Sputum Culture - Final 01/25/23 16:43 Sputum - Suctioned Gram Stain - Final 01/25/23 16:43 Sputum - Suctioned Sputum Culture - Final No growth. 01/24/23 Unknown Urine clean catch - Urine collado top Urine Culture - Final Progress Note: A&P Assessment and plan (1) Metabolic encephalopathy: Status: Acute (2) Acute on chronic diastolic (congestive) heart failure: Status: Acute (3) Acute hypoxemic respiratory failure: Status: Acute (4) Pneumonia: Status: Acute (5) Atrial fibrillation with normal ventricular rate: Status: Acute (6) Renal failure (ARF), acute on chronic: Status: Acute (7) Diabetes mellitus with coincident hypertension: Status: Acute Plan Assessment: 87-year-old lady admitted with dyspnea secondary to exacerbation of underlying chronic diastolic congestive heart failure, further complicated by pneumonia, now requiring ventilatory support. Plan: Neuro: No acute issues. Cardiac: Acute on chronic diastolic congestive heart failure improved with diuresis. Underlying AFib. Pulmonary: Acute hypoxic respiratory failure requiring ventilatory support, extubated 02/01/2023. Continue to titrate off supplemental oxygen as tolerated. Left-sided atelectasis/mucus plugging. Renal: Acute renal failure, likely secondary to exacerbation of underlying diastolic congestive heart failure. Uremia improving with hemodialysis. Nephrology service care appreciated. Endo: No acute issues. GI: No acute issues. ID: Left pneumonia, continue broad-spectrum antibiotics. Heme/Onc: No acute issues. Psych: No acute issues. Miscellaneous: No acute issues. Prophylaxis: Lovenox, ppi Diet: Pending swallow evaluation Critical care time spent: 30 minutes Quality Stroke Does the patient have a stroke diagnosis?: No VTE Prior VTE?: No VTE Risk Level:: Medical - moderate - high VTE Device Contraindication: N/A - Device Ordered VTE Drug Contraindication: Treatment Not Indicated
[2023-02-02 12:07] LABS: Glucose, Whole Blood 171 mg/dL (60-115)
[2023-02-02] MEDS: Insulin Lispro 100 UNIT/ML 3 ML VIAL SUBCUT ×3 (13:19→23:35)
[2023-02-02 17:27] LABS: Glucose, Whole Blood 181 mg/dL (60-115)
--- NOTE | 2023-02-02 18:18 | P.PNNP_ITS ---
Subjective Subjective Date of Service: 02/02/23 Interval history: Seen and examined,e ventsnoted. extubated HD x 2 days UOP poor Physical Exam 2 Vital Signs: Vital Signs: Last Vital Signs Temp 97.8 F 02/02/23 17:00 Pulse 67 02/02/23 18:00 Resp 19 02/02/23 18:00 BP 130/53 L 02/02/23 18:00 Pulse Ox 94 02/02/23 18:00 O2 Del Method High Flow Nasal C annula 02/02/23 18:00 O2 Flow Rate 30 02/02/23 18:00 FiO2 35 02/02/23 18:00 BMI result Body Mass Index 32.2 Const: Other: Intubated General: no acute distress, acute distress and other ( Sedated on the vent) Nutritional Appearance: average body habitus O rientation/consciousness: patient oriented x3 Limitations: no limitations HEENT: Head: Yes normal to inspection Ears: hearing grossly normal bilaterally General nose exam: Normal external nose present Face and sinus: Yes normal facial exam Eyes: Sclerae: sclerae normal EOM: EOMs intact bilaterally Neck: Neck: Yes normal visual inspection, Yes no lymphadenopathy, Yes trachea midline and Yes supple Thyroid: Thyroid normal Chest: Chest palpation & inspection: normal inspection of the chest Resp: Other: Right chest rhonchi Effort & Inspection: labored Auscultation: clear to auscultation bilaterally Cardio: Jugular venous distension: no JVD Rate: regular rate, bradycardic and tachycardic Rhythm: regular rhythm Heart sounds: no gallops, no murmurs and no rubs GI: Inspection: Yes normal to inspection Palpation (GI): Soft to palpation, not firm, nontender and Other GI palpation findings present ( Nontender) P ercussion: Yes normal to percussion Auscultation: normal bowel sounds Neuro: General: patient oriented x3 Cognition (Neuro): normal cognition Extrem: Other: 1+ edema General: Yes no pedal edema, No clubbing and No cyanosis Objective Data Labs 02/02/23 04:44 02/02/23 04:44 Labs: Laboratory Results - last 24 hr 02/02/23 02/02/23 02/02/23 00:20 04:44 04:48 WBC 12.9 H RBC 3.13 L Hgb 8.3 L Hct 26.7 L MCV 85.3 MCH 26.5 L MCHC 31.1 RDW 16.4 H Plt Count 367 MPV 11.6 Absolute Nucleated RBC 0.060 H Nucleated RBC % (auto) 0.5 H Neutrophils % (Manual) 75 H Band Neutrophils % 2 L Lymphocytes % (Manual) 14 L Monocytes % (Manual) 5 Eosinophils % (Manual) 1 Basophils % (Manual) 1 Metamyelocytes % 2 Abs Neuts (Manual) 9.9 H Lymphocytes # (Manual) 1.8 Monocytes # (Manual) 0.6 Eosinophils # (Manual) 0.1 Basophils # (Manual) 0.1 Metamyelocytes # 0.3 Platelet Estimate NORMAL Large Platelets PRESENT Plt Morphology Comment NOTED RBC Morphology NOTED Polychromasia 1+ (0-2) Macrocytosis 1+ (5-14) Ovalocytes 1+ (5-14) VBG pH 7.43 VBG pCO2 31 VBG pO2 46 VBG HCO3 21 L VBG O2 Saturation 77.0 VBG Base Excess -2.2 Sodium 138 Potassium 3.4 Chloride 102 Carbon Dioxide 19 L Anion Gap 20 BUN 47 H Creatinine 1.98 H Estim Creat Clear Calc 21.1 Estimated GFR 24 POC Glucose 123 H Random Glucose 116 H Calcium 8.9 Phosphorus 4.6 H Magnesium 2.1 Albumin 3.7 02/02/23 02/02/23 12:03 17:23 WBC RBC Hgb Hct MCV MCH MCHC RDW Plt Count MPV Absolute Nucleated RBC Nucleated RBC % (auto) Neutrophils % (Manual) Band Neutrophils % Lymphocytes % (Manual) Monocytes % (Manual) Eosinophils % (Manual) Basophils % (Manual) Metamyelocytes % Abs Neuts (Manual) Lymphocytes # (Manual) Monocytes # (Manual) Eosinophils # (Manual) Basophils # (Manual) Metamyelocytes # Platelet Estimate Large Platelets Plt Morphology Comment RBC Morphology Polychromasia Macrocytosis Ovalocytes VBG pH VBG pCO2 VBG pO2 VBG HCO3 VBG O2 Saturation VBG Base Excess Sodium Potassium Chloride Carbon Dioxide Anion Gap BUN Creatinine Estim Creat Clear Calc Estimated GFR POC Glucose 171 H 181 H Random Glucose Calcium Phosphorus Magnesium Albumin Microbiology Microbiology Results: Microbiology 01/24/23 13:43 Blood - Venous Blood Culture - Final No growth after 5 days. 01/24/23 13:43 Blood - Venous Blood Culture - Final No growth after 5 days. 01/25/23 12:13 Sputum - Suctioned Gram Stain - Final 01/25/23 12:13 Sputum - Suctioned Sputum Culture - Final 01/25/23 16:43 Sputum - Suctioned Gram Stain - Final 01/25/23 16:43 Sputum - Suctioned Sputum Culture - Final No growth. 01/24/23 Unknown Urine clean catch - Urine collado top Urine Culture - Final Procedures Date of Service Date of Service: 02/02/23 Assessment & Plan Assessment and plan (1) Metabolic encephalopathy: Status: Acute (2) Acute on chronic diastolic (congestive) heart failure: Status: Acute (3) Acute hypoxemic respiratory failure: Status: Acute (4) Pneumonia: Status: Acute (5) Renal failure (ARF), acute on chronic: Status: Acute (6) Atrial fibrillation with normal ventricular rate: Status: Acute (7) Nonrheumatic aortic (valve) stenosis: Status: Acute (8) Diabetes mellitus with coincident hypertension: Status: Acute (9) Sepsis: Status: Acute (10) CHF (congestive heart failure): Status: Acute (11) Acute dyspnea: Status: Acute Plan 87 year old female with history of HFpEF, , htn, hld, iron deficiency anemia, pulmonary hypertension, and [id number] type 2 diabetes admitted HYPOXIA and CORTEZ/CKD. 1. CORTEZ- c/w multifact ATN s/p 2 DAYs HD 2. CKD 3:BSL Scr 1.5-2.0 3. Hypoxia: CAP and CHF 4. Vol: looks euvolemic on examine today; unable to pull fluid REC: agree with hold HD today ; cont IV albumin and optimize HDynamics re-eval daily for possible additional HD D/W ICU team; will follow clsoley with them Time Spent With Patient Time: Total time managing care of this patient today ____ minutes. Progress Note: Quality Stroke Does the patient have a stroke diagnosis?: No
[2023-02-02 23:32] LABS: Glucose, Whole Blood 166 mg/dL (60-115)
[2023-02-03] VITALS (26 sets, daily range): BP systolic 130–160; BP diastolic 44–65; PULSE 69–87; RESP 15–21; TEMP 36–36.8; O2SAT 94–98
[2023-02-03 04:56] LABS: VBG Base Excess -5.4 mmol/L; VBG HCO3 17 mmol/L (22-26); VBG pCO2 25 mmHg; VBG pH 7.43 (7.32-7.43); VBG pO2 52 mmHg
[2023-02-03 04:58] LABS: Venous Blood Gas Refer to POC result
[2023-02-03 05:00] LABS: Basophils Absolute Auto 0.1 X10*3/uL (0.0-0.2); Basophils Percent Auto 0.7 % (0-2); Eosinophils Absolute Auto 0.4 X10*3/uL (0.0-0.4); Hematocrit 27.5 % (37.0-47.0); Hemoglobin 8.6 g/dl (12.0-16.0); Imm Gran Abs Auto 0.41 X10*3/uL (0.00-0.03); Imm Gran Pct Auto 4.4 % (0.0-0.4); Lymphocytes Absolute Auto 0.7 X10*3/uL (1.2-4.9); Lymphocytes Percent Auto 7.8 % (20-40); MANUAL DIFF FLAG NO; Mean Corpuscular HGB Conc 31.3 g/dl (31.0-35.0); Mean Corpuscular Hemoglobin 26.8 pg (27.0-33.0); Mean Corpuscular Volume 85.7 fL (80.0-98.0); Mean Platelet Volume 11.3 fL (9.4-12.3); Monocytes Absolute Auto 0.7 X10*3/uL (0.1-1.2); Monocytes Percent Auto 7.2 % (2-11); NRBC Pct Auto 0.2 /100WBC (0.0-0.2); Neutrophils Absolute Auto 7.1 x10*3/uL (2.0-8.3); Neutrophils Percent Auto 75.9 % (45-73); Platelet Count 393 X10*3/uL (160-400); Red Blood Count 3.21 X10*6/uL (4.20-5.50); Red Cell Distribution Width 16.6 % (11.0-16.0); White Blood Count 9.4 X10*3/uL (4.8-10.8)
[2023-02-03 05:41] LABS: Albumin Level 3.6 g/dL (3.5-5.0); Anion Gap 24 (12-20); Blood Urea Nitrogen 65 mg/dL (9-16); Calcium 8.6 mg/dL (8.4-10.2); Carbon Dioxide 14 mmol/L (22-29); Chloride 104 mmol/L (96-108); Creatinine Clr Calc Pharmacy 15.3; Estimated Glomerular Filt Rate 17; Glucose Random 165 mg/dL (60-115); Magnesium 2.3 mg/dL (1.6-2.6); Phosphorus 6.5 mg/dL (2.7-4.5); Sodium 139 mmol/L (135-145)
[2023-02-03] MEDS: Insulin Lispro 100 UNIT/ML 3 ML VIAL SUBCUT ×3 (06:14→21:08)
[2023-02-03] MEDS: Potassium Chloride/H20 20 MEQ/100 ML PIGGYBACK 100 MEQ IV ×2 (06:14→07:31)
[2023-02-03] MEDS: Heparin Sodium,Porcine 5,000 UNIT/ML VIAL 5000 UNIT SUBCUT ×2 (07:53→16:42)
[2023-02-03] MEDS: Insulin Glargine,Hum.rec.anlog 100 UNIT/ML 10 ML VIAL 20 UNIT SUBCUT (10:01)
--- NOTE | 2023-02-03 10:09 | P.PNCC_ITS ---
Subjective Subjective Date of Service: 02/03/23 Interval History: 87-year-old lady with underlying moderate to severe diastolic heart failure, aortic stenosis, hypertension, diabetes mellitus admitted on 01/24/2023 with dyspnea and worsening lower extremity edema. Patient initially admitted to [facility] however she developed respiratory distress with further hypoxia requiring intubation and ventilatory support 01/25/2023 and transfer to intensive care unit. She has been treated with broad-spectrum antibiotics for the left sided pneumonic infiltrate and IV diuresis with significant improvement. Required initiation of hemodialysis for uremia. Extubated on 02/01/2023. However, still with significant encephalopathy. No events overnight. Encephalopathy slowly improving, but has significant myopathy. Critical Care Time (minutes): 30 Physical Exam 2 Vital Signs: Vital Signs: Last Vital Signs Temp 96.8 F 02/03/23 08:00 Pulse 71 02/03/23 09:59 Resp 19 02/03/23 09:59 BP 153/61 H 02/03/23 09:59 Pulse Ox 97 02/03/23 09:59 O2 Del Method Nasal Cannula 02/03/23 09:59 O2 Flow Rate 2 02/03/23 09:59 FiO2 30 02/03/23 08:56 BMI result Body Mass Index 32.2 Const: General: no acute distress, alert and awake Eyes: Sclerae: sclerae normal EOM: EOMs intact bilaterally Neck: Neck: Yes no lymphadenopathy, Yes trachea midline and Yes supple Resp: Effort & Inspection: normal respiratory effort and no respiratory distress Auscultation: clear to auscultation bilaterally Cardio: Rate: regular rate Rhythm: regular rhythm Heart sounds: no gallops, no murmurs and no rubs GI: Palpation (GI): Soft to palpation and Other GI palpation findings present ( Nontender) Auscultation: normal bowel sounds Extrem: General: No clubbing, No cyanosis and Yes edema ( Trace bilateral) Objective Data Labs 02/03/23 04:50 02/03/23 04:50 Labs: Laboratory Results - last 24 hr 02/02/23 02/02/23 02/02/23 12:03 17:23 23:28 WBC RBC Hgb Hct MCV MCH MCHC RDW Plt Count MPV Immature Gran % (Auto) Neut % (Auto) Lymph % (Auto) [place] % (Auto) Eos % (Auto) Baso % (Auto) Lymph # (Auto) [place] # (Auto) Eos # (Auto) Baso # (Auto) Abs Immat Gran (auto) Absolute Neuts (auto) Absolute Nucleated RBC Nucleated RBC % (auto) VBG pH VBG pCO2 VBG pO2 VBG HCO3 VBG O2 Saturation VBG Base Excess Sodium Potassium Chloride Carbon Dioxide Anion Gap BUN Creatinine Estim Creat Clear Calc Estimated GFR POC Glucose 171 H 181 H 166 H Random Glucose Calcium Phosphorus Magnesium Albumin 02/03/23 04:50 WBC 9.4 RBC 3.21 L Hgb 8.6 L Hct 27.5 L MCV 85.7 MCH 26.8 L MCHC 31.3 RDW 16.6 H Plt Count 393 MPV 11.3 Immature Gran % (Auto) 4.4 H Neut % (Auto) 75.9 H Lymph % (Auto) 7.8 L [place] % (Auto) 7.2 Eos % (Auto) 4.0 Baso % (Auto) 0.7 Lymph # (Auto) 0.7 L [place] # (Auto) 0.7 Eos # (Auto) 0.4 Baso # (Auto) 0.1 Abs Immat Gran (auto) 0.41 H Absolute Neuts (auto) 7.1 Absolute Nucleated RBC 0.020 H Nucleated RBC % (auto) 0.2 VBG pH 7.43 VBG pCO2 25 VBG pO2 52 VBG HCO3 17 L VBG O2 Saturation 82.0 VBG Base Excess -5.4 Sodium 139 Potassium 3.0 L Chloride 104 Carbon Dioxide 14 L Anion Gap 24 H BUN 65 H Creatinine 2.72 H Estim Creat Clear Calc 15.3 Estimated GFR 17 POC Glucose Random Glucose 165 H Calcium 8.6 Phosphorus 6.5 H Magnesium 2.3 Albumin 3.6 Microbiology Microbiology Results: Microbiology 01/24/23 13:43 Blood - Venous Blood Culture - Final No growth after 5 days. 01/24/23 13:43 Blood - Venous Blood Culture - Final No growth after 5 days. 01/25/23 12:13 Sputum - Suctioned Gram Stain - Final 01/25/23 12:13 Sputum - Suctioned Sputum Culture - Final 01/25/23 16:43 Sputum - Suctioned Gram Stain - Final 01/25/23 16:43 Sputum - Suctioned Sputum Culture - Final No growth. 01/24/23 Unknown Urine clean catch - Urine collado top Urine Culture - Final Progress Note: A&P Assessment and plan (1) Critical illness myopathy: Status: Acute (2) Metabolic encephalopathy: Status: Acute (3) Acute on chronic diastolic (congestive) heart failure: Status: Acute (4) Acute hypoxemic respiratory failure: Status: Acute (5) CHF (congestive heart failure): Status: Acute (6) Renal failure (ARF), acute on chronic: Status: Acute (7) Atrial fibrillation with normal ventricular rate: Status: Acute (8) Diabetes mellitus with coincident hypertension: Status: Acute (9) Essential hypertension: Status: Acute Plan Assessment: 87-year-old lady admitted with dyspnea secondary to exacerbation of underlying chronic diastolic congestive heart failure, further complicated by pneumonia, now requiring ventilatory support. Plan: Neuro: Metabolic encephalopathy improving, though with significant critical illness myopathy. Cardiac: Acute on chronic diastolic congestive heart failure improved with diuresis. Underlying AFib. Pulmonary: Acute hypoxic respiratory failure requiring ventilatory support, extubated 02/01/2023. FiO2 requirements improving, now on nasal cannula. Renal: Acute renal failure, likely secondary to exacerbation of underlying diastolic congestive heart failure. Uremia improving with hemodialysis. Nephrology service care appreciated. Endo: No acute issues. GI: No acute issues. ID: Left pneumonia, continue broad-spectrum antibiotics. Heme/Onc: No acute issues. Psych: No acute issues. Miscellaneous: No acute issues. Prophylaxis: Lovenox Diet: Pending swallow evaluation Critical care time spent: 30 minutes Quality Stroke Does the patient have a stroke diagnosis?: No VTE Prior VTE?: No VTE Risk Level:: Medical - moderate - high VTE Device Contraindication: N/A - Device Ordered VTE Drug Contraindication: Treatment Not Indicated
[2023-02-03 12:02] LABS: Glucose, Whole Blood 188 mg/dL (60-115)
[2023-02-03] MEDS: Dextrose 10 % 1,000 ML 30 ML IVCONT (13:34)
--- NOTE | 2023-02-03 14:21 | P.PNNP_ITS ---
Subjective Subjective Date of Service: 02/03/23 Interval history: Seen and examined, events noted Physical Exam 2 Vital Signs: Vital Signs: Last Vital Signs Temp 97.1 F 02/03/23 12:00 Pulse 74 02/03/23 13:00 Resp 17 02/03/23 13:00 BP 143/64 H 02/03/23 13:00 Pulse Ox 98 02/03/23 13:00 O2 Del Method Nasal Cannula 02/03/23 13:00 O2 Flow Rate 2 02/03/23 13:00 FiO2 30 02/03/23 08:56 BMI result Body Mass Index 32.2 Const: Other: Intubated General: no acute distress, acute distress and other ( Sedated on the vent) Nutritional Appearance: average body habitus O rientation/consciousness: patient oriented x3 Limitations: no limitations HEENT: Head: Yes normal to inspection Ears: hearing grossly normal bilaterally General nose exam: Normal external nose present Face and sinus: Yes normal facial exam Eyes: Sclerae: sclerae normal EOM: EOMs intact bilaterally Neck: Neck: Yes normal visual inspection, Yes no lymphadenopathy, Yes trachea midline and Yes supple Thyroid: Thyroid normal Chest: Chest palpation & inspection: normal inspection of the chest Resp: Other: Right chest rhonchi Effort & Inspection: labored Auscultation: clear to auscultation bilaterally Cardio: Jugular venous distension: no JVD Rate: regular rate, bradycardic and tachycardic Rhythm: regular rhythm Heart sounds: no gallops, no murmurs and no rubs GI: Inspection: Yes normal to inspection Palpation (GI): Soft to palpation, not firm, nontender and Other GI palpation findings present ( Nontender) P ercussion: Yes normal to percussion Auscultation: normal bowel sounds Neuro: General: patient oriented x3 Cognition (Neuro): normal cognition Extrem: Other: 1+ edema General: Yes no pedal edema, No clubbing and No cyanosis Objective Data Labs 02/03/23 04:50 02/03/23 04:50 Labs: Laboratory Results - last 24 hr 02/02/23 02/02/23 02/03/23 17:23 23:28 04:50 WBC 9.4 RBC 3.21 L Hgb 8.6 L Hct 27.5 L MCV 85.7 MCH 26.8 L MCHC 31.3 RDW 16.6 H Plt Count 393 MPV 11.3 Immature Gran % (Auto) 4.4 H Neut % (Auto) 75.9 H Lymph % (Auto) 7.8 L [place] % (Auto) 7.2 Eos % (Auto) 4.0 Baso % (Auto) 0.7 Lymph # (Auto) 0.7 L [place] # (Auto) 0.7 Eos # (Auto) 0.4 Baso # (Auto) 0.1 Abs Immat Gran (auto) 0.41 H Absolute Neuts (auto) 7.1 Absolute Nucleated RBC 0.020 H Nucleated RBC % (auto) 0.2 VBG pH 7.43 VBG pCO2 25 VBG pO2 52 VBG HCO3 17 L VBG O2 Saturation 82.0 VBG Base Excess -5.4 Sodium 139 Potassium 3.0 L Chloride 104 Carbon Dioxide 14 L Anion Gap 24 H BUN 65 H Creatinine 2.72 H Estim Creat Clear Calc 15.3 Estimated GFR 17 POC Glucose 181 H 166 H Random Glucose 165 H Calcium 8.6 Phosphorus 6.5 H Magnesium 2.3 Albumin 3.6 02/03/23 11:58 WBC RBC Hgb Hct MCV MCH MCHC RDW Plt Count MPV Immature Gran % (Auto) Neut % (Auto) Lymph % (Auto) [place] % (Auto) Eos % (Auto) Baso % (Auto) Lymph # (Auto) [place] # (Auto) Eos # (Auto) Baso # (Auto) Abs Immat Gran (auto) Absolute Neuts (auto) Absolute Nucleated RBC Nucleated RBC % (auto) VBG pH VBG pCO2 VBG pO2 VBG HCO3 VBG O2 Saturation VBG Base Excess Sodium Potassium Chloride Carbon Dioxide Anion Gap BUN Creatinine Estim Creat Clear Calc Estimated GFR POC Glucose 188 H Random Glucose Calcium Phosphorus Magnesium Albumin Microbiology Microbiology Results: Microbiology 01/24/23 13:43 Blood - Venous Blood Culture - Final No growth after 5 days. 01/24/23 13:43 Blood - Venous Blood Culture - Final No growth after 5 days. 01/25/23 12:13 Sputum - Suctioned Gram Stain - Final 01/25/23 12:13 Sputum - Suctioned Sputum Culture - Final 01/25/23 16:43 Sputum - Suctioned Gram Stain - Final 01/25/23 16:43 Sputum - Suctioned Sputum Culture - Final No growth. 01/24/23 Unknown Urine clean catch - Urine coll[place] top Urine Culture - Final Procedures Date of Service Date of Service: 02/03/23 Assessment & Plan Assessment and plan (1) Metabolic encephalopathy: Status: Acute (2) Acute on chronic diastolic (congestive) heart failure: Status: Acute (3) Acute hypoxemic respiratory failure: Status: Acute (4) Pneumonia: Status: Acute (5) Renal failure (ARF), acute on chronic: Status: Acute (6) Atrial fibrillation with normal ventricular rate: Status: Acute (7) Nonrheumatic aortic (valve) stenosis: Status: Acute (8) Diabetes mellitus with coincident hypertension: Status: Acute (9) Sepsis: Status: Acute (10) CHF (congestive heart failure): Status: Acute (11) Acute dyspnea: Status: Acute Plan 87 year old female with history of HFpEF, , htn, hld, iron deficiency anemia, pulmonary hypertension, and akt-[id number] type 2 diabetes admitted HYPOXIA and CORTEZ/CKD. 1. CORTEZ- c/w multifact ATN s/p 2 DAYs HD (last HD 02/01) 2. CKD 3:BSL Scr 1.5-2.0 3. Hypoxia: CAP and CHF 4. Vol: looks euvolemic on examine today; unable to pull fluid REC: agree with hold HD again today ; cont IV albumin and optimize HDynamics re- eval daily for possible additional HD D/W ICU team; will follow clsoley with them Time Spent With Patient Time: Total time managing care of this patient today ____ minutes. Progress Note: Quality Stroke Does the patient have a stroke diagnosis?: No
[2023-02-03 17:00] LABS: Glucose, Whole Blood 177 mg/dL (60-115)
[2023-02-03 21:02] LABS: Glucose, Whole Blood 176 mg/dL (60-115)
[2023-02-04] VITALS (21 sets, daily range): BP systolic 113–149; BP diastolic 37–68; PULSE 69–79; RESP 13–21; TEMP 36.1–37.1; O2SAT 93–97
[2023-02-04] MEDS: Heparin Sodium,Porcine 5,000 UNIT/ML VIAL 5000 UNIT SUBCUT ×3 (01:00→16:34)
[2023-02-04 04:20] LABS: VBG Base Excess -7.3 mmol/L; VBG HCO3 16 mmol/L (22-26); VBG pCO2 28 mmHg; VBG pH 7.36 (7.32-7.43); VBG pO2 46 mmHg
[2023-02-04 04:24] LABS: Venous Blood Gas Refer to POC result
[2023-02-04 04:27] LABS: MANUAL DIFF FLAG NO
[2023-02-04 04:28] LABS: Basophils Absolute Auto 0.1 X10*3/uL (0.0-0.2); Eosinophils Absolute Auto 0.3 X10*3/uL (0.0-0.4); Eosinophils Percent Auto 3.3 % (0-4); Hematocrit 29.2 % (37.0-47.0); Imm Gran Abs Auto 0.16 X10*3/uL (0.00-0.03); Imm Gran Pct Auto 1.6 % (0.0-0.4); Lymphocytes Absolute Auto 0.8 X10*3/uL (1.2-4.9); Lymphocytes Percent Auto 7.3 % (20-40); Mean Corpuscular HGB Conc 30.8 g/dl (31.0-35.0); Mean Corpuscular Hemoglobin 26.2 pg (27.0-33.0); Mean Corpuscular Volume 84.9 fL (80.0-98.0); Mean Platelet Volume 11.4 fL (9.4-12.3); Monocytes Absolute Auto 0.7 X10*3/uL (0.1-1.2); Monocytes Percent Auto 6.3 % (2-11); Neutrophils Absolute Auto 8.3 x10*3/uL (2.0-8.3); Neutrophils Percent Auto 80.5 % (45-73); Platelet Count 463 X10*3/uL (160-400); Red Blood Count 3.44 X10*6/uL (4.20-5.50); Red Cell Distribution Width 17.2 % (11.0-16.0); White Blood Count 10.3 X10*3/uL (4.8-10.8)
[2023-02-04 04:48] LABS: Albumin Level 3.6 g/dL (3.5-5.0); Anion Gap 21 (12-20); Blood Urea Nitrogen 68 mg/dL (9-16); Calcium 8.5 mg/dL (8.4-10.2); Carbon Dioxide 15 mmol/L (22-29); Chloride 106 mmol/L (96-108); Creatinine Clr Calc Pharmacy 14.2; Estimated Glomerular Filt Rate 15; Glucose Random 165 mg/dL (60-115); Magnesium 2.3 mg/dL (1.6-2.6); Phosphorus 6.6 mg/dL (2.7-4.5); Sodium 139 mmol/L (135-145)
[2023-02-04] MEDS: Potassium Chloride/H20 20 MEQ/100 ML PIGGYBACK 100 MEQ IV ×2 (05:29→07:57)
[2023-02-04 07:26] LABS: Glucose, Whole Blood 160 mg/dL (60-115)
--- NOTE | 2023-02-04 07:31 | PM.CCPN ---
Subjective Subjective Date of Service: 02/04/23 Interval History: no interval overnight events Critical Care Time (minutes): 60 Physical Exam Vital Signs: Vital Signs: Last Vital Signs Temp 97.2 F 02/04/23 07:00 Pulse 75 02/04/23 07:00 Resp 13 02/04/23 07:00 BP 133/43 L 02/04/23 07:00 Pulse Ox 95 02/04/23 07:00 O2 Del Method Room Air 02/04/23 07:00 O2 Flow Rate 1 02/04/23 02:00 FiO2 30 02/03/23 08:56 BMI result Body Mass Index 32.2 Const: Other: not oriented to person, place, time, nor situation; unable to follow commands General: healthy appearing, comfortable, no acute distress, well developed, alert and awake HEENT: Head: Yes normal to inspection, Yes normocephalic and Yes atraumatic Eyes: General: appearance normal, both eyes and all related structures Neck: Neck: Yes normal visual inspection and No no meningeal signs Chest: Chest palpation & inspection: normal inspection of the chest Resp: Other: appreciable mild rales, L greater than R; no appreciable rhonchi, wheezing Effort & Inspection: normal respiratory effort Cardio: Rhythm: regular rhythm Heart sounds: S1 normal heart sound present and S2 normal heart sound present GI: Inspection: Yes normal to inspection, No Abdominal wall edema and No distended Palpation (GI): Soft to palpation, not firm, nontender, no guarding and Rigid due to palpation : External Female Exam: normal external appearance Skin: General skin exam: no rashes or lesions noted Neuro: General: moves all extremities, No no meningeal signs and No no focal motor deficits Extrem: General: No edema Psych: Appearance: grossly normal Objective Data Labs 02/04/23 04:14 02/04/23 04:14 Labs: Laboratory Results - last 24 hr 02/03/23 02/03/23 02/03/23 11:58 16:51 20:56 WBC RBC Hgb Hct MCV MCH MCHC RDW Plt Count MPV Immature Gran % (Auto) Neut % (Auto) Lymph % (Auto) [place] % (Auto) Eos % (Auto) Baso % (Auto) Lymph # (Auto) [place] # (Auto) Eos # (Auto) Baso # (Auto) Abs Immat Gran (auto) Absolute Neuts (auto) Absolute Nucleated RBC Nucleated RBC % (auto) VBG pH VBG pCO2 VBG pO2 VBG HCO3 VBG O2 Saturation VBG Base Excess Sodium Potassium Chloride Carbon Dioxide Anion Gap BUN Creatinine Estim Creat Clear Calc Estimated GFR POC Glucose 188 H 177 H 176 H Random Glucose Calcium Phosphorus Magnesium Albumin 02/04/23 02/04/23 04:14 07:23 WBC 10.3 RBC 3.44 L Hgb 9.0 L Hct 29.2 L MCV 84.9 MCH 26.2 L MCHC 30.8 L RDW 17.2 H Plt Count 463 H MPV 11.4 Immature Gran % (Auto) 1.6 H Neut % (Auto) 80.5 H Lymph % (Auto) 7.3 L [place] % (Auto) 6.3 Eos % (Auto) 3.3 Baso % (Auto) 1.0 Lymph # (Auto) 0.8 L [place] # (Auto) 0.7 Eos # (Auto) 0.3 Baso # (Auto) 0.1 Abs Immat Gran (auto) 0.16 H Absolute Neuts (auto) 8.3 Absolute Nucleated RBC 0.000 Nucleated RBC % (auto) 0.0 VBG pH 7.36 VBG pCO2 28 VBG pO2 46 VBG HCO3 16 L VBG O2 Saturation 75.0 VBG Base Excess -7.3 Sodium 139 Potassium 3.0 L Chloride 106 Carbon Dioxide 15 L Anion Gap 21 H BUN 68 H Creatinine 2.94 H Estim Creat Clear Calc 14.2 Estimated GFR 15 POC Glucose 160 H Random Glucose 165 H Calcium 8.5 Phosphorus 6.6 H Magnesium 2.3 Albumin 3.6 Microbiology Microbiology Results: Microbiology 01/24/23 13:43 Blood - Venous Blood Culture - Final No growth after 5 days. 01/24/23 13:43 Blood - Venous Blood Culture - Final No growth after 5 days. 01/25/23 12:13 Sputum - Suctioned Gram Stain - Final 01/25/23 12:13 Sputum - Suctioned Sputum Culture - Final 01/25/23 16:43 Sputum - Suctioned Gram Stain - Final 01/25/23 16:43 Sputum - Suctioned Sputum Culture - Final No growth. 01/24/23 Unknown Urine clean catch - Urine coll[place] top Urine Culture - Final Progress Note: A&P Assessment and plan (1) Critical illness myopathy: Status: Acute (2) Metabolic encephalopathy: Status: Acute (3) Chronic heart failure with preserved ejection fraction (HFpEF): Status: Acute Plan Assessment: Patient is a 87 Y F, with hypertension, diabetes mellitus, diastolic heart failure, aortic stenosis, admitted on 01/24/2023 w/ dyspnea, admitted floor; course c/b hypoxia, s/p intubation 01/25, treated for heart failure exacerbation and pneumonia, extubation 02/01; ICU course c/b renal failure, initiated on hemodialysis, persistent encephalopathy, myopathy; Plan: N: encephalopathy, myopathy, d/t critical illness CV: acute on chronic diastolic heart failure; intially diuresis, though developed renal failure, s/p hemodialysis x2, last session 02/01, now w/ urine output; prior atrial fibrillation, now in sinus rhythm P: acute hypoxic respiratory failure, likely multi-factorial d/t acute on chronic heart failure, pneumonia s/p intubation 01/25, extubation 02/01; resolved GI: no acute issues : acute renal failure, likely d/t acute on chronic heart failure, s/p hemodialysis x2, last session 02/01, now w/ urine output; to appreciate nephrology recommendations H: no acute issues ID: pneumonia, s/p broad-spectrum antibiotics E: no acute issues P: no acute issues Quality Stroke Does the patient have a stroke diagnosis?: No VTE Prior VTE?: No VTE Risk Level:: Medical - moderate - high VTE Device Contraindication: N/A - Device Ordered VTE Drug Contraindication: Treatment Not Indicated
[2023-02-04] MEDS: Insulin Lispro 100 UNIT/ML 3 ML VIAL SUBCUT ×3 (07:57→16:34)
[2023-02-04] MEDS: Insulin Glargine,Hum.rec.anlog 100 UNIT/ML 10 ML VIAL 20 UNIT SUBCUT (08:00)
--- NOTE | 2023-02-04 09:48 | MHC.CLN ---
F/U PT EXTUBATED 02/01 DISCUSSED AT ROUNDS WITH DIET RX: 2200DM PUREED WITH NT LIQ-APPROPRIATE RECOMMEND ADDING MAGIC CUP BID TO INCREASE KCALS SUPP PROVIDES 540KCALS, 18G PROTEIN MONITOR PO INTAKE AND ENCOURAGE SUPPLEMENTS
[2023-02-04] MEDS: Furosemide 20 MG/2 ML VIAL IVPUSH (11:21)
[2023-02-04 11:33] LABS: Glucose, Whole Blood 158 mg/dL (60-115)
--- NOTE | 2023-02-04 12:41 | MHC.SLORD ---
Speech Language Pathology Order Status: Pt not appropriate for further upgrade at this time. RN demonstrate safe swallowing assistance. Pt declined after two bites. DEPUTY FELONY CLERK will continue to follow.
--- NOTE | 2023-02-04 13:01 | P.PNNP_ITS ---
Subjective Subjective Date of Service: 02/04/23 Interval history: Seen and examined, events noted Physical Exam 2 Vital Signs: Vital Signs: Last Vital Signs Temp 97.2 F 02/04/23 12:55 Pulse 75 02/04/23 12:55 Resp 18 02/04/23 12:55 BP 120/44 L 02/04/23 12:55 Pulse Ox 94 02/04/23 12:55 O2 Del Method Room Air 02/04/23 12:55 O2 Flow Rate 1 02/04/23 02:00 FiO2 30 02/03/23 08:56 BMI result Body Mass Index 32.2 Const: Other: Intubated General: no acute distress, acute distress and other ( Sedated on the vent) Nutritional Appearance: average body habitus O rientation/consciousness: patient oriented x3 Limitations: no limitations HEENT: Head: Yes normal to inspection Ears: hearing grossly normal bilaterally General nose exam: Normal external nose present Face and sinus: Yes normal facial exam Eyes: Sclerae: sclerae normal EOM: EOMs intact bilaterally Neck: Neck: Yes normal visual inspection, Yes no lymphadenopathy, Yes trachea midline and Yes supple Thyroid: Thyroid normal Chest: Chest palpation & inspection: normal inspection of the chest Resp: Other: Right chest rhonchi Effort & Inspection: labored Auscultation: clear to auscultation bilaterally Cardio: Jugular venous distension: no JVD Rate: regular rate, bradycardic and tachycardic Rhythm: regular rhythm Heart sounds: no gallops, no murmurs and no rubs GI: Inspection: Yes normal to inspection Palpation (GI): Soft to palpation, not firm, nontender and Other GI palpation findings present ( Nontender) P ercussion: Yes normal to percussion Auscultation: normal bowel sounds Neuro: General: patient oriented x3 Cognition (Neuro): normal cognition Extrem: Other: 1+ edema General: Yes no pedal edema, No clubbing and No cyanosis Objective Data Labs 02/04/23 04:14 02/04/23 04:14 Labs: Laboratory Results - last 24 hr 02/03/23 02/03/23 02/04/23 16:51 20:56 04:14 WBC 10.3 RBC 3.44 L Hgb 9.0 L Hct 29.2 L MCV 84.9 MCH 26.2 L MCHC 30.8 L RDW 17.2 H Plt Count 463 H MPV 11.4 Immature Gran % (Auto) 1.6 H Neut % (Auto) 80.5 H Lymph % (Auto) 7.3 L [place] % (Auto) 6.3 Eos % (Auto) 3.3 Baso % (Auto) 1.0 Lymph # (Auto) 0.8 L [place] # (Auto) 0.7 Eos # (Auto) 0.3 Baso # (Auto) 0.1 Abs Immat Gran (auto) 0.16 H Absolute Neuts (auto) 8.3 Absolute Nucleated RBC 0.000 Nucleated RBC % (auto) 0.0 VBG pH 7.36 VBG pCO2 28 VBG pO2 46 VBG HCO3 16 L VBG O2 Saturation 75.0 VBG Base Excess -7.3 Sodium 139 Potassium 3.0 L Chloride 106 Carbon Dioxide 15 L Anion Gap 21 H BUN 68 H Creatinine 2.94 H Estim Creat Clear Calc 14.2 Estimated GFR 15 POC Glucose 177 H 176 H Random Glucose 165 H Calcium 8.5 Phosphorus 6.6 H Magnesium 2.3 Albumin 3.6 02/04/23 02/04/23 07:23 11:30 WBC RBC Hgb Hct MCV MCH MCHC RDW Plt Count MPV Immature Gran % (Auto) Neut % (Auto) Lymph % (Auto) [place] % (Auto) Eos % (Auto) Baso % (Auto) Lymph # (Auto) [place] # (Auto) Eos # (Auto) Baso # (Auto) Abs Immat Gran (auto) Absolute Neuts (auto) Absolute Nucleated RBC Nucleated RBC % (auto) VBG pH VBG pCO2 VBG pO2 VBG HCO3 VBG O2 Saturation VBG Base Excess Sodium Potassium Chloride Carbon Dioxide Anion Gap BUN Creatinine Estim Creat Clear Calc Estimated GFR POC Glucose 160 H 158 H Random Glucose Calcium Phosphorus Magnesium Albumin Microbiology Microbiology Results: Microbiology 01/24/23 13:43 Blood - Venous Blood Culture - Final No growth after 5 days. 01/24/23 13:43 Blood - Venous Blood Culture - Final No growth after 5 days. 01/25/23 12:13 Sputum - Suctioned Gram Stain - Final 01/25/23 12:13 Sputum - Suctioned Sputum Culture - Final 01/25/23 16:43 Sputum - Suctioned Gram Stain - Final 01/25/23 16:43 Sputum - Suctioned Sputum Culture - Final No growth. 01/24/23 Unknown Urine clean catch - Urine collado top Urine Culture - Final Procedures Date of Service Date of Service: 02/04/23 Assessment & Plan Assessment and plan (1) Metabolic encephalopathy: Status: Acute (2) Acute on chronic diastolic (congestive) heart failure: Status: Acute (3) Acute hypoxemic respiratory failure: Status: Acute (4) Pneumonia: Status: Acute (5) Renal failure (ARF), acute on chronic: Status: Acute (6) Atrial fibrillation with normal ventricular rate: Status: Acute (7) Nonrheumatic aortic (valve) stenosis: Status: Acute (8) Diabetes mellitus with coincident hypertension: Status: Acute (9) Sepsis: Status: Acute (10) CHF (congestive heart failure): Status: Acute (11) Acute dyspnea: Status: Acute Plan 87 year old female with history of HFpEF, , htn, hld, iron deficiency anemia, pulmonary hypertension, and nmu-npninut-mtpppvrar type 2 diabetes admitted HYPOXIA and CORTEZ/CKD. 1. CORTEZ- c/w multifact ATN s/p 2 DAYs HD (last HD 02/01) Ques UOP and incr SCr is coincerning and may need additional HD in next several days 2. CKD 3:BSL Scr 1.5-2.0 3. Hypoxia: CAP and CHF 4. Vol: looks euvolemic on examine today; unable to pull fluid REC: agree with hold HD again today ; repeat renal labs in am and track UOP D/W ICU team; will follow clsoley with them Time Spent With Patient Time: Total time managing care of this patient today ____ minutes. Progress Note: Quality Stroke Does the patient have a stroke diagnosis?: No
--- NOTE | 2023-02-04 15:58 | MHC.CM.PN ---
EMR REVIEWED AND PER MD ROUNDS, PT REMAINS IN ICU, EXTUBATED 02/01 BUT REMAINS WITH AMS. CM WILL CONTINUE TO FOLLOW FOR DC PLAN/NEEDS.
[2023-02-04 16:34] LABS: Glucose, Whole Blood 163 mg/dL (60-115)
--- NOTE | 2023-02-04 16:55 | PC.NURSE ---
report called to maritza cerrato.
--- NOTE | 2023-02-04 19:15 | PC.NURSE ---
Pt Arrived to unit from ICU at approximately 1830. At this time pt alert to voice and light touch only. Pt opens eyes then falls back asleep which is consistent with report from ICU nurse. Per MD Michelle pt does not need Tele monitor at this time. Pt has DTI on right buttock, stage II on left buttock foam dressing applied. Marcia area is excoriated, site cleansed, pat dried, and protective cream applied. Pt is being turned and repositioned in bed every 2 hours with total assistance. Vital sings stable, all safety measures in place.
[2023-02-04 20:33] LABS: Glucose, Whole Blood 82 mg/dL (60-115)
[2023-02-05] MEDS: Heparin Sodium,Porcine 5,000 UNIT/ML VIAL 5000 UNIT SUBCUT ×3 (00:20→15:25)
[2023-02-05] MEDS: Acetaminophen 325 MG TABLET 650 MG PO ×2 (04:59→20:27)
[2023-02-05 05:08] VITALS: BP 144/71; PULSE 81; RESP 16; TEMP 36; O2SAT 93
[2023-02-05 05:55] VITALS: BMI 29.4
[2023-02-05 06:40] LABS: MANUAL DIFF FLAG NO
[2023-02-05 06:42] LABS: Basophils Absolute Auto 0.1 X10*3/uL (0.0-0.2); Basophils Percent Auto 1.3 % (0-2); Eosinophils Absolute Auto 0.4 X10*3/uL (0.0-0.4); Eosinophils Percent Auto 4.4 % (0-4); Hematocrit 30.4 % (37.0-47.0); Hemoglobin 9.3 g/dl (12.0-16.0); Imm Gran Abs Auto 0.14 X10*3/uL (0.00-0.03); Imm Gran Pct Auto 1.4 % (0.0-0.4); Lymphocytes Absolute Auto 1.1 X10*3/uL (1.2-4.9); Lymphocytes Percent Auto 11.4 % (20-40); Mean Corpuscular HGB Conc 30.6 g/dl (31.0-35.0); Mean Corpuscular Hemoglobin 26.3 pg (27.0-33.0); Mean Corpuscular Volume 85.9 fL (80.0-98.0); Mean Platelet Volume 11.9 fL (9.4-12.3); Monocytes Absolute Auto 0.8 X10*3/uL (0.1-1.2); Monocytes Percent Auto 7.7 % (2-11); Neutrophils Absolute Auto 7.1 x10*3/uL (2.0-8.3); Neutrophils Percent Auto 73.8 % (45-73); Platelet Count 507 X10*3/uL (160-400); Red Blood Count 3.54 X10*6/uL (4.20-5.50); White Blood Count 9.7 X10*3/uL (4.8-10.8)
[2023-02-05 06:56] LABS: Anion Gap 21 (12-20); Blood Urea Nitrogen 67 mg/dL (9-16); Calcium 8.9 mg/dL (8.4-10.2); Carbon Dioxide 14 mmol/L (22-29); Chloride 110 mmol/L (96-108); Creatinine Clr Calc Pharmacy 13.5; Estimated Glomerular Filt Rate 15; Glucose Random 132 mg/dL (60-115); Potassium 3.5 mmol/L (3.3-5.1); Sodium 141 mmol/L (135-145)
[2023-02-05 07:09] VITALS: BP 126/82; PULSE 81; RESP 18; TEMP 36.2; O2SAT 95
[2023-02-05 07:20] LABS: Glucose, Whole Blood 133 mg/dL (60-115)
[2023-02-05] MEDS: Insulin Glargine,Hum.rec.anlog 100 UNIT/ML 10 ML VIAL 20 UNIT SUBCUT (07:35)
[2023-02-05] MEDS: Furosemide 20 MG/2 ML VIAL IVPUSH (07:35)
[2023-02-05 11:16] LABS: Glucose, Whole Blood 98 mg/dL (60-115)
--- NOTE | 2023-02-05 12:28 | MHC.CM.PN ---
Addendum entered by Ly Torres 02/05/23 12:40: A return call was received from [facility]/AMY/DTR. The plan is for therapy to evaluate when the patient is medically clear. She may qualify for STR. The Financial consult referral was explained. DP STR vs LTC via BLS. Original Note: A call was placed to [facility]/AMY. A VM was left. A return call requested to discuss discharge planning. A consult has been faxed to [facility] Financial councilors. Patient may require LTC. She will need a payor source for LTC.
--- NOTE | 2023-02-05 13:27 | P.PNIM_ITS ---
Subjective Subjective Date of Service: 02/05/23 Interval History: encephalopathy,chf ,pneumonia Review of Systems awake unable to tell more questions no fever,occasional cough family at bedside . Physical Exam 2 Vital Signs: Vital Signs: Last Vital Signs Temp 97.1 F 02/05/23 07:09 Pulse 81 02/05/23 07:09 Resp 18 02/05/23 07:09 BP 126/82 02/05/23 07:09 Pulse Ox 95 02/05/23 07:09 O2 Del Method Room Air 02/05/23 07:09 O2 Flow Rate 1 02/04/23 02:00 FiO2 30 02/03/23 08:56 BMI result Body Mass Index 29.4 Appearance: awake ,unable to answer questions,metal status similar to before . cvs: rrr, [id number]. res: clear to auscultation ,no rhonchii or wheezing abd: no rebound or guarding ,nt, bs present. ext pulses present , no cyanosis. neuro:moves all ext sponatnaeously . Objective Data Active Medications Acetaminophen (Acetaminophen 325 Mg Tablet) 650 mg PO Q4H PRN PRN Reason: Pain, Mild (Pain Scale 1-3) Last Admin: 02/05/23 04:59 Dose: 650 mg Documented By: ZAHEER Dextrose (Dextrose 50 % 25 Gm/50 Ml Syringe) 25 gm IVPUSH Q15M PRN; Protocol PRN Reason: per Hypoglycemia Standing Ord. Docusate Sodium (Docusate Sodium 100 Mg Capsule) 100 mg PO DAILY PRN PRN Reason: Constipation Furosemide (Furosemide 20 Mg/2 Ml Vial) 20 mg IVPUSH DAILY [facility]; Protocol Last Admin: 02/05/23 07:35 Dose: 20 mg Documented By: DARLIN Glucose (Glucose Gel 15 Gm Gel..Gram.) 15 gm PO Q15M PRN; Protocol PRN Reason: per Hypoglycemia Standing Ord. Heparin Sodium (Porcine) (Heparin Sodium,Porcine 5,000 Unit/Ml Vial) 5,000 unit SUBCUT Q8H [facility] Last Admin: 02/05/23 07:35 Dose: 5,000 unit Documented By: DARLIN Insulin Glargine (Insulin Glargine,Hum.Rec.Anlog 100 Unit/Ml 10 Ml Vial) 20 unit SUBCUT DAILY [facility] Last Admin: 02/05/23 07:35 Dose: 20 unit Documented By: DARLIN Insulin Human Lispro (Insulin Lispro 100 Unit/Ml 3 Ml Vial) 0 unit SUBCUT QIDACHCole [facility]; Protocol Last Admin: 02/05/23 11:29 Dose: Not Given Documented By: DARLIN Non-Admin Reason: No Insulin Coverage Sodium Chloride (0.9 % Sodium Chloride Flush 3 Ml Syringe) [facility] Last Admin: 02/05/23 07:36 Dose: 3 ml Documented By: DARLIN Labs 02/05/23 05:45 02/05/23 05:45 Labs: Laboratory Results - last 24 hr 02/04/23 02/04/23 02/05/23 16:31 20:29 05:45 MCV 85.9 MCH 26.3 L MCHC 30.6 L RDW 18.0 H Plt Count 507 H MPV 11.9 Immature Gran % (Auto) 1.4 H Neut % (Auto) 73.8 H Lymph % (Auto) 11.4 L [place] % (Auto) 7.7 Eos % (Auto) 4.4 H Baso % (Auto) 1.3 Lymph # (Auto) 1.1 L [place] # (Auto) 0.8 Eos # (Auto) 0.4 Baso # (Auto) 0.1 Abs Immat Gran (auto) 0.14 H Absolute Neuts (auto) 7.1 Absolute Nucleated RBC 0.000 Nucleated RBC % (auto) 0.0 Anion Gap 21 H Estim Creat Clear Calc 13.5 Estimated GFR 15 POC Glucose 163 H 82 Random Glucose 132 H Calcium 8.9 02/05/23 02/05/23 07:06 11:12 MCV MCH MCHC RDW Plt Count MPV Immature Gran % (Auto) Neut % (Auto) Lymph % (Auto) [place] % (Auto) Eos % (Auto) Baso % (Auto) Lymph # (Auto) [place] # (Auto) Eos # (Auto) Baso # (Auto) Abs Immat Gran (auto) Absolute Neuts (auto) Absolute Nucleated RBC Nucleated RBC % (auto) Anion Gap Estim Creat Clear Calc Estimated GFR POC Glucose 133 H 98 Random Glucose Calcium Assessment and Plan (1) Metabolic encephalopathy: Status: Acute (2) Critical illness myopathy: Status: Acute (3) Acute on chronic diastolic (congestive) heart failure: Status: Acute Plan 87 Y F, with hypertension, diabetes mellitus, diastolic heart failure, aortic stenosis, admitted on 01/24/2023 w/ dyspnea, admitted floor; course c/b hypoxia, s/p intubation 01/25, treated for heart failure exacerbation and pneumonia, extubation 02/01; ICU course c/b renal failure, initiated on hemodialysis, persistent encephalopathy, myopathy. Patient had a acute hypoxemic respiratory failure-multifactorial pneumonia/CHF - required intubation as above. Transferred back from ICU yesterday(02/04/23). Acute DEMI pneumonia with sepsis and acute hypoxemic respiratory failure intial CXR showing large opacification left upper lobe and lingula leukocytosis resolved , tachycardia, tachypnea improved . no fevers ,has occasional cough strep pneumo antigen, Legionella antigen, sputum culture as well as bloood culture negative . intially was on ceftriaxone and azithromycin intially ,then switched to doxy/zosyn -completed course . continue supplemental O2 to maintain oximetry >92% acute diastolic congestive heart failure exacerbation echocardiogram 12/12 showing normal LV systolic function with EF 65% received IV Lasix 40 mg on admission , subsequently patient also required hemodialysis CORTEZ on CKD. cortez on ckd:Elevated creatinine. agma -possible sec to cortez on ckd. Required hemodialysis for uremia. Added sodium bicarb bed for Nephro. persistent encephalopathy, myopathy( multifactorial -critical care ,recent pna/chf , uremia ,function decline ) frequent oritentation encourage for po intake continue current management. chronic iron deficiency anemia continue iron supplementation hypertension: accetable range but flactuating ,hold off nifedipine and atenolol [id number] type 2 diabetes: fs running 100-160 -POC glucose -diabetic diet -Humalog on sliding scale -hold metformin and gemfibrozil Dec pointake :encourage for po intake,fourdrinier wire weaver eval DVT prophylaxis-s/c heaprin DNR/DNI inaptient need:persistent encephalopathy, myopathy( multifactorial -critical care ,recent pna/chf , uremia ,function decline )-need mental status monitering ,not optimal yet Overall prognosis is very poor-discussed with the family at bedside. Time Spent With Patient Time: Total time managing care of this patient today ____ minutes. Quality Stroke Does the patient have a stroke diagnosis?: No VTE Prior VTE?: No VTE Risk Level:: Medical - moderate - high VTE Device Contraindication: N/A - Device Ordered VTE Drug Contraindication: Treatment Not Indicated
[2023-02-05] MEDS: Thiamine HCL 200 MG in 0.9 % Sodium Chloride 100 ML 204 MG IV ×2 (13:54→22:12)
[2023-02-05] MEDS: Sodium Bicarbonate 650 MG TABLET PO ×3 (13:54→20:27)
[2023-02-05 16:00] VITALS: BP 142/62; PULSE 84; RESP 19; TEMP 36.8; O2SAT 94
[2023-02-05 16:21] VITALS: BP 135/61; PULSE 86; RESP 20; TEMP 36.4; O2SAT 93
[2023-02-05 17:01] LABS: Glucose, Whole Blood 138 mg/dL (60-115)
--- NOTE | 2023-02-05 18:11 | MHC.SL.SWA ---
Speech Pathologist Impression: Risk of Aspiration Due to: Medically Fragile Poor PO Intake Hx of Recent Extubation Reduced Cognition Dysphasia Diet Status: Liquid Consistency and Strategies for Safe Swallow: Liquid Intake Recommendation: [place] Thick Liquid Intake Strategies: Small Sips No Straws Liquids by Teaspoon Only Solid Food Consistency: Dietary Recommendations: Pureed (NDD1) Additional Modifications to Solid Foods: Oral Medication Intake: Crushed with Puree Please contact the pharmacy regarding appropriate crushable or liquid drug formulations that are available whenever modified delivery is recommended. Compensatory Strategies and Precautions to be Taken for Safe Swallow: Sitting Upright (90 deg) Liquids from Spoon Alternate Liquids/Solids Oral Check Supervision While Eating and Drinking for Safe Swallow: Total Assistance (1:1) Foods to Avoid: Swallowing Recommended Treatments: Compens. Strategy Educat. Recommendation for Speech: Comment: Recommend the Pt continue with Puree Solids and Light Oak-Thick Liquids. Medications Crushed in Puree. Pt is a 1:1 feed assist at this time. Ensure aspiration precautions and nutritional supplements given limited PO intake. USABILITY ENGINEER will continue to follow for further upgrade recommendations. Frequency/Duration: Date Range for Service Req: Timeline to reassess: Beet Worker Clinican/Clinical Fellow: No Supervisory Statement: I have reviewed and agree with the student/clinical fellow's documentation: N/A Speech Language Pathologist: Chris Limon M.A., [facility]-USABILITY ENGINEER
--- NOTE | 2023-02-05 19:18 | P.PNNP_ITS ---
Subjective Subjective Date of Service: 02/05/23 Interval history: Seen and examined, events noted Physical Exam 2 Vital Signs: Vital Signs: Last Vital Signs Temp 97.5 F 02/05/23 16:21 Pulse 86 02/05/23 16:21 Resp 20 02/05/23 16:21 BP 135/61 02/05/23 16:21 Pulse Ox 93 02/05/23 16:21 O2 Del Method Room Air 02/05/23 16:21 O2 Flow Rate 1 02/04/23 02:00 FiO2 30 02/03/23 08:56 BMI result Body Mass Index 29.4 Const: Other: Intubated General: no acute distress, acute distress and other ( Sedated on the vent) Nutritional Appearance: average body habitus O rientation/consciousness: patient oriented x3 Limitations: no limitations HEENT: Head: Yes normal to inspection Ears: hearing grossly normal bilaterally General nose exam: Normal external nose present Face and sinus: Yes normal facial exam Eyes: Sclerae: sclerae normal EOM: EOMs intact bilaterally Neck: Neck: Yes normal visual inspection, Yes no lymphadenopathy, Yes trachea midline and Yes supple Thyroid: Thyroid normal Chest: Chest palpation & inspection: normal inspection of the chest Resp: Other: Right chest rhonchi Effort & Inspection: labored Auscultation: clear to auscultation bilaterally Cardio: Jugular venous distension: no JVD Rate: regular rate, bradycardic and tachycardic Rhythm: regular rhythm Heart sounds: no gallops, no murmurs and no rubs GI: Inspection: Yes normal to inspection Palpation (GI): Soft to palpation, not firm, nontender and Other GI palpation findings present ( Nontender) P ercussion: Yes normal to percussion Auscultation: normal bowel sounds Neuro: General: patient oriented x3 Cognition (Neuro): normal cognition Extrem: Other: 1+ edema General: Yes no pedal edema, No clubbing and No cyanosis Objective Data Labs 02/05/23 05:45 02/05/23 05:45 Labs: Laboratory Results - last 24 hr 02/04/23 02/05/23 02/05/23 20:29 05:45 07:06 WBC 9.7 RBC 3.54 L Hgb 9.3 L Hct 30.4 L MCV 85.9 MCH 26.3 L MCHC 30.6 L RDW 18.0 H Plt Count 507 H MPV 11.9 Immature Gran % (Auto) 1.4 H Neut % (Auto) 73.8 H Lymph % (Auto) 11.4 L [place] % (Auto) 7.7 Eos % (Auto) 4.4 H Baso % (Auto) 1.3 Lymph # (Auto) 1.1 L [place] # (Auto) 0.8 Eos # (Auto) 0.4 Baso # (Auto) 0.1 Abs Immat Gran (auto) 0.14 H Absolute Neuts (auto) 7.1 Absolute Nucleated RBC 0.000 Nucleated RBC % (auto) 0.0 Sodium 141 Potassium 3.5 Chloride 110 H Carbon Dioxide 14 L Anion Gap 21 H BUN 67 H Creatinine 2.94 H Estim Creat Clear Calc 13.5 Estimated GFR 15 POC Glucose 82 133 H Random Glucose 132 H Calcium 8.9 02/05/23 02/05/23 11:12 16:25 WBC RBC Hgb Hct MCV MCH MCHC RDW Plt Count MPV Immature Gran % (Auto) Neut % (Auto) Lymph % (Auto) [place] % (Auto) Eos % (Auto) Baso % (Auto) Lymph # (Auto) [place] # (Auto) Eos # (Auto) Baso # (Auto) Abs Immat Gran (auto) Absolute Neuts (auto) Absolute Nucleated RBC Nucleated RBC % (auto) Sodium Potassium Chloride Carbon Dioxide Anion Gap BUN Creatinine Estim Creat Clear Calc Estimated GFR POC Glucose 98 138 H Random Glucose Calcium Microbiology Microbiology Results: Microbiology 01/24/23 13:43 Blood - Venous Blood Culture - Final No growth after 5 days. 01/24/23 13:43 Blood - Venous Blood Culture - Final No growth after 5 days. 01/25/23 12:13 Sputum - Suctioned Gram Stain - Final 01/25/23 12:13 Sputum - Suctioned Sputum Culture - Final 01/25/23 16:43 Sputum - Suctioned Gram Stain - Final 01/25/23 16:43 Sputum - Suctioned Sputum Culture - Final No growth. 01/24/23 Unknown Urine clean catch - Urine collado top Urine Culture - Final Procedures Date of Service Date of Service: 02/05/23 Assessment & Plan Assessment and plan (1) Metabolic encephalopathy: Status: Acute (2) Acute on chronic diastolic (congestive) heart failure: Status: Acute (3) Acute hypoxemic respiratory failure: Status: Acute (4) Pneumonia: Status: Acute (5) Renal failure (ARF), acute on chronic: Status: Acute (6) Atrial fibrillation with normal ventricular rate: Status: Acute (7) Nonrheumatic aortic (valve) stenosis: Status: Acute (8) Diabetes mellitus with coincident hypertension: Status: Acute (9) Sepsis: Status: Acute (10) CHF (congestive heart failure): Status: Acute (11) Acute dyspnea: Status: Acute Plan 87 year old female with history of HFpEF, , htn, hld, iron deficiency anemia, pulmonary hypertension, and vir-prpomkz-tyahjcwcw type 2 diabetes admitted HYPOXIA and CORTEZ/CKD. 1. CORTEZ- c/w multifact ATN s/p HD x 2 HD (last HD 02/01) ? renal recovery given Scr stable 2. CKD 3:BSL Scr 1.5-2.0 3. Hypoxia: CAP and CHF; improved 4. Vol: looks euvolemic on examine today; unable to pull fluid REC: agree with hold HD again today ; repeat renal labs in am and track [facility] D/W Hosp team; will follow clsoley with them Time Spent With Patient Time: Total time managing care of this patient today ____ minutes. Progress Note: Quality Stroke Does the patient have a stroke diagnosis?: No
[2023-02-05 20:57] LABS: Glucose, Whole Blood 105 mg/dL (60-115)
[2023-02-05] MEDS: Nystatin Powder 15 GM BOTTLE 1 APPL TOPICAL (22:00)
[2023-02-06] VITALS: BP 132/64; PULSE 85; RESP 20; TEMP 36.2; O2SAT 93
[2023-02-06] MEDS: Heparin Sodium,Porcine 5,000 UNIT/ML VIAL 5000 UNIT SUBCUT ×3 (01:02→17:06)
[2023-02-06] MEDS: Thiamine HCL 200 MG in 0.9 % Sodium Chloride 100 ML 204 MG IV ×3 (05:04→22:43)
[2023-02-06 05:09] VITALS: BMI 29.6
[2023-02-06 07:08] LABS: Glucose, Whole Blood 139 mg/dL (60-115)
[2023-02-06 08:00] VITALS: BP 130/58; PULSE 83; RESP 18; TEMP 36; O2SAT 94
[2023-02-06 09:06] LABS: Anion Gap 20 (12-20); Blood Urea Nitrogen 67 mg/dL (9-16); Calcium 9.2 mg/dL (8.4-10.2); Carbon Dioxide 15 mmol/L (22-29); Chloride 114 mmol/L (96-108); Creatinine Clr Calc Pharmacy 13.9; Estimated Glomerular Filt Rate 15; Glucose Random 173 mg/dL (60-115); Potassium 3.3 mmol/L (3.3-5.1); Sodium 146 mmol/L (135-145)
[2023-02-06] MEDS: Sodium Bicarbonate 650 MG TABLET PO ×4 (09:54→22:32)
[2023-02-06] MEDS: Nystatin Powder 15 GM BOTTLE 1 APPL TOPICAL ×3 (09:54→22:32)
[2023-02-06] MEDS: Furosemide 20 MG/2 ML VIAL IVPUSH (09:54)
[2023-02-06] MEDS: Insulin Glargine,Hum.rec.anlog 100 UNIT/ML 10 ML VIAL 20 UNIT SUBCUT (10:19)
[2023-02-06 10:55] VITALS: BP 132/64; PULSE 85; O2SAT 93
--- NOTE | 2023-02-06 10:56 | MHC.CLN ---
NUTRITION CONSULT/RD FOLLOWING. PATIENT EXTUBATED 02/01. INTAKE VARIABLE BUT APPEARS USUALLY POOR. PRESSURE INJURIES: DTI TO RIGHT BUTTOCK, STAGE II TO LEFT BUTTOCK. DIET LIBERALIZED FROM DIABETIC 2200 KCAL TO REGULAR TO PROMOTE PO INTAKE. ADDING MAGIC CUP TID TO INCREASE NUTRITIONAL INTAKE AND PROMOTE WOUND HEALING. DIET=REGULAR, PUREE CONSISTENCY WITH NECTAR THICK LIQUIDS. SUPPLEMENT PROVIDES 870 KCALS, 27 G PROTEIN. MONITOR PO INTAKE AND WOUND HEALING. ENCOURAGE INTAKE OF MEALS AND SUPPLEMENTS ABLE.
[2023-02-06 11:20] LABS: Glucose, Whole Blood 203 mg/dL (60-115)
--- NOTE | 2023-02-06 11:56 | MHC.SL.SWA ---
Speech Pathologist Impression: Oral phase dysphagia, Risk of aspiration Risk of Aspiration Due to: Medically Fragile Poor PO Intake Hx of Recent Extubation Reduced Cognition Dysphasia Diet Status: UPGRADE to thin liquids (TEASPOON ONLY) Liquid Consistency and Strategies for Safe Swallow: Liquid Intake Recommendation: Thin Liquid Intake Strategies: Small Sips No Straws Liquids by Teaspoon Only Solid Food Consistency: Dietary Recommendations: Pureed (NDD1) Oral Medication Intake: Crushed with Puree Please contact the pharmacy regarding appropriate crushable or liquid drug formulations that are available whenever modified delivery is recommended. Compensatory Strategies and Precautions to be Taken for Safe Swallow: Sitting Upright (90 deg) No Straw Liquids from Spoon Alternate Liquids/Solids Oral Check Supervision While Eating and Drinking for Safe Swallow: Total Assistance (1:1) Foods to Avoid: Swallowing Recommended Treatments: Compens. Strategy Educat. Recommendation for Speech: Inpatient speech therapy Recommend UPGRADE to thin liquids (TEASPOON ONLY). Continue with PUREE solids (NDD1) and pills CRUSHED in puree. Patient requires 1-1 assistance. Ensure aspiration precautions and nutritional supplements given limited PO intake. SAND CONTROL WORKER will continue to follow for further upgrade recommendations when/if warranted. Merchandise Flow Team Leader Clinican/Clinical Fellow: No Supervisory Statement: I have reviewed and agree with the student/clinical fellow's documentation: N/A Speech Language Pathologist: Gail Etienne M.A., [facility]-SAND CONTROL WORKER
[2023-02-06] MEDS: Insulin Lispro 100 UNIT/ML 3 ML VIAL SUBCUT ×2 (12:05→17:05)
--- NOTE | 2023-02-06 14:45 | MHC.CM.PN ---
A PT eval has been ordered and performed. The recommendation is trial STR likely LTC. The eval has been scanned into [facility].
--- NOTE | 2023-02-06 14:51 | P.CDIM_ITS ---
PROVIDER RESPONSE TEXT: To clarify, the appropriate diagnosis supported by the clinical indicators: Pressure ulcer bilateral buttock, stage 2, POA QUERY TEXT: PHYSICIAN'S DOCUMENTATION REQUEST Date of Query: 02/06/2023 08:45 AM EDT Patient Name: Kimberly Gutierrez Admit Date: 01/24/2023 Dear Kayla Hammer, A review of the medical record indicates additional documentation may be needed. Please review below and update the documentation accordingly. Clinical Indicators: Per Nursing Pressure Injury Assessment 01/24/23 bilateral buttock unstageable wound, foam dressing Per Nursing Pressure Injury Assessment 02/04/23 bilateral buttock stage 2 wound , foam dressing Based on the above, could you please provide further information regarding the ulcer/wound: Pressure (decubitus) ulcer bilateral buttock, unstageable , POA Pressure ulcer bilateral buttock, stage 2, POA Other (explain)Clinically unable to determine (explain)Thank you, Shi Beltran RN Use of terms such as suspected, likely, concern for, or probable (associated with a specific diagnosi s that is being evaluated, monitored, or treated as if it exists) are acceptable and can be coded in the inpatient se tting, when documented at the time of discharge. Please use your independent medical judgment in providing your response. THIS QUERY IS PART OF THE PERMANENT MEDICAL RECORD
[2023-02-06 16:00] VITALS: BP 126/60; PULSE 84; RESP 18; TEMP 36.3
--- NOTE | 2023-02-06 16:06 | HO.PM.IMPN ---
Subjective Subjective Date of Service: 02/06/23 Interval History: encephalopathy Review of Systems awake ,pleasant seems similar to yesterday Physical Exam Vital Signs: Vital Signs: Last Vital Signs Temp 96.8 F 02/06/23 08:00 Pulse 85 02/06/23 10:55 Resp 18 02/06/23 08:00 BP 132/64 02/06/23 10:55 Pulse Ox 93 02/06/23 10:55 O2 Del Method Room Air 02/05/23 16:21 O2 Flow Rate 1 02/04/23 02:00 FiO2 30 02/03/23 08:56 BMI result Body Mass Index 29.6 Appearance: awake ,unable to answer questions,metal status similar to before . cvs: rrr, [id number]. res: clear to auscultation ,no rhonchii or wheezing abd: no rebound or guarding ,nt, bs present. ext pulses present , no cyanosis. neuro:moves all ext sponatnaeously . skin -buttock ulcer Objective Data Active Medications Acetaminophen (Acetaminophen 325 Mg Tablet) 650 mg PO Q4H PRN PRN Reason: Pain, Mild (Pain Scale 1-3) Last Admin: 02/05/23 20:27 Dose: 650 mg Documented By: ZAHEER Dextrose (Dextrose 50 % 25 Gm/50 Ml Syringe) 25 gm IVPUSH Q15M PRN; Protocol PRN Reason: per Hypoglycemia Standing Ord. Docusate Sodium (Docusate Sodium 100 Mg Capsule) 100 mg PO DAILY PRN PRN Reason: Constipation Furosemide (Furosemide 20 Mg/2 Ml Vial) 20 mg IVPUSH DAILY [facility]; Protocol Last Admin: 02/06/23 09:54 Dose: 20 mg Documented By: SHAHZAD Glucose (Glucose Gel 15 Gm Gel..Gram.) 15 gm PO Q15M PRN; Protocol PRN Reason: per Hypoglycemia Standing Ord. Heparin Sodium (Porcine) (Heparin Sodium,Porcine 5,000 Unit/Ml Vial) 5,000 unit SUBCUT Q8H [facility] Last Admin: 02/06/23 09:54 Dose: 5,000 unit Documented By: SHAHZAD Thiamine HCl 200 mg/ Sodium (Chloride) 102 mls @ 204 mls/hr IV Q8H [facility] Last Infusion: 02/06/23 15:48 Dose: Infused Documented By: SHAHZAD Insulin Glargine (Insulin Glargine,Hum.Rec.Anlog 100 Unit/Ml 10 Ml Vial) 20 unit SUBCUT DAILY [facility] Last Admin: 02/06/23 10:19 Dose: 20 unit Documented By: SHAHZAD Insulin Human Lispro (Insulin Lispro 100 Unit/Ml 3 Ml Vial) 0 unit SUBCUT QIDACHS [facility]; Protocol Last Admin: 02/06/23 12:05 Dose: 4 unit Documented By: SHAHZAD Nystatin (Nystatin Powder 15 Gm Bottle) 1 appl TOPICAL TID [facility]; Protocol Last Admin: 02/06/23 14:56 Dose: 1 appl Documented By: SHAHZAD Sodium Bicarbonate (Sodium Bicarbonate 650 Mg Tablet) 650 mg PO QID [facility] Last Admin: 02/06/23 12:06 Dose: 650 mg Documented By: SHAHZAD Sodium Chloride (0.9 % Sodium Chloride Flush 3 Ml Syringe) 3 ml IVFLUSH QSHIFT [facility] Last Admin: 02/06/23 15:48 Dose: 3 ml Documented By: SHAHZAD Labs 02/05/23 05:45 02/06/23 08:43 Labs: Laboratory Results - last 24 hr 02/05/23 02/05/23 02/06/23 16:25 20:31 07:05 Hold Purple Top Anion Gap Estim Creat Clear Calc Estimated GFR POC Glucose 138 H 105 139 H Random Glucose Calcium 02/06/23 02/06/23 08:43 11:16 Hold Purple Top SEE NOTE Anion Gap 20 Estim Creat Clear Calc 13.9 Estimated GFR 15 POC Glucose 203 H Random Glucose 173 H Calcium 9.2 Assessment and Plan (1) Critical illness myopathy: Status: Acute (2) Metabolic encephalopathy: Status: Acute Plan 87 Y F, with hypertension, diabetes mellitus, diastolic heart failure, aortic stenosis, admitted on 01/24/2023 w/ dyspnea, admitted floor; course c/b hypoxia, s/p intubation 01/25, treated for heart failure exacerbation and pneumonia, extubation 02/01; ICU course c/b renal failure, initiated on hemodialysis, persistent encephalopathy, myopathy. Patient had a acute hypoxemic respiratory failure-multifactorial pneumonia/CHF -required intubation as above. Transferred back from ICU yesterday(02/04/23). Acute DEMI pneumonia with sepsis and acute hypoxemic respiratory failure intial CXR showing large opacification left upper lobe and lingula leukocytosis resolved , tachycardia, tachypnea improved . no fevers ,has occasional cough strep pneumo antigen, Legionella antigen, sputum culture as well as bloood culture negative . intially was on ceftriaxone and azithromycin intially ,then switched to doxy/zosyn -completed course . continue supplemental O2 to maintain oximetry >92% acute diastolic congestive heart failure exacerbation echocardiogram 12/12 showing normal LV systolic function with EF 65% received IV Lasix intially admission , subsequently patient also required hemodialysis CORTEZ on CKD. cortez on ckd:Elevated creatinine. agma -possible sec to cortez on ckd. Required hemodialysis for uremia. sodium bicarb bed for Nephro. persistent encephalopathy, myopathy( multifactorial -critical care ,recent pna/chf , uremia ,function decline ) frequent oritentation encourage for po intake continue current management. chronic iron deficiency anemia continue iron supplementation hypertension: accetable range but flactuating ,hold off nifedipine and atenolol [id number] type 2 diabetes: fs running 100-160 -POC glucose -diabetic diet -Humalog on sliding scale -hold metformin and gemfibrozil Dec pointake :encourage for po intake,manager background eval DVT prophylaxis-s/c heaprin DNR/DNI inaptient need:persistent encephalopathy, myopathy( multifactorial -critical care ,recent pna/chf , uremia ,function decline )-need mental status monitering ,not optimal yet Overall prognosis is very poor-discussed with the family (02/06/23). Time Spent With Patient Time: Total time managing care of this patient today ____ minutes. Quality Stroke Does the patient have a stroke diagnosis?: No VTE Prior VTE?: No VTE Risk Level:: Medical - moderate - high VTE Device Contraindication: N/A - Device Ordered VTE Drug Contraindication: Treatment Not Indicated
[2023-02-06 16:15] VITALS: TEMP 36.3; O2SAT 93
[2023-02-06 16:32] LABS: Glucose, Whole Blood 173 mg/dL (60-115)
--- NOTE | 2023-02-06 17:36 | HO.WOUND ---
Wound Consult: Initial 88yr old female [place] [facility]24[place] 13:40 - See progress notes and H&P for detailed history. 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 Goals of Treatment: Off Load Pressure - Moist wound healing with Triad and to protect from moisture and friction - foam application Location: Left Sacrum Etiology: Resolving Stage 2 Pressure Injury Present on Admission Measurements: 4cm x 2cm x 0.1cm Wound Bed: Red nonblanchable tissue with scattered areas of partial thickness tissue loss - wound bed appears improving when photo from 01/24/23 reviewed Drainage / Odor:Scant serosanguinous drainage noted on foam dressing when removed Edges: irregular Marcia wound: Red pink blanchable tissue with MASD (Moisture related Skin Damage and Fungal Dermatitis) - No induration no Fluctuance and no heat noted no s/s of active infection Pain: Pt reported pain and tenderness with perianal area assessed - no pain reported at resolving pressure injury sites. Goals of Treatment: Off Load Pressure - Moist wound healing with Triad and to protect from moisture and friction - foam application Perineal and Perianal Etiology: MASD (Moisture Associated Skin Damage ) and Fungal Dermatitis - Mixed Incontinence Measurements: generalized area Wound Bed: Red blanchabe tissue with mirrored edges and advancing boarders with satellite lesions noted. Drainage / Odor: moist tissue noted Edges: Mirrored and advancing Marcia wound: Intact Pain: Pt reports pain and tenderness Goals of Treatment: Antifungal treatment per provider order twice daily and Triad after Nystatin application to protect from moisture and friction. Of note provider has antifungal orders in place for nystatin powder. Follow up in 7-10 days if patient remains inpatient. Recommendations: 1. Bilateral Sacrum - Off Load Pressure - cleanse with saline or PH balanced wipes, allow to dry. Apply Triad to wound bed cover with foam dressing. Peel back and assess Q shift and change daily and PRN. 2. Perineal and Perianal - Antifungal treatment per provider order twice daily and Triad after Nystatin application to protect from moisture and friction. 3. Turn and Reposition every 2 hours and as needed for patient comfort. 4. Off Load all bony prominences with use of pillows and wedges. 5. Monitor for incontinence and moisture control - Antifungal in use per provider order and continue with Dry Zachery disposable pads to wick moisture away. 6. Provide adequate and supplemental nutrition. 7. Continue low air loss mattress. Reconsult wound care team for wound deterioration or wound changes. --
[2023-02-06 20:00] VITALS: BP 147/65; PULSE 74; RESP 16; TEMP 36.4; O2SAT 96
[2023-02-06 20:52] LABS: Glucose, Whole Blood 95 mg/dL (60-115)
[2023-02-07] MEDS: Heparin Sodium,Porcine 5,000 UNIT/ML VIAL 5000 UNIT SUBCUT ×3 (01:00→17:41)
[2023-02-07 03:32] VITALS: BP 140/71; PULSE 70; RESP 17; TEMP 36.2; O2SAT 96
[2023-02-07] MEDS: Thiamine HCL 200 MG in 0.9 % Sodium Chloride 100 ML 204 MG IV ×3 (05:32→21:48)
[2023-02-07 07:26] VITALS: BP 148/70; PULSE 81; RESP 12; TEMP 36; O2SAT 95
[2023-02-07 07:26] LABS: Glucose, Whole Blood 89 mg/dL (60-115)
[2023-02-07 09:26] VITALS: RESP 18
[2023-02-07] MEDS: Insulin Glargine,Hum.rec.anlog 100 UNIT/ML 10 ML VIAL 20 UNIT SUBCUT (09:27)
[2023-02-07] MEDS: Furosemide 20 MG/2 ML VIAL IVPUSH (09:28)
[2023-02-07] MEDS: Sodium Bicarbonate 650 MG TABLET PO ×4 (09:29→21:40)
[2023-02-07] MEDS: Nystatin Powder 15 GM BOTTLE 1 APPL TOPICAL ×3 (09:29→21:39)
[2023-02-07 11:16] LABS: Glucose, Whole Blood 224 mg/dL (60-115)
[2023-02-07] MEDS: Insulin Lispro 100 UNIT/ML 3 ML VIAL SUBCUT ×3 (11:47→21:40)
--- NOTE | 2023-02-07 13:05 | MHC.SL.SWA ---
Speech Pathologist Impression: Risk of Aspiration Due to: Medically Fragile Poor PO Intake Hx of Recent Extubation Reduced Cognition Dysphasia Diet Status: Recommend continue on thin liquids (TEASPOON ONLY). Continue with PUREE solids (NDD1) and pills CRUSHED in puree. Patient requires 1-1 assistance. Ensure aspiration precautions and nutritional supplements given limited PO intake. Liquid Consistency and Strategies for Safe Swallow: Liquid Intake Recommendation: Thin Liquid Intake Strategies: Small Sips No Straws Liquids by Teaspoon Only Solid Food Consistency: Dietary Recommendations: Pureed (NDD1) Additional Modifications to Solid Foods: Oral Medication Intake: Crushed with Puree Please contact the pharmacy regarding appropriate crushable or liquid drug formulations that are available whenever modified delivery is recommended. Compensatory Strategies and Precautions to be Taken for Safe Swallow: Sitting Upright (90 deg) No Straw Liquids from Spoon Alternate Liquids/Solids Oral Check Supervision While Eating and Drinking for Safe Swallow: Total Assistance (1:1) Foods to Avoid: Swallowing Recommended Treatments: Compens. Strategy Educat. Recommendation for Speech: Comment: Patient seen at lunch. Patient was seated by bed in recliner, awake, but mostly non-verbal throughout. Patient occasionally responded with yes or no to questions, said thank you to an MD who came to give some progress news. Patient was given purees on tray including potatoes, butternut squash and chicken. When given any of these purees, patient grimaced at the taste, demonstrated mild delays of oral and pharyngeal phase of swallow. As patient was consistently grimacing when given purees, they were discontinued, and patient was given Magic Cup dessert. Patient took entirety of Magic Cup, consistently answering yes to do you want some more? Mild delay initiating swallow, reduced laryngeal elevation noted on swallow. Patient was upgraded to thin liquids by tsp only yesterday, BARREL CHARRER HELPER gave cup full of apple juice by tsp to patient, with good oral containment noted, mild delays of both phases of swallow, some mild upper airway noise noted but may have been baseline, no other coughing, throat clearing, wet voice noted. Frequency/Duration: Date Range for Service Req: Timeline to reassess: Incident Response Manager Clinican/Clinical Fellow: No Supervisory Statement: I have reviewed and agree with the student/clinical fellow's documentation: N/A Speech Language Pathologist: Betzaida Santos M.A., CCC-BARREL CHARRER HELPER
[2023-02-07] MEDS: Clotrimazole 1 % Cream 15 GM TUBE 1 APPL TOPICAL ×2 (14:59→21:40)
--- NOTE | 2023-02-07 15:33 | HO.PM.IMPN ---
Subjective Subjective Date of Service: 02/07/23 Interval History: encephalopathy Review of Systems unable to tell more questions no fever,occasional cough family at bedside . Physical Exam Vital Signs: Vital Signs: Last Vital Signs Temp 96.8 F 02/07/23 07:26 Pulse 81 02/07/23 07:26 Resp 18 02/07/23 09:26 BP 148/70 H 02/07/23 07:26 Pulse Ox 95 02/07/23 07:26 O2 Del Method Room Air 02/07/23 07:26 O2 Flow Rate 1 02/04/23 02:00 FiO2 30 02/03/23 08:56 BMI result Body Mass Index 29.6 Appearance: awake ,unable to answer questions,mental status similar to before . cvs: [id number], [id number]. res: clear to auscultation ,no rhonchii or wheezing abd: no rebound or guarding ,nt, bs present. ext pulses present , no cyanosis. neuro:wiggle hands and toes. Objective Data Active Medications Acetaminophen (Acetaminophen 325 Mg Tablet) 650 mg PO Q4H PRN PRN Reason: Pain, Mild (Pain Scale 1-3) Last Admin: 02/05/23 20:27 Dose: 650 mg Documented By: ZAHEER Clotrimazole (Clotrimazole 1 % Cream 15 Gm Tube) 1 appl TOPICAL BID JO[facility]; Protocol Last Admin: 02/07/23 14:59 Dose: 1 appl Documented By: SHAHZAD Dextrose (Dextrose 50 % 25 Gm/50 Ml Syringe) 25 gm IVPUSH Q15M PRN; Protocol PRN Reason: per Hypoglycemia Standing Ord. Docusate Sodium (Docusate Sodium 100 Mg Capsule) 100 mg PO DAILY PRN PRN Reason: Constipation Furosemide (Furosemide 20 Mg/2 Ml Vial) 20 mg IVPUSH DAILY [facility]; Protocol Last Admin: 02/07/23 09:28 Dose: 20 mg Documented By: SHAHZAD Glucose (Glucose Gel 15 Gm Gel..Gram.) 15 gm PO Q15M PRN; Protocol PRN Reason: per Hypoglycemia Standing Ord. Heparin Sodium (Porcine) (Heparin Sodium,Porcine 5,000 Unit/Ml Vial) 5,000 unit SUBCUT Q8H [facility] Last Admin: 02/07/23 09:27 Dose: 5,000 unit Documented By: SHAHZAD Thiamine HCl 200 mg/ Sodium (Chloride) 102 mls @ 204 mls/hr IV Q8H [facility] Last Admin: 02/07/23 14:58 Dose: 204 mls/hr Documented By: SHAHZAD Insulin Glargine (Insulin Glargine,Hum.Rec.Anlog 100 Unit/Ml 10 Ml Vial) 20 unit SUBCUT DAILY [facility] Last Admin: 02/07/23 09:27 Dose: 20 unit Documented By: SHAHZAD Insulin Human Lispro (Insulin Lispro 100 Unit/Ml 3 Ml Vial) 0 unit SUBCUT QIDACHS [facility]; Protocol Last Admin: 02/07/23 11:47 Dose: 4 unit Documented By: SHAHZAD Nystatin (Nystatin Powder 15 Gm Bottle) 1 appl TOPICAL TID [facility]; Protocol Last Admin: 02/07/23 14:59 Dose: 1 appl Documented By: SHAHZAD Nystatin (Nystatin Cream 15 Gm Tube) 1 appl TOPICAL BID [facility]; Protocol Last Admin: 02/07/23 15:00 Dose: Not Given Documented By: SHAHZAD Non-Admin Reason: Med Not Available Sodium Bicarbonate (Sodium Bicarbonate 650 Mg Tablet) 650 mg PO QID [facility] Last Admin: 02/07/23 14:58 Dose: 650 mg Documented By: SHAHZAD Sodium Chloride (0.9 % Sodium Chloride Flush 3 Ml Syringe) 3 ml IVFLUSH QSHIFT [facility] Last Admin: 02/07/23 15:00 Dose: 3 ml Documented By: SHAHZAD Labs 02/05/23 05:45 02/06/23 08:43 Labs: Laboratory Results - last 24 hr 02/06/23 02/06/23 02/07/23 16:24 20:49 07:13 POC Glucose 173 H 95 89 02/07/23 11:04 POC Glucose 224 H Assessment and Plan (1) Critical illness myopathy: Status: Acute (2) Metabolic encephalopathy: Status: Acute Plan 87 Y F, with hypertension, diabetes mellitus, diastolic heart failure, aortic stenosis, admitted on 01/24/2023 w/ dyspnea, admitted floor; course c/b hypoxia, s/p intubation 01/25, treated for heart failure exacerbation and pneumonia, extubation 02/01; ICU course c/b renal failure, initiated on hemodialysis, persistent encephalopathy, myopathy. Patient had a acute hypoxemic respiratory failure-multifactorial pneumonia/CHF -required intubation as above. Transferred back from ICU yesterday(02/04/23). Acute DEMI pneumonia with sepsis and acute hypoxemic respiratory failure intial CXR showing large opacification left upper lobe and lingula leukocytosis resolved , tachycardia, tachypnea improved . no fevers ,has occasional cough strep pneumo antigen, Legionella antigen, sputum culture as well as bloood culture negative . intially was on ceftriaxone and azithromycin intially ,then switched to doxy/zosyn -completed course . continue supplemental O2 to maintain oximetry >92% acute diastolic congestive heart failure exacerbation echocardiogram 12/12 showing normal LV systolic function with EF 65% received IV Lasix 40 mg on admission , subsequently patient also required hemodialysis CORTEZ on CKD. cortez on ckd:Elevated creatinine. agma -possible sec to cortez on ckd. Required hemodialysis for uremia. continue sodium bicarb bed for Nephro. persistent encephalopathy, myopathy( multifactorial -critical care ,recent pna/chf , uremia ,function decline ) frequent oritentation encourage for po intake continue current management. 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 Time Spent With Patient Time: Total time managing care of this patient today ____ minutes. Quality Stroke Does the patient have a stroke diagnosis?: No VTE Prior VTE?: No VTE Risk Level:: Medical - moderate - high VTE Device Contraindication: N/A - Device Ordered VTE Drug Contraindication: Treatment Not Indicated
[2023-02-07 16:00] VITALS: BP 132/62; PULSE 79; RESP 16; TEMP 36.2; O2SAT 94
[2023-02-07 16:51] LABS: Glucose, Whole Blood 195 mg/dL (60-115)
[2023-02-07 20:00] VITALS: BP 140/65; PULSE 79; RESP 16; TEMP 36.1; O2SAT 95
[2023-02-07 21:16] LABS: Glucose, Whole Blood 226 mg/dL (60-115)
[2023-02-08] MEDS: Heparin Sodium,Porcine 5,000 UNIT/ML VIAL 5000 UNIT SUBCUT ×4 (00:23→23:04)
[2023-02-08] MEDS: Thiamine HCL 200 MG in 0.9 % Sodium Chloride 100 ML 204 MG IV ×3 (05:21→20:48)
[2023-02-08 07:28] LABS: Glucose, Whole Blood 104 mg/dL (60-115)
[2023-02-08 07:52] VITALS: BP 154/67; PULSE 77; RESP 16; TEMP 36.2; O2SAT 92
[2023-02-08] MEDS: Sodium Bicarbonate 650 MG TABLET PO ×4 (08:32→20:51)
[2023-02-08] MEDS: Insulin Glargine,Hum.rec.anlog 100 UNIT/ML 10 ML VIAL 20 UNIT SUBCUT (08:32)
[2023-02-08] MEDS: Clotrimazole 1 % Cream 15 GM TUBE 1 APPL TOPICAL ×2 (08:32→20:53)
[2023-02-08] MEDS: Nystatin Powder 15 GM BOTTLE 1 APPL TOPICAL ×3 (08:32→20:52)
--- NOTE | 2023-02-08 09:59 | MHC.CLN ---
F/U DIET=REGULAR, PUREE CONSISTENCY WITH THIN LIQUIDS. MAGIC CUP TID TO INCREASE NUTRITIONAL INTAKE AND PROMOTE WOUND HEALING. SUPPLEMENT PROVIDES 870 KCALS, 27 G PROTEIN. PER WELL DRILL OPERATOR NOTE, PATIENT ACCEPTS SUPPLEMENT. INTAKE X 2 DAYS APPEARS IMPROVED, 25-100%. PRESSURE INJURIES: DTI TO RIGHT BUTTOCK, STAGE II TO LEFT BUTTOCK. NEPHROLOGY FOLLOWING FOR HD NEEDS. MONITOR PO INTAKE AND WOUND HEALING. ENCOURAGE INTAKE OF MEALS AND SUPPLEMENTS ABLE.
--- NOTE | 2023-02-08 10:04 | P.PNNP_ITS ---
Subjective Subjective Date of Service: 02/08/23 Interval history: seen and examined sleeping Physical Exam 2 Vital Signs: Vital Signs: Last Vital Signs Temp 97.1 F 02/08/23 07:52 Pulse 77 02/08/23 07:52 Resp 16 02/08/23 07:52 BP 154/67 H 02/08/23 07:52 Pulse Ox 92 02/08/23 07:52 O2 Del Method Room Air 02/08/23 07:52 O2 Flow Rate 1 02/04/23 02:00 FiO2 30 02/03/23 08:56 BMI result Body Mass Index 29.6 Const: General: no acute distress HEENT: Head: Yes normocephalic and Yes atraumatic Neck: Neck: Yes supple Resp: Auscultation: diminished lung sounds Cardio: Heart sounds: S1 normal heart sound present and S2 normal heart sound present GI: Palpation (GI): Soft to palpation and nontender Extrem: General: Yes normal to inspection Objective Data Labs 02/05/23 05:45 02/06/23 08:43 Labs: Laboratory Results - last 24 hr 02/07/23 02/07/23 02/07/23 11:04 16:46 21:12 POC Glucose 224 H 195 H 226 H 02/08/23 07:16 POC Glucose 104 Microbiology Microbiology Results: Microbiology 01/24/23 13:43 Blood - Venous Blood Culture - Final No growth after 5 days. 01/24/23 13:43 Blood - Venous Blood Culture - Final No growth after 5 days. 01/25/23 12:13 Sputum - Suctioned Gram Stain - Final 01/25/23 12:13 Sputum - Suctioned Sputum Culture - Final 01/25/23 16:43 Sputum - Suctioned Gram Stain - Final 01/25/23 16:43 Sputum - Suctioned Sputum Culture - Final No growth. 01/24/23 Unknown Urine clean catch - Urine collado top Urine Culture - Final Procedures Date of Service Date of Service: 02/08/23 Assessment & Plan Assessment and plan (1) CORTEZ (acute kidney injury): Status: Acute (2) Metabolic acidosis: Status: Acute (3) CKD (chronic kidney disease) stage 3, GFR 30-59 ml/min: Status: Acute Plan stable kidney function CORTEZ due to acute tubular injury required HD s/p HD x 2 HD (last HD 02/01) underlying CKD baseline Scr ~ 1.8 mg/dl REC hold off HD dc dialysis catheter monitor urine output follow kidney function and electrolytes Time Spent With Patient Time: Total time managing care of this patient today ____ minutes. Progress Note: Quality Stroke Does the patient have a stroke diagnosis?: No
[2023-02-08 10:45] LABS: Hematocrit 29.5 % (37.0-47.0); Hemoglobin 8.8 g/dl (12.0-16.0)
[2023-02-08 11:00] LABS: Anion Gap 17 (12-20); Blood Urea Nitrogen 57 mg/dL (9-16); Calcium 9.6 mg/dL (8.4-10.2); Carbon Dioxide 20 mmol/L (22-29); Chloride 116 mmol/L (96-108); Creatinine Clr Calc Pharmacy 17.9; Estimated Glomerular Filt Rate 21; Glucose Random 226 mg/dL (60-115); Potassium 3.1 mmol/L (3.3-5.1); Sodium 150 mmol/L (135-145)
[2023-02-08 11:09] LABS: Glucose, Whole Blood 217 mg/dL (60-115)
--- NOTE | 2023-02-08 11:30 | MHC.SL.SWA ---
Speech Pathologist Impression: Risk of aspiration, oropharyngeal dysphagia Risk of Aspiration Due to: Medically Fragile Poor PO Intake Hx of Recent Extubation Reduced Cognition Dysphasia Diet Status: Recommend continue on thin liquids (TEASPOON ONLY). Continue with PUREE solids (NDD1) and pills CRUSHED in puree. Patient requires 1-1 assistance. Ensure aspiration precautions and nutritional supplements given limited PO intake. Liquid Consistency and Strategies for Safe Swallow: Liquid Intake Recommendation: Thin Liquid Intake Strategies: Small Sips No Straws Liquids by Teaspoon Only Solid Food Consistency: Dietary Recommendations: Pureed (NDD1) Oral Medication Intake: Crushed with Puree Please contact the pharmacy regarding appropriate crushable or liquid drug formulations that are available whenever modified delivery is recommended. Compensatory Strategies and Precautions to be Taken for Safe Swallow: Sitting Upright (90 deg) No Straw Liquids from Spoon Alternate Liquids/Solids Oral Check Supervision While Eating and Drinking for Safe Swallow: Total Assistance (1:1) Swallowing Recommended Treatments: Compens. Strategy Educat. Recommendation for Speech: BURNER MACHINE OPERATOR will continue to follow during hospitalization. Machine Gunner Clinican/Clinical Fellow: No Supervisory Statement: I have reviewed and agree with the student/clinical fellow's documentation: N/A Speech Language Pathologist: Jocelyn Alford M.A., [facility] MACHINE OPERATOR
[2023-02-08] MEDS: Insulin Lispro 100 UNIT/ML 3 ML VIAL SUBCUT ×3 (11:35→20:51)
[2023-02-08] MEDS: Potassium Chloride Packet 20 MEQ PACKET 40 MEQ PO (11:36)
[2023-02-08] MEDS: Dextrose 5 % 1,000 ML 50 ML IVCONT (11:42)
--- NOTE | 2023-02-08 15:32 | MHC.CM.PN ---
EMR REVIEWED AND PER MD ROUNDS, PT NOT MEDICALLY CLEARED FOR DC. CM WILL CONTINUE TO FOLLOW FOR ANY CHANGE IN DC NEEDS/PLAN. ANTICIPATE WILL NEED STR, REFERRALS FOLLOWING
[2023-02-08 15:51] VITALS: BP 135/63; PULSE 82; RESP 16; TEMP 36.2; O2SAT 95
[2023-02-08 16:23] LABS: Glucose, Whole Blood 220 mg/dL (60-115)
--- NOTE | 2023-02-08 16:37 | P.PNIM_ITS ---
Subjective Subjective Date of Service: 02/08/23 Interval History: encephalopathy Review of Systems unable to tell more questions no fever,occasional cough family at bedside . Physical Exam 2 Vital Signs: Vital Signs: Last Vital Signs Temp 97.1 F 02/08/23 15:51 Pulse 82 02/08/23 15:51 Resp 16 02/08/23 15:51 BP 135/63 02/08/23 15:51 Pulse Ox 95 02/08/23 15:51 O2 Del Method Room Air 02/08/23 15:51 O2 Flow Rate 1 02/04/23 02:00 FiO2 30 02/03/23 08:56 BMI result Body Mass Index 29.6 Appearance: awake ,unable to answer questions,mental status similar to before . cvs: rrr, [id number]. res: clear to auscultation ,no rhonchii or wheezing abd: no rebound or guarding ,nt, bs present. ext pulses present , no cyanosis. neuro:wiggle hands and toes. Objective Data Active Medications Acetaminophen (Acetaminophen 325 Mg Tablet) 650 mg PO Q4H PRN PRN Reason: Pain, Mild (Pain Scale 1-3) Last Admin: 02/05/23 20:27 Dose: 650 mg Documented By: ZAHEER Clotrimazole (Clotrimazole 1 % Cream 15 Gm Tube) 1 appl TOPICAL BID [facility]; Protocol Last Admin: 02/08/23 08:32 Dose: 1 appl Documented By: TOBI Dextrose (Dextrose 50 % 25 Gm/50 Ml Syringe) 25 gm IVPUSH Q15M PRN; Protocol PRN Reason: per Hypoglycemia Standing Ord. Docusate Sodium (Docusate Sodium 100 Mg Capsule) 100 mg PO DAILY PRN PRN Reason: Constipation Glucose (Glucose Gel 15 Gm Gel..Gram.) 15 gm PO Q15M PRN; Protocol PRN Reason: per Hypoglycemia Standing Ord. Heparin Sodium (Porcine) (Heparin Sodium,Porcine 5,000 Unit/Ml Vial) 5,000 unit SUBCUT Q8H [facility] Last Admin: 02/08/23 08:31 Dose: 5,000 unit Documented By: TOBI Thiamine HCl 200 mg/ Sodium (Chloride) 102 mls @ 204 mls/hr IV Q8H [facility] Last Infusion: 02/08/23 13:33 Dose: Infused Documented By: TOBI Dextrose (D5w) 1,000 mls @ 50 mls/hr IVCONT .Q20H [facility] Last Admin: 02/08/23 11:42 Dose: 50 mls/hr Documented By: TOBI Insulin Glargine (Insulin Glargine,Hum.Rec.Anlog 100 Unit/Ml 10 Ml Vial) 20 unit SUBCUT DAILY [facility] Last Admin: 02/08/23 08:32 Dose: 20 unit Documented By: TOBI Insulin Human Lispro (Insulin Lispro 100 Unit/Ml 3 Ml Vial) 0 unit SUBCUT QIDACHS [facility]; Protocol Last Admin: 02/08/23 11:35 Dose: 4 unit Documented By: TOBI Nystatin (Nystatin Powder 15 Gm Bottle) 1 appl TOPICAL TID [facility]; Protocol Last Admin: 02/08/23 14:06 Dose: 1 appl Documented By: TOBI Nystatin (Nystatin Cream 15 Gm Tube) 1 appl TOPICAL BID [facility]; Protocol Last Admin: 02/08/23 08:33 Dose: Not Given Documented By: TOBI Non-Admin Reason: powder Sodium Bicarbonate (Sodium Bicarbonate 650 Mg Tablet) 650 mg PO QID [facility] Last Admin: 02/08/23 13:03 Dose: 650 mg Documented By: TOBI Sodium Chloride (0.9 % Sodium Chloride Flush 3 Ml Syringe) 3 ml IVFLUSH QSHIFT [facility] Last Admin: 02/08/23 14:06 Dose: Not Given Documented By: TOBI Non-Admin Reason: IV Running Labs 02/08/23 10:18 02/08/23 10:18 Labs: Laboratory Results - last 24 hr 02/07/23 02/07/23 02/08/23 16:46 21:12 07:16 Anion Gap Estim Creat Clear Calc Estimated GFR POC Glucose 195 H 226 H 104 Random Glucose Calcium 02/08/23 02/08/23 02/08/23 10:18 11:00 16:05 Anion Gap 17 Estim Creat Clear Calc 17.9 Estimated GFR 21 POC Glucose 217 H 220 H Random Glucose 226 H Calcium 9.6 Assessment and Plan (1) CKD (chronic kidney disease) stage 3, GFR 30-59 ml/min: Status: Acute (2) CORTEZ (acute kidney injury): Status: Acute Plan 87 Y F, with hypertension, diabetes mellitus, diastolic heart failure, aortic stenosis, admitted on 01/24/2023 w/ dyspnea, admitted floor; course c/b hypoxia, s/p intubation 01/25, treated for heart failure exacerbation and pneumonia, extubation 02/01; ICU course c/b renal failure, initiated on hemodialysis, persistent encephalopathy, myopathy. Patient had a acute hypoxemic respiratory failure-multifactorial pneumonia/CHF - required intubation as above. Transferred back from ICU yesterday(02/04/23). Acute DEMI pneumonia with sepsis and acute hypoxemic respiratory failure intial CXR showing large opacification left upper lobe and lingula leukocytosis resolved , tachycardia, tachypnea improved . no fevers ,has occasional cough strep pneumo antigen, Legionella antigen, sputum culture as well as bloood culture negative . intially was on ceftriaxone and azithromycin intially ,then switched to doxy/zosyn -completed course . continue supplemental O2 to maintain oximetry >92% acute diastolic congestive heart failure exacerbation echocardiogram 12/12 showing normal LV systolic function with EF 65% received IV Lasix 40 mg on admission , subsequently patient also required hemodialysis CORTEZ on CKD. cortez on ckd:Elevated creatinine. agma -possible sec to cortez on ckd. Required hemodialysis for uremia. continue sodium bicarb bed for Nephro. persistent encephalopathy, myopathy( multifactorial -critical care ,recent pna/chf , uremia ,function decline ) frequent oritentation encourage for po intake continue current management. 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 Time Spent With Patient Time: Total time managing care of this patient today ____ minutes. Quality Stroke Does the patient have a stroke diagnosis?: No VTE Prior VTE?: No VTE Risk Level:: Medical - moderate - high VTE Device Contraindication: N/A - Device Ordered VTE Drug Contraindication: Treatment Not Indicated
[2023-02-08 20:00] VITALS: BP 148/72; PULSE 84; RESP 16; TEMP 36.1; O2SAT 96
[2023-02-08 20:04] LABS: Glucose, Whole Blood 236 mg/dL (60-115)
[2023-02-09 03:20] VITALS: BP 170/58; PULSE 76; RESP 18; TEMP 36.6; O2SAT 95
[2023-02-09] MEDS: Dextrose 5 % 1,000 ML 50 ML IVCONT (05:18)
[2023-02-09] MEDS: Thiamine HCL 200 MG in 0.9 % Sodium Chloride 100 ML 204 MG IV ×3 (05:18→21:03)
[2023-02-09 07:06] LABS: Glucose, Whole Blood 109 mg/dL (60-115)
[2023-02-09] MEDS: Heparin Sodium,Porcine 5,000 UNIT/ML VIAL 5000 UNIT SUBCUT ×2 (07:41→15:12)
[2023-02-09] MEDS: Nystatin Powder 15 GM BOTTLE 1 APPL TOPICAL ×3 (07:43→21:00)
[2023-02-09] MEDS: Clotrimazole 1 % Cream 15 GM TUBE 1 APPL TOPICAL ×2 (07:43→20:59)
[2023-02-09] MEDS: Sodium Bicarbonate 650 MG TABLET PO ×4 (07:44→20:53)
[2023-02-09 07:50] VITALS: BP 162/70; PULSE 75; RESP 19; TEMP 36.1; O2SAT 94
[2023-02-09] MEDS: Insulin Glargine,Hum.rec.anlog 100 UNIT/ML 10 ML VIAL 20 UNIT SUBCUT (08:56)
[2023-02-09] MEDS: Omeprazole 20 MG CAPSULE.DR PO ×2 (08:57→15:12)
[2023-02-09 09:41] LABS: Anion Gap 19 (12-20); Blood Urea Nitrogen 43 mg/dL (9-16); Calcium 9.6 mg/dL (8.4-10.2); Carbon Dioxide 18 mmol/L (22-29); Chloride 117 mmol/L (96-108); Creatinine Clr Calc Pharmacy 21.1; Estimated Glomerular Filt Rate 25; Glucose Random 119 mg/dL (60-115); Potassium 3.7 mmol/L (3.3-5.1); Sodium 150 mmol/L (135-145)
[2023-02-09 11:07] LABS: Glucose, Whole Blood 187 mg/dL (60-115)
[2023-02-09 11:12] VITALS: BP 158/72; PULSE 96; RESP 17; TEMP 36.1; O2SAT 94
[2023-02-09] MEDS: Insulin Lispro 100 UNIT/ML 3 ML VIAL SUBCUT ×3 (11:13→20:54)
[2023-02-09] MEDS: Apixaban 2.5 MG TABLET PO ×2 (15:12→20:54)
[2023-02-09 15:16] VITALS: BP 142/68; PULSE 75; RESP 20; TEMP 36.2; O2SAT 95
--- NOTE | 2023-02-09 15:26 | HO.PM.IMPN ---
Subjective Subjective Date of Service: 02/09/23 Interval History: encephalopathy Review of Systems unable to tell more questions po inatke improving no fever,occasional cough family at bedside . Physical Exam Vital Signs: Vital Signs: Last Vital Signs Temp 97.1 F 02/09/23 15:16 Pulse 75 02/09/23 15:16 Resp 20 02/09/23 15:16 BP 142/68 H 02/09/23 15:16 Pulse Ox 95 02/09/23 15:16 O2 Del Method Room Air 02/09/23 15:16 O2 Flow Rate 1 02/04/23 02:00 FiO2 30 02/03/23 08:56 BMI result Body Mass Index 29.6 Appearance: awake ,unable to answer questions,mental status similar to before . cvs: rrr, [id number]. res: clear to auscultation ,no rhonchii or wheezing abd: no rebound or guarding ,nt, bs present. ext pulses present , no cyanosis. neuro:wiggle hands and toes. Objective Data Active Medications Acetaminophen (Acetaminophen 325 Mg Tablet) 650 mg PO Q4H PRN PRN Reason: Pain, Mild (Pain Scale 1-3) Last Admin: 02/05/23 20:27 Dose: 650 mg Documented By: ZAHEER Apixaban (Apixaban 2.5 Mg Tablet) 2.5 mg PO BID [facility] Last Admin: 02/09/23 15:12 Dose: 2.5 mg Documented By: JE Clotrimazole (Clotrimazole 1 % Cream 15 Gm Tube) 1 appl TOPICAL BID [facility]; Protocol Last Admin: 02/09/23 07:43 Dose: 1 appl Documented By: JE Dextrose (Dextrose 50 % 25 Gm/50 Ml Syringe) 25 gm IVPUSH Q15M PRN; Protocol PRN Reason: per Hypoglycemia Standing Ord. Docusate Sodium (Docusate Sodium 100 Mg Capsule) 100 mg PO DAILY PRN PRN Reason: Constipation Glucose (Glucose Gel 15 Gm Gel..Gram.) 15 gm PO Q15M PRN; Protocol PRN Reason: per Hypoglycemia Standing Ord. Heparin Sodium (Porcine) (Heparin Sodium,Porcine 5,000 Unit/Ml Vial) 5,000 unit SUBCUT Q8H [facility] Last Admin: 02/09/23 15:12 Dose: 5,000 unit Documented By: JE Thiamine HCl 200 mg/ Sodium (Chloride) 102 mls @ 204 mls/hr IV Q8H [facility] Last Infusion: 02/09/23 14:21 Dose: Infused Documented By: JE Dextrose (D5w) 1,000 mls @ 50 mls/hr IVCONT .Q20H [facility] Last Admin: 02/09/23 05:18 Dose: 50 mls/hr Documented By: RASHAUN Insulin Glargine (Insulin Glargine,Hum.Rec.Anlog 100 Unit/Ml 10 Ml Vial) 20 unit SUBCUT DAILY [facility] Last Admin: 02/09/23 08:56 Dose: 20 unit Documented By: JE Insulin Human Lispro (Insulin Lispro 100 Unit/Ml 3 Ml Vial) 0 unit SUBCUT QIDACHS [facility]; Protocol Last Admin: 02/09/23 11:13 Dose: 2 unit Documented By: JE Nystatin (Nystatin Powder 15 Gm Bottle) 1 appl TOPICAL TID [facility]; Protocol Last Admin: 02/09/23 13:52 Dose: 1 appl Documented By: JE Nystatin (Nystatin Cream 15 Gm Tube) 1 appl TOPICAL BID [facility]; Protocol Last Admin: 02/09/23 07:43 Dose: Not Given Documented By: JE Non-Admin Reason: powder used Omeprazole (Omeprazole 20 Mg Gutierrez.) 20 mg PO BID@0630,1630 [facility] Last Admin: 02/09/23 15:12 Dose: 20 mg Documented By: JE Sodium Bicarbonate (Sodium Bicarbonate 650 Mg Tablet) 650 mg PO QID [facility] Last Admin: 02/09/23 13:50 Dose: 650 mg Documented By: JE Sodium Chloride (0.9 % Sodium Chloride Flush 3 Ml Syringe) 3 ml IVFLUSH QSHIFT [facility] Last Admin: 02/09/23 15:11 Dose: Not Given Documented By: JE Non-Admin Reason: IV Running Labs 02/08/23 10:18 02/09/23 08:58 Labs: Laboratory Results - last 24 hr 02/08/23 02/08/23 02/09/23 16:05 19:48 07:03 Hold Purple Top Anion Gap Estim Creat Clear Calc Estimated GFR POC Glucose 220 H 236 H 109 Random Glucose Calcium 02/09/23 02/09/23 08:58 10:59 Hold Purple Top SEE NOTE Anion Gap 19 Estim Creat Clear Calc 21.1 Estimated GFR 25 POC Glucose 187 H Random Glucose 119 H Calcium 9.6 Assessment and Plan (1) CKD (chronic kidney disease) stage 3, GFR 30-59 ml/min: Status: Acute (2) CORTEZ (acute kidney injury): Status: Acute Plan 87 Y F, with hypertension, diabetes mellitus, diastolic heart failure, aortic stenosis, admitted on 01/24/2023 w/ dyspnea, admitted floor; course c/b hypoxia, s/p intubation 01/25, treated for heart failure exacerbation and pneumonia, extubation 02/01; ICU course c/b renal failure, initiated on hemodialysis, persistent encephalopathy, myopathy. Patient had a acute hypoxemic respiratory failure-multifactorial pneumonia/CHF -required intubation as above. Transferred back from ICU yesterday(02/04/23). Acute DEMI pneumonia with sepsis and acute hypoxemic respiratory failure intial CXR showing large opacification left upper lobe and lingula leukocytosis resolved , tachycardia, tachypnea improved . no fevers ,has occasional cough strep pneumo antigen, Legionella antigen, sputum culture as well as bloood culture negative . intially was on ceftriaxone and azithromycin intially ,then switched to doxy/zosyn -completed course . continue supplemental O2 to maintain oximetry >92% acute diastolic congestive heart failure exacerbation echocardiogram 12/12 showing normal LV systolic function with EF 65% lasix on hold (02/08/23) due to hypernatremia /decreased po intake , subsequently patient also required hemodialysis CORTEZ on CKD. hypernatremia : sodium 150 range possible due to dec po intake nad diuretics use continue free water 250 ml @6hr ,also added d5w@ 60 ml/hr moniter bmp. cortez on ckd:Elevated creatinine. cr seems near her baseline dialysis catheter removed (02/08/23). sodium bicarb bed for Nephro. afib new onset( ekg 02/03) currently sinus rate controlled d/w cardio -add eliquis persistent encephalopathy, myopathy( multifactorial -critical care ,recent pna/chf , uremia ,function decline ) frequent oritentation encourage for po intake continue current management. chronic iron deficiency anemia continue iron supplementation hypertension: accetable range but flactuating ,hold off nifedipine and atenolol soc-hqwrslm-izvsyavmd type 2 diabetes: fs running 90-200's -POC glucose -diabetic diet -Humalog on sliding scale -hold metformin and gemfibrozil DVT prophylaxis-s/c heaprin DNR/DNI inaptient need:persistent encephalopathy, myopathy( multifactorial -critical care ,recent pna/chf , uremia ,function decline )-need mental status monitering ,not optimal yet Overall prognosis is very poor-discussed with the family. Time Spent With Patient Time: Total time managing care of this patient today ____ minutes. Quality Stroke Does the patient have a stroke diagnosis?: No VTE Prior VTE?: No VTE Risk Level:: Medical - moderate - high VTE Device Contraindication: N/A - Device Ordered VTE Drug Contraindication: Treatment Not Indicated
[2023-02-09 16:45] LABS: Glucose, Whole Blood 180 mg/dL (60-115)
[2023-02-09 19:36] VITALS: PULSE 79; RESP 22; TEMP 36.4; O2SAT 95
[2023-02-09 20:20] VITALS: BP 180/78
[2023-02-09 20:26] LABS: Glucose, Whole Blood 192 mg/dL (60-115)
[2023-02-10] MEDS: Heparin Sodium,Porcine 5,000 UNIT/ML VIAL 5000 UNIT SUBCUT ×2 (00:39→08:47)
[2023-02-10] MEDS: Dextrose 5 % 1,000 ML 60 ML IVCONT (00:39)
[2023-02-10 03:38] VITALS: BP 168/50; PULSE 80; RESP 18; TEMP 36.2; O2SAT 95
[2023-02-10] MEDS: Omeprazole 20 MG CAPSULE.DR PO (06:02)
[2023-02-10] MEDS: Thiamine HCL 200 MG in 0.9 % Sodium Chloride 100 ML 204 MG IV (06:02)
[2023-02-10 06:54] LABS: Anion Gap 16 (12-20); Blood Urea Nitrogen 33 mg/dL (9-16); Calcium 9.6 mg/dL (8.4-10.2); Carbon Dioxide 21 mmol/L (22-29); Chloride 113 mmol/L (96-108); Creatinine Clr Calc Pharmacy 25.3; Estimated Glomerular Filt Rate 31; Glucose Random 113 mg/dL (60-115); Potassium 4.1 mmol/L (3.3-5.1); Sodium 146 mmol/L (135-145)
[2023-02-10 07:32] LABS: Glucose, Whole Blood 109 mg/dL (60-115)
--- NOTE | 2023-02-10 07:55 | P.PNNP_ITS ---
Subjective Subjective Date of Service: 02/10/23 Interval history: seen and examined Physical Exam 2 Vital Signs: Vital Signs: Last Vital Signs Temp 97.1 F 02/10/23 03:38 Pulse 80 02/10/23 03:38 Resp 18 02/10/23 03:38 BP 168/50 H 02/10/23 03:38 Pulse Ox 95 02/10/23 03:38 O2 Del Method Room Air 02/10/23 03:38 O2 Flow Rate 1 02/04/23 02:00 FiO2 30 02/03/23 08:56 BMI result Body Mass Index 29.6 Const: General: no acute distress HEENT: Head: Yes normocephalic and Yes atraumatic Neck: Neck: Yes supple Resp: Auscultation: diminished lung sounds Cardio: Heart sounds: S1 normal heart sound present and S2 normal heart sound present GI: Palpation (GI): Soft to palpation and nontender Extrem: General: Yes normal to inspection Objective Data Labs 02/08/23 10:18 02/10/23 06:03 Labs: Laboratory Results - last 24 hr 02/09/23 02/09/23 02/09/23 08:58 10:59 16:41 Hold Purple Top SEE NOTE Sodium 150 H Potassium 3.7 Chloride 117 H Carbon Dioxide 18 L Anion Gap 19 BUN 43 H Creatinine 1.90 H Estim Creat Clear Calc 21.1 Estimated GFR 25 POC Glucose 187 H 180 H Random Glucose 119 H Calcium 9.6 02/09/23 02/10/23 02/10/23 20:20 06:03 07:18 Hold Purple Top Sodium 146 H Potassium 4.1 Chloride 113 H Carbon Dioxide 21 L Anion Gap 16 BUN 33 H Creatinine 1.58 H Estim Creat Clear Calc 25.3 Estimated GFR 31 POC Glucose 192 H 109 Random Glucose 113 Calcium 9.6 Microbiology Microbiology Results: Microbiology 01/24/23 13:43 Blood - Venous Blood Culture - Final No growth after 5 days. 01/24/23 13:43 Blood - Venous Blood Culture - Final No growth after 5 days. 01/25/23 12:13 Sputum - Suctioned Gram Stain - Final 01/25/23 12:13 Sputum - Suctioned Sputum Culture - Final 01/25/23 16:43 Sputum - Suctioned Gram Stain - Final 01/25/23 16:43 Sputum - Suctioned Sputum Culture - Final No growth. 01/24/23 Unknown Urine clean catch - Urine collado top Urine Culture - Final Procedures Date of Service Date of Service: 02/10/23 Assessment & Plan Assessment and plan (1) CORTEZ (acute kidney injury): Status: Acute (2) Metabolic acidosis: Status: Acute (3) CKD (chronic kidney disease) stage 3, GFR 30-59 ml/min: Status: Acute Plan kidney function at baseline CORTEZ due to acute tubular injury resolved required HD s/p HD x 2 HD (last HD 02/01) underlying CKD baseline Scr ~ 1.8 mg/dl REC no need for HD anymore follow kidney function and electrolytes Time Spent With Patient Time: Total time managing care of this patient today ____ minutes. Progress Note: Quality Stroke Does the patient have a stroke diagnosis?: No
[2023-02-10 08:00] VITALS: BP 165/78; PULSE 77; RESP 16; TEMP 36.4; O2SAT 95
[2023-02-10] MEDS: Nystatin Powder 15 GM BOTTLE 1 APPL TOPICAL ×2 (08:49→21:05)
[2023-02-10] MEDS: Clotrimazole 1 % Cream 15 GM TUBE 1 APPL TOPICAL ×2 (08:49→21:08)
[2023-02-10] MEDS: LORazepam 2 MG/ML VIAL 0.5 MG IVPUSH ×2 (11:04)
[2023-02-10 11:22] LABS: Glucose, Whole Blood 124 mg/dL (60-115)
[2023-02-10] MEDS: LORazepam 2 MG/ML VIAL 1 MG IVPUSH (11:25)
[2023-02-10] MEDS: levETIRAcetam in NaCl (iso-os) 1,000 MG/100 ML PIGGYBACK 400 MG IV (11:27)
--- NOTE | 2023-02-10 12:13 | HO.PM.IMPN ---
Subjective Subjective Date of Service: 02/10/23 Interval History: encephalopathy Review of Systems more drowsy,seizure like activity right arm and facial twiching unable to obtain further info. Physical Exam Vital Signs: Vital Signs: Last Vital Signs Temp 97.6 F 02/10/23 08:00 Pulse 77 02/10/23 08:00 Resp 16 02/10/23 08:00 BP 165/78 H 02/10/23 08:00 Pulse Ox 95 02/10/23 08:00 O2 Del Method Room Air 02/10/23 08:00 O2 Flow Rate 1 02/04/23 02:00 FiO2 30 02/03/23 08:56 BMI result Body Mass Index 29.6 Appearance: drowsy cvs: rrr, [id number]. res: clear to auscultation ,no rhonchii or wheezing abd: no rebound or guarding ,nt, bs present. ext pulses present , no cyanosis. neuro:facial twiching ,right arm seizure like activity Objective Data Active Medications Acetaminophen (Acetaminophen 325 Mg Tablet) 650 mg PO Q4H PRN PRN Reason: Pain, Mild (Pain Scale 1-3) Last Admin: 02/05/23 20:27 Dose: 650 mg Documented By: ZAHEER Apixaban (Apixaban 2.5 Mg Tablet) 2.5 mg PO BID [facility] Last Admin: 02/10/23 08:53 Dose: Not Given Documented By: JE Non-Admin Reason: NOT WAKING ENOUGH TO TAKE PO Clotrimazole (Clotrimazole 1 % Cream 15 Gm Tube) 1 appl TOPICAL BID [facility]; Protocol Last Admin: 02/10/23 08:49 Dose: 1 appl Documented By: JE Dextrose (Dextrose 50 % 25 Gm/50 Ml Syringe) 25 gm IVPUSH Q15M PRN; Protocol PRN Reason: per Hypoglycemia Standing Ord. Docusate Sodium (Docusate Sodium 100 Mg Capsule) 100 mg PO DAILY PRN PRN Reason: Constipation Glucose (Glucose Gel 15 Gm Gel..Gram.) 15 gm PO Q15M PRN; Protocol PRN Reason: per Hypoglycemia Standing Ord. Heparin Sodium (Porcine) (Heparin Sodium,Porcine 5,000 Unit/Ml Vial) 5,000 unit SUBCUT Q8H [facility] Last Admin: 02/10/23 08:47 Dose: 5,000 unit Documented By: JE Thiamine HCl 200 mg/ Sodium (Chloride) 102 mls @ 204 mls/hr IV Q8H [facility] Last Infusion: 02/10/23 06:32 Dose: Infused Documented By: MONICA Dextrose (D5w) 1,000 mls @ 60 mls/hr IVCONT .[id number] [facility] Last Admin: 02/10/23 00:39 Dose: 60 mls/hr Documented By: MONICA Insulin Glargine (Insulin Glargine,Hum.Rec.Anlog 100 Unit/Ml 10 Ml Vial) 20 unit SUBCUT DAILY [facility] Last Admin: 02/10/23 08:52 Dose: Not Given Documented By: JE Non-Admin Reason: NOT EATING Insulin Human Lispro (Insulin Lispro 100 Unit/Ml 3 Ml Vial) 0 unit SUBCUT QIDACHS [facility]; Protocol Last Admin: 02/10/23 11:54 Dose: Not Given Documented By: JE Non-Admin Reason: No Insulin Coverage Nystatin (Nystatin Powder 15 Gm Bottle) 1 appl TOPICAL TID [facility]; Protocol Last Admin: 02/10/23 08:49 Dose: 1 appl Documented By: JE Nystatin (Nystatin Cream 15 Gm Tube) 1 appl TOPICAL BID [facility]; Protocol Last Admin: 02/10/23 08:54 Dose: Not Given Documented By: JE Non-Aniya Reason: USED POWDER Omeprazole (Omeprazole 20 Mg Capsule.) 20 mg PO BID@0630,1630 [facility] Last Admin: 02/10/23 06:02 Dose: 20 mg Documented By: MONICA Sodium Bicarbonate (Sodium Bicarbonate 650 Mg Tablet) 650 mg PO QID [facility] Last Admin: 02/10/23 08:53 Dose: Not Given Documented By: JE Non-Admin Reason: NOT AWAKE ENOUGH TO TAKE PO Sodium Chloride (0.9 % Sodium Chloride Flush 3 Ml Syringe) 3 ml IVFLUSH QSHIFT [facility] Last Admin: 02/10/23 08:46 Dose: Not Given Documented By: JE Non-Aniya Reason: IV Running Labs 02/08/23 10:18 02/10/23 06:03 Labs: Laboratory Results - last 24 hr 02/09/23 02/09/23 02/10/23 16:41 20:20 06:03 Anion Gap 16 Estim Creat Clear Calc 25.3 Estimated GFR 31 POC Glucose 180 H 192 H Random Glucose 113 Calcium 9.6 02/10/23 02/10/23 07:18 11:17 Anion Gap Estim Creat Clear Calc Estimated GFR POC Glucose 109 124 H Random Glucose Calcium Assessment and Plan (1) CKD (chronic kidney disease) stage 3, GFR 30-59 ml/min: Status: Acute (2) CORTEZ (acute kidney injury): Status: Acute (3) Critical illness myopathy: Status: Acute (4) Metabolic encephalopathy: Status: Acute Plan 87 Y F, with hypertension, diabetes mellitus, diastolic heart failure, aortic stenosis, admitted on 01/24/2023 w/ dyspnea, admitted floor; course c/b hypoxia, s/p intubation 01/25, treated for heart failure exacerbation and pneumonia/chf , extubation 02/01; ICU course c/b renal failure, received on hemodialysis, persistent encephalopathy, myopathy,new afib. Transferred back from ICU (02/04/23) , still has decreased p.o. intake hyponatremia, also possible seizure: Patient was treated with antibiotics, IV diuretics,cortez on ckd with hd also, still had persistent encephalopathy, decreased p.o. intake and hyponatremia also possible seizure: Patient did not improve with supportive care, hydration, also given seizure medication-subsequently discussed with the patient's family -decide decided for comfort measures only, no tube feeding,no blood draws. Time Spent With Patient Time: Total time managing care of this patient today ____ minutes. Quality Stroke Does the patient have a stroke diagnosis?: No VTE Prior VTE?: No VTE Risk Level:: Medical - moderate - high VTE Device Contraindication: N/A - Device Ordered VTE Drug Contraindication: Treatment Not Indicated
[2023-02-10 12:38] LABS: Magnesium 1.8 mg/dL (1.6-2.6)
[2023-02-10] MEDS: Scopolamine 1.5 MG PATCH.TD.3 TRANSDERMA (13:21)
--- NOTE | 2023-02-10 15:39 | MHC.PIE ---
1039: Pt found to have right sided facial and arm twitching. Remains not responding to her name. Eyes closed. Dr Hammer in to see pt. Ativan 0.5mg IV ordered in pt JUN. After removing Ativan vial from pyxis, verbally stated to give pt 1mg IV Ativan total. Dose given at 1104. MD entered 0.5 mg twice in JUN to total the 1mg given. (1mg wasted). 1115: Pt remains having the facial twitching and arm twitching motions, Dr Hammer notified, additional ativan 1mg IV ordered and given as well as IV Keppra. POC 124 1145: Pt twitching motions have decreased with an occasional twitch of her right shoulder. 1224: Pts daughter, son and Daughter in law here. Dr Hammer notified and in to see family. After discussion with family, pt will be made comfort measures. Awaiting HAND II THERMAL CUTTER orders
[2023-02-10] MEDS: Morphine Sulfate 2 MG/ML CARTRIDGE IVPUSH (16:36)
--- NOTE | 2023-02-10 18:34 | PC.NURSE ---
Pt medicated this shift with morphine for increased resp. Orally suctioned with coltonkar for small amount of secretions. Repositioned onto side. Daughter presently at bedside
--- NOTE | 2023-02-11 06:05 | PC.NURSE ---
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 provided suctioning once, Q2R, hourly round. RR 16 to 20. comfortably sleeping. some times open and close the mouth. will CONT monitor.
[2023-02-11 06:31] VITALS: RESP 20
[2023-02-11 08:09] LABS: Prolactin 6.1 ng/mL
--- NOTE | 2023-02-11 09:31 | MHC.SLORD ---
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 Please re-refer if GLASS MELT OPERATOR can be of further assistance.
[2023-02-11] MEDS: Nystatin Powder 15 GM BOTTLE 1 APPL TOPICAL ×2 (09:58→21:56)
--- NOTE | 2023-02-11 11:03 | MHC.CM.PN ---
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 A hospitality cart and comfort pack are in place. No plan to discharge at this time.
--- NOTE | 2023-02-11 11:17 | MHC.CLN ---
F/U STATUS CHANGED TO STUDENT SERVICES REPRESENTATIVE. PATIENT IS NOW NPO. RD AVAILABLE NEEDED.
--- NOTE | 2023-02-11 13:49 | P.PNIM_ITS ---
Subjective Subjective Date of Service: 02/11/23 Interval History: encephalopathy Review of Systems sleepy,unable to obtain Physical Exam 2 Vital Signs: Vital Signs: Last Vital Signs Temp 97.6 F 02/10/23 08:00 Pulse 77 02/10/23 08:00 Resp 20 02/11/23 06:31 BP 165/78 H 02/10/23 08:00 Pulse Ox 95 02/10/23 08:00 O2 Del Method Room Air 02/10/23 08:00 O2 Flow Rate 1 02/04/23 02:00 FiO2 30 02/03/23 08:56 BMI result Body Mass Index 29.6 cvs: rrr, [id number]. res: clear to auscultation ,no rhonchii or wheezing abd: no rebound or guarding ,nt, bs present. ext pulses present , no cyanosis. neuro:unable to obtain. Objective Data Active Medications Docusate Sodium (Docusate Sodium 100 Mg Capsule) 100 mg PO DAILY PRN PRN Reason: Constipation Glucose (Glucose Gel 15 Gm Gel..Gram.) 15 gm PO Q15M PRN; Protocol PRN Reason: per Hypoglycemia Standing Ord. Lorazepam (Lorazepam 2 Mg/Ml Vial) 1 mg IVPUSH Q2H PRN PRN Reason: anxiety/seizure Morphine Sulfate (Morphine Sulfate 2 Mg/Ml Cartridge) 2 mg IVPUSH Q4H PRN PRN Reason: Discomfort/Shortness of breath Last Admin: 02/10/23 16:36 Dose: 2 mg Documented By: JE Nystatin (Nystatin Powder 15 Gm Bottle) 1 appl TOPICAL TID [facility]; Protocol Last Admin: 02/11/23 09:58 Dose: 1 appl Documented By: VIRY Nystatin (Nystatin Cream 15 Gm Tube) 1 appl TOPICAL BID [facility]; Protocol Last Admin: 02/11/23 10:00 Dose: Not Given Documented By: VIRY Non-Admin Reason: used powder Scopolamine (Scopolamine 1.5 Mg Patch.Td.3) 1.5 mg TRANSDERMA Q72H [facility] Last Admin: 02/10/23 13:21 Dose: 1.5 mg Documented By: JE Labs 02/08/23 10:18 02/10/23 06:03 Labs: Laboratory Results - last 24 hr 02/10/23 11:10 Prolactin 6.1 Assessment and Plan (1) Critical illness myopathy: Status: Acute (2) Metabolic encephalopathy: Status: Acute (3) CKD (chronic kidney disease) stage 3, GFR 30-59 ml/min: Status: Acute Plan 87 Y F, with hypertension, diabetes mellitus, diastolic heart failure, aortic stenosis, admitted on 01/24/2023 w/ dyspnea, admitted floor; course c/b hypoxia, s/p intubation 01/25, treated for heart failure exacerbation and pneumonia/chf , extubation 02/01; ICU course c/b renal failure, received on hemodialysis, persistent encephalopathy, myopathy,new afib. Transferred back from ICU (02/04/23) , still has decreased p.o. intake hyponatremia, also possible seizure: Patient was treated with antibiotics, IV diuretics,miguel on ckd with hd also, still had persistent encephalopathy, decreased p.o. intake and hyponatremia also possible seizure: Patient did not improve with supportive care, hydration, also given seizure medication-subsequently discussed with the patient's family - decide decided for comfort measures only, no tube feeding,no blood draws. Time Spent With Patient Time: Total time managing care of this patient today ____ minutes. Quality Stroke Does the patient have a stroke diagnosis?: No VTE Prior VTE?: No VTE Risk Level:: Medical - moderate - high VTE Device Contraindication: N/A - Device Ordered VTE Drug Contraindication: Treatment Not Indicated
[2023-02-11] MEDS: Morphine Sulfate 2 MG/ML CARTRIDGE IVPUSH (16:25)
[2023-02-12] MEDS: Morphine Sulfate 2 MG/ML CARTRIDGE IVPUSH ×3 (05:40→09:38)
--- NOTE | 2023-02-12 06:11 | PC.NURSE ---
pt is more gurgling sounds and right side twitching after 0400. provided suctioning 3 times with deep suction, morphine 2mg at 05:45 and repositioned q2. will CONT monitor.
[2023-02-12] MEDS: LORazepam 2 MG/ML VIAL 1 MG IVPUSH (07:23)
[2023-02-12] MEDS: Nystatin Powder 15 GM BOTTLE 1 APPL TOPICAL (07:26)
--- NOTE | 2023-02-12 11:13 | PM.DDS ---
Discharge Sum: Prov Provider Primary care physician: Kali Cedillo MD Admitting clinician: Kayla Hammer Attending physician on admission: Kayla Hammer Consults: 01/24/23 13:44 Consult to Cardiology Routine Consulting Provider: [facility] [place] Cardiovascular Services Reason for consultation: new onset fib, chf exacerbation 01/24/23 16:08 Consult to Nephrology Routine Consulting Provider: Eusebio Chaparro Reason for consultation: miguel on ckd in setting of chf Has provider been notified: No 01/24/23 16:40 Consult to Infectious Diseases Routine Consulting Provider: [facility] [place] Infectious Disease Reason for consultation: pneumonia Has provider been notified: No 01/25/23 08:26 Consult to Critical Care Routine Consulting Provider: Ana Clinton Reason for consultation: level of care Has provider been notified: No 02/06/23 14:48 Consult to Wound Care Routine Consulting Provider: [facility] [place] Wound Care Management Reason for consultation: b/l buttock ulcer Has provider been notified: No Discharge Sum: Diag Contributing Factors (1) Critical illness myopathy: (2) Metabolic encephalopathy: (3) CKD (chronic kidney disease) stage 3, GFR 30-59 ml/min: Discharge Sum: Summary Date and Time Date of admission: 01/24/23 13:40 Date of : 02/12/23 Time of : 10:21 Summary Details: 87 year old female with history of HFpEF, , htn, hld, iron deficiency anemia, pulmonary hypertension, and abo-lullbln-lttzdnnej type 2 diabetes presented to the ED earlier today for evaluation of shortness of breath and generalized weakness ongoing for 2 days. She also states she has had a nonproductive cough, orthopnea, pleuritic chest pain, and chest congestion. She describes shortness of breath as a dyspnea on exertion with minimal shortness of breath at rest. She has also had increased bilateral lower extremity edema. Denies any sick contacts at home. No fevers, chills, sore throat, abdominal pain, nausea, vomiting, diarrhea, palpitations, lightheadedness, or chest pressure. On arrival, patient hypoxic to 88% placed on 2 L supplemental O2 maintaining oximetry run 93%. She has also been tachypneic to 26 with heart rates in the 90s. Blood pressure is soft but no hypotension. She has leukocytosis of 17.7. Creatinine elevated from baseline at 2.43 (baseline around 1.93), BUN 74, electrolytes normal. BNP 1638. Negative for COVID-19, influenza. Chest x-ray shows large area of opacification in the left lung involving lingula and left upper lobe consistent with pneumonia and probable small left pleural effusion as well as cardiomegaly. EKG shows atrial fibrillation, rate [address]/T-wave abnormality. Hospital course: 87 y/o F pmhx with hypertension, diabetes mellitus, diastolic heart failure, aortic stenosis, admitted on 01/24/2023 w/ dyspnea, admitted floor- for acute hypoxemic respiratory failure secondary to chf and pneumonia - started on iv diuresis and antibiotics -respiratory failure did not improve needed s/p intubation 01/25, treated for heart failure exacerbation and pneumonia/chf , extubation 02/01, ICU course c/b renal failure, received on hemodialysis, persistent encephalopathy, myopathy,new afib. Transferred back from ICU (02/04/23) , still has decreased p.o. intake hyponatremia, also possible seizure:Patient was treated with antibiotics, IV diuretics,miguel on ckd with hd also, still had persistent encephalopathy, decreased p.o. intake and hyponatremia also possible seizure: Patient did not improve with supportive care, hydration, also given seizure medication-subsequently discussed with the patient's family -decide decided for comfort measures only, no tube feeding,no blood draws. Patient passed comfortably today ,prononunced 10:21am. hcp- Family notified. Additional Data Confirmation of as documented by pronouncing clinician: no pulse, no respirations, no heart sounds and pupils fixed and dilated Family: contacted Attending physician: Kayla Hammer MD Was code activated?: No Autopsy requested?: No disability examiner notified?: No
--- NOTE | 2023-02-12 11:31 | PC.NURSE ---
Patient peacefully and quietly at 10:20am. declared the patient .
[2023-04-06 14:02] LABS: Baso%MD 0.6 %; Eos%MD 3.2 %; IG%MD 5.8 %; Lymph%MD 6.1 %; Mono%MD 7.2 %; Neut%MD 77.1 %
== END 2023-02-12 15:35 | disposition expired | DRG 870 ==
LOC: HO.ED 13:33 → HO.EDOVER 13:59 → HO.IMC 14:24 → HO.ICU 01-25 10:41 → HO.S3 02-04 16:08
PROVIDERS: Internal Medicine; Internal Medicine Cardiovascular Disease; Internal Medicine Critical Care Medicine; Internal Medicine Nephrology; Internal Medicine Pulmonary Disease; Registered Nurse Community Health; Registered Nurse Emergency; Admitting Provider Physician Assistant; Emergency Provider Emergency Medicine; PCP Internal Medicine; Visit Provider Internal Medicine
DX: A41.9 Sepsis, unspecified organism (principal); G93.41 Metabolic encephalopathy; I50.33 Acute on chronic diastolic (congestive) heart failure; J18.9 Pneumonia, unspecified organism; J96.01 Acute respiratory failure with hypoxia; N17.0 Acute kidney failure with tubular necrosis; R65.21 Severe sepsis with septic shock; E87.20 Acidosis, unspecified; I13.0 Hypertensive heart and chronic kidney disease with heart failure and stage 1 through stage 4 chronic kidney disease, or unspecified chronic kidney disease; G72.81 Critical illness myopathy; N18.30 Chronic kidney disease, stage 3 unspecified; Z66 Do not resuscitate; E78.5 Hyperlipidemia, unspecified; D50.9 Iron deficiency anemia, unspecified; I35.0 Nonrheumatic aortic (valve) stenosis; I34.81 Nonrheumatic mitral (valve) annulus calcification; I50.82 Biventricular heart failure; I48.91 Unspecified atrial fibrillation; I27.20 Pulmonary hypertension, unspecified; L89.322 Pressure ulcer of left buttock, stage 2; E11.22 Type 2 diabetes mellitus with diabetic chronic kidney disease; D63.1 Anemia in chronic kidney disease; L89.312 Pressure ulcer of right buttock, stage 2; R56.9 Unspecified convulsions; Z20.822 Contact with and (suspected) exposure to COVID-19; Z23 Encounter for immunization; Z87.891 Personal history of nicotine dependence; Z79.82 Long term (current) use of aspirin; Z79.84 Long term (current) use of oral hypoglycemic drugs; Z79.899 Other long term (current) drug therapy
CPT/HCPCS: 36415; 71045; 71046; 71250; 80048; 80053; 81001; 82010; 82040; 82436; 82803; 82947; 83605; 83735; 83880; 84100; 84133; 84145; 84146; 84300; 84443; 85007; 85014; 85018; 85025; 85027; 85610; 86021; 86704; 86706; 87040; 87070; 87086; 87205; 87340; 87449; 87502; 87635; 87899; 90471; 90686; 90999; 92526; 92610; 93005; 94002; 94003; 94640; 94799; 97163; 97530; 99285; C1758; J0456; J0696; J1160; J1643; J1650; J1940; J1953; J2060; J2250; J2270; J2543; J3010; J3411; P9047

== ENCOUNTER → 2023-01-24 13:40 | Outpatient (BNV) | payer MEDICARE, OTHER, SELFPAY | PROVIDERS: Admitting Provider Physician Assistant; Emergency Provider Emergency Medicine; PCP Internal Medicine; Visit Provider Internal Medicine Pulmonary Disease | DX: I50.33 Acute on chronic diastolic (congestive) heart failure (principal); J96.01 Acute respiratory failure with hypoxia; J18.9 Pneumonia, unspecified organism; N18.9 Chronic kidney disease, unspecified | CPT/HCPCS: 36556; 99291 ==

== ENCOUNTER → 2023-01-24 13:40 | Outpatient (BNV) | payer MEDICARE, OTHER, SELFPAY | PROVIDERS: Admitting Provider Physician Assistant; Emergency Provider Emergency Medicine; PCP Internal Medicine; Visit Provider Internal Medicine | DX: J96.01 Acute respiratory failure with hypoxia (principal); I50.33 Acute on chronic diastolic (congestive) heart failure; J18.9 Pneumonia, unspecified organism; N17.9 Acute kidney failure, unspecified; N18.9 Chronic kidney disease, unspecified | CPT/HCPCS: 99223 ==

== ENCOUNTER → 2023-01-24 13:40 | Outpatient (BNV) | payer MEDICARE, OTHER, SELFPAY | PROVIDERS: Admitting Provider Physician Assistant; Emergency Provider Emergency Medicine; PCP Internal Medicine; Visit Provider Internal Medicine | DX: J96.01 Acute respiratory failure with hypoxia (principal); J18.9 Pneumonia, unspecified organism | CPT/HCPCS: 99222; 99232 ==

== ENCOUNTER → 2023-01-24 13:40 | Outpatient (BNV) | payer MEDICARE, OTHER, SELFPAY | PROVIDERS: Admitting Provider Physician Assistant; Emergency Provider Emergency Medicine; PCP Internal Medicine; Visit Provider Internal Medicine Cardiovascular Disease | DX: G72.81 Critical illness myopathy (principal); G93.41 Metabolic encephalopathy; I50.32 Chronic diastolic (congestive) heart failure | CPT/HCPCS: 31500; 36556; 99291 ==

== ENCOUNTER → 2023-01-24 13:40 | Outpatient (BNV) | payer MEDICARE, OTHER, SELFPAY | PROVIDERS: Admitting Provider Physician Assistant; Emergency Provider Emergency Medicine; PCP Internal Medicine; Visit Provider Physician Assistant | DX: N18.30 Chronic kidney disease, stage 3 unspecified (principal); G72.81 Critical illness myopathy; G93.41 Metabolic encephalopathy | CPT/HCPCS: 99223; 99231; 99232; 99233; 99239 ==